=== PATIENT | female | born 1970 | race Hispanic/Latino ===

== ENCOUNTER 2016-10-05 13:45 | Emergency (ER) | payer OTHER ==
[~2016-10-05] VITALS: Ht 152.4 cm; Wt 63.5 kg
[~2016-10-05 13:45] MED LIST: ACHYD1T PO; ALPR.25T PO; ALPR.5T PO; ALPR2TAB2 PO; ALPR2TAB6 PO; CIPR500T4 PO; CPR500T; CYCL10TA9 PO; CYCL5TAB PO; DCS100C PO; DIAZ10TA3 PO; DZPM2T PO; FERR325C PO; FLUO20CA25 PO; FLUT16SP22; GLIM2TAB PO; HYDR-2890 PO; HYDR-3714 PO; HYDR-3720 PO; HYDR-3816 PO; HYDR-3820 PO; IBP800T PO; INSU100I10 SC; INSU100I10 SQ; INSULIN; LOSA25TA21 PO; METF500T4 PO; METFOR850T PO; METR500T PO; MTF500T PO; NORG1TAB15 PO; ONDA8TAB13 PO; ONDAN4ODT PO; PHEN200T27 PO; PREN1TAB39 PO; PROMETHAZINE-CODEINE PO; PROP1TAB77 PO; PROP20TA5 PO; RANI150T66; RT-ALBUINH INH; SITA100T12 PO; TRM50T PO; [UNRECOGNIZED DRUG - REMARK]
--- OUTSIDE RECORDS SUMMARY | 2016-10-05 13:57 | XMS REPORT | Continuity of Care Document ---
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 Name Role Phone ANN MARIE CADE MD PCP Insurance Providers Payer Name Policy Number Subscriber Name Relationship [facility] [id number] Nadira Sutherland 18 Self / Same As Patient Self Pay Pending [facility] Apprv [id number] Nadira Sutherland 18 Self / Same As Patient Advance Directives Directive Response Recorded Date/Time Advance Directives No 02/05/16 3:42am Health Care Power of Precision Honer No 02/05/16 3:42am Organ Donor No 02/05/16 3:42am Resuscitation Status Full Code 02/05/16 3:42am Chief Complaint and Reason for Visit Chief Complaint CHEST PAIN; HTN Reason for Visit Nephrolithiasis Syncopal episodes Uncontrolled diabetes mellitus Uncontrolled diabetes mellitus Upper respiratory infection Problems Active Problems Medical Problem Onset Date Status Abdominal pain Unknown Acute Altered mental status Unknown Acute Anxiety Unknown Acute Chest pain Unknown Acute Chest wall contusion Unknown Acute Diabetes mellitus Unknown Acute Diabetes mellitus Unknown Acute HTN (hypertension) Unknown Acute Hypotension Unknown Acute IDDM (insulin dependent diabetes mellitus) Unknown Acute Nephrolithiasis Unknown Acute Ovarian cyst Unknown Acute Recurrent acute pancreatitis Unknown Acute Sprain of knee Unknown Acute Syncopal episodes Unknown Acute Uncontrolled diabetes mellitus Unknown Acute Uncontrolled diabetes mellitus Unknown Acute Upper respiratory infection Unknown Acute Medications Current Home Medications Medication Dose Units Route Directions Days/Qty Instructions Start Date Losartan Potassium 25 Mg 25 Mg Oral Daily 12/01/15 Metformin Hcl 500 Mg 500 Mg Oral Twice A Day 12/01/15 Fluoxetine Hcl 20 Mg 20 Mg Oral Daily 12/01/15 Propranolol Hcl 20 Mg 20 Mg Oral Twice A Day 12/01/15 Sitagliptin Phosphate 100 Mg 100 Mg Oral Daily 12/01/15 Norgestimate-Ethinyl Estradiol 1 Each 1 Tab Oral Daily 12/01/15 Insulin Glargine,Hum.rec.anlog 100 Unit/1 Ml 20 Units Subcutaneously Bedtime 12/01/15 Alprazolam 2 Mg 1-2 Mg Oral Every 4-6 Hours as needed for Anxiety TAKES 1/2 TO 1 (2MG) TABLET 12/01/15 Alprazolam 2 Mg 2 Mg Oral Bedtime 02/06/16 Past Home Medications Medication Directions Ordered Status Ranitidine Hcl 150 Mg Tablet, 09/13/09 Discontinued Ciprofloxacin 500 Mg Tablet, 09/13/09 Discontinued [Green Pill] , 05/16/10 Discontinued Diazepam 10 Mg Tablet, 1 Each Oral Daily 05/17/10 Discontinued Glimepiride 2 Mg Tablet, 2 Mg Oral Daily 05/17/10 Discontinued Metformin Hcl (Glucophage) 850 Mg Tablet, 1 Each Oral Twice A Day 05/17/10 Discontinued Propoxyphene Hcl/Acetaminophen 1 Tab Tablet, 1 Each Oral Q 4 - 6 Hrs Prn 09/25 Discontinued Vits W-Ca,Fe,Fa(<1MG) 1 Each Tablet, 1 Tab Oral Daily 09/20/10 Discontinued [Insulin] , 10/30/10 Discontinued Metformin Hcl (Glucophage) 500 Mg Tablet, 1 Each Oral Twice A Day With Meals 12/03/10 Discontinued Hydrocodone Bit/Acetaminophen 1 Each Tablet, 1 Each Oral Every 3 Hours as needed 01/31/11 Discontinued Ferrous Sulfate 325 ( 65 )Mg Capsule.sa, 325 ( Oral Once A Day 01/31/11 Discontinued Docusate Sodium 100 Mg Capsule, 100 Mg Oral Twice A Day 01/31/11 Discontinued Ibuprofen 800 Mg Tab, 800 Mg Oral Every 6 Hours as needed 01/31/11 Discontinued Diazepam 2 Mg Tablet, 2 Mg Oral Bedtime 10/06/11 Discontinued Alprazolam 0.25 Mg Tablet, 1 Tab Oral Three Times A Day And Prn 12/28/11 Discontinued [Insulin] , 01/03/12 Discontinued Acetaminophen/Hydrocodone Bitart 1 Tab Tablet, 1 - 2 Tab Oral Q 3 Hrs as needed 01/04/12 Discontinued Alprazolam 0.5 Mg Tablet, 1 Tab Oral Three Times A Day And Prn 02/04/12 Discontinued Alprazolam 0.25 Mg Tablet, 1 Tab Oral Three Times A Day And Prn 08/17/12 Discontinued Acetaminophen/Hydrocodone Bitart ([place]) 1 Each Tablet, 1 Each Oral Q4hr Prn 11/03/12 Discontinued Metformin Hcl (Glucophage) 500 Mg Tablet, 500 Mg Oral Twice A Day With Meals 04/16/14 Discontinued Ciprofloxacin 500 Mg Tab, 1 Tab Oral Twice A Day 07/12/14 Discontinued Cyclobenzaprine Hcl 5 Mg Tablet, 1 Tab Oral Daily 07/12/14 Discontinued [Promethazine-Codeine] , 1 Ea Oral As Needed 07/12/14 Discontinued Ciprofloxacin Hcl 500 Mg Tablet, 500 Mg Oral Twice A Day 08/09/14 Discontinued Phenazopyridine Hcl 200 Mg Tablet, 1 Each Oral Three Times A Day And Prn as needed for Pain 08/09/14 Discontinued Ondansetron 8 Mg Tab.rapdis, 8 Mg Oral Every 6 Hours as needed for Nausea/ Vomiting 08/09/14 Discontinued Hydrocodone Bit/Acetaminophen 1 Tab Tablet, 1 Tab Oral Every 4HRS as needed for Pain 08/09/14 Discontinued Insulin Glargine 300 Unit/3 Ml Insuln.pen, 20 Units Sub-Q Bedtime as needed for Blood Sugar > 200 10/28/14 Discontinued Metronidazole 500 Mg Tablet, 500 Mg Oral Three Times A Day 10/30/14 Discontinued Hydrocodone/Acetaminophen 1 Each Tablet, 1 Tab Oral Every 4HRS as needed for Pain 12/01/15 Discontinued Fluticasone Propionate 16 Gm [place].susp, 12/01/15 Discontinued Hydrocodone/Acetaminophen 1 Each Tablet, 1 Each Oral Every 6 Hours 12/01/15 Discontinued Hydrocodone/Acetaminophen 1 Each Tablet, 1 Each Oral Every 6 Hours as needed for Pain 12/01/15 Discontinued Albuterol Sulfate 18 Gm Hfa.aer.ad, 2 Puff Inhalation Four Times Daily as needed for Shortness Of Breath 02/06/16 Discontinued Social History Social History Problem Response Recorded Date/Time Alcohol Use Denies Use 02/05/2016 3:38am Recreational Drug Use No 02/05/2016 3:38am Recent Foreign Travel No 02/05/2016 3:38am Recent Infectious Disease Exposure No 02/05/2016 3:38am Hospitalization with Isolation Denies 02/28/2016 2:34pm Smoking Status Never a Smoker 02/05/2016 3:38am Do you dip or chew tobacco? No 02/04/2016 11:43pm Query Response Start Date Stop Date Smoking Status Never a Smoker Hospital Discharge Instructions Patient Instructions Physician Instructions Plan of Care/Instructions/FU: Do not eat or drink until seen by Dr. junior [place]. Nurses here will give him instructions as to where you are to present at [facility] Activity as Tolerated: Yes Goal: Specialty evaluation of persistent pancreatitis problem Discharge Diet: Other Diet Care Plan Patient Instructions:: Do not eat or drink until seen by Dr. junior [place].Nurses here will give him instructions as to where you are to present [facility] Goal:: Specialty evaluation of persistent pancreatitis problem Plan of Care Discharge Date 02/08/16 10:00am Disposition 02 XFER SHT-TRM HOSP Instructions/Education Provided Pancreatitis (DC) Prescriptions See Medication Section Care Plan and Goals See Discharge Instructions Section Functional Status Query Response Date Recorded Patient Orientation Person Place Time Situation February 28, 2016 2:34pm Comprehension Ability Understands Concepts February 06, 2016 8:10pm Allergies, Adverse Reactions, Alerts Allergen Type Severity Reaction Status Last Updated ceftriaxone ([id number]) Allergy Unknown Active 12/01/15 Immunizations Name Given Type Date of Influenza Vaccine 07/17/14 Historical Hepatitis A No Historical Hepatitis B No Historical Tetanus Booster (TDap) Unknown Historical Vital Signs Acute Vital Signs Vital Response Date/Time Temperature (Fahrenheit) 97.6 degrees F (97.6 - 99.5) 02/08/2016 2:05pm Temperature (Calculated Celsius) 36.38297 degrees C (36.4 - 37.5) 02/08/2016 2:00pm Temperature Source Temporal 02/08/2016 2:05pm Pulse Rate (adult) 83 bpm (60 - 90) 02/08/2016 2:05pm Respiratory Rate 16 bpm (12 - 24) 02/08/2016 2:05pm O2 Sat by Pulse Oximetry 97 % (88 - 100) 02/08/2016 2:05pm Blood Pressure 124/58 mm Hg 02/08/2016 2:05pm Blood Pressure Mean 90 mm Hg 02/08/2016 2:00pm Pain Pain Intensity 6 02/08/2016 2:00pm Height (Feet) 5 feet 02/05/2016 5:24am Height (Inches) 3.00 inches 02/05/2016 5:24am Height (Calculated Centimeters) 160.926809 cm 02/05/2016 5:24am Weight (Pounds) 122 pounds 02/08/2016 6:00am Weight (Ounces) 0.0 oz 02/08/2016 6:00am Weight (Calculated Grams) 45380.270 gm 02/08/2016 6:00am Weight (Calculated Kilograms) 55.100812 kilograms 02/08/2016 6:00am Calculated BMI 20.8 02/05/2016 5:24am Results Laboratory Results Test Name Result Units Flags Reference Collection Date/Time Result Date/ Time Comments White Blood Count 8.7 10^3/uL 4.3-11.0 02/07/2016 8:08am 02/07/2016 8: 15am Red Blood Count 4.10 10^6/uL L 4.35-5.85 02/07/2016 8:08am 02/07/2016 8: 15am Hemoglobin 12.1 G/DL 11.5-16.0 02/07/2016 8:08am 02/07/2016 8:15am Hematocrit 37 % 35-52 02/07/2016 8:08am 02/07/2016 8:15am Mean Corpuscular Volume 91 FL 80-99 02/07/2016 8:08am 02/07/2016 8: 15am Mean Corpuscular Hemoglobin 30 PG 25-34 02/07/2016 8:08am 02/07/2016 8: 15am Mean Corpuscular Hemoglobin Concent 32 G/DL 32-36 02/07/2016 8:08am 8:15am Red Cell Distribution Width 12.2 % 10.0-14.5 02/07/2016 8:08am 2015 8:15am Platelet Count 326 10^3/uL 130-400 02/07/2016 8:08am 02/07/2016 8:15am Mean Platelet Volume 10.1 FL 7.4-10.4 02/07/2016 8:08am 02/07/2016 8: 15am Neutrophils (%) (Auto) 79 % H 42-75 02/06/2016 7:51am 02/06/2016 8:05am Lymphocytes (%) (Auto) 14 % 12-44 02/06/2016 7:51am 02/06/2016 8:05am Monocytes (%) (Auto) 7 % 0-12 02/06/2016 7:51am 02/06/2016 8:05am Eosinophils (%) (Auto) 0 % 0-10 02/06/2016 7:51am 02/06/2016 8:05am Basophils (%) (Auto) 0 % 0-10 02/06/2016 7:51am 02/06/2016 8:05am Neutrophils # (Auto) 7.3 X 10^3 1.8-7.8 02/06/2016 7:51am 02/06/2016 8: 05am Lymphocytes # (Auto) 1.3 X 10^3 1.0-4.0 02/06/2016 7:51am 02/06/2016 8: 05am Monocytes # (Auto) 0.6 X 10^3 0.0-1.0 02/06/2016 7:51am 02/06/2016 8: 05am Eosinophils # (Auto) 0.0 10^3/uL 0.0-0.3 02/06/2016 7:51am 02/06/2016 8 :05am Basophils # (Auto) 0.0 10^3/uL 0.0-0.1 02/06/2016 7:51am 02/06/2016 8: 05am Neutrophils % (Manual) 78 % 02/04/2016 11:55pm 02/05/2016 12:37am Band Neutrophils 1 % 02/04/2016 11:55pm 02/05/2016 12:37am Lymphocytes % (Manual) 17 % 02/04/2016 11:55pm 02/05/2016 12:37am Monocytes % (Manual) 2 % 02/04/2016 11:55pm 02/05/2016 12:37am Eosinophils % (Manual) 2 % 02/04/2016 11:55pm 02/05/2016 12:37am Basophils % (Manual) 0 % 02/04/2016 11:55pm 02/05/2016 12:37am Anisocytosis SLIGHT 02/04/2016 11:55pm 02/05/2016 12:37am Prothrombin Time 11.9 SEC L 12.2-14.7 02/04/2016 11:55pm 02/05/2016 12: 25am INR Comment 0.9 0.8-1.4 02/04/2016 11:55pm 02/05/2016 12:25am INTERPRETIVE DATA SUGGESTED THERAPEUTIC RANGE FOR INR'S: VENOUS THROMBOSIS, PULMONARY EMBOLISM, OR PREVENTION OF SYSTEMIC EMBOLISM (EG. IN ATRIAL FIBRILLATION): 2.0 - 3.0 MECHANICAL PROSTHETIC HEART VALVES: 2.5 - 3.5* *NOTE: INR'S UP TO 4.5 MAY BE NECESSARY IN SELECTED GROUPS OF HIGH RISK PATIENTS. [employer] CONSENSUS CONFERENCE ON ANTITHROMBOTIC THERAPY (2000). Activated Partial Thromboplast Time 23 SEC L 24-35 02/04/2016 11:55pm 12:25am Sodium Level 138 MMOL/L 135-145 02/07/2016 8:08am 02/07/2016 8:41am Potassium Level 4.2 MMOL/L 3.6-5.0 02/07/2016 8:08am 02/07/2016 8:41am Chloride Level 107 MMOL/L 98-107 02/07/2016 8:08am 02/07/2016 8:41am Carbon Dioxide Level 21 MMOL/L 21-32 02/07/2016 8:08am 02/07/2016 8: 41am Anion Gap 10 MMOL/L 5-14 02/07/2016 8:08am 02/07/2016 8:41am Blood Urea Nitrogen 5 MG/DL L 7-18 02/07/2016 8:08am 02/07/2016 8:41am Creatinine 0.50 MG/DL L 0.60-1.30 02/07/2016 8:08am 02/07/2016 8:41am BUN/Creatinine Ratio 10 02/07/2016 8:08am 02/07/2016 8:41am Estimat Glomerular Filtration Rate > 60 02/07/2016 8:08am 2015 8:41am GFR INTERPRETIVE DATA UNITS FOR ESTIMATED GFR (eGFR): mL/min/1.73 M2 REFERENCE RANGE FOR ESTIMATED GFR (eGFR) eGFR NORMAL eGFR >60 MODERATELY DECREASED eGFR 30-59 SEVERLY DECREASED eGFR 15-29 KIDNEY FAILURE <15 (OR DIALYSIS) Glucose Level 198 MG/DL H 70-105 02/07/2016 8:08am 02/07/2016 8:41am Glucometer 290 MG/DL H 70-110 02/07/2016 9:16pm 02/07/2016 9:22pm Calcium Level 8.6 MG/DL 8.5-10.1 02/07/2016 8:08am 02/07/2016 8:41am Magnesium Level 2.2 MG/DL 1.8-2.4 02/04/2016 11:55pm 02/05/2016 12: 32am Total Bilirubin 0.3 MG/DL 0.1-1.0 02/07/2016 8:08am 02/07/2016 8:41am Alkaline Phosphatase 64 U/L 40-136 02/07/2016 8:08am 02/07/2016 8:41am Aspartate Amino Transf (AST/SGOT) 11 U/L 5-34 02/07/2016 8:08am 2015 8:41am Alanine Aminotransferase (ALT/SGPT) 22 U/L 0-55 02/07/2016 8:08am 02/06 8:41am Total Creatine Kinase 16 U/L L 29-168 02/05/2016 4:40am 02/05/2016 6: 09am Creatine Kinase MB 1.1 NG/ML <6.6 02/04/2016 11:55pm 02/05/2016 12: 35am Troponin I < 0.30 NG/ML <0.30 02/05/2016 4:40am 02/05/2016 6:19am B-Type Natriuretic Peptide < 10.0 PG/ML <100.0 02/04/2016 11:55pm 02/04 12:35am Total Protein 5.5 G/DL L 6.4-8.2 02/07/2016 8:08am 02/07/2016 8:41am Albumin 3.6 G/DL 3.2-4.5 02/07/2016 8:08am 02/07/2016 8:41am Amylase Level 343 U/L H 25-125 02/07/2016 8:08am 02/07/2016 8:41am Lipase 649 U/L H 8-78 02/08/2016 9:11am 02/08/2016 9:36am Acetaminophen Screen NEGATIVE NEGATIVE 02/04/2016 12:44am 02/05/2016 1:07am APAP=ACETAMINOPHEN/PARACETAMOL Procedures Procedure Status Date Provider(s) Tracing only of electrocardiogram Completed 02/04/16 CESAR SIDDIQUI DO Tracing only of electrocardiogram Completed 02/05/16 MEGHA MALONE MD Tracing only of electrocardiogram Completed 02/06/16 MEGHA MALONE MD Tracing only of electrocardiogram Completed 02/07/16 MEGHA MALONE MD Tracing only of electrocardiogram Completed 02/08/16 MEGHA MALONE MD Encounters Encounter Location Arrival/Admit Date Discharge/Depart Date Attending Provider Discharged Inpatient (obs) [facility] 02/04/16 11:41pm 02/08/16 10:00am ANN MARIE CADE MD Recent Diagnosis Nephrolithiasis Syncopal episodes Uncontrolled diabetes mellitus Uncontrolled diabetes mellitus Upper respiratory infection
[2016-10-05] MEDS ORDERED: CELE100C PO (14:25)
--- NOTE | 2016-10-05 15:04 | ED General ---
General Chief Complaint: Head/Cervical Problems Stated Complaint: BACK/NECK/HEAD PAIN Nursing Triage Note: pt c/o severe lower head, neck et upper back pain starting 3 days ago. denies fever, c/o sweats. no injury Nursing Sepsis Screen: No Definite Risk Source of Information: Patient Exam Limitations: No Limitations History of Present Illness Time Seen by Provider: 15:03 Initial Comments 46 yo female patient presents to the ED with c/o muscle pain and tightness of the neck and upper back. Pain radiates up the neck to the posterior scalp. Patient does complain of posterior headache. Patient denies any known injury. Patient reports movement of the neck causes the muscles to spasm. Patient reports awoke with the pain 3-4 days ago. Worse with movement and palpation. Timing/Duration: 3-4 Days, Getting Worse Modifying Factors: worse with Movement Allergies and Home Medications Allergies Coded Allergies: ceftriaxone (Unverified Allergy, Unknown, 12/01/15) Home Medications Celecoxib 100 Mg Capsule #30 100 MG PO DAILY (Reported) Cyclobenzaprine HCl 10 Mg Tablet #14 10 MG PO Q8H PRN PRN SPASMS Prescribed by: ROCHELLE BONILLA on 10/05/16 1557 Fluoxetine HCl 20 Mg Capsule 20 MG PO DAILY (Reported) Hydrocodone/Acetaminophen 1 Each Tablet #20 1 EACH PO Q4H PRN PRN PAIN Prescribed by: ROCHELLE BONILLA on 10/05/16 1654 Insulin Glargine,Hum.rec.anlog 100 Unit/1 Ml Insuln.pen 20 UNITS SC HS (Reported ) Losartan Potassium 25 Mg Tablet 25 MG PO DAILY (Reported) Metformin HCl 500 Mg Tablet 500 MG PO BID (Reported) Norgestimate-Ethinyl Estradiol 1 Each Tablet 1 TAB PO DAILY (Reported) Prednisone 20 Mg Tab #10 40 MG PO DAILY Prescribed by: ROCHELLE BONILLA on 10/05/16 1557 Propranolol HCl 20 Mg Tablet 20 MG PO BID (Reported) Sitagliptin Phosphate 100 Mg Tablet 100 MG PO DAILY (Reported) Constitutional: No chills, No dizziness, No fever, No malaise EENTM: no symptoms reported Respiratory: no symptoms reported Cardiovascular: no symptoms reported Gastrointestinal: no symptoms reported Genitourinary: no symptoms reported Musculoskeletal: see HPI back pain muscle pain muscle stiffness neck pain other (muscle spasms with movement.) Skin: no symptoms reported Psychiatric/Neurological: HeadacheDenies Numbness, Denies Paresthesia, Denies Seizure, Denies Tingling, Denies Weakness All Other Systems Reviewed Negative Unless Noted: Yes (Negative excepted noted.) Past Qrnzpxd-Wjifft-Tcoxat Hx Patient Social History Alcohol Use: Denies Use Recreational Drug Use: No Smoking Status: Never a Smoker Recent Foreign Travel: No Contact w/Someone Who Travel: No Recent Infectious Disease Expo: No Recent Hopitalizations: No Physical Abuse Screen: No Sexual Abuse: No Immunizations Up To Date Tetanus Booster (TDap): Unknown PED Vaccines UTD: No Date of Influenza Vaccine: Jul 17, 2016 Seasonal Allergies Seasonal Allergies: No Surgeries HX Surgeries: Yes (; KIDNEY STONE REMOVAL; RIGHT KNEE SURGERY) Surgeries: Appendectomy, Section, Orthopedic, Renal Respiratory Hx Respiratory Disorders: No Cardiovascular Hx Cardiac Disorders: Yes (FREQUENT C/O CHEST PAIN--WORK-UPS' NEGATIVE) Cardiac Disorders: Hypertension Neurological Hx Neurological Disorders: Yes Neurological Disorders: Headaches /Migraines 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 System Hx 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 Disorders: No Genitourinary Hx Genitourinary Disorders: Yes Genitourinary Disorders: Kidney Stones, UTI-Chronic Gastrointestinal Hx Gastrointestinal Disorders: Yes Gastrointestinal Disorders: Pancreatitis Musculoskeletal Hx Musculoskeletal Disorders: No Endocrine Hx Endocrine Disorders: Yes Endocrine Disorders: Diabetes, Insulin dep HEENT HX ENT Disorders: No Cancer Hx Cancer: No Psychosocial Hx Psychiatric Problems: Yes Behavioral Health Disorders: Anxiety, Depression Integumentary HX Skin/Integumentary Disorder: No Blood Transfusions Hx Blood Disorders: No Reviewed Nursing Assessment Reviewed/Agree w Nursing PMH: Yes Family Medical History Significant Family History: No Pertinent Family Hx Family Medial History: Diabetes mellitus 19 FATHER 19 MOTHER Physical Exam Vital Signs Vital Sign - Last 12Hours 10/05/16 10/05/16 14:20 17:09 Temp 97.7 Pulse 71 Resp 18 B/P 123/62 Pulse Ox 100 O2 Delivery Room Air Capillary Refill : Less Than 3 Seconds General Appearance: No Apparent Distress WD/WN HEENT: PERRL/EOMI TMs Normal Normal ENT Inspection Pharynx Normal Other Neck: Supple Limited Range of Motion (rotating right to left and hyperextending the neck increases pain and muscle spasm.) Tender Lateral Other ( (+) posterior neck muscle spasm and tenderness.) Respiratory: Lungs Clear Normal Breath Sounds No Respiratory Distress Cardiovascular: Regular Rate, Rhythm No Murmur Normal Peripheral Pulses Back: Normal Inspection No Vertebral Tenderness Muscle Spasm (bilateral upper back muscle spasm and tenderness. greatest tenderness over the rhomboids.) Extremity: Normal Capillary Refill Normal Inspection Non Tender Neurologic/Psychiatric: Alert Oriented x3 No Motor/Sensory Deficits Normal Mood/Affect pull out operator II-XII Norm as Tested Skin: Normal Color Warm/Dry Progress/Results/Core Measures Results/Orders My Orders Orders-ROCHELLE BONILLA Ketorolac Injection (Toradol Injection) (10/05/16 15:17) Orphenadrine Injection (Norflex Injectio (10/05/16 15:17) Acetaminophen Tablet (Tylenol Tablet) (10/05/16 16:10) Hydrocodone/Apap 7.5/325 Tab (Lortab 7. (10/05/16 16:25) Vital Signs/I&O Vital Sign - Last 12Hours 10/05/16 10/05/16 14:20 17:09 Temp 97.7 Pulse 71 63 Resp 18 18 B/P 123/62 Pulse Ox 100 O2 Delivery Room Air Blood Pressure Mean: 82 Departure Communication Progress Notes Patient reports headache is now a 4/10 after Toradol and Norflex. We will give hydrocodone x1 dose. Patient's is now present in the room. reports patient has had similar symptoms previously. States patient would go to Dr. Villanueva and received a a muscle relaxant, steroids, and pain medication. states patient went to see Dr. Lopez, but was not given any medications. Will [facility] patient to home with prednisone, flexeril, and hydrocodone. Patient states she is ready to be [facility] to home. Impression Impression: Primary Impression: Tension type headache Qualified Code: G44.209 - Tension-type headache, unspecified, not intractable Additional Impressions: Strain of neck muscle Qualified Code: S16.1XXA - Strain of muscle, fascia and tendon at neck level, initial encounter Rhomboid muscle strain Qualified Code: S29.012A - Strain of muscle and tendon of back wall of thorax , initial encounter Disposition: HOME, SELF-CARE Condition: Improved Departure-Patient Inst. Decision time for Depature: 15:53 Referrals: CHUCK LOPEZ MD (PCP/Family) Primary Care Physician Patient Instructions: Cervical Muscle Strain (DC), Neck Stretches, Tension Headache (DC), Upper Back Pain (DC) Add. Discharge Instructions: All discharge instructions reviewed with patient and/or family. Voiced understanding. Medications as instructed. Tylenol extra strength over-the- counter as directed for pain. Ibuprofen 800 mg by mouth every 8 hours as needed for pain. No heavy lifting, pushing, or pulling for 5-7 days. Increase activity as tolerated. Follow-up with your family practitioner if no improvement in symptoms in 7-10 days. Call for appointment time if needed. Return to the emergency department for worsened pain, numbness, weakness, headache, dizziness, changes in vision, slurred speech, bowel incontinence, bladder incontinence, or any other concerns. Scripts Hydrocodone/Acetaminophen (Hydrocodon -Acetaminophen 5-325)1 Each Tablet1 Each PO Q4H PRN PAIN #20 TAB Ref 0 Prov:ROCHELLE BONILLA 10/05/16 Prednisone 20 Mg Tab40 Mg PO DAILY #10 TAB Ref 0 Prov:ROCHELLE BONILLA 10/05/16 Cyclobenzaprine HCl 10 Mg Hteard21 Mg PO Q8H PRN SPASMS #14 TAB Ref 0 Prov:ROCHELLE BONILLA 10/05/16 ROCHELLE BONILLA Oct 05, 2016 15:04
[2016-10-05] MEDS ORDERED: ORPHENADRINE 60 MG/2 ML (NORFLEX) AMP IM STA (15:17)
[2016-10-05] MEDS ORDERED: KETOROLAC 60 MG/2 ML VIAL IM STA (15:17)
[2016-10-05] MEDS ORDERED: CYCL10TA9 PO (15:57)
[2016-10-05] MEDS ORDERED: PRD20T PO (15:57)
[2016-10-05] MEDS ORDERED: TRAM50TA2 PO (15:57)
[2016-10-05] MEDS ORDERED: ACETAMINOPHEN 500 MG TAB (TYLENOL) PO STA (16:10)
[2016-10-05] MEDS ORDERED: HYDROcodone/APAP 7.5 MG/325 MG (LORTAB, LORCET PLUS) TABLET PO STA (16:25)
[2016-10-05] MEDS ORDERED: HYDR-3812 PO (16:54)
[2016-10-05 17:09] VITALS: BP 113/53
== END 2016-10-05 17:09 | disposition home or self-care (01) ==
LOC: EDUNIT# 13:45 → ER 13:53
DX: G44.209 Tension-type headache, unspecified, not intractable (principal); S16.1XXA Strain of muscle, fascia and tendon at neck level, initial encounter; S29.012A Strain of muscle and tendon of back wall of thorax, initial encounter; I10 Essential (primary) hypertension; E11.9 Type 2 diabetes mellitus without complications; Z79.4 Long term (current) use of insulin; Z79.84 Long term (current) use of oral hypoglycemic drugs; Z79.899 Other long term (current) drug therapy; X58.XXXA Exposure to other specified factors, initial encounter; Y92.009 Unspecified place in unspecified non-institutional (private) residence as the place of occurrence of the external cause; Y99.8 Other external cause status
CPT/HCPCS: 96372; 99283

== ENCOUNTER 2016-12-20 10:44 | Outpatient (RCR) | payer OTHER ==
--- OUTSIDE RECORDS SUMMARY | 2016-10-31 08:29 | XMS REPORT | Continuity of Care Document ---
Author Author [facility] Organization [facility] Address Unknown Phone Unavailable Care Team Providers Care [place] Operator Name Role Phone ANN MARIE CADE MD PCP Insurance Providers Payer Name Policy Number Subscriber Name Relationship [facility] [id number] Nadira Sutherland 18 Self / Same As Patient Self Pay Pending [facility] Apprv [id number] Nadira Sutherland 18 Self / Same As Patient Advance Directives Directive Response Recorded Date/Time Advance Directives No 02/05/16 3:42am Health Care Power of Commercial Appraiser No 02/05/16 3:42am Organ Donor No 02/05/16 [...] Day And Prn 08/17/12 Discontinued Acetaminophen/Hydrocodone Bitart ([place]) 1 Each Tablet, 1 Each Oral Q4hr [...] Pain 12/01/15 Discontinued Fluticasone Propionate 16 Gm [place].susp, 12/01/15 Discontinued Hydrocodone/Acetaminophen 1 Each Tablet, 1 [...] or drink until seen by Dr. junior [place]. Nurses here will give him instructions as to where you are to present at [facility] Activity as Tolerated: Yes Goal: Specialty evaluation of persistent pancreatitis problem Discharge Diet: Other Diet Care Plan Patient Instructions:: Do not eat or drink until seen by Dr. junior [place].Nurses here will give him instructions as to where you are to present [facility] Goal:: Specialty evaluation of persistent pancreatitis problem [...] Type Severity Reaction Status Last Updated ceftriaxone ([id number]) Allergy Unknown Active 12/01/15 Immunizations Name Given Type Date of Influenza Vaccine 07/17/14 Historical Hepatitis A No Historical Hepatitis B No Historical Tetanus Booster (TDap) Unknown Historical Vital Signs Acute Vital Signs Vital Response Date/Time Temperature (Fahrenheit) 97.6 degrees F (97.6 - 99.5) 02/08/2016 2:05pm Temperature (Calculated Celsius) 36.30869 degrees C (36.4 - 37.5) 02/08/2016 2:00pm [...] 3.00 inches 02/05/2016 5:24am Height (Calculated Centimeters) 160.438059 cm 02/05/2016 5:24am Weight (Pounds) 122 pounds 02/08/2016 6:00am Weight (Ounces) 0.0 oz 02/08/2016 6:00am Weight (Calculated Grams) 73930.270 gm 02/08/2016 6:00am Weight (Calculated Kilograms) 55.059041 kilograms 02/08/2016 6:00am Calculated BMI 20.8 02/05/2016 [...] SELECTED GROUPS OF HIGH RISK PATIENTS. [employer] CONSENSUS CONFERENCE ON [...] Date Attending Provider Discharged Inpatient (obs) [facility] 02/04/16 11:41pm 02/08/16 10:00am ANN MARIE CADE MD Recent Diagnosis Nephrolithiasis Syncopal episodes Uncontrolled diabetes mellitus Uncontrolled diabetes mellitus Upper respiratory infection
[~2016-12-20 10:44] MED LIST changes: +CELE100C PO; +HYDR-3812 PO; +PRD20T PO; +TRAM50TA2 PO
[2016-12-21] MEDS ORDERED: CYCL5TAB PO (16:56)
== END 2017-01-08 10:42 | disposition home or self-care (01) ==
PROVIDERS: ATTEND Nurse Practitioner Family
DX: M50.30 Other cervical disc degeneration, unspecified cervical region (principal)

== ENCOUNTER 2016-12-21 16:17 | Emergency (ER) | payer OTHER ==
[~2016-12-21] VITALS: Ht 154.9 cm; Wt 63.5 kg
[2016-12-21] MEDS ORDERED: KETOROLAC 60 MG/2 ML VIAL IM ONE (16:30)
[2016-12-21] MEDS ORDERED: ORPHENADRINE 60 MG/2 ML (NORFLEX) AMP IM ONE (16:30)
--- NOTE | 2016-12-21 16:36 | ED Neck-Back Pain/Injury ---
General Chief Complaint: Head/Cervical Problems Stated Complaint: HEAD NECK PAIN Nursing Triage Note: AMB TO ROOM C/O NECK PAIN NO INJURY Nursing Sepsis Screen: No Definite Risk Source of Information: Patient Exam Limitations: No Limitations History of Present Illness Time Seen by Provider: 16:35 Initial Comments To ER with c/o right sided neck pain worse with movement and turning her head to the side for the past 3 days. awakened one morning with this. She states that she has had chills but she did not measure any fever. She has otherwise felt well. Denies any injury. Location: C-Spine Timing/Duration: 1-2 Days Severity: Moderate Allergies and Home Medications Allergies Coded Allergies: ceftriaxone (Unverified Allergy, Unknown, 12/01/15) Home Medications Celecoxib 100 Mg Capsule, 100 MG PO DAILY, #30 (Reported) Cyclobenzaprine HCl 10 Mg Tablet, 10 MG PO Q8H PRN for SPASMS, #14 Ref 0 Prescribed by: ROCHELLE BONILLA on 10/05/16 1557 Fluoxetine HCl 20 Mg Capsule, 20 MG PO DAILY, (Reported) Hydrocodone/Acetaminophen 1 Each Tablet, 1 EACH PO Q4H PRN for PAIN, #20 Ref 0 Prescribed by: ROCHELLE BONILLA on 10/05/16 1654 Insulin Glargine,Hum.rec.anlog 100 Unit/1 Ml Insuln.pen, 20 UNITS SC HS, ( Reported) Losartan Potassium 25 Mg Tablet, 25 MG PO DAILY, (Reported) Metformin HCl 500 Mg Tablet, 500 MG PO BID, (Reported) Norgestimate-Ethinyl Estradiol 1 Each Tablet, 1 TAB PO DAILY, (Reported) Prednisone 20 Mg Tab, 40 MG PO DAILY, #10 Ref 0 Prescribed by: ROCHELLE BONILLA on 10/05/16 1557 Propranolol HCl 20 Mg Tablet, 20 MG PO BID, (Reported) Sitagliptin Phosphate 100 Mg Tablet, 100 MG PO DAILY, (Reported) Constitutional: see HPI, chills EENTM: see HPI Respiratory: no symptoms reported Cardiovascular: no symptoms reported Genitourinary: no symptoms reported Musculoskeletal: see HPI, neck pain Skin: no symptoms reported Psychiatric/Neurological: No Symptoms Reported Past Rvjeovp-Ghuhsv-Qablaz Hx Patient Social History Recent Foreign Travel: No Contact w/Someone Who Travel: No Recent Infectious Disease Expo: No Recent Hopitalizations: No Immunizations Up To Date Tetanus Booster (TDap): Unknown PED Vaccines UTD: No Date of Influenza Vaccine: Jul 17, 2016 Seasonal Allergies Seasonal Allergies: No Surgeries HX Surgeries: Yes (; KIDNEY STONE REMOVAL; RIGHT KNEE SURGERY) Surgeries: Appendectomy, Section, Orthopedic, Renal Respiratory Hx Respiratory Disorders: No Cardiovascular Hx Cardiac Disorders: Yes (FREQUENT C/O CHEST PAIN--WORK-UPS' NEGATIVE) Cardiac Disorders: Hypertension Neurological Hx Neurological Disorders: Yes Neurological Disorders: Headaches /Migraines 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 System Hx 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 Disorders: No Genitourinary Hx Genitourinary Disorders: Yes Genitourinary Disorders: Kidney Stones, UTI-Chronic Gastrointestinal Hx Gastrointestinal Disorders: Yes Gastrointestinal Disorders: Pancreatitis Musculoskeletal Hx Musculoskeletal Disorders: No Endocrine Hx Endocrine Disorders: Yes Endocrine Disorders: Diabetes, Insulin dep HEENT HX ENT Disorders: No Cancer Hx Cancer: No Psychosocial Hx Psychiatric Problems: Yes Behavioral Health Disorders: Anxiety, Depression Integumentary HX Skin/Integumentary Disorder: No Blood Transfusions Hx Blood Disorders: No Family Medical History Significant Family History: No Pertinent Family Hx Family Medial History: Diabetes mellitus 19 FATHER 19 MOTHER Physical Exam Vital Signs Vital Sign - Last 12Hours 12/21/16 16:20 Temp 98.8 Pulse 66 Resp 18 B/P (MAP) 118/49 Pulse Ox 96 O2 Delivery Room Air Capillary Refill : Less Than 3 Seconds General Appearance: No Apparent Distress, WD/WN HEENT: PERRL/EOMI, TMs Normal Neck: Full Range of Motion, Normal Inspection, Tender Lateral Respiratory: Normal Breath Sounds, No Accessory Muscle Use, No Respiratory Distress Gastrointestinal: Normal Bowel Sounds, Non Tender, Soft Extremity: Normal Capillary Refill, Normal Inspection Neurologic/Psychiatric: Alert, Oriented x3, No Motor/Sensory Deficits Skin: Normal Color, Warm/Dry Progress/Results/Core Measures Results/Orders Lab Results Laboratory Tests Test 12/21/16 16:40 Range/Units White Blood Count 8.1 4.3-11.0 10^3/uL Red Blood Count 4.53 4.35-5.85 10^6/uL Hemoglobin 13.1 11.5-16.0 G/DL Hematocrit 39 35-52 % Mean Corpuscular Volume 86 80-99 FL Mean Corpuscular Hemoglobin 29 25-34 PG Mean Corpuscular Hemoglobin Concent 34 32-36 G/DL Red Cell Distribution Width 13.0 10.0-14.5 % Platelet Count 264 130-400 10^3/uL Mean Platelet Volume 11.0 H 7.4-10.4 FL Neutrophils (%) (Auto) 64 42-75 % Lymphocytes (%) (Auto) 26 12-44 % Monocytes (%) (Auto) 7 0-12 % Eosinophils (%) (Auto) 3 0-10 % Basophils (%) (Auto) 1 0-10 % Neutrophils # (Auto) 5.2 1.8-7.8 X 10^3 Lymphocytes # (Auto) 2.1 1.0-4.0 X 10^3 Monocytes # (Auto) 0.6 0.0-1.0 X 10^3 Eosinophils # (Auto) 0.2 0.0-0.3 10^3/uL Basophils # (Auto) 0.1 0.0-0.1 10^3/uL My Orders Orders - ANGELINE MARLEY APRN Cbc With Automated Diff (12/21/16 16:30) Ketorolac Injection (Toradol Injection) (12/21/16 16:30) Orphenadrine Injection (Norflex Injectio (12/21/16 16:30) Medications Given in ED Current Medications Medications Dose Ordered Sig/Olivia Route Start Time Stop Time Status Last Admin Dose Admin Ketorolac Tromethamine 60 mg ONCE ONCE IM 12/21/16 16:30 12/21/16 16:32 DC 12/21/16 16:43 60 MG Orphenadrine Citrate 60 mg ONCE ONCE IM 12/21/16 16:30 12/21/16 16:32 DC 12/21/16 16:42 60 MG Vital Signs/I&O Vital Sign - Last 12Hours 12/21/16 16:20 Temp 98.8 Pulse 66 Resp 18 B/P (MAP) 118/49 Pulse Ox 96 O2 Delivery Room Air Blood Pressure Mean: 72 Departure Impression Impression: Primary Impression: Torticollis Disposition: 01 HOME, SELF-CARE Condition: Stable Departure-Patient Inst. Decision time for Depature: 16:55 Referrals: [facility] (PCP/Family) Primary Care Physician Patient Instructions: Torticollis (DC) Add. Discharge Instructions: 1. Return to ER for any concerns 2. Follow-up with your doctor next week 3. All discharge instructions reviewed with patient and/or family. Voiced understanding. Scripts Cyclobenzaprine HCl (Cyclobenzaprine HCl) 5 Mg Tablet 5 MG PO TID, #10 TAB Prov: ANGELINE MARLEY APRN 12/21/16 ANGELINE MARLEY APRN Dec 21, 2016 16:36
[2016-12-21 16:50] LABS: BASOPHILS # (AUTO) 0.1 10^3/uL (0.0-0.1); BASOPHILS % (AUTO) 1 % (0-10); EOSINOPHILS # (AUTO) 0.2 10^3/uL (0.0-0.3); EOSINOPHILS % (AUTO) 3 % (0-10); LYMPHOCYTES # (AUTO) 2.1 X 10^3 (1.0-4.0); LYMPHOCYTES % (AUTO) 26 % (12-44); MEAN CORPUSCULAR HEMOGLOBIN 29 PG (25-34); MEAN CORPUSCULAR HGB CONC 34 G/DL (32-36); MEAN CORPUSCULAR VOLUME 86 FL (80-99); MONOCYTES # (AUTO) 0.6 X 10^3 (0.0-1.0); MONOCYTES % (AUTO) 7 % (0-12); NEUTROPHILS # (AUTO) 5.2 X 10^3 (1.8-7.8); NEUTROPHILS % (AUTO) 64 % (42-75); PLATELET COUNT 264 10^3/uL (130-400); RED BLOOD COUNT 4.53 10^6/uL (4.35-5.85); WHITE BLOOD COUNT 8.1 10^3/uL (4.3-11.0)
[2016-12-21] MEDS ORDERED: CYCL5TAB PO (16:56)
[2016-12-21 17:27] VITALS: BP 118/49
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
== END 2016-12-21 17:19 | disposition home or self-care (01) ==
LOC: EDUNIT# 16:17 → ER 16:19
DX: M43.6 Torticollis (principal); I10 Essential (primary) hypertension; E11.9 Type 2 diabetes mellitus without complications; Z79.4 Long term (current) use of insulin; Z79.84 Long term (current) use of oral hypoglycemic drugs; Z79.899 Other long term (current) drug therapy
CPT/HCPCS: 36415; 85025; 96372; 99282

== ENCOUNTER 2017-04-24 11:37 | Emergency (ER) | payer SELFPAY ==
[~2017-04-24] VITALS: Ht 154.9 cm; Wt 63.5 kg
[2017-04-24] MEDS ORDERED: KETOROLAC 60 MG/2 ML VIAL IM ONE (12:00)
[2017-04-24] MEDS ORDERED: ORPHENADRINE 60 MG/2 ML (NORFLEX) AMP IM ONE (12:00)
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
[2017-04-24 12:50] LABS: BILIRUBIN,URINE NEGATIVE (NEGATIVE); KETONES,URINE NEGATIVE (NEGATIVE); LEUKOCYTE ESTERASE ,URINE NEGATIVE (NEGATIVE); NITRITE,URINE NEGATIVE (NEGATIVE); PH,URINE 5 (5-9); PROTEIN,URINE NEGATIVE (NEGATIVE); UROBILINOGEN,URINE NORMAL (NORMAL)
[2017-04-24 12:55] LABS: BASOPHILS % (AUTO) 1 % (0-10); EOSINOPHILS # (AUTO) 0.2 10^3/uL (0.0-0.3); EOSINOPHILS % (AUTO) 3 % (0-10); LYMPHOCYTES # (AUTO) 1.9 X 10^3 (1.0-4.0); LYMPHOCYTES % (AUTO) 33 % (12-44); MEAN CORPUSCULAR HEMOGLOBIN 29 PG (25-34); MEAN CORPUSCULAR HGB CONC 33 G/DL (32-36); MEAN CORPUSCULAR VOLUME 86 FL (80-99); MEAN PLATELET VOLUME 10.8 FL (7.4-10.4); MONOCYTES # (AUTO) 0.4 X 10^3 (0.0-1.0); MONOCYTES % (AUTO) 7 % (0-12); NEUTROPHILS # (AUTO) 3.4 X 10^3 (1.8-7.8); NEUTROPHILS % (AUTO) 57 % (42-75); PLATELET COUNT 197 10^3/uL (130-400); RED BLOOD COUNT 4.17 10^6/uL (4.35-5.85); RED CELL DISTRIBUTION WIDTH 13.2 % (10.0-14.5); WHITE BLOOD COUNT 5.9 10^3/uL (4.3-11.0)
[2017-04-24 13:17] LABS: ALANINE AMINOTRANSFERASE 53 U/L (0-55); ALBUMIN 3.7 GM/DL (3.2-4.5); ANION GAP 8 MMOL/L (5-14); ASPARTATE AMINO TRANSFERASE 53 U/L (5-34); BILIRUBIN,TOTAL 0.4 MG/DL (0.1-1.0); BLOOD UREA NITROGEN 10 MG/DL (7-18); BUN/CREATININE RATIO 15; CALCIUM 8.7 MG/DL (8.5-10.1); CARBON DIOXIDE 23 MMOL/L (21-32); CHLORIDE 106 MMOL/L (98-107); CREATININE SERUM 0.66 MG/DL (0.60-1.30); GFR ESTIMATED > 60; GLUCOSE 300 MG/DL (70-105); POTASSIUM 3.9 MMOL/L (3.6-5.0); SODIUM 137 MMOL/L (135-145); TOTAL PROTEIN 6.1 GM/DL (6.4-8.2)
--- NOTE | 2017-04-24 13:31 | Diagnostic Imaging Report ---
PROCEDURE: CT abdomen and pelvis without contrast. TECHNIQUE: Multiple contiguous axial images were obtained through the abdomen and pelvis without the use of intravenous contrast. INDICATION: Right flank and posterior abdominal pain. COMPARISON: 02/05/2016 FINDINGS: Lung bases are not significantly included on this exam. CT ABDOMEN: Portions of the liver and spleen are also not included. There is significant diffuse decreased attenuation through the included portions of the liver consistent with background of hepatic steatosis. There also appears to be pneumobilia. Surgical clips are noted within the gallbladder fossa. Gallbladder is absent. Included portions of the spleen are unremarkable. No renal or ureter calculi are identified on either side. Additionally, there is no hydroureteronephrosis or other evidence of obstruction. No focal renal mass type lesions are identified on this noncontrast exam. The pancreas and adrenal glands have a normal appearance. Normal appendix is identified. Small bowel loops are nondistended. There is colonic diverticulosis, but no CT evidence of acute diverticulitis. There is no loculated fluid collection, free fluid, nor free air within the abdomen. No abnormal mesenteric or retroperitoneal adenopathy is seen. Bony structures show no acute abnormalities. CT PELVIS: Urinary bladder is unopacified. No calculi are seen within the urinary bladder. There is no loculated fluid collection or free air within the pelvis. There may be trace free fluid. No abnormal lymph nodes are seen. Bony structures show no acute abnormalities. IMPRESSION: 1. Unremarkable noncontrast CT of the kidneys and bilateral renal collecting systems. 2. Hepatic steatosis. 3. Colonic diverticulosis, but no CT evidence of acute diverticulitis. 4. Trace free fluid within the pelvis; likely physiologic. 5. Pneumobilia. This is likely related to previous cholecystectomy and sphincterotomy. Dictated by: Dictated on workstation # [id number]
[2017-04-24] MEDS ORDERED: CYCL5TAB PO (13:36)
[2017-04-24 13:53] VITALS: BP 104/40
== END 2017-04-24 13:44 | disposition home or self-care (01) ==
LOC: EDUNIT# 11:37 → ER 11:40
DX: M54.5 Low back pain (principal); I10 Essential (primary) hypertension; E11.9 Type 2 diabetes mellitus without complications; F41.9 Anxiety disorder, unspecified; F32.9 Major depressive disorder, single episode, unspecified; G43.909 Migraine, unspecified, not intractable, without status migrainosus; Z87.19 Personal history of other diseases of the digestive system; Z79.84 Long term (current) use of oral hypoglycemic drugs; Z79.4 Long term (current) use of insulin; Z87.59 Personal history of other complications of pregnancy, childbirth and the puerperium; Z87.442 Personal history of urinary calculi
CPT/HCPCS: 36415; 74176; 80053; 81000; 84703; 85025; 96372; 99284

== ENCOUNTER → 2017-08-15 | Outpatient (CLI) | payer SELFPAY ==
[2017-08-15 17:54] LABS: BASOPHILS # (AUTO) 0.1 10^3/uL (0.0-0.1); BASOPHILS % (AUTO) 1 % (0-10); EOSINOPHILS # (AUTO) 0.2 10^3/uL (0.0-0.3); EOSINOPHILS % (AUTO) 2 % (0-10); LYMPHOCYTES # (AUTO) 3.2 X 10^3 (1.0-4.0); LYMPHOCYTES % (AUTO) 31 % (12-44); MEAN CORPUSCULAR HEMOGLOBIN 28 PG (25-34); MEAN CORPUSCULAR HGB CONC 34 G/DL (32-36); MEAN CORPUSCULAR VOLUME 83 FL (80-99); MEAN PLATELET VOLUME 10.7 FL (7.4-10.4); MONOCYTES # (AUTO) 0.6 X 10^3 (0.0-1.0); MONOCYTES % (AUTO) 6 % (0-12); NEUTROPHILS # (AUTO) 6.2 X 10^3 (1.8-7.8); NEUTROPHILS % (AUTO) 60 % (42-75); PLATELET COUNT 301 10^3/uL (130-400); RED BLOOD COUNT 4.72 10^6/uL (4.35-5.85); RED CELL DISTRIBUTION WIDTH 13.1 % (10.0-14.5); WHITE BLOOD COUNT 10.3 10^3/uL (4.3-11.0)
[2017-08-15 18:29] LABS: ALANINE AMINOTRANSFERASE 88 U/L (0-55); ALBUMIN 4.5 GM/DL (3.2-4.5); AMYLASE 59 U/L (25-125); ANION GAP 13 MMOL/L (5-14); ASPARTATE AMINO TRANSFERASE 53 U/L (5-34); BILIRUBIN,TOTAL 0.3 MG/DL (0.1-1.0); BLOOD UREA NITROGEN 14 MG/DL (7-18); BUN/CREATININE RATIO 23; CARBON DIOXIDE 23 MMOL/L (21-32); CHLORIDE 104 MMOL/L (98-107); GFR ESTIMATED > 60; GLUCOSE 126 MG/DL (70-105); POTASSIUM 3.8 MMOL/L (3.6-5.0); SODIUM 140 MMOL/L (135-145); TOTAL PROTEIN 7.5 GM/DL (6.4-8.2)
== END ==
LOC: LAB 17:29
PROVIDERS: ATTEND Family Medicine
DX: R10.11 Right upper quadrant pain (principal)
CPT/HCPCS: 36415; 80053; 82150; 85025

== ENCOUNTER → 2017-08-16 | Outpatient (CLI) | payer SELFPAY ==
--- NOTE | 2017-08-16 12:24 | Diagnostic Imaging Report ---
INDICATION: Right upper quadrant abdominal pain. Symptoms x4 days. TECHNIQUE: Multiple grayscale sonographic images were obtained of the right upper quadrant of the abdomen. CORRELATION STUDY: 09/07/2009. FINDINGS: LIVER: Increased echogenicity suggestive of fatty infiltration. There is normal, hepatopedal direction of flow within the main portal vein. Liver enlarged at 22 cm. GALLBLADDER: Not visualized. Echogenic foci likely correspond to cholecystectomy clips as demonstrate on recent CT imaging. COMMON BILE DUCT: Nondilated at 4 to 5 mm. PANCREAS: Largely obscured by overlying bowel gas. RIGHT KIDNEY: Measures 10.7 cm. No hydronephrosis. OTHER: None. IMPRESSION: 1. Gallbladder is known to be surgically absent as demonstrate on recent CT imaging. No bile duct dilatation. 2. Hepatomegaly with hepatic steatosis. Dictated by: Dictated on workstation # [id number]
== END ==
LOC: RAD 09:21
PROVIDERS: ATTEND Family Medicine
DX: K76.0 Fatty (change of) liver, not elsewhere classified (principal); R16.0 Hepatomegaly, not elsewhere classified; Z90.49 Acquired absence of other specified parts of digestive tract
CPT/HCPCS: 76705

== ENCOUNTER 2017-08-17 03:39 | Emergency (ER) | payer SELFPAY ==
[~2017-08-17] VITALS: Ht 154.9 cm; Wt 63.5 kg
[2017-08-17] MEDS ORDERED: NS IV 1000 ML 1,000 ML IV ONE (04:05)
[2017-08-17] MEDS ORDERED: fentaNYL INJECTION 100 MCG/2 ML AMP IVP ONE (04:15)
[2017-08-17] MEDS ORDERED: ONDANSETRON 4 MG/2 ML (SDV) Z0FRAN IVP ONE (04:15)
--- NOTE | 2017-08-17 04:16 | ED Abdominal Pain ---
General Chief Complaint: Abdominal/GI Problems Stated Complaint: ABD PAIN Nursing Triage Note: c/o abdomen pain with hematuria x 4 daays Sepsis Screen: No Definite Risk Source of Information: Patient, Family (son who interprets Ukrainian to [place].) Exam Limitations: Language Barrier (HERNANDEZ HURLEY) History of Present Illness Time Seen By Provider: 04:06 Initial Comments Patient presents to ER by private conveyance with a chief complaint that she is having some right upper quadrant abdominal pain for some time now. She saw and he ordered an ultrasound and some blood work and told her that if her pain got worse she should come to the ER. She was given some pills by the doctor for the pain but she is not sure of what they are. She is having nausea and states she has pain in her right upper quadrant. Old CT scans show she's had a cholecystectomy and the patient admits to history of section. She has not vomited yet. Patient denies any trauma, fever, shortness of breath, cough, diarrhea. She says she has stool earlier yesterday evening and it was hard and formed. Patient says she does not know the results of the ultrasound yet. Patient was also having some blood in her urine. When asked to point where her pain is the worst the patient points towards her left lower quadrant. (HERNANDEZ HURLEY) Allergies and Home Medications Allergies Coded Allergies: ceftriaxone (Unverified Allergy, Unknown, 12/01/15) Home Medications Celecoxib 100 Mg Capsule, 100 MG PO DAILY, #30 (Reported) Ciprofloxacin HCl 500 Mg Tablet, 500 MG PO BID, #14 Prescribed by: ZULY KARIMI on 08/17/17732 Cyclobenzaprine HCl 10 Mg Tablet, 10 MG PO Q8H PRN for SPASMS, #14 Ref 0 Prescribed by: ROCHELLE BONILLA on 10/05/16 1557 Fluoxetine HCl 20 Mg Capsule, 20 MG PO DAILY, (Reported) Hydrocodone/Acetaminophen 1 Each Tablet, 1-2 EACH PO Q6H PRN for pain, #15 Ref 0 Prescribed by: ZULY KARIMI on 08/17/1733 Insulin Glargine,Hum.rec.anlog 100 Unit/1 Ml Insuln.pen, 20 UNITS SC HS, ( Reported) Losartan Potassium 25 Mg Tablet, 25 MG PO DAILY, (Reported) Metformin HCl 500 Mg Tablet, 500 MG PO BID, (Reported) Norgestimate-Ethinyl Estradiol 1 Each Tablet, 1 TAB PO DAILY, (Reported) Propranolol HCl 20 Mg Tablet, 20 MG PO BID, (Reported) Sitagliptin Phosphate 100 Mg Tablet, 100 MG PO DAILY, (Reported) Review of Systems Constitutional: No chills, No diaphoresis, No fever, No malaise EENTM: No Blurred Vision, No Double Vision Respiratory: Denies Cough, Denies Shortness of Air Cardiovascular: Denies Chest Pain, Denies Lightheadedness Gastrointestinal: See HPI, Abdominal Pain (right upper quadrant/left lower quadrant), Denies Diarrhea, Nausea, Poor Fluid Intake, Denies Rectal Bleeding, Denies Vomiting Genitourinary: Denies Burning, Denies Discharge, Denies Drainage, Hematuria Musculoskeletal: No back pain, No joint pain Skin: No pruritus, No rash Psychiatric/Neurological: Denies Headache, Denies Numbness, Denies Paresthesia (HERNANDEZ HURLEY) Past Cgblcho-Fszhuq-Ndhpsw Hx Patient Social History Alcohol Use: Denies Use Recreational Drug Use: No Smoking Status: Never a Smoker 2nd Hand Smoke Exposure: No Recent Foreign Travel: No Contact w/Someone Who Travel: No Recent Infectious Disease Expo: No Recent Hopitalizations: No Physical Abuse: No Sexual Abuse: No (HERNANDEZ HURLEY) Immunizations Up To Date Tetanus Booster (TDap): Unknown PED Vaccines UTD: No Date of Influenza Vaccine: Jul 17, 2016 (HERNANDEZ HURLEY) Seasonal Allergies Seasonal Allergies: No (HERNANDEZ HURLEY) Surgeries History of Surgeries: Yes (; KIDNEY STONE REMOVAL; RIGHT KNEE SURGERY) Surgeries: Appendectomy, Section, Orthopedic, Renal (HERNANDEZ HURLEY) Respiratory History of Respiratory Disorde: No (HERNANDEZ HURLEY) Cardiovascular History of Cardiac Disorders: Yes (FREQUENT C/O CHEST PAIN--WORK-UPS' NEGATIVE) Cardiac Disorders: Hypertension (HERNANDEZ HURLEY) Neurological History of Neurological Disord: Yes Neurological Disorders: Headaches /Migraines (HERNANDEZ HURLEY) 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 System Hx 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 Disorders: No (HERNANDEZ HURLEY) Genitourinary Genitourinary Disorders: Kidney Stones, UTI-Chronic (HERNANDEZ HURLEY) Gastrointestinal History of Gastrointestinal Di: Yes Gastrointestinal Disorders: Pancreatitis (HERNANDEZ HURLEY) Musculoskeletal History of Musculoskeletal Dis: No (HERNANDEZ HURLEY) Endocrine History of Endocrine Disorders: Yes Endocrine Disorders: Diabetes, Insulin dep (HERNANDEZ HURLEY) Cancer History of Cancer: No (HERNANDEZ HURLEY) Psychosocial History of Psychiatric Problem: Yes Behavioral Health Disorders: Anxiety, Depression Suicide Risk Score: 0 (HERNANDEZ HURLEY) Integumentary History of Skin or Integumenta: No (HERNANDEZ HURLEY) Blood Transfusions History of Blood Disorders: No (HERNANDEZ HURLEY) Family Medical History Significant Family History: No Pertinent Family Hx Family Medial History: Diabetes mellitus 19 FATHER 19 MOTHER (HERNANDEZ HURLEY) Family Medial History: Diabetes mellitus 19 FATHER 19 MOTHER (ZUYL KARIMI MD) Physical Exam Vital Signs VS - Last 72 Hours, by Label 08/17/17 03:52 Temp 98.4 Pulse 73 Resp 18 B/P (MAP) 141/69 (93) Pulse Ox 99 (ZULY KARIMI MD) Vital Signs Capillary Refill : Less Than 3 Seconds (HERNANDEZ HURLEY) General Appearance: WD/WN, moderate distress HEENT: PERRL/EOMI, pharynx normal Neck: non-tender, supple, normal inspection Respiratory: chest non-tender, lungs clear, normal breath sounds, no respiratory distress Cardiovascular: normal peripheral pulses, regular rate, rhythm, no murmur Gastrointestinal: normal bowel sounds, soft, tenderness (left lower quadrant and suprapubic. Negative for Amor sign), No mass Extremities: normal range of motion, normal capillary refill Back: normal inspection, no CVA tenderness, no vertebral tenderness Neurologic/Psychiatric: alert, normal mood/affect, oriented x 3 Skin: normal color, warm/dry (HERNANDEZ HURLEY) Progress/Results/Core Measures Results/Orders Lab Results Laboratory Tests Test 08/17/17 04:15 08/17/17 04:40 Range/Units White Blood Count 8.6 4.3-11.0 10^3/uL Red Blood Count 4.32 L 4.35-5.85 10^6/uL Hemoglobin 12.3 11.5-16.0 G/DL Hematocrit 36 35-52 % Mean Corpuscular Volume 83 80-99 FL Mean Corpuscular Hemoglobin 29 25-34 PG Mean Corpuscular Hemoglobin Concent 34 32-36 G/DL Red Cell Distribution Width 12.9 10.0-14.5 % Platelet Count 226 130-400 10^3/uL Mean Platelet Volume 10.6 H 7.4-10.4 FL Neutrophils (%) (Auto) 53 42-75 % Lymphocytes (%) (Auto) 38 12-44 % Monocytes (%) (Auto) 7 0-12 % Eosinophils (%) (Auto) 2 0-10 % Basophils (%) (Auto) 1 0-10 % Neutrophils # (Auto) 4.6 1.8-7.8 X 10^3 Lymphocytes # (Auto) 3.3 1.0-4.0 X 10^3 Monocytes # (Auto) 0.6 0.0-1.0 X 10^3 Eosinophils # (Auto) 0.1 0.0-0.3 10^3/uL Basophils # (Auto) 0.0 0.0-0.1 10^3/uL Sodium Level 137 135-145 MMOL/L Potassium Level 4.1 3.6-5.0 MMOL/L Chloride Level 103 98-107 MMOL/L Carbon Dioxide Level 22 21-32 MMOL/L Anion Gap 12 5-14 MMOL/L Blood Urea Nitrogen 15 7-18 MG/DL Creatinine 0.73 0.60-1.30 MG/DL Estimat Glomerular Filtration Rate > 60 BUN/Creatinine Ratio 21 Glucose Level 227 H 70-105 MG/DL Calcium Level 9.6 8.5-10.1 MG/DL Total Bilirubin 0.4 0.1-1.0 MG/DL Aspartate Amino Transf (AST/SGOT) 50 H 5-34 U/L Alanine Aminotransferase (ALT/SGPT) 83 H 0-55 U/L Alkaline Phosphatase 89 40-136 U/L Total Protein 6.6 6.4-8.2 GM/DL Albumin 4.1 3.2-4.5 GM/DL Urine Color YELLOW Urine Clarity SLIGHTLY CLOUDY Urine pH 5 5-9 Urine Specific [place] 1.020 1.016-1.022 Urine Protein 2+ H NEGATIVE Urine Glucose (UA) NEGATIVE NEGATIVE Urine Ketones 1+ H NEGATIVE Urine Nitrite NEGATIVE NEGATIVE Urine Bilirubin NEGATIVE NEGATIVE Urine Urobilinogen NORMAL NORMAL MG/DL Urine Leukocyte Esterase 2+ H NEGATIVE Urine RBC (Auto) 5+ H NEGATIVE Urine RBC >100 H /HPF Urine WBC 0-2 /HPF Urine Squamous Epithelial Cells 2-5 /HPF Urine Crystals NONE /LPF Urine Bacteria TRACE /HPF Urine Casts NONE /LPF Urine Mucus NEGATIVE /LPF Urine Culture Indicated NO Urine Test NEGATIVE NEGATIVE Urine Opiates Screen POSITIVE H NEGATIVE Urine Oxycodone Screen NEGATIVE NEGATIVE Urine Methadone Screen NEGATIVE NEGATIVE Urine Propoxyphene Screen NEGATIVE NEGATIVE Urine Barbiturates Screen NEGATIVE NEGATIVE Ur Tricyclic Antidepressants Screen NEGATIVE NEGATIVE Urine Phencyclidine Screen NEGATIVE NEGATIVE Urine Amphetamines Screen NEGATIVE NEGATIVE Urine Methamphetamines Screen POSITIVE H NEGATIVE Urine Benzodiazepines Screen NEGATIVE NEGATIVE Urine Cocaine Screen NEGATIVE NEGATIVE Urine Cannabinoids Screen NEGATIVE NEGATIVE (ZULY KARIMI MD) My Orders Orders - ZULY KARIMI MD Fentanyl Injection (Sublimaze Injection (08/17/17 06:30) Ketorolac Injection (Toradol Injection) (08/17/17 06:30) Hydrocodone/Apap 7.5/325 Tab (Lortab 7. (08/17/17 07:24) (ZULY KARIMI MD) Medications Given in ED Current Medications Medications Dose Ordered Sig/Olivia Route Start Time Stop Time Status Last Admin Dose Admin Fentanyl Citrate 50 mcg ONCE ONCE IVP 08/17/17 04:15 08/17/17 04:16 DC 08/17/17 04:23 50 MCG Ondansetron HCl 4 mg ONCE ONCE IVP 08/17/17 04:15 08/17/17 04:16 DC 08/17/17 04:24 4 MG Sodium Chloride 1,000 ml @ 0 mls/hr Q0M ONCE IV 08/17/17 04:05 08/17/17 04:12 DC 08/17/17 04:23 0 MLS/HR (ZULY KARIMI MD) Vital Signs/I&O Vital Sign - Last 12Hours 08/17/17 03:52 Temp 98.4 Pulse 73 Resp 18 B/P (MAP) 141/69 (93) Pulse Ox 99 (ZULY KARIMI MD) Blood Pressure Mean: 93 Progress Note #1: Time: 04:15 Progress Note We'll get a urinalysis looking for UTI. We'll get some blood give her some fluids. Pain and nausea medicine. If this does not help her then we'll get a CT scan of the abdomen as well. Possible differential may be diverticulitis versus gynecologic. Progress Note #2: Time: 05:38 Progress Note Blood in the urine and no nitrites or very many white cells. We will get a CT scan looking for possible kidney stones. Discussed use of recreational drugs such as methamphetamines with the patient and she emphatically denies use of any kind of drugs especially methamphetamines. Her pain and nausea are much improved however. (HERNANDEZ HURLEY) Progress Note : Progress Note 0630: Toradol 30 mg IV and fentanyl 50 g IV ordered. Monitor patient. 719: CT results noted. Has ureteral stone on the left with mild hydronephrosis. Pain is better. We will give painful now and discharged home with prescription for pain medicine as well as antibiotic. To follow-up with her doctor and/or Dr. Anaya as needed. Discharged home with return pressure. Patient and family verbalize understanding instructions and agreement with plan. (ZULY KARIMI MD) Diagnostic Imaging Diagonstic Imaging: CT Plain Films/CT/US/NM/MRI: abdomen, pelvis Reviewed: Reviewed by Me (HERNANDEZ HURLEY) Transfer of Care Transfer of Care Time: 06:22 Care transferred to: SACHI (HERNANDEZ HURLEY) Departure Impression Impression: Primary Impression: Ureteral stone with hydronephrosis Disposition: HOME, SELF-CARE Condition: Stable Departure-Patient Inst. Decision time for Depature: 07:28 (ZULY KARIMI MD) Referrals: [facility] (PCP/Family) Primary Care Physician SIERRA MIGUEL ELIAS A MD Patient Instructions: Kidney Stones (DC) Add. Discharge Instructions: All discharge instructions reviewed with patient and/or family. Voiced understanding. Drink plenty of fluids. You may take ibuprofen 800 mg every 8 hours as needed for pain. Take other medication as prescribed. Follow-up with Dr. Miguel tomorrow. You may need referral to the urologist, Dr. Anaya. Return for worse pain, fever, vomiting, weakness, breathing problems or other concerns as needed. Scripts Hydrocodone/Acetaminophen (Hydrocodon -Acetaminophen 5-325) 1 Each Tablet 1-2 EACH PO Q6H Y for pain, #15 TAB 0 Refills Prov: ZULY KARIMI MD 08/17/17 Ciprofloxacin HCl (Ciprofloxacin HCl) 500 Mg Tablet 500 MG PO BID, #14 TAB Prov: ZULY KARIMI MD 08/17/17 Copy Copies To 1: SIERRA MIGUEL TITUS J Aug 17, 2017 04:16 ZULY KARIMI MD Aug 17, 2017 07:32
[2017-08-17 04:25] LABS: BASOPHILS % (AUTO) 1 % (0-10); EOSINOPHILS # (AUTO) 0.1 10^3/uL (0.0-0.3); EOSINOPHILS % (AUTO) 2 % (0-10); LYMPHOCYTES # (AUTO) 3.3 X 10^3 (1.0-4.0); LYMPHOCYTES % (AUTO) 38 % (12-44); MEAN CORPUSCULAR HEMOGLOBIN 29 PG (25-34); MEAN CORPUSCULAR HGB CONC 34 G/DL (32-36); MEAN CORPUSCULAR VOLUME 83 FL (80-99); MEAN PLATELET VOLUME 10.6 FL (7.4-10.4); MONOCYTES # (AUTO) 0.6 X 10^3 (0.0-1.0); MONOCYTES % (AUTO) 7 % (0-12); NEUTROPHILS # (AUTO) 4.6 X 10^3 (1.8-7.8); NEUTROPHILS % (AUTO) 53 % (42-75); PLATELET COUNT 226 10^3/uL (130-400); RED BLOOD COUNT 4.32 10^6/uL (4.35-5.85); RED CELL DISTRIBUTION WIDTH 12.9 % (10.0-14.5); WHITE BLOOD COUNT 8.6 10^3/uL (4.3-11.0)
[2017-08-17 04:45] LABS: ALANINE AMINOTRANSFERASE 83 U/L (0-55); ALBUMIN 4.1 GM/DL (3.2-4.5); ANION GAP 12 MMOL/L (5-14); ASPARTATE AMINO TRANSFERASE 50 U/L (5-34); BILIRUBIN,TOTAL 0.4 MG/DL (0.1-1.0); BLOOD UREA NITROGEN 15 MG/DL (7-18); BUN/CREATININE RATIO 21; CALCIUM 9.6 MG/DL (8.5-10.1); CARBON DIOXIDE 22 MMOL/L (21-32); CHLORIDE 103 MMOL/L (98-107); CREATININE SERUM 0.73 MG/DL (0.60-1.30); GFR ESTIMATED > 60; GLUCOSE 227 MG/DL (70-105); POTASSIUM 4.1 MMOL/L (3.6-5.0); SODIUM 137 MMOL/L (135-145); TOTAL PROTEIN 6.6 GM/DL (6.4-8.2)
[2017-08-17 05:32] LABS: BILIRUBIN,URINE NEGATIVE (NEGATIVE); KETONES,URINE 1+ (NEGATIVE); LEUKOCYTE ESTERASE ,URINE 2+ (NEGATIVE); NITRITE,URINE NEGATIVE (NEGATIVE); PH,URINE 5 (5-9); PROTEIN,URINE 2+ (NEGATIVE); UROBILINOGEN,URINE NORMAL (NORMAL)
[2017-08-17 05:33] LABS: WBC,URINE 0-2 /HPF
[2017-08-17] MEDS ORDERED: KETOROLAC 30 MG/ML VIAL IVP STA (06:30)
[2017-08-17] MEDS ORDERED: fentaNYL INJECTION 100 MCG/2 ML AMP IVP STA (06:30)
--- NOTE | 2017-08-17 07:18 | Diagnostic Imaging Report ---
PROCEDURE: CT urinary tract, rule out kidney stone. TECHNIQUE: Multiple contiguous axial images were obtained through the abdomen and pelvis without the use of intravenous contrast. INDICATION: Abdominal pain, hematuria COMPARISON: April 24, 2017 FINDINGS: The visualized lung bases are clear. Diffusely decreased density of the liver. Cholecystectomy. Pneumobilia. Pneumobilia appears relatively similar to the prior examination. Unenhanced spleen is unremarkable. The adrenal glands are unremarkable. The pancreas is unremarkable. The right kidney and right ureter are unremarkable. A 4 mm calculus is identified within the proximal left ureter. This is resulting in mild left hydroureteronephrosis. Mild enlargement of the left kidney is also seen which is mildly hypodense. The remainder of the distal left ureter is unremarkable. No aneurysmal dilatation of the abdominal aorta. The urinary bladder is unremarkable. The uterus and adnexal structures are unremarkable for age. No bowel obstruction or pneumatosis. No significant adenopathy, free air, or free fluid within the abdomen or pelvis. Scattered osseous degenerative changes without acute osseous abnormality. IMPRESSION: A 4 mm calculus within the proximal left ureter resulting in mild left hydroureteronephrosis and obstructive uropathy. Fatty infiltration of the liver. Pneumobilia, similar to the prior examination. This is likely postsurgical in nature. Additional findings as above. Dictated by: Dictated on workstation # [id number]
[2017-08-17] MEDS ORDERED: HYDROcodone/APAP 7.5 MG/325 MG (LORTAB, LORCET PLUS) TABLET PO STA (07:24)
[2017-08-17] MEDS ORDERED: CIPR500T4 PO (07:33)
[2017-08-17] MEDS ORDERED: HYDR-3812 PO (07:33)
[2017-08-17 07:40] VITALS: BP 141/69
== END 2017-08-17 07:40 | disposition home or self-care (01) ==
LOC: EDUNIT# 03:39 → ER 03:41
DX: N13.2 Hydronephrosis with renal and ureteral calculous obstruction (principal); I10 Essential (primary) hypertension; G43.909 Migraine, unspecified, not intractable, without status migrainosus; E11.9 Type 2 diabetes mellitus without complications; F41.9 Anxiety disorder, unspecified; F32.9 Major depressive disorder, single episode, unspecified; Z87.19 Personal history of other diseases of the digestive system; Z87.440 Personal history of urinary (tract) infections; Z87.59 Personal history of other complications of pregnancy, childbirth and the puerperium; Z79.4 Long term (current) use of insulin; Z87.442 Personal history of urinary calculi
CPT/HCPCS: 36415; 74176; 80053; 80306; 81000; 84703; 85025

== ENCOUNTER → 2017-08-20 | Outpatient (CLI) | payer SELFPAY ==
--- NOTE | 2017-08-20 14:35 | Diagnostic Imaging Report ---
Supine view of the abdomen. INDICATION: Left ureteric stone seen on CT from 08/17/2017. FINDINGS: The left ureteric stone seen on recent CT scan is not identified on this radiograph. There is a phlebolith in the left side of the pelvis. Moderate amount of fecal material is seen in the colon. IMPRESSION: The recently seen left ureteric stone on CT scan is not identified on this radiograph. Dictated by: Dictated on workstation # [id number]
== END ==
LOC: RAD 09:04
PROVIDERS: ATTEND Family Medicine
DX: N20.1 Calculus of ureter (principal)
CPT/HCPCS: 74000

== ENCOUNTER 2017-09-16 17:51 | Emergency (ER) | payer SELFPAY ==
[~2017-09-16] VITALS: Ht 162.6 cm; Wt 54.4 kg
[~2017-09-16 17:51] MED LIST changes: +ACHD5005 PO; -HYDR-3812 PO
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
[2017-09-16] MEDS ORDERED: fentaNYL INJECTION 100 MCG/2 ML AMP IVP ONE ×2 (18:30→20:45)
[2017-09-16] MEDS ORDERED: ONDANSETRON 4 MG/2 ML (SDV) Z0FRAN IVP ONE (18:30)
[2017-09-16] MEDS ORDERED: ACETAMINOPHEN 500 MG TAB (TYLENOL) PO ONE (18:45)
[2017-09-16 19:06] LABS: BASOPHILS % (AUTO) 0 % (0-10); EOSINOPHILS # (AUTO) 0.1 10^3/uL (0.0-0.3); EOSINOPHILS % (AUTO) 1 % (0-10); HEMATOCRIT 41 % (35-52); HEMOGLOBIN 13.6 G/DL (11.5-16.0); LYMPHOCYTES # (AUTO) 0.8 X 10^3 (1.0-4.0); LYMPHOCYTES % (AUTO) 7 % (12-44); MEAN CORPUSCULAR HEMOGLOBIN 28 PG (25-34); MEAN CORPUSCULAR HGB CONC 33 G/DL (32-36); MEAN CORPUSCULAR VOLUME 84 FL (80-99); MEAN PLATELET VOLUME 10.1 FL (7.4-10.4); MONOCYTES # (AUTO) 0.5 X 10^3 (0.0-1.0); MONOCYTES % (AUTO) 5 % (0-12); NEUTROPHILS # (AUTO) 9.8 X 10^3 (1.8-7.8); NEUTROPHILS % (AUTO) 87 % (42-75); PLATELET COUNT 269 10^3/uL (130-400); RED BLOOD COUNT 4.92 10^6/uL (4.35-5.85); RED CELL DISTRIBUTION WIDTH 13.4 % (10.0-14.5); WHITE BLOOD COUNT 11.2 10^3/uL (4.3-11.0)
[2017-09-16] MEDS ORDERED: NS IV 1000 ML 1,000 ML IV SCH ×2 (19:15→20:30)
[2017-09-16] MEDS ORDERED: IOHEXOL 350 MG/ML 100 ML (OMNIPAQUE 350) VIAL IV ONE ×2 (19:30→20:30)
[2017-09-16] MEDS ORDERED: NS 100 ML (IVPB) BAG IV ONE ×2 (19:30→20:30)
[2017-09-16 19:33] LABS: BAND NEUTROPHILS 4 %; BASOPHILS % (MANUAL) 1 %; EOSINOPHILS % (MANUAL) 1 %; LYMPHOCYTES % (MANUAL) 10 %; MONOCYTES % (MANUAL) 4 %; NEUTROPHILS % (MANUAL) 80 %; RBC MORPH NORMAL
[2017-09-16 19:40] LABS: ALANINE AMINOTRANSFERASE 72 U/L (0-55); ALBUMIN 4.3 GM/DL (3.2-4.5); ALKALINE PHOSPHATASE 99 U/L (40-136); BILIRUBIN,TOTAL 0.7 MG/DL (0.1-1.0); BUN/CREATININE RATIO 34; CALCIUM 8.8 MG/DL (8.5-10.1); CARBON DIOXIDE 18 MMOL/L (21-32); CHLORIDE 103 MMOL/L (98-107); CHOLESTEROL 134 MG/DL (< 200); CREATININE SERUM 0.58 MG/DL (0.60-1.30); GFR ESTIMATED > 60; GLUCOSE 178 MG/DL (70-105); HDL CHOLESTEROL 50 MG/DL (40-60); POTASSIUM 3.5 MMOL/L (3.6-5.0); SODIUM 139 MMOL/L (135-145); TOTAL PROTEIN 6.9 GM/DL (6.4-8.2); TRIGLYCERIDES 76 MG/DL (<150); VLDL CHOLESTEROL 15 MG/DL (5-40)
--- NOTE | 2017-09-16 20:48 | Diagnostic Imaging Report ---
PROCEDURE: CT abdomen and pelvis with contrast. TECHNIQUE: Multiple contiguous axial images were obtained through the abdomen and pelvis after administration of intravenous contrast. INDICATION: Abdominal pain, diarrhea, fever, chills COMPARISON: 08/17/17 FINDINGS: The lung bases are clear. There is fatty infiltration throughout the liver. Gallbladder surgically absent. Otherwise, solid organs and vascular structures and colon are unremarkable. There is some prominent fluid-filled thickwalled loops of small bowel present. This is likely inflammatory or infectious. There is no mesenteric edema, abscess, free air, or free fluid. No significant constipation is seen. The reproductive organs are intact. Distal ureters and urinary bladder are normal. The visualized appendix is normal. IMPRESSION: 1. Nonspecific thickwalled fluid-filled loops of prominent small bowel loops likely enteritis. 2. No abscess, free air, free fluid or obstruction. Dictated by: Dictated on workstation # [id number]
[2017-09-16 20:50] LABS: BILIRUBIN,URINE NEGATIVE (NEGATIVE); CLARITY,URINE CLEAR; COLOR,URINE YELLOW; GLUCOSE, URINE (UA) NEGATIVE (NEGATIVE); KETONES,URINE NEGATIVE (NEGATIVE); LEUKOCYTE ESTERASE ,URINE NEGATIVE (NEGATIVE); NITRITE,URINE NEGATIVE (NEGATIVE); PH,URINE 8 (5-9); PROTEIN,URINE NEGATIVE (NEGATIVE); UROBILINOGEN,URINE NORMAL (NORMAL)
[2017-09-16 20:55] LABS: SQUAMOUS EPITHELIAL CELL,UR 0-2 /HPF
[2017-09-16 21:02] LABS: AMPHETAMINE SCREEN, URINE NEGATIVE (NEGATIVE); BARBITURATE SCREEN URINE NEGATIVE (NEGATIVE); BENZODIAZEPINES SCREEN URINE NEGATIVE (NEGATIVE); CANNABINOID SCREEN, URINE NEGATIVE (NEGATIVE); COCAINE SCREEN URINE NEGATIVE (NEGATIVE); METHADONE STAT NEGATIVE (NEGATIVE); METHAMPHETAMINE SCREEN URINE S NEGATIVE (NEGATIVE); OPIATE SCREEN URINE NEGATIVE (NEGATIVE); OXYCODONE STAT NEGATIVE (NEGATIVE); PROPOXYPHENE STAT NEGATIVE (NEGATIVE); TRICYCLIC ANTIDEPRESSANTS SCRE NEGATIVE (NEGATIVE)
[2017-09-16] MEDS ORDERED: RX-HYOSCYAMINE 0.125 MG SL (LEVSIN) PPK#6 SL STA (21:07)
[2017-09-16] MEDS ORDERED: RX-ONDANSETRON 4 MG ODT (ZOFRAN) PPK #4 PO STA (21:07)
[2017-09-16] MEDS ORDERED: PROMETHAZINE INJ 25 MG/ML (PHENERGAN) AMP IVP ONE (21:15)
[2017-09-16 22:00] VITALS: BP 108/50
== END 2017-09-16 21:50 | disposition home or self-care (01) ==
LOC: EDUNIT# 17:51 → ER 17:52
DX: R10.13 Epigastric pain (principal); I10 Essential (primary) hypertension; G43.909 Migraine, unspecified, not intractable, without status migrainosus; E11.9 Type 2 diabetes mellitus without complications; F41.9 Anxiety disorder, unspecified; F32.9 Major depressive disorder, single episode, unspecified; Z90.49 Acquired absence of other specified parts of digestive tract; Z79.4 Long term (current) use of insulin; Z87.19 Personal history of other diseases of the digestive system
CPT/HCPCS: 36415; 74177; 80053; 80061; 80306; 80320; 81000; 83690; 85007; 85027; 87804

== ENCOUNTER 2017-10-15 19:32 | Emergency (ER) | payer SELFPAY ==
[~2017-10-15] VITALS: Ht 162.6 cm; Wt 62.1 kg
[~2017-10-15 19:32] MED LIST changes: +HYDR-34 PO; -HYDR-3816 PO
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
[2017-10-15] MEDS ORDERED: BENZ-13 PO (20:40)
[2017-10-15] MEDS ORDERED: OSLT75C PO (20:40)
[2017-10-15] MEDS ORDERED: GUAI1TBM19 PO (20:40)
[2017-10-15] MEDS ORDERED: RX-OSELTAMIVIR 75 MG (TAMIFLU) BOX OF 10 PO STA (20:41)
[2017-10-15] MEDS ORDERED: RX-OSELTAMIVIR 75 MG (TAMIFLU) BOX OF 10 PO ONE (20:41)
--- NOTE | 2017-10-15 20:41 | ED Cough/URI ---
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 PT DID RECEIVE FLU VACCINE THIS YEAR PCP:[facility] Allergies and Home Medications Allergies Coded Allergies: ceftriaxone (Unverified Allergy, Unknown, 12/01/15) Home Medications Benzonatate 100 Mg Capsule, 1-2 TAB PO TID, #30 Prescribed by: CESAR SIDDIQUI on 10/15/172039 Guaifenesin/Dextromethorphan 1 Each Tbmp.12hr, 1 EACH PO BID for 10 Days, #20 Prescribed by: CESAR SIDDIQUI on 10/15/172039 Insulin Glargine,Hum.rec.anlog 100 Unit/1 Ml Insuln.pen, 20 UNITS SC HS, ( Reported) Losartan Potassium 25 Mg Tablet, 25 MG PO DAILY, (Reported) Metformin HCl 500 Mg Tablet, 500 MG PO BID, (Reported) Norgestimate-Ethinyl Estradiol 1 Each Tablet, 1 TAB PO DAILY, (Reported) Oseltamivir Phosphate 75 Mg Cap, 75 MG PO BID, #10 Prescribed by: CESAR SIDDIQUI on 10/15/172039 Propranolol HCl 20 Mg Tablet, 20 MG PO BID, (Reported) Sitagliptin Phosphate 100 Mg Tablet, 100 MG PO DAILY, (Reported) Constitutional: see HPI, chills, fever, malaise, weakness EENTM: see HPI, nose congestion Respiratory: see HPI, cough, phlegm, No short of breath, No wheezing Cardiovascular: no symptoms reported Gastrointestinal: no symptoms reported Genitourinary: no symptoms reported Musculoskeletal: see HPI (BODY ACHES) Skin: no symptoms reported Psychiatric/Neurological: Headache (SLIGHT) Hematologic/Lymphatic: No Symptoms Reported Immunological/Allergic: no symptoms reported Past Abftjjs-Eblnke-Epbnmi Hx Patient Social History Alcohol Use: Denies Use Recreational Drug Use: No Smoking Status: Never a Smoker 2nd Hand Smoke Exposure: No Recent Foreign Travel: No Contact w/Someone Who Travel: No Recent Infectious Disease Expo: No Recent Hopitalizations: No Immunizations Up To Date Tetanus Booster (TDap): Unknown PED Vaccines UTD: No Date of Influenza Vaccine: Jul 17, 2016 Seasonal Allergies Seasonal Allergies: No Surgeries History of Surgeries: Yes (; KIDNEY STONE REMOVAL; RIGHT KNEE SURGERY) Surgeries: Appendectomy, Section, Orthopedic, Renal Respiratory History of Respiratory Disorde: No Cardiovascular History of Cardiac Disorders: Yes (FREQUENT C/O CHEST PAIN--WORK-UPS' NEGATIVE) Cardiac Disorders: Hypertension Neurological History of Neurological Disord: Yes Neurological Disorders: Headaches /Migraines 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 System : No Hx 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 Disorders: No Genitourinary History of Genitourinary Disor: Yes Genitourinary Disorders: Kidney Stones, UTI-Chronic Gastrointestinal History of Gastrointestinal Di: Yes Gastrointestinal Disorders: Pancreatitis Musculoskeletal History of Musculoskeletal Dis: No Endocrine History of Endocrine Disorders: Yes Endocrine Disorders: Diabetes, Insulin dep Cancer History of Cancer: No Psychosocial History of Psychiatric Problem: Yes Behavioral Health Disorders: Anxiety, Depression Integumentary History of Skin or Integumenta: No Blood Transfusions History of Blood Disorders: No Family Medical History Significant Family History: No Pertinent Family Hx Family Medial History: Diabetes mellitus 19 FATHER 19 MOTHER Physical Exam Vital Signs Vital Sign - Last 12Hours 10/15/17 19:43 Temp 98.2 Pulse 105 Resp 16 B/P (MAP) 114/61 (78) Pulse Ox 98 O2 Delivery Room Air Capillary Refill : Less Than 3 Seconds General Appearance: WD/WN, no apparent distress HEENT: PERRL/EOMI, TMs normal, other (MILD NASAL CONGESTION AND CLEAR POST NASAL DRAINAGE) Neck: normal inspection Respiratory: normal breath sounds, no respiratory distress, no accessory muscle use Cardiovascular: regular rate, rhythm, no murmur Gastrointestinal: non tender, soft Extremities: normal inspection, no pedal edema, normal capillary refill Neurologic/Psychiatric: lead tinner II-XII nml as tested, no motor/sensory deficits, alert, normal mood/affect, oriented x 3 Skin: normal color, warm/dry Progress/Results/Core Measures Suspected Sepsis Recent Fever Within 48 Hours: No Infection Criteria Present: None New/Unexplained Altered Menta: No Sepsis Screen: No Definite Risk Sepsis Diagnosis: SIRS Temperature:98.2 Pulse: 105 Respiratory Rate: 16 Blood Pressure 114 /61 Mean: 78 Results/Orders Micro Results Microbiology 10/15/17 Influenza Types A,B Antigen (KEILA) - Final, Complete My Orders Orders - CESAR SIDDIQUI DO Influenza A And B Antigens (10/15/17 19:40) Rx-Oseltamivir Caps (Rx-Tamiflu Caps) (10/15/17 20:41) Benzonatate Capsule (Tessalon Perles) (10/15/17 20:45) Rx-Oseltamivir Caps (Rx-Tamiflu Caps) (10/15/17 20:41) Benzonatate Capsule (Tessalon Perles) (10/15/17 20:42) Vital Signs/I&O Vital Sign - Last 12Hours 10/15/17 10/15/17 19:43 20:48 Temp 98.2 98.3 Pulse 105 93 Resp 16 18 B/P (MAP) 114/61 (78) Pulse Ox 98 97 O2 Delivery Room Air Capillary Refill : Less Than 3 Seconds Blood Pressure Mean: 78 Departure Impression Impression: Primary Impression: Influenza B Disposition: 01 HOME, SELF-CARE Condition: Stable Departure-Patient Inst. Referrals: REPLACED BY [facility] (PCP/Family) Primary Care Physician Patient Instructions: Flu, Adult (DC) Add. Discharge Instructions: LOTS OF CLEAR LIQUIDS TYLENOL 1 GRAM/ MOTRIN 800 MG 4 TIMES A DAY FOR PAIN OR FEVER FOLLOW UP WITH [facility] IN 4-5 DAYS IF NO BETTER All discharge instructions reviewed with patient and/or family. Voiced understanding. Scripts Guaifenesin/Dextromethorphan (Mucinex Dm ER 1,200-60 mg Tab) 1 Each Tbmp.12hr 1 EACH PO BID for 10 Days, #20 EA Prov: SANTOSH SIDDIQUIA K DO 10/15/17 Benzonatate (Tessalon Perle) 100 Mg Capsule 1-2 TAB PO TID for Cough, #30 CAP Prov: ARTURCESAR K DO 10/15/17 Oseltamivir Phosphate (Tamiflu) 75 Mg Cap 75 MG PO BID, #10 CAP Prov: ARTURCESAR K DO 10/15/17 SANTOSH SIDDIQUIA K DO Oct 15, 2017 20:40
[2017-10-15] MEDS ORDERED: BENZONATATE 100 MG (TESSALON) CAPSULE PO ONE (20:42)
[2017-10-15] MEDS ORDERED: BENZONATATE 100 MG (TESSALON) CAPSULE PO SCH (20:45)
[2017-10-15 20:48] VITALS: BP 99/62
== END 2017-10-15 20:46 | disposition home or self-care (01) ==
LOC: EDUNIT# 19:32 → ER 19:34
DX: J10.1 Influenza due to other identified influenza virus with other respiratory manifestations (principal); I10 Essential (primary) hypertension; G43.909 Migraine, unspecified, not intractable, without status migrainosus; E11.9 Type 2 diabetes mellitus without complications; F41.9 Anxiety disorder, unspecified; F32.9 Major depressive disorder, single episode, unspecified; Z87.442 Personal history of urinary calculi; Z87.440 Personal history of urinary (tract) infections; Z87.19 Personal history of other diseases of the digestive system; Z79.4 Long term (current) use of insulin; Z88.1 Allergy status to other antibiotic agents; Z90.49 Acquired absence of other specified parts of digestive tract; Z87.59 Personal history of other complications of pregnancy, childbirth and the puerperium
CPT/HCPCS: 87804; 99283

== ENCOUNTER → 2017-10-25 | Outpatient (CLI) | payer SELFPAY ==
[~2017-10-25] MED LIST changes: +BENZ-13 PO; +GUAI1TBM19 PO; +OSLT75C PO
--- NOTE | 2017-10-25 16:41 | Diagnostic Imaging Report ---
PROCEDURE: MR imaging cervical spine without contrast. TECHNIQUE: Multiplanar, multisequence MR imaging of the cervical spine was performed without contrast. INDICATION: Neck pain. COMPARISON: CT cervical spine without contrast 12/01/2015. FINDINGS: Normal alignment. Vertebral body heights are preserved. Normal bone marrow signal. There are small central disc protrusions at C4-C5 and C5-C6 which result in only mild spinal canal narrowing. There is no neuroforaminal narrowing in the cervical spine. No abnormal signal in the cervical spinal cord. The visualized paravertebral soft tissues are unremarkable. IMPRESSION: Small central disc protrusions at C4-C5 and C5-C6 resulting in only mild spinal canal narrowing. MRI of the cervical spine is otherwise unremarkable. Dictated by: Dictated on workstation # [id number]
== END ==
LOC: RAD 15:25
PROVIDERS: ATTEND Nurse Practitioner Family
DX: M48.02 Spinal stenosis, cervical region (principal); M50.221 Other cervical disc displacement at C4-C5 level
CPT/HCPCS: 72141

== ENCOUNTER → 2017-10-25 | Outpatient (CLI) | payer OTHER ==
--- NOTE | 2017-10-28 19:32 | Diagnostic Imaging Report ---
INDICATION: Routine screening. Comparison is made with prior study from 02/15/2010. The current study was also evaluated with a Computer Aided Detection (CAD) system. Scattered fibroglandular densities are identified bilaterally. The overall parenchymal pattern appears to be fairly stable. No dominant mass or malignant appearing microcalcifications are seen. There are benign calcifications bilaterally. The axillae are unremarkable. IMPRESSION: No mammographic features suspicious for malignancy are identified. ACR BI-RADS Category 2: Benign findings. Result letter will be mailed to the patient. Note: At least 10% of breast cancer is not imaged by mammography. Dictated by: Dictated on workstation # [id number]
== END ==
LOC: RAD 15:20
PROVIDERS: ATTEND Nurse Practitioner Family
DX: Z12.31 Encounter for screening mammogram for malignant neoplasm of breast (principal)
CPT/HCPCS: 77067

== ENCOUNTER 2018-04-20 15:46 | Day surgery (SDC) | payer SELFPAY ==
[~2018-04-20] VITALS: Ht 152.4 cm; Wt 56.7 kg
[~2018-04-20 15:46] MED LIST changes: -METF500T4 PO; +METF500T5 PO
[2018-04-20] MEDS ORDERED: LORazepam INJ 2 MG/ML (ATIVAN) VIAL ONE (16:10)
[2018-04-20] MEDS ORDERED: ONDANSETRON 4 MG/2 ML (SDV) Z0FRAN ONE (16:10)
[2018-04-20] MEDS ORDERED: LORazepam INJ 2 MG/ML (ATIVAN) VIAL IVP ONE (16:15)
[2018-04-20] MEDS ORDERED: ONDANSETRON 4 MG/2 ML (SDV) Z0FRAN IVP ONE (16:15)
[2018-04-20] MEDS ORDERED: ASPIRIN 81 MG CHEW (CHILDREN'S ASA) PO ONE (16:30)
[2018-04-20] MEDS ORDERED: ACETAMINOPHEN 500 MG TAB (TYLENOL) PO ONE (16:30)
--- NOTE | 2018-04-20 16:32 | ED Chest Pain ---
General Chief Complaint: Cardiac/General Problems Stated Complaint: SOB Nursing Triage Note: PT CO OF CHEST PAIN SOA, HANDS TINGLIN, HAS HX OF ANXIETY, SON STATES STARTED 20MIN AGO, PT SPEAKS POOR [place] ADULT SON PRESENT ABLE TO SPEAK FOR PT, SON STATES ANOTHER SON AND SHE HAD AN EPISODE LIKE THIS Nursing Sepsis Screen: No Definite Risk Source: patient, family (son and daughter) Exam Limitations: language barrier (Nepalese as second language) History of Present Illness Date Seen by Provider: Apr 20, 2018 Time Seen by Provider: 16:19 Initial Comments The patient presents to ER by private conveyance with her adult son who is doing the interpretation for her. She is complaining of chest pain which started about 15 minutes prior to arrival. Her chest pain is middle of her chest and does not radiate anywhere but she does have some pain and pressure in her neck and bilateral occiput. She says she had these similar symptoms a few years ago when she passed out in the doctor's office of Dr. Villanueva's office and was worked up at the ER at that time but she did not have any stress testing done or other cardiac consultation. She does not have a personal history of coronary artery disease but she does have a history of diabetes, high blood pressure and a primary family history of a brother, sister and mother with coronary artery disease with her sister having a heart attack at age 45. She does not smoke, drink or use recreational drugs, have hypothyroidism or hypercholesterolemia. She does have a history of anxiety and is having a lot of stressful situations at home but she does not go into detail about. She says she was sitting at home in a chair expressing some stressful situations when her chest pain came on. She was recently started on Xanax half a milligram by mouth daily at bedtime but she has not taken it routinely just as needed. Allergies and Home Medications Allergies Coded Allergies: ceftriaxone (Unverified Allergy, Unknown, 12/01/15) Home Medications Benzonatate 100 Mg Capsule, 1-2 TAB PO TID Prescribed by: CESAR SIDDIQUI on 10/15/172039 Guaifenesin/Dextromethorphan 1 Each Tbmp.12hr, 1 EACH PO BID Prescribed by: CESAR SIDDIQUI on 10/15/172039 Insulin Glargine,Hum.rec.anlog 100 Unit/1 Ml Insuln.pen, 20 UNITS SC HS, ( Reported) Losartan Potassium 25 Mg Tablet, 25 MG PO DAILY, (Reported) Metformin HCl 500 Mg Tablet, 500 MG PO BID, (Reported) Norgestimate-Ethinyl Estradiol 1 Each Tablet, 1 TAB PO DAILY, (Reported) Oseltamivir Phosphate 75 Mg Cap, 75 MG PO BID Prescribed by: CESAR SIDDIQUI on 10/15/172039 Propranolol HCl 20 Mg Tablet, 20 MG PO BID, (Reported) Sitagliptin Phosphate 100 Mg Tablet, 100 MG PO DAILY, (Reported) Patient Home Medication List Home Medication List Reviewed: Yes Review of Systems Constitutional: No chills, No diaphoresis EENTM: No Blurred Vision, No Double Vision Respiratory: Denies Cough, Denies Shortness of Air, Denies Wheezing Cardiovascular: See HPI, Chest Pain; Denies Edema, Denies Lightheadedness Gastrointestinal: Denies Abdomen Distended, Denies Abdominal Pain Genitourinary: Denies Burning, Denies Discharge Musculoskeletal: No back pain, No joint pain Skin: No pruritus, No rash Psychiatric/Neurological: Denies Headache, Denies Numbness, Denies Paresthesia Past Qstxrtv-Cjcxgn-Nkkwtk Hx Patient Social History Alcohol Use: Denies Use Recreational Drug Use: No Smoking Status: Never a Smoker 2nd Hand Smoke Exposure: No Recent Foreign Travel: No Contact w/Someone Who Travel: No Recent Infectious Disease Expo: No Recent Hopitalizations: No Physical Abuse: No Sexual Abuse: No Immunizations Up To Date Tetanus Booster (TDap): Unknown PED Vaccines UTD: No Date of Influenza Vaccine: Jul 17, 2016 Seasonal Allergies Seasonal Allergies: No Past Medical History Surgeries: Yes (; KIDNEY STONE REMOVAL; RIGHT KNEE SURGERY) Appendectomy, Section, Orthopedic, Renal Respiratory: No Cardiac: Yes (FREQUENT C/O CHEST PAIN--WORK-UPS' NEGATIVE) Hypertension Neurological: Yes Headaches /Migraines 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 Disorders: No Genitourinary: Yes Kidney Stones, UTI-Chronic Gastrointestinal: Yes Pancreatitis Musculoskeletal: No Endocrine: Yes Diabetes, Insulin dep Cancer: No Psychosocial: Yes Anxiety, Depression Nursing Suicide Risk Score: 0 Integumentary: No Blood Disorders: No Family Medical History Diabetes mellitus 19 FATHER 19 MOTHER No Pertinent Family Hx Physical Exam Vital Signs Vital Signs - First Documented 04/20/18 15:50 Temp 97.5 Pulse 88 Resp 30 B/P (MAP) 124/64 (84) Pulse Ox 97 Capillary Refill : Less Than 3 Seconds Height, Weight, BMI Height: 5'0" Weight: 125lbs. 0.0oz. 56.185116yd; 21.8 BMI Method:Stated General Appearance: No Apparent Distress, WD/WN HEENT: PERRL/EOMI, TMs Normal, Normal ENT Inspection, Pharynx Normal, Moist Mucous Membranes Neck: Full Range of Motion, Normal Inspection, Tender Lateral (posterior, bilateral) Respiratory: Chest Non Tender, Lungs Clear, Normal Breath Sounds, No Accessory Muscle Use, No Respiratory Distress Cardiovascular: Regular Rate, Rhythm, Normal Peripheral Pulses Gastrointestinal: Normal Bowel Sounds, Non Tender, Soft Neurologic/Psychiatric: Alert, Oriented x3 Skin: Normal Color, Warm/Dry Progress/Results/Core Measures Results/Orders Lab Results Laboratory Tests Test 04/20/18 16:00 Range/Units White Blood Count 9.6 4.3-11.0 10^3/uL Red Blood Count 4.98 4.35-5.85 10^6/uL Hemoglobin 13.3 11.5-16.0 G/DL Hematocrit 41 35-52 % Mean Corpuscular Volume 82 80-99 FL Mean Corpuscular Hemoglobin 27 25-34 PG Mean Corpuscular Hemoglobin Concent 33 32-36 G/DL Red Cell Distribution Width 14.1 10.0-14.5 % Platelet Count 288 130-400 10^3/uL Mean Platelet Volume 10.9 H 7.4-10.4 FL Neutrophils (%) (Auto) 60 42-75 % Lymphocytes (%) (Auto) 31 12-44 % Monocytes (%) (Auto) 7 0-12 % Eosinophils (%) (Auto) 3 0-10 % Basophils (%) (Auto) 0 0-10 % Neutrophils # (Auto) 5.7 1.8-7.8 X 10^3 Lymphocytes # (Auto) 2.9 1.0-4.0 X 10^3 Monocytes # (Auto) 0.7 0.0-1.0 X 10^3 Eosinophils # (Auto) 0.2 0.0-0.3 10^3/uL Basophils # (Auto) 0.0 0.0-0.1 10^3/uL Prothrombin Time 12.9 12.2-14.7 SEC INR Comment 1.0 0.8-1.4 Activated Partial Thromboplast Time 27 24-35 SEC Sodium Level 140 135-145 MMOL/L Potassium Level 3.8 3.6-5.0 MMOL/L Chloride Level 107 98-107 MMOL/L Carbon Dioxide Level 20 L 21-32 MMOL/L Anion Gap 13 5-14 MMOL/L Blood Urea Nitrogen 16 7-18 MG/DL Creatinine 0.65 0.60-1.30 MG/DL Estimat Glomerular Filtration Rate > 60 BUN/Creatinine Ratio 25 Glucose Level 138 H 70-105 MG/DL Calcium Level 9.8 8.5-10.1 MG/DL Magnesium Level 2.3 1.8-2.4 MG/DL Total Bilirubin 0.4 0.1-1.0 MG/DL Aspartate Amino Transf (AST/SGOT) 23 5-34 U/L Alanine Aminotransferase (ALT/SGPT) 44 0-55 U/L Alkaline Phosphatase 101 40-136 U/L Myoglobin 16.0 10.0-92.0 NG/ML Troponin I < 0.30 <0.30 NG/ML Total Protein 7.0 6.4-8.2 GM/DL Albumin 4.5 3.2-4.5 GM/DL My Orders Orders - HERNANDEZ HURLEY Lorazepam Injection (Ativan Injection) (04/20/18 16:15) Ondansetron Injection (Zofran Injectio (04/20/18 16:15) Ondansetron Injection (Zofran Injectio (04/20/18 16:10) Lorazepam Injection (Ativan Injection) (04/20/18 16:10) Cbc With Automated Diff (04/20/18 16:25) Magnesium (04/20/18 16:25) Chest 1 View, Ap/Pa Only (04/20/18 16:25) Ekg Tracing (04/20/18 16:25) Cardiac Profile 1 (04/20/18 16:25) Comprehensive Metabolic Panel (04/20/18 16:25) Myoglobin Serum (04/20/18 16:25) Protime With Inr (04/20/18 16:25) Partial Thromboplastin Time (04/20/18 16:25) O2 (04/20/18 16:25) Monitor-Rhythm Ecg Trace Only (04/20/18 16:25) Lipid Panel (04/21/18 06:00) Aspirin Chewable Tablet (Baby Aspirin Ch (04/20/18 16:30) Saline Lock/Iv-Start (04/20/18 16:25) Acetaminophen Tablet (Tylenol Tablet) (04/20/18 16:30) Medications Given in ED Current Medications Medications Dose Ordered Sig/Olivia Route Start Time Stop Time Status Last Admin Dose Admin Acetaminophen 1,000 mg ONCE ONCE PO 04/20/18 16:30 04/20/18 16:31 DC 04/20/18 17:21 1,000 MG Aspirin 324 mg ONCE ONCE PO 04/20/18 16:30 04/20/18 16:31 DC 04/20/18 17:21 324 MG Lorazepam 1 mg ONCE ONCE IVP 04/20/18 16:15 04/20/18 16:16 DC 04/20/18 16:19 1 MG Ondansetron HCl 4 mg ONCE ONCE IVP 04/20/18 16:15 04/20/18 16:16 DC 04/20/18 16:19 4 MG Vital Signs/I&O 04/20/18 15:50 Temp 97.5 Pulse 88 Resp 30 B/P (MAP) 124/64 (84) Pulse Ox 97 Blood Pressure Mean: 84 Progress Progress Note : Time: 16:32 Progress Note Cardiogenic chest pain versus anxiety with panic disorder. We've given her some Ativan which helped a little bit with her anxiety and we will do a cardiac workup. I give her some Tylenol in addition to the aspirin for her neck pain. This is not appear to be traumatic and could be from stress or a tension headache since it is bilateral Cipro and neck involvement. If the Tylenol that spring are not helping we will try something else. She hasn't have any reason for pulmonary embolism and she does however have some risk factors for coronary disease. ED ACS of 9 points. Low risk by the EDACS Score. If the patient also has: (1) EKG without new ischemic changes and (2) negative initial and 2-hour troponins, then this patient is safe for discharge to early outpatient follow-up investigation (or proceed to earlier inpatient testing). If EKG with ischemic changes or positive troponin, they are not low risk and require normal risk stratification. Stress test 2014 showing ejection fraction 69% with no wall motion abnormalities , ischemia or infarction. Initial ECG Impression Date: Apr 20, 2018 Initial ECG Impression Time: 15:56 Initial ECG Rate: 80 Initial ECG Rhythm: Normal Sinus Initial ECG Intervals: Normal Initial ECG Impression: Normal Initial ECG Comparisson: Unchanged Comment No ST elevation or depression Diagnostic Imaging Diagonstic Imaging: Xray Plain Films/CT/US/NM/MRI: chest (1v) Comments VIA [facility]. [place], [place] NAME: NADIRA DONALDSON [facility] REC#: [id number] PT STATUS: REG ER : 1970 PHYSICIAN: HERNANDEZ HURLEY MD ADMIT DATE: 04/20/18/ER Draft Date of Exam:04/20/18 CHEST 1 VIEW, AP/PA ONLY Patient History: Chest pain. Shortness of air Technique: Single frontal view of the chest Comparison: 08/21/2016 FINDINGS: The lung volumes are normal. No focal consolidation is seen. No large pleural effusion or pneumothorax is seen. The cardiomediastinal silhouette is normal in size and contour. No acute osseous abnormality is seen. IMPRESSION: No acute pulmonary abnormality seen. Dictated on workstation # [id number] Dict: 04/20/18 1703 Trans: 04/20/18 1704 [facility] [phone] Interpreted by: JUSTIN BRAXTON MD Electronically signed by: Reviewed: Reviewed by Me Departure Communication (Admissions) Time/Spoke to Admitting Phy: 17:25 Discussed case lab imaging findings with Dr. Wolfe and he agrees to take the patient. Time/Spoke to Consulting Phy: 17:20 Discussed case lab EKG imaging findings with Dr. Sal and he feels would be gallegos to observe the patient overnight do some serial troponins and a stress test in the morning. Impression Primary Impression: Chest pain Qualified Codes: R07.9 - Chest pain, unspecified Additional Impressions: Tension type headache Qualified Codes: G44.209 - Tension-type headache, unspecified, not intractable KAREN (generalized anxiety disorder) Disposition: ADMITTED INPATIENT Condition: Stable Admissions Decision to Admit Reason: Admit from ER (General) Decision to Admit/Date: Apr 20, 2018 Time/Decision to Admit Time: 17:26 Departure-Patient Inst. Referrals: [facility] (PCP/Family) Primary Care Physician Copy Copies To 1: JUNITO GRAY DO; PERLA SAL MD, TITUS J Apr 20, 2018 16:32
[2018-04-20 16:48] LABS: BASOPHILS % (AUTO) 0 % (0-10); EOSINOPHILS # (AUTO) 0.2 10^3/uL (0.0-0.3); EOSINOPHILS % (AUTO) 3 % (0-10); HEMATOCRIT 41 % (35-52); HEMOGLOBIN 13.3 G/DL (11.5-16.0); LYMPHOCYTES # (AUTO) 2.9 X 10^3 (1.0-4.0); LYMPHOCYTES % (AUTO) 31 % (12-44); MEAN CORPUSCULAR HEMOGLOBIN 27 PG (25-34); MEAN CORPUSCULAR HGB CONC 33 G/DL (32-36); MEAN CORPUSCULAR VOLUME 82 FL (80-99); MEAN PLATELET VOLUME 10.9 FL (7.4-10.4); MONOCYTES # (AUTO) 0.7 X 10^3 (0.0-1.0); MONOCYTES % (AUTO) 7 % (0-12); NEUTROPHILS # (AUTO) 5.7 X 10^3 (1.8-7.8); NEUTROPHILS % (AUTO) 60 % (42-75); PLATELET COUNT 288 10^3/uL (130-400); RED BLOOD COUNT 4.98 10^6/uL (4.35-5.85); RED CELL DISTRIBUTION WIDTH 14.1 % (10.0-14.5); WHITE BLOOD COUNT 9.6 10^3/uL (4.3-11.0)
[2018-04-20 17:02] LABS: ALANINE AMINOTRANSFERASE 44 U/L (0-55); ALBUMIN 4.5 GM/DL (3.2-4.5); ALKALINE PHOSPHATASE 101 U/L (40-136); BILIRUBIN,TOTAL 0.4 MG/DL (0.1-1.0); BUN/CREATININE RATIO 25; CALCIUM 9.8 MG/DL (8.5-10.1); CARBON DIOXIDE 20 MMOL/L (21-32); CHLORIDE 107 MMOL/L (98-107); CREATININE SERUM 0.65 MG/DL (0.60-1.30); GFR ESTIMATED > 60; GLUCOSE 138 MG/DL (70-105); MAGNESIUM 2.3 MG/DL (1.8-2.4); POTASSIUM 3.8 MMOL/L (3.6-5.0); PROTHROMBIN TIME PATIENT 12.9 SEC (12.2-14.7); SODIUM 140 MMOL/L (135-145)
--- NOTE | 2018-04-20 17:05 | Diagnostic Imaging Report ---
Patient History: Chest pain. Shortness of air Technique: Single frontal view of the chest Comparison: 08/21/2016 FINDINGS: The lung volumes are normal. No focal consolidation is seen. No large pleural effusion or pneumothorax is seen. The cardiomediastinal silhouette is normal in size and contour. No acute osseous abnormality is seen. IMPRESSION: No acute pulmonary abnormality seen. Dictated by: Dictated on workstation # [id number]
[2018-04-20] MEDS ORDERED: ORPHENADRINE 60 MG/2 ML (NORFLEX) AMP IV ONE (18:00)
[2018-04-20] MEDS ORDERED: KETOROLAC 30 MG/ML VIAL IVP ONE (18:45)
[2018-04-20 19:39] VITALS: BP 123/77
[2018-04-20 19:55] VITALS: BP 101/67
[2018-04-20 20:10] VITALS: BP 101/69
[2018-04-20] MEDS ORDERED: ONDANSETRON 4 MG/2 ML (SDV) Z0FRAN IV PRN (20:15)
[2018-04-20] MEDS ORDERED: CATHETER FLUSH 10 ML SYR IV PRN (20:15)
[2018-04-20] MEDS ORDERED: NITROGLYCERIN 0.4 MG SL TABS BTL 25'S SL PRN (20:15)
[2018-04-20 20:25] VITALS: BP 98/66
[2018-04-20] MEDS: CATHETER FLUSH 10 ML SYR IV SCH (20:43)
[2018-04-20] MEDS: inSUlin DETERMIR 1 UNIT/0.01 ML (LEVEMIR) CHARGE PER UNIT SQ SCH (20:43)
[2018-04-20] MEDS: ACETAMINOPHEN 500 MG TAB (TYLENOL) PO PRN (20:44)
[2018-04-20] MEDS: LORazepam INJ 2 MG/ML (ATIVAN) VIAL IV PRN (20:50)
[2018-04-20] MEDS: inSUlin ASPART (NovoLOG) 1 UNIT/0.01 ML (CHARGE PER UNIT) SC SCH (21:00)
[2018-04-20] MEDS ORDERED: meTOprolol TARTRATE 25 MG (LOPRESSOR) TABLET PO SCH (21:00)
[2018-04-20] MEDS ORDERED: ATORVASTATIN 40 MG (LIPITOR) TABLET PO SCH (21:00)
[2018-04-20 21:25] VITALS: BP 101/69
[2018-04-20 22:25] VITALS: BP 108/73
[2018-04-20] MEDS: morphine INJ 4 MG/ML 1 ML (VIAL/SYRINGE) IV PRN (22:25)
--- NOTE | 2018-04-20 23:01 | Consultation-Cardiology ---
HPI-Cardiology Cardiology Consultation Date of Consultation 04/20/18 Date of Admission Time Seen by Provider: 22:57 Indication: Chest pain HPI 48 years old lady with history of hypertension, hyperlipidemia and diabetes mellitus in addition to a strong family history of heart disease with multiple family members having heart attack at a young age including her sister and her mother. Has been under increasing stress at home recently, reported episodes of chest pain for the past few weeks on and off described as dull achiness all over her chest radiating to both arms and to her neck and jaw. Today her pain was worse associated with shortness of breath. Came into the emergency room, feeling slightly better, currently having mild discomfort, she was eating dinner. Denied any palpitation, syncope or near syncopal episodes Home Medications & Allergies Allergies: Coded Allergies: ceftriaxone (Unverified Allergy, Unknown, 12/01/15) Home Medication List Reviewed: Yes [id number] Hx Patient Social History Marital Status: Employed/Student: employed Alcohol Use: Denies Use Recreational Drug Use: No Smoking Status: Never a Smoker 2nd Hand Smoke Exposure: No Recent Foreign Travel: No Recent Infectious Disease Expo: No Recent Hopitalizations: No Physical Abuse Screen: No Sexual Abuse: No Immunizations Up To Date Tetanus Booster (TDap): Unknown Date of Influenza Vaccine: Jul 17, 2016 Past Medical History As discussed below Family Medical History Significant Family History: No Pertinent Family Hx Family Medical Hx Strong family history of coronary artery disease, mother and sister had heart attack at a young age Family History: Diabetes mellitus 19 FATHER 19 MOTHER Constitutional: no symptoms reported, see HPI EENTM: see HPI, no symptoms reported Respiratory: see HPI; No cough; dyspnea on exertion; No hemoptysis, No orthopnea, No phlegm; short of breath; No stridor, No wheezing, No other Cardiovascular: see HPI, chest pain; No edema, No Hx of Intervention, No palpitations, No syncope, No vascular heart diseas, No other Gastrointestinal: no symptoms reported, see HPI Genitourinary: no symptoms reported, see HPI Musculoskeletal: no symptoms reported, see HPI Skin: no symptoms reported, see HPI Psychiatric/Neurological: No Symptoms Reported, See HPI Reviewed Test Results Reviewed Test Results Lab Laboratory Tests Test 04/20/18 16:00 04/20/18 20:29 04/20/18 20:58 Range/Units White Blood Count 9.6 4.3-11.0 10^3/uL Red Blood Count 4.98 4.35-5.85 10^6/uL Hemoglobin 13.3 11.5-16.0 G/DL Hematocrit 41 35-52 % Mean Corpuscular Volume 82 80-99 FL Mean Corpuscular Hemoglobin 27 25-34 PG Mean Corpuscular Hemoglobin Concent 33 32-36 G/DL Red Cell Distribution Width 14.1 10.0-14.5 % Platelet Count 288 130-400 10^3/uL Mean Platelet Volume 10.9 H 7.4-10.4 FL Neutrophils (%) (Auto) 60 42-75 % Lymphocytes (%) (Auto) 31 12-44 % Monocytes (%) (Auto) 7 0-12 % Eosinophils (%) (Auto) 3 0-10 % Basophils (%) (Auto) 0 0-10 % Neutrophils # (Auto) 5.7 1.8-7.8 X 10^3 Lymphocytes # (Auto) 2.9 1.0-4.0 X 10^3 Monocytes # (Auto) 0.7 0.0-1.0 X 10^3 Eosinophils # (Auto) 0.2 0.0-0.3 10^3/uL Basophils # (Auto) 0.0 0.0-0.1 10^3/uL Prothrombin Time 12.9 12.2-14.7 SEC INR Comment 1.0 0.8-1.4 Activated Partial Thromboplast Time 27 24-35 SEC Sodium Level 140 135-145 MMOL/L Potassium Level 3.8 3.6-5.0 MMOL/L Chloride Level 107 98-107 MMOL/L Carbon Dioxide Level 20 L 21-32 MMOL/L Anion Gap 13 5-14 MMOL/L Blood Urea Nitrogen 16 7-18 MG/DL Creatinine 0.65 0.60-1.30 MG/DL Estimat Glomerular Filtration Rate > 60 BUN/Creatinine Ratio 25 Glucose Level 138 H 70-105 MG/DL Calcium Level 9.8 8.5-10.1 MG/DL Magnesium Level 2.3 1.8-2.4 MG/DL Total Bilirubin 0.4 0.1-1.0 MG/DL Aspartate Amino Transf (AST/SGOT) 23 5-34 U/L Alanine Aminotransferase (ALT/SGPT) 44 0-55 U/L Alkaline Phosphatase 101 40-136 U/L Myoglobin 16.0 10.0-92.0 NG/ML Troponin I < 0.30 < 0.30 <0.30 NG/ML Total Protein 7.0 6.4-8.2 GM/DL Albumin 4.5 3.2-4.5 GM/DL Glucometer 111 H 70-110 MG/DL Physical Exam Vital Signs Vital Signs - First Documented 04/20/18 15:50 Temp 97.5 Pulse 88 Resp 30 B/P (MAP) 124/64 (84) Pulse Ox 97 Capillary Refill : Less Than 3 Seconds Height, Weight, BMI Height: 5'0.00" Weight: 125lbs. 0.0oz. [id number]; 24.4 BMI Method:Stated General Appearance: WD/WN, Mild Distress Eyes: Bilateral Eye Normal Inspection, Bilateral Eye PERRL, Bilateral Eye EOMI HEENT: PERRL/EOMI, TMs Normal, Normal ENT Inspection, Pharynx Normal Neck: Full Range of Motion, Normal Inspection, Non Tender, Supple, Carotid Bruit Respiratory: Chest Non Tender, Lungs Clear, Normal Breath Sounds, No Accessory Muscle Use, No Respiratory Distress Cardiovascular: Regular Rate, Rhythm, No Edema, No Gallop, No JVD, No Murmur, Normal Peripheral Pulses Gastrointestinal: Normal Bowel Sounds, No Organomegaly, No Pulsatile Mass, Non Tender, Soft Back: Normal Inspection, No CVA Tenderness, No Vertebral Tenderness Extremity: Normal Capillary Refill, Normal Inspection, Normal Range of Motion, Non Tender, No Calf Tenderness, No Pedal Edema Neurologic/Psychiatric: Alert, Oriented x3, No Motor/Sensory Deficits, Normal Mood/Affect Skin: Normal Color, Warm/Dry Lymphatic: No Adenopathy A/P-Cardiology Admission Diagnosis Chest pain nonspecific etiology Shortness of breath Hypertension Hyperlipidemia Diabetes mellitus Assessment/Plan Chest pain nonspecific etiology, resembling angina, multiple risk factors, planning to continue to monitor overnight and proceed with stress test in the morning Shortness of breath associated with chest pain, reporting improvement at this time. Strong family history of heart disease with multiple family members had heart attack at a young age Hypertension, restart home medication monitor blood pressure, hold propranolol for stress test Hyperlipidemia, monitor lipids Diabetes mellitus, hold metformin for now, monitor blood sugar, restart home medications Anxiety, depression. Managed by primary care physician Clinical Quality Measures DVT/VTE Risk/Contraindication: Risk Factor Score Per Nursin RFS Level Per Nursing on Admit: 1=Low/No VTE PPX PERLA RICKETTS MD Apr 20, 2018 23:00
[2018-04-21] VITALS (15 sets, daily range): BP systolic 87–124; BP diastolic 50–75
[2018-04-21] MEDS: morphine INJ 4 MG/ML 1 ML (VIAL/SYRINGE) IV PRN ×3 (00:45→17:59)
[2018-04-21] MEDS: LORazepam INJ 2 MG/ML (ATIVAN) VIAL IV PRN (02:35)
[2018-04-21] MEDS: inSUlin ASPART (NovoLOG) 1 UNIT/0.01 ML (CHARGE PER UNIT) SC SCH ×3 (05:06→16:15)
[2018-04-21] MEDS: CATHETER FLUSH 10 ML SYR IV SCH ×2 (05:09→16:12)
[2018-04-21 07:04] LABS: CHOLESTEROL 83 MG/DL (< 200); HDL CHOLESTEROL 30 MG/DL (40-60); TRIGLYCERIDES 103 MG/DL (<150); VLDL CHOLESTEROL 21 MG/DL (5-40)
[2018-04-21] MEDS ORDERED: REGADENOSON 0.4 MG/5 ML SYR (LEXISCAN) IV ONE ×2 (08:59→09:30)
[2018-04-21] MEDS ORDERED: ASPIRIN E.C. 81 MG (ECOTRIN) TAB PO SCH (09:00)
[2018-04-21] MEDS ORDERED: LOSARTAN 25 MG (COZAAR) TAB PO SCH (09:00)
--- NOTE | 2018-04-21 10:03 | Cardiology Progress Note ---
Subjective Date Seen by Provider: Apr 21, 2018 Time Seen by Provider: 10:00 Subjective/Events-last exam Patient is still having pain, discomfort. No shortness of breath. No palpitation, was complaining of lightheadedness this morning, borderline hypotensive Review of Systems General: No Chills, No Night Sweats, No Fatigue, No Malaise, No Appetite, No Other HEENT: No Head Aches, No Visual Changes, No Eye Pain, No Ear Pain, No Dysphasia , No Sinus Congestion, No Post Nasal Drip, No Sore Throat, No Other Pulmonary: No Dyspnea, No Cough, No Pleuritic Chest Pain, No Other Cardiovascular: No: Chest Pain, Palpitations, Orthopnea, Paroxysmal Noc. Dyspnea, Edema, Lt Headedness, Other Objective-Cardiology Exam Last Set of Vital Signs Vital Signs 04/21/18 04/21/18 04/21/18 03:47 09:28 09:38 Temp 97.4 Pulse 108 Resp 20 B/P (MAP) 124/75 (91) Pulse Ox 99 O2 Delivery Room Air Capillary Refill : Less Than 3 Seconds I&O Intake and Output 04/21/18 00:00 Intake Total 100 ml Balance 100 ml Intake Oral 100 ml # Voids 1 Daily Weight Change No General: Alert, Oriented X3, Cooperative HEENT: Atraumatic, PERRLA Neck: Supple, No JVD, No Thyromegaly Lungs: Clear to Auscultation, Normal Air Movement Heart: Regular Rate, Normal S1, Normal S2, No Murmurs Abdomen: Normal Bowel Sounds, Soft, No Tenderness, No Hepatosplenomegaly, No Masses Extremities: No Clubbing, No Cyanosis, No Edema, Normal Pulses, No Tenderness/ Swelling Skin: No Rashes, No Breakdown, No Significant Lesion Neuro: Normal Gait, Normal Speech, Strength at 5/5 X4 Ext, Normal Tone, Sensation Intact Psych/Mental Status: Mental Status NL, Mood NL Results Lab Laboratory Tests 04/20/18 16:00 A/P-Cardiology Admission Diagnosis Chest pain nonspecific etiology Shortness of breath Hypertension Hyperlipidemia Diabetes mellitus Assessment/Plan Chest pain nonspecific etiology, resembling angina, multiple risk factors, planning to do stress test today Shortness of breath associated with chest pain, reporting improvement at this time. Strong family history of heart disease with multiple family members had heart attack at a young age Hypertension, currently borderline hypotensive. Continue to monitor. Hyperlipidemia, monitor lipids Diabetes mellitus, hold metformin for now, monitor blood sugar, restart home medications Anxiety, depression. Managed by primary care physician Clinical Quality Measures DVT/VTE Risk/Contraindication: Risk Factor Score Per Nursin RFS Level Per Nursing on Admit: 1=Low/No VTE PPX PERLA RICKETTS MD Apr 21, 2018 10:03
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
[2018-04-21] MEDS: inSUlin DETERMIR 1 UNIT/0.01 ML (LEVEMIR) CHARGE PER UNIT SQ SCH (11:03)
[2018-04-21] MEDS: ACETAMINOPHEN 500 MG TAB (TYLENOL) PO PRN (11:05)
[2018-04-21] MEDS ORDERED: NS IV 1000 ML 1,000 ML ONE (11:23)
[2018-04-21] MEDS ORDERED: LIDOCAINE 1% INJ 20 ML 20 ML VIAL ONE (11:23)
[2018-04-21] MEDS ORDERED: MIDAZOLAM 5 MG/5 ML (VERSED) VIAL ONE (11:23)
[2018-04-21] MEDS ORDERED: fentaNYL INJECTION 100 MCG/2 ML AMP ONE (11:23)
[2018-04-21] MEDS ORDERED: HEParin (CATH LAB) 2,000 ML IV ONE (11:23)
[2018-04-21] MEDS ORDERED: NS IV 1000 ML 1,000 ML IV SCH (12:00)
--- NOTE | 2018-04-21 12:23 | Cardiac Cath Report ---
Cardiac Cath Report Physician (s)/Job Foreman (s) Physician PERLA RICKETTS MD Pre-Procedure Diagnosis Pre-Procedure Diagnosis: Chest pain Post-Procedure Note Procedure Start Date: Apr 21, 2018 Name of Procedure: Left heart catheterization Left ventriculogram Thoracic aortogram Findings/Procedure Note PROCEDURE NOTE: After explaining the procedure to the patient, all pros and cons were explained , all questions were answered. The patient signed the consent and then she was placed on the cardiac catheterization laboratory. Groin was prepped SL fashion local anesthesia was used. Sheath placed in the right femoral artery. Kathleen right and left catheter were used to access the coronary system. Pigtail was used to access the left ventricular cavity. Left ventriculogram was done Aortic evaluation done with thoracic aortogram and aortic root angiogram At the end of the procedure the sheath was removed, manual pressure applied FINDINGS: Hemodynamics LV 115/16 end-diastolic pressure of 16 Aorta 111/62 mean of 83 ANATOMY: Left Main is free of obstructive disease Left Anterior Descending is small with no obstructive disease Left Circumflex is small with mild disease no obstructive disease Right Coronory Artery is very small nondominant artery with nonobstructive disease LV Gram is normal in size with normal contracted face and ejection fraction 60 percent Aorta is normal, aortic root, ascending aorta and aortic arch and descending aorta were normal with no dissection or aneurysm CONCLUSION: 1. Small coronary system with no obstructive disease in the coronary tree 2. Normal left ventricular size and systolic function estimated ejection fraction 60 percent 3. Normal thoracic aorta DISCUSSION AND RECOMMENDATION: Chest pain is noncardiac. Medical therapy is recommended Anesthesia Type: Conscious Sedation Estimated blood loss (mL): 15 ml Contrast Amount: 80 ml Total Radiation Dose: 319 mGy Post-Procedure Diagnosis Post-operative diagnosis: Chest pain nonspecific etiology Hypertension Hyperlipidemia Anxiety PERLA RICKETTS MD Apr 21, 2018 12:23
[2018-04-21] MEDS ORDERED: PATIENT MAY USE OWN MEDS, ALL PO SCH (12:30)
[2018-04-21] MEDS ORDERED: LORazepam 1 MG (ATIVAN) TAB PO ONE (12:30)
[2018-04-21] MEDS ORDERED: LORazepam 1 MG (ATIVAN) TAB PO PRN ×2 (12:30→12:45)
--- NOTE | 2018-04-21 12:37 | STRESS TEST ---
DATE OF SERVICE: LEXISCAN MYOVIEW STRESS TEST REPORT. REFERRING PHYSICIAN: [facility]. INDICATION: Chest pain. FINDINGS: Baseline heart rate is 74, baseline blood pressure 109/73. Baseline EKG is sinus rhythm with no ischemic changes. SUMMARY: The patient was injected with 10.11 mCi of technetium-99 Myoview and the resting images were obtained. Then, the patient received 0.4 mg of Lexiscan followed by 33.0 mCi of technetium-99 Myoview. Throughout the test, there were no EKG changes. The patient continued to have chest pain. The resting and stress images were reviewed and compared in the short axis, horizontal long axis and vertical long axis views. Review of the images showed good radiotracer uptake with decreased uptake at the inferoapical and anteroseptal segment. It could be due to extracardiac attenuation. It showed some reversibility on the resting images. SSS is 5, SDS 5, TID 0.98. On the gated images, the left ventricle appeared to be in normal size with normal contractility. Calculated ejection fraction is 79%. CONCLUSION: 1. The patient continued to have chest pain throughout the stress test. 2. Nondiagnostic SPECT images with extracardiac attenuation and decreased uptake at the mid to apical inferior wall and mid to apical anterolateral wall and anterior septum. 3. Normal left ventricular size with normal contractility. Calculated ejection fraction is 79%. Job ID: [id number] DocumentID: [id number] Dictated Date: 04/21/2018 11:21:52 [employer] Date: 04/21/2018 12:36:58 Dictated By: PERLA RICKETTS MD
[2018-04-21] MEDS: NS IV 1000 ML 1,000 ML IV SCH ×2 (13:06→18:31)
[2018-04-21] MEDS ORDERED: INSU100V5 SQ (13:56)
[2018-04-21] MEDS ORDERED: METF750T2 PO (13:56)
[2018-04-21] MEDS ORDERED: CITA10TA12 PO (13:56)
[2018-04-21] MEDS ORDERED: ALPR0.25 PO (13:56)
[2018-04-21] MEDS ORDERED: GABA-488 PO (13:56)
[2018-04-21] MEDS ORDERED: ATOR10TA PO (13:56)
[2018-04-21] MEDS ORDERED: TRAM50TA2 PO (13:56)
[2018-04-21] MEDS ORDERED: MELO15TA39 PO (13:56)
[2018-04-21] MEDS ORDERED: PROP40TA5 PO (15:09)
[2018-04-21] MEDS ORDERED: EMPA10TA PO (15:09)
[2018-04-21] MEDS ORDERED: MELO7.5T46 PO (15:28)
--- NOTE | 2018-04-21 15:44 | History & Physicial (CHS) ---
HPI History of Present Illness: 48 year old female presented to the ED by private vehicle yesterday afternoon with her adult son, who interpreted for her, as the patient does not speak [place]. The patient reports chest pain that started about 15 minutes before her arrival to the ED; the pain is located in the middle of her chest and is without radiation. She also reports some pain and pressure in her neck and the back of her head. She reports that she had similar symptoms once, several years ago, when she had a syncopal event in another physician's office. The patient denies history of CAD, but reports history of Type II Diabetes requiring insulin, hypertension, and a family history of multiple first degree relatives with NC's and CAD before age 50. The patient does have a history of anxiety and reports being very stressed at home, but does not give further detail. When her pain started, she was at home, discussing some of the stressful situations going on. Per ER notes, the patient was recently started on 0.5 mg Xanax at , but she states she does not take it regularly, just as needed. This is not noted in her clinic records. As the pt had no recorded script for 0.5 mg Xanax in the clinic records, [facility] was checked and showed the patient has received a substantial amount of controlled substances from providers other than her PCP [facility], and not all visits appear to be associated with ER visits. The patient has the following controlled prescriptions over the last year per [facility]: 04/16/18 Tramadol 50 mg, #[address] Valerio 03/21/18 Xanax 0.25 mg, #[address] Valerio 03/13/18 Tramadol 50 mg, #[address] Valerio 02/17/18 [place] 5/325, #[address] Valerio 02/12/18 [place] 5/325, #[address] Valerio 01/16/18 Promethazine/Codeine Syrup, [address] Valerio 08/19/17 [place] 5/325, #[address] Valerio 08/17/17 [place] 5/325, #[address] Antony 08/15/17 [place] 5/325, #[address] Valerio 08/02/17 Promethazine/Codeine Syrup, [address] Valerio 07/22/17 [place] 5/325, #[address] Valerio 07/04/17 Xanax 0.25 mg, #56 from [facility] 06/25/17 [place] 5/325, #[address] Valerio 06/14/17 Tramadol 50 mg, #[address] Valerio 05/28/17 [place] 5/325, #[address] Valerio 05/09/17 Tramadol 50 mg, #[address] Valerio Source: family, RN/MD, RN notes reviewed, old records Exam Limitations: language barrier Date seen by provider: Apr 21, 2018 Time Seen by Provider: 13:59 Attending Physician Jean-Pierre Spencer MD PCP Abel Fong APRN, [facility], Dr. Sal Date of Admission Apr 20, 2018 at 17:51 Home Medications Home Medications Reviewed patient Home Medication Reconciliation performed by pharmacy medication reconciliations substation technician and/or nursing. Patients Allergies have been reviewed. Allergies Coded Allergies: ceftriaxone (Unverified Allergy, Unknown, 12/01/15) HFY-[id number]-Fvetit Hx Patient Social History Marrital Status: Living Status: lives with family in [place] Employed/Student: employed Alcohol Use: Denies Use Recreational Drug Use: No (patient did have positive UDS for methamphetamines 08/17/17) Smoking Status: Never a Smoker 2nd Hand Smoke Exposure: No Recent Foreign Travel: No Contact w/other who traveled: No Recent Hopitalizations: No Recent Infectious Disease Expo: No Physical Abuse Screen: No Sexual Abuse: No Immunizations Up To Date Tetanus Booster (TDap): Unknown Date of Influenza Vaccine: Jul 17, 2016 Past Medical History Type II Diabetes with Complication and Claim Adjuster Insulin Use Hypertension Dyslipidemia Kidney Stones Chronic UTIs Anxiety Past Surgical Hx: Diagnostic Lap for Chronic Pelvic Pain - 2011, Dr. Sebastian Knee Arthroscopy Lithotripsy Appendectomy Laproscopic Cholecystectomy Section x3 Carpal Tunnel Release Left Heart Cath - 04/21/[address] Sal --> no CAD Family Medical History Significant Family History: Heart Disease, CAD Under 55 Years Old, Diabetes, Hypertension Family History: Diabetes mellitus 19 FATHER 19 MOTHER Review of Systems (CHC) Constitutional: see HPI EENTM: no symptoms reported Respiratory: see HPI Cardiovascular: see HPI Gastrointestinal: no symptoms reported Genitourinary: no symptoms reported : No Musculoskeletal: no symptoms reported Skin: no symptoms reported Psychiatric/Neurological: See HPI Reviewed Test Results Reviewed Test Results Lab Laboratory Tests Test 04/20/18 16:00 04/20/18 20:29 04/20/18 20:58 04/21/18 05:02 Range/Units White Blood Count 9.6 4.3-11.0 10^3/uL Red Blood Count 4.98 4.35-5.85 10^6/uL Hemoglobin 13.3 11.5-16.0 G/DL Hematocrit 41 35-52 % Mean Corpuscular Volume 82 80-99 FL Mean Corpuscular Hemoglobin 27 25-34 PG Mean Corpuscular Hemoglobin Concent 33 32-36 G/DL Red Cell Distribution Width 14.1 10.0-14.5 % Platelet Count 288 130-400 10^3/uL Mean Platelet Volume 10.9 H 7.4-10.4 FL Neutrophils (%) (Auto) 60 42-75 % Lymphocytes (%) (Auto) 31 12-44 % Monocytes (%) (Auto) 7 0-12 % Eosinophils (%) (Auto) 3 0-10 % Basophils (%) (Auto) 0 0-10 % Neutrophils # (Auto) 5.7 1.8-7.8 X 10^3 Lymphocytes # (Auto) 2.9 1.0-4.0 X 10^3 Monocytes # (Auto) 0.7 0.0-1.0 X 10^3 Eosinophils # (Auto) 0.2 0.0-0.3 10^3/uL Basophils # (Auto) 0.0 0.0-0.1 10^3/uL Prothrombin Time 12.9 12.2-14.7 SEC INR Comment 1.0 0.8-1.4 Activated Partial Thromboplast Time 27 24-35 SEC Sodium Level 140 135-145 MMOL/L Potassium Level 3.8 3.6-5.0 MMOL/L Chloride Level 107 98-107 MMOL/L Carbon Dioxide Level 20 L 21-32 MMOL/L Anion Gap 13 5-14 MMOL/L Blood Urea Nitrogen 16 7-18 MG/DL Creatinine 0.65 0.60-1.30 MG/DL Estimat Glomerular Filtration Rate > 60 BUN/Creatinine Ratio 25 Glucose Level 138 H 70-105 MG/DL Calcium Level 9.8 8.5-10.1 MG/DL Magnesium Level 2.3 1.8-2.4 MG/DL Total Bilirubin 0.4 0.1-1.0 MG/DL Aspartate Amino Transf (AST/SGOT) 23 5-34 U/L Alanine Aminotransferase (ALT/SGPT) 44 0-55 U/L Alkaline Phosphatase 101 40-136 U/L Myoglobin 16.0 10.0-92.0 NG/ML Troponin I < 0.30 < 0.30 <0.30 NG/ML Total Protein 7.0 6.4-8.2 GM/DL Albumin 4.5 3.2-4.5 GM/DL Glucometer 111 H 152 H 70-110 MG/DL Test 04/21/18 06:16 04/21/18 11:20 04/21/18 16:14 04/21/18 17:22 Range/Units Troponin I < 0.30 <0.30 NG/ML Triglycerides Level 103 <150 MG/DL Cholesterol Level 83 < 200 MG/DL LDL Cholesterol Direct 38 1-129 MG/DL VLDL Cholesterol 21 5-40 MG/DL HDL Cholesterol 30 L 40-60 MG/DL Glucometer 151 H 173 H 70-110 MG/DL Urine Opiates Screen POSITIVE H NEGATIVE Urine Oxycodone Screen NEGATIVE NEGATIVE Urine Methadone Screen NEGATIVE NEGATIVE Urine Propoxyphene Screen NEGATIVE NEGATIVE Urine Barbiturates Screen NEGATIVE NEGATIVE Ur Tricyclic Antidepressants Screen NEGATIVE NEGATIVE Urine Phencyclidine Screen NEGATIVE NEGATIVE Urine Amphetamines Screen NEGATIVE NEGATIVE Urine Methamphetamines Screen NEGATIVE NEGATIVE Urine Benzodiazepines Screen POSITIVE H NEGATIVE Urine Cocaine Screen NEGATIVE NEGATIVE Urine Cannabinoids Screen NEGATIVE NEGATIVE Radiology Date of Exam: 04/20/18 CHEST 1 VIEW, AP/PA ONLY Patient History: Chest pain. Shortness of air Technique: Single frontal view of the chest Comparison: 08/21/2016 FINDINGS: The lung volumes are normal. No focal consolidation is seen. No large pleural effusion or pneumothorax is seen. The cardiomediastinal silhouette is normal in size and contour. No acute osseous abnormality is seen. IMPRESSION: No acute pulmonary abnormality seen. Physical Exam-(CHC) Physical Exam Vital Signs VS - Last 72 Hours, by Label 04/20/18 04/20/18 04/20/18 04/20/18 15:50 19:10 19:39 19:55 Temp 97.5 98.6 Pulse 88 74 79 72 Resp 30 18 20 B/P (MAP) 124/64 (84) 102/53 (84) 123/77 (92) 101/67 (78) Pulse Ox 97 97 96 97 O2 Delivery Room Air 04/20/18 04/20/18 04/20/18 04/20/18 20:10 20:25 20:37 21:25 Pulse 82 75 77 74 Resp 18 B/P (MAP) 101/69 (80) 98/66 (77) 101/69 (80) Pulse Ox 96 97 95 O2 Delivery Room Air Room Air Room Air 04/20/18 04/21/18 04/21/18 04/21/18 22:25 00:51 01:00 03:47 Temp 97.7 97.4 97.4 Pulse 80 82 83 77 Resp 18 20 20 B/P (MAP) 108/73 (85) 87/50 (62) 99/52 (68) Pulse Ox 95 96 96 O2 Delivery Room Air Room Air Room Air 04/21/18 04/21/18 04/21/18 04/21/18 07:00 08:00 09:28 09:38 Pulse 73 72 108 Resp 17 20 B/P (MAP) 109/73 (85) 124/75 (91) Pulse Ox 97 99 O2 Delivery Room Air Room Air 04/21/18 04/21/18 04/21/18 04/21/18 10:51 12:00 13:00 13:00 Temp 98.2 97.1 Pulse 71 67 71 71 Resp 18 16 20 B/P (MAP) 107/51 (69) 99/52 (68) 109/60 (76) Pulse Ox 99 97 96 O2 Delivery Room Air Room Air 04/21/18 04/21/18 04/21/18 04/21/18 13:15 13:30 13:49 14:08 Pulse 72 75 77 68 Resp 20 20 20 20 B/P (MAP) 107/57 (74) 104/69 (81) 102/66 (78) 115/66 (82) Pulse Ox 98 97 96 99 04/21/18 04/21/18 04/21/18 04/21/18 14:51 16:20 17:20 18:20 Temp 98.0 97.7 99.0 Pulse 71 78 73 85 Resp 20 20 20 20 B/P (MAP) 96/61 (73) 101/66 (78) 104/69 (81) 116/58 (77) Pulse Ox 98 97 96 95 O2 Delivery Room Air Room Air Room Air Capillary Refill : Less Than 3 Seconds General Appearance: WD/WN, no apparent distress Eyes: Bilateral Eye Normal Inspection, Bilateral Eye EOMI HEENT: normal ENT inspection; No scleral icterus (R), No scleral icterus (L), No photophobia Neck: non-tender, full range of motion, supple, normal inspection Respiratory: chest non-tender, lungs clear, normal breath sounds, no respiratory distress, no accessory muscle use Cardiovascular: regular rate, rhythm, no edema, no gallop, no JVD, no murmur Peripheral Pulses: 2+ Dorsalis Pedis (R), 2+ Left Dors-Pedis (L), 2+ Radial Pulses (R), 2+ Radial Pulses (L) Gastrointestinal: normal bowel sounds, non tender, soft, no organomegaly, no pulsatile mass Rectal: deferred Extremities: normal inspection, no pedal edema, no calf tenderness, normal capillary refill, other (tenderness at right femoral cath site without any visible or palpable abnormalities) Neurologic/Psychiatric: manager contract II-XII nml as tested, no motor/sensory deficits, alert, normal mood/affect, oriented x 3 Skin: normal color, warm/dry Assessment/Plan Assessment/Plan Admission Dx Chest Pain Anxiety Type II Diabetes with Complication Claim Adjuster Use of Insulin Hypertension Anxiety Dyslipidemia Family History of Cardiac Disease and Myocardial Infarction <50 year of age Admission Status: Observation Assessment & Plan Chest Pain Anxiety Type II Diabetes with Complication Claim Adjuster Use of Insulin Hypertension Anxiety Dyslipidemia Family History of Cardiac Disease and Myocardial Infarction <50 year of age Patient seen by cardiology and her chest pain has been deemed non-cardiac in nature. Patient had borderline stress test and had a left cardiac cath, which showed small coronary system without obstructive disease. Normal left ventricular function with EF 60% on cardiac cath and no valvular abnormalities noted. Patient has high level of stress at home and reported that she has had similar symptoms over the last few weeks, often occurring when she is discussing stressful situations, which is what happened when she came to the ED last night. Her last HgbA1C done in the office was in December, and it was 9.4; when comparing her medicine list to her clinic records, there are multiple differences. The medications that are filled from the repository were added to the current list if recently filled, as patient is unable to state exactly what she is taking, and her current medication list is compiled of what she has filled at local pharmacies -- mostly [facility], with some being filled at [facility]. Of note, [facility] was reviewed secondary to patient reporting a Xanax prescription that was not issued by her PCP, and a significant number of pain medication prescriptions were noted to have been filled, the vast majority at [facility], and only one controlled prescription was given by her PCP. Of note, she does not have ED visits to correlate to all of these prescriptions, at least not at this facility. At the time of my exam of the patient, it was discussed with the patient through her son that translated, that her chest pain was not being caused by a cardiac cause, and she had been cleared by cardiology. Discussed that it could be anxiety, or esophogeal spasm, or some other issue. Per cardiology, she is okay for discharge after 5 PM, which was discussed with the patient, however it was also discussed that I would recommend that she stay and we attempt other solutions to help with her pain if it does not improve as she is able to sit up and eat a meal. The patient is agreeable to this, as translated by her son, and stated we will plan to have patient stay overnight unless patient requests discharge, in which she can notify the nursing staff who can contact me for discharge orders. Clinical Quality Measures DVT/VTE Risk/Contraindication: Risk Factor Score Per Nursin RFS Level Per Nursing on Admit: 1=Low/No VTE PPX Copy Copies To 1: [facility]/CLARK CAPONE DO Apr 21, 2018 15:44
[2018-04-21] MEDS ORDERED: HYDROcodone/APAP 5 MG/325 MG (LORTAB) TAB PO PRN (16:00)
[2018-04-21 17:41] LABS: AMPHETAMINE SCREEN, URINE NEGATIVE (NEGATIVE); BENZODIAZEPINES SCREEN URINE POSITIVE (NEGATIVE); CANNABINOID SCREEN, URINE NEGATIVE (NEGATIVE); COCAINE SCREEN URINE NEGATIVE (NEGATIVE); METHAMPHETAMINE SCREEN URINE S NEGATIVE (NEGATIVE)
[2018-04-21 17:42] LABS: BARBITURATE SCREEN URINE NEGATIVE (NEGATIVE); METHADONE STAT NEGATIVE (NEGATIVE); OPIATE SCREEN URINE POSITIVE (NEGATIVE); OXYCODONE STAT NEGATIVE (NEGATIVE); PROPOXYPHENE STAT NEGATIVE (NEGATIVE); TRICYCLIC ANTIDEPRESSANTS SCRE NEGATIVE (NEGATIVE)
--- NOTE | 2018-04-21 19:05 | Discharge Summary ---
Diagnosis/Chief Complaint Date of Admission Apr 20, 2018 at 17:51 Date of Discharge Apr 21, 2018 Admission Diagnosis Admission Diagnosis Chest Pain - Non Cardiac Anxiety Type II Diabetes with Complication Long-Term Use of Insulin Hypertension Anxiety Dyslipidemia Family History of Cardiac Disease and Myocardial Infarction <50 year of age Discharge Diagnosis Chest Pain Anxiety Type II Diabetes with Complication Community Facilitator Use of Insulin Hypertension Anxiety Dyslipidemia Family History of Cardiac Disease and Myocardial Infarction <50 year of age Patient seen by cardiology and her chest pain has been deemed non-cardiac in nature. Patient had borderline stress test and had a left cardiac cath, which showed small coronary system without obstructive disease. Normal left ventricular function with EF 60% on cardiac cath and no valvular abnormalities noted. Patient has high level of stress at home and reported that she has had similar symptoms over the last few weeks, often occurring when she is discussing stressful situations, which is what happened when she came to the ED last night. Her last HgbA1C done in the office was in December, and it was 9.4; when comparing her medicine list to her clinic records, there are multiple differences. The medications that are filled from the repository were added to the current list if recently filled, as patient is unable to state exactly what she is taking, and her current medication list is compiled of what she has filled at local pharmacies -- mostly [facility], with some being filled at [facility]. Of note, [facility] was reviewed secondary to patient reporting a Xanax prescription that was not issued by her PCP, and a significant number of pain medication prescriptions were noted to have been filled, the vast majority at [facility], and only one controlled prescription was given by her PCP. Of note, she does not have ED visits to correlate to all of these prescriptions, at least not at this facility. At the time of my exam of the patient, it was discussed with the patient through her son that translated, that her chest pain was not being caused by a cardiac cause, and she had been cleared by cardiology. Discussed that it could be anxiety, or esophogeal spasm, or some other issue. Per cardiology, she is okay for discharge after 5 PM, which was discussed with the patient, however it was also discussed that I would recommend that she stay and we attempt other solutions to help with her pain if it does not improve as she is able to sit up and eat a meal. The patient is agreeable to this, as translated by her son, and stated we will plan to have patient stay overnight unless patient requests discharge, in which she can notify the nursing staff who can contact me for discharge orders. 1900: Phone call from nursing staff who report that patient states her pain is better and that she would like to be discharged tonight, with some pain medication. Will e-scribe 3 days of [place] 5/325 via the clinic system as patient is leaving after hours, and send to [facility]. The clinic scheduling staff will contact the patient in the morning to schedule a follow up appointment this week , and we will have pt follow up with cardiology in one week. Chief Complaint/HPI Chief Complaint/HPI 48 year old female presented to the ED by private vehicle yesterday afternoon with her adult son, who interpreted for her, as the patient does not speak [place]. The patient reports chest pain that started about 15 minutes before her arrival to the ED; the pain is located in the middle of her chest and is without radiation. She also reports some pain and pressure in her neck and the back of her head. She reports that she had similar symptoms once, several years ago, when she had a syncopal event in another physician's office. The patient denies history of CAD, but reports history of Type II Diabetes requiring insulin, hypertension, and a family history of multiple first degree relatives with RI's and CAD before age 50. The patient does have a history of anxiety and reports being very stressed at home, but does not give further detail. When her pain started, she was at home, discussing some of the stressful situations going on. Per ER notes, the patient was recently started on 0.5 mg Xanax at HS, but she states she does not take it regularly, just as needed. This is not noted in her clinic records. As the pt had no recorded script for 0.5 mg Xanax in the clinic records, [facility] was checked and showed the patient has received a substantial amount of controlled substances from providers other than her PCP [facility] LEWIS, and not all visits appear to be associated with ER visits. The patient has the following controlled prescriptions over the last year per [facility]: 04/16/18 Tramadol 50 mg, #[address] Valerio 03/21/18 Xanax 0.25 mg, #[address] Valerio 03/13/18 Tramadol 50 mg, #[address] Valerio 02/17/18 [place]et 5/325, #[address] Valerio 02/12/18 [place] 5/325, #[address] Valerio 01/16/18 Promethazine/Codeine Syrup, [address] Valerio 08/19/17 [place]et 5/325, #[address] Valerio 08/17/17 Calumet 5/325, #[address] Antony 08/15/17 Cal[place]et 5/325, #[address] Valerio 08/02/17 Promethazine/Codeine Syrup, [address] Valerio 07/22/17 [place] 5/325, #[address] Valerio 07/04/17 Xanax 0.25 mg, #56 from [facility] 06/25/17 [place] 5/325, #[address] Valerio 06/14/17 Tramadol 50 mg, #[address] Valerio 05/28/17 [place] 5/325, #[address] Valerio 05/09/17 Tramadol 50 mg, #[address] Valerio Discharge Summary-Simple/Stand Procedures Cardiac Stress/Lexiscan, Left Heart Cath - both procedures by Dr. Sal Consultations Dr. Sal with Cardiology Discharge Physical Examination Allergies: Coded Allergies: ceftriaxone (Unverified Allergy, Unknown, 12/01/15) Vitals & I&Os Vital Sign - Last 12Hours Date Time Temp Pulse Resp B/P (MAP) Pulse Ox O2 Delivery O2 Flow Rate FiO2 04/21/18 14:51 71 20 96/61 (73) 98 04/21/18 12:00 97.1 Room Air Intake and Output 04/21/18 00:00 Intake Total 100 ml Balance 100 ml Hospital Course See final discharge diagnosis. Labs Laboratory Tests Test 04/20/18 16:00 04/20/18 20:29 04/20/18 20:58 04/21/18 05:02 Range/Units White Blood Count 9.6 4.3-11.0 10^3/uL Red Blood Count 4.98 4.35-5.85 10^6/uL Hemoglobin 13.3 11.5-16.0 G/DL Hematocrit 41 35-52 % Mean Corpuscular Volume 82 80-99 FL Mean Corpuscular Hemoglobin 27 25-34 PG Mean Corpuscular Hemoglobin Concent 33 32-36 G/DL Red Cell Distribution Width 14.1 10.0-14.5 % Platelet Count 288 130-400 10^3/uL Mean Platelet Volume 10.9 H 7.4-10.4 FL Neutrophils (%) (Auto) 60 42-75 % Lymphocytes (%) (Auto) 31 12-44 % Monocytes (%) (Auto) 7 0-12 % Eosinophils (%) (Auto) 3 0-10 % Basophils (%) (Auto) 0 0-10 % Neutrophils # (Auto) 5.7 1.8-7.8 X 10^3 Lymphocytes # (Auto) 2.9 1.0-4.0 X 10^3 Monocytes # (Auto) 0.7 0.0-1.0 X 10^3 Eosinophils # (Auto) 0.2 0.0-0.3 10^3/uL Basophils # (Auto) 0.0 0.0-0.1 10^3/uL Prothrombin Time 12.9 12.2-14.7 SEC INR Comment 1.0 0.8-1.4 Activated Partial Thromboplast Time 27 24-35 SEC Sodium Level 140 135-145 MMOL/L Potassium Level 3.8 3.6-5.0 MMOL/L Chloride Level 107 98-107 MMOL/L Carbon Dioxide Level 20 L 21-32 MMOL/L Anion Gap 13 5-14 MMOL/L Blood Urea Nitrogen 16 7-18 MG/DL Creatinine 0.65 0.60-1.30 MG/DL Estimat Glomerular Filtration Rate > 60 BUN/Creatinine Ratio 25 Glucose Level 138 H 70-105 MG/DL Calcium Level 9.8 8.5-10.1 MG/DL Magnesium Level 2.3 1.8-2.4 MG/DL Total Bilirubin 0.4 0.1-1.0 MG/DL Aspartate Amino Transf (AST/SGOT) 23 5-34 U/L Alanine Aminotransferase (ALT/SGPT) 44 0-55 U/L Alkaline Phosphatase 101 40-136 U/L Myoglobin 16.0 10.0-92.0 NG/ML Troponin I < 0.30 < 0.30 <0.30 NG/ML Total Protein 7.0 6.4-8.2 GM/DL Albumin 4.5 3.2-4.5 GM/DL Glucometer 111 H 152 H 70-110 MG/DL Test 04/21/18 06:16 04/21/18 11:20 04/21/18 16:14 04/21/18 17:22 Range/Units Troponin I < 0.30 <0.30 NG/ML Triglycerides Level 103 <150 MG/DL Cholesterol Level 83 < 200 MG/DL LDL Cholesterol Direct 38 1-129 MG/DL VLDL Cholesterol 21 5-40 MG/DL HDL Cholesterol 30 L 40-60 MG/DL Glucometer 151 H 173 H 70-110 MG/DL Urine Opiates Screen POSITIVE H NEGATIVE Urine Oxycodone Screen NEGATIVE NEGATIVE Urine Methadone Screen NEGATIVE NEGATIVE Urine Propoxyphene Screen NEGATIVE NEGATIVE Urine Barbiturates Screen NEGATIVE NEGATIVE Ur Tricyclic Antidepressants Screen NEGATIVE NEGATIVE Urine Phencyclidine Screen NEGATIVE NEGATIVE Urine Amphetamines Screen NEGATIVE NEGATIVE Urine Methamphetamines Screen NEGATIVE NEGATIVE Urine Benzodiazepines Screen POSITIVE H NEGATIVE Urine Cocaine Screen NEGATIVE NEGATIVE Urine Cannabinoids Screen NEGATIVE NEGATIVE Radiology Reviewed Date of Exam: 04/20/18 CHEST 1 VIEW, AP/PA ONLY Patient History: Chest pain. Shortness of air Technique: Single frontal view of the chest Comparison: 08/21/2016 FINDINGS: The lung volumes are normal. No focal consolidation is seen. No large pleural effusion or pneumothorax is seen. The cardiomediastinal silhouette is normal in size and contour. No acute osseous abnormality is seen. IMPRESSION: No acute pulmonary abnormality seen. MYOCARDIAL SPECT MULTI DATE OF SERVICE: LEXISCAN MYOVIEW STRESS TEST REPORT. REFERRING PHYSICIAN: [facility]. INDICATION: Chest pain. FINDINGS: Baseline heart rate is 74, baseline blood pressure 109/73. Baseline EKG is sinus rhythm with no ischemic changes. SUMMARY: The patient was injected with 10.11 mCi of technetium-99 Myoview and the resting images were obtained. Then, the patient received 0.4 mg of Lexiscan followed by 33.0 mCi of technetium-99 Myoview. Throughout the test, there were no EKG changes. The patient continued to have chest pain. The resting and stress images were reviewed and compared in the short axis, horizontal long axis and vertical long axis views. Review of the images showed good radiotracer uptake with decreased uptake at the inferoapical and anteroseptal segment. It could be due to extracardiac attenuation. It showed some reversibility on the resting images. SSS is 5, SDS 5, TID 0.98. On the gated images, the left ventricle appeared to be in normal size with normal contractility. Calculated ejection fraction is 79%. CONCLUSION: 1. The patient continued to have chest pain throughout the stress test. 2. Nondiagnostic SPECT images with extracardiac attenuation and decreased uptake at the mid to apical inferior wall and mid to apical anterolateral wall and anterior septum. 3. Normal left ventricular size with normal contractility. Calculated ejection fraction is 79%. Cardiac Cath Report Physician (s)/Trimming Operator (s) Physician PERLA SAL MD Pre-Procedure Diagnosis Pre-Procedure Diagnosis: Chest pain Post-Procedure Note Procedure Start Date: Apr 21, 2018 Name of Procedure: Left heart catheterization Left ventriculogram Thoracic aortogram Findings/Procedure Note PROCEDURE NOTE: After explaining the procedure to the patient, all pros and cons were explained , all questions were answered. The patient signed the consent and then she was placed on the cardiac catheterization laboratory. Groin was prepped SL fashion local anesthesia was used. Sheath placed in the right femoral artery. Kathleen right and left catheter were used to access the coronary system. Pigtail was used to access the left ventricular cavity. Left ventriculogram was done Aortic evaluation done with thoracic aortogram and aortic root angiogram At the end of the procedure the sheath was removed, manual pressure applied FINDINGS: Hemodynamics LV 115/16 end-diastolic pressure of 16 Aorta 111/62 mean of 83 ANATOMY: Left Main is free of obstructive disease Left Anterior Descending is small with no obstructive disease Left Circumflex is small with mild disease no obstructive disease Right Coronory Artery is very small nondominant artery with nonobstructive disease LV Gram is normal in size with normal contracted face and ejection fraction 60 percent Aorta is normal, aortic root, ascending aorta and aortic arch and descending aorta were normal with no dissection or aneurysm CONCLUSION: 1. Small coronary system with no obstructive disease in the coronary tree 2. Normal left ventricular size and systolic function estimated ejection fraction 60 percent 3. Normal thoracic aorta DISCUSSION AND RECOMMENDATION: Chest pain is noncardiac. Medical therapy is recommended Anesthesia Type: Conscious Sedation Estimated blood loss (mL): 15 ml Contrast Amount: 80 ml Total Radiation Dose: 319 mGy Post-Procedure Diagnosis Post-operative diagnosis: Chest pain nonspecific etiology Hypertension Hyperlipidemia Anxiety Discharge Condition at discharge stable Instructions to patient/family Please see electronic discharge instructions given to patient. Discharge Medications Reviewed and agree with Discharge Medication list on patient's Discharge Instruction sheet Clinical Quality Measures DVT/VTE Risk/Contraindication: Risk Factor Score Per Nursin RFS Level Per Nursing on Admit: 1=Low/No VTE PPX Copy Copies To 1: [facility]/CLARK CAPONE DO Apr 21, 2018 19:05
[2018-04-21] MEDS ORDERED: ACHD5005 PO (19:08)
--- NOTE | 2018-04-21 19:14 | Discharge Instructions ---
Discharge Inst-[facility] Discharge Medications New, Converted or Re-Newed RX: Transmitted to Pharmacy (hydrocodone transmitted via clinic computer system, as it is controlled medication and pt is requesting after hours discharge) New Medications: Hydrocodone Bit/Acetaminophen (Hydrocodone/Acetaminophen 5/325mg Tablet) 1 Tab Tab 1 TAB PO Q6H PRN for PAIN-SEVERE for 3 Days, #12 TAB 0 Refills Continued Medications: Alprazolam (Xanax) 0.25 Mg Tablet 0.25 MG PO BID PRN for ANXIETY, TAB Atorvastatin Calcium (Lipitor) 10 Mg Tablet 10 MG PO HS, TAB Citalopram Hydrobromide (Celexa) 10 Mg Tablet 10 MG PO DAILY, TAB Empagliflozin (Jardiance) 10 Mg Tablet 10 MG PO DAILY, TAB Gabapentin (Gabapentin) 300 Mg Capsule 300 MG PO BID, CAP Insulin Determir (Levemir) 1,000 Units/10 Ml Soln 20 UNITS SQ BID, EA Losartan Potassium (Losartan Potassium) 25 Mg Tablet 25 MG PO DAILY, TAB Meloxicam (Meloxicam) 7.5 Mg Tablet 7.5 MG PO DAILY, TAB Metformin HCl (Metformin HCl ER) 750 Mg Tab.er.24h 750 MG PO BID, TAB LAST FILLED IN JANUARY Propranolol HCl (Propranolol HCl) 40 Mg Tablet 20 MG PO BID, TAB TAKES 1/2 (40MG) TABLET Discontinued Medications: Tramadol HCl (Tramadol HCl) 50 Mg Tablet 50 MG PO TID PRN for PAIN-MODERATE, TAB Patient Instructions Patient Instructions -take medication as prescribed -low salt, diabetic diet -follow up with cardiology as directed -follow up with PCP, Abel LEWIS, in 1 week -- the clinic will contact you tomorrow to schedule an appt -avoid tobacco products Goal/Follow Up Appt: Cardiology, 1 week Abel LEWIS in 1 week - the clinic will call you tomorrow with appt Return to The Hospital For: chest pain or pressure, shortness of breath not relieved by rest, nausea or vomiting that makes you unable to keep down clear liquids or medications and lasts more than 12-24 hours, fever >101 that lasts more than 2-3 days and is not relieved by tylenol or ibuprofen, if directed by occupational health nurse manager provider, or with any other emergent complaints or concerns Activity & Diet Discharge Diet: Low Sodium Diet, ADA Diet Activity as Tolerated: Yes Copy Copies To 1: [facility]/CLARK CAPONE DO Apr 21, 2018 19:14
[2018-04-21] MEDS ORDERED: ALPRAZolam 0.25 MG (XANAX) TAB PO PRN (19:15)
[2018-04-21] MEDS ORDERED: inSUlin DETERMIR 1 UNIT/0.01 ML (LEVEMIR) CHARGE PER UNIT SQ SCH (21:00)
[2018-04-21] MEDS ORDERED: GABAPENTIN 300 MG (NEURONTIN) CAP PO SCH (21:00)
[2018-04-21] MEDS ORDERED: NON-FORMULARY MEDICATION 1 EA EA (Metformin HCl (Metformin HCl ER) 750 MG) PO SCH (21:00)
[2018-04-21] MEDS ORDERED: PROPRANOLOL 20 MG (INDERAL) TABLET PO SCH (21:00)
[2018-04-21] MEDS ORDERED: ATORVASTATIN 10 MG (LIPITOR) TABLET PO SCH (21:00)
[2018-04-22] MEDS ORDERED: NON-FORMULARY MEDICATION 1 EA EA (Empagliflozin (Jardiance) 10 MG) PO SCH (09:00)
[2018-04-22] MEDS ORDERED: MELOXICAM 7.5 MG (MOBIC) TABLET PO SCH (09:00)
[2018-04-22] MEDS ORDERED: NON-FORMULARY MEDICATION 1 EA EA (Losartan Potassium 25 MG) PO SCH (09:00)
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
== END 2018-04-21 19:58 | disposition home or self-care (01) ==
LOC: EDUNIT# 15:46 → ER 15:47 → 4TH 17:51 → UNDOADMOB 17:51 → CATH 19:40 → 4TH 19:40 → UNDODISOB 04-21 19:58 → CATH 04-21 19:58
PROVIDERS: ATTEND Family Medicine
DX: R07.89 Other chest pain (principal); I10 Essential (primary) hypertension; E11.9 Type 2 diabetes mellitus without complications; E78.5 Hyperlipidemia, unspecified; G44.209 Tension-type headache, unspecified, not intractable; M54.2 Cervicalgia; F41.9 Anxiety disorder, unspecified; F32.9 Major depressive disorder, single episode, unspecified; Z82.49 Family history of ischemic heart disease and other diseases of the circulatory system; Z79.4 Long term (current) use of insulin; Z79.899 Other long term (current) drug therapy
CPT/HCPCS: 36415; 71045; 78452; 80053; 80061; 80306; 82962; 83735; 83874; 84484; 85025; 85610; 85730; 93005; 93017; 93041; 93458; 93567; 96374; 96375; G0378

== ENCOUNTER 2018-06-22 01:56 | Emergency (ER) | payer SELFPAY ==
[~2018-06-22] VITALS: Ht 152.4 cm; Wt 56.7 kg
[~2018-06-22 01:56] MED LIST changes: +ALPR0.25 PO; +ATOR10TA PO; -BENZ-13 PO; +BENZ100C18 PO; +CITA10TA12 PO; +EMPA10TA PO; +GABA-488 PO; +INSU100V5 SQ; -LOSA25TA21 PO; +LOSA25TA6 PO; +MELO15TA39 PO; +MELO7.5T46 PO; +METF-397 PO; -METF500T5 PO; +METF750T2 PO; +PROP40TA5 PO
--- NOTE | 2018-06-22 02:09 | ED Fall/Injury ---
General Stated Complaint: SOB Source: patient, family (daughter), other Exam Limitations: language barrier (daughter interprets Spanish) History of Present Illness Date Seen by Provider: Jun 22, 2018 Time Seen by Provider: 01:50 Initial Comments Patient presents to ER by private conveyance with chief complaint per family that there is a lot of family drama and fighting tonight and whenever this happens their mother will pass out. She is on some diabetic medicines insulin and has a history of panic attacks. She does not have anything that she takes for panic attacks. She is complaining of a little bit of pain on deep inspiration the middle of her chest. She did pass out fall and may have struck her head and neck is complaining of some neck pain. She said she was standing in her home when this happened. She denies being struck by anyone. She denies any nausea fevers chills pain elsewhere. Allergies and Home Medications Allergies Coded Allergies: ceftriaxone (Unverified Allergy, Unknown, 12/01/15) Home Medications Alprazolam 0.25 Mg Tablet, 0.25 MG PO BID PRN for ANXIETY, (Reported) Atorvastatin Calcium 10 Mg Tablet, 10 MG PO HS, (Reported) Citalopram Hydrobromide 10 Mg Tablet, 10 MG PO DAILY, (Reported) Cyclobenzaprine HCl 10 Mg Tablet, 10 MG PO Q8H PRN for SPASMS Prescribed by: HERNANDEZ HURLEY on 06/22/18419 Empagliflozin 10 Mg Tablet, 10 MG PO DAILY, (Reported) Gabapentin 300 Mg Capsule, 300 MG PO BID, (Reported) Hydrocodone Bit/Acetaminophen 1 Tab Tab, 1 TAB PO Q6H PRN for PAIN-SEVERE Prescribed by: CLARK PRESTON on 04/21/181907 Hydroxyzine Pamoate 25 Mg Capsule, 25 MG PO Q6H PRN for ANXIETY Prescribed by: HERNANDEZ HURLEY on 06/22/18419 Insulin Determir 1,000 Units/10 Ml Soln, 20 UNITS SQ BID, (Reported) Losartan Potassium 25 Mg Tablet, 25 MG PO DAILY, (Reported) Meloxicam 7.5 Mg Tablet, 7.5 MG PO DAILY, (Reported) Metformin HCl 750 Mg Tab.er.24h, 750 MG PO BID, (Reported) LAST FILLED IN JANUARY Propranolol HCl 40 Mg Tablet, 20 MG PO BID, (Reported) TAKES 1/2 (40MG) TABLET Patient Home Medication List Home Medication List Reviewed: Yes Review of Systems Review of Systems Constitutional: No chills, No diaphoresis, No fever, No malaise Eyes: Denies Blindness, Denies Blurred Vision, Denies Drainage Ears, Nose, Mouth, Throat: denies ear pain, denies ear discharge Respiratory: No cough; short of breath; No wheezing Cardiovascular: No edema, No Hx of Intervention Gastrointestinal: No abdominal pain, No constipation, No diarrhea, No nausea Genitourinary: No discharge, No dysuria Musculoskeletal: see HPI; No back pain, No joint pain; neck pain Past Abqqnom-Jrbdlq-Fualty Hx Patient Social History Alcohol Use: Denies Use Recreational Drug Use: No Smoking Status: Never a Smoker 2nd Hand Smoke Exposure: No Recent Foreign Travel: No Contact w/Someone Who Travel: No Recent Hopitalizations: No Immunizations Up To Date Tetanus Booster (TDap): Unknown PED Vaccines UTD: No Date of Influenza Vaccine: Jul 17, 2016 Seasonal Allergies Seasonal Allergies: No Past Medical History Surgeries: Yes (; KIDNEY STONE REMOVAL; RIGHT KNEE SURGERY) Appendectomy, Section, Orthopedic, Renal Respiratory: No Cardiac: Yes (FREQUENT C/O CHEST PAIN--WORK-UPS' NEGATIVE) Hypertension Neurological: No Headaches /Migraines 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 Disorders: No Genitourinary: Yes Kidney Stones, UTI-Chronic Gastrointestinal: Yes Pancreatitis Musculoskeletal: No Endocrine: Yes Diabetes, Insulin dep HEENT: No Cancer: No Psychosocial: Yes Anxiety, Depression Integumentary: No Blood Disorders: No Family Medical History Diabetes mellitus 19 FATHER 19 MOTHER Heart Disease, CAD Under 55 Years Old, Diabetes, Hypertension Physical Exam Vital Signs Capillary Refill : Height, Weight, BMI Height: 5'0.00" Weight: 125lbs. 0.0oz. 56.742201dl; 24.4 BMI Method:Stated General Appearance: WD/WN, mild distress HEENT: PERRL/EOMI, normal ENT inspection, TMs normal, pharynx normal Neck: non-tender, full range of motion, supple, normal inspection Cardiovascular: normal peripheral pulses, regular rate, rhythm, no edema Respiratory: chest non-tender, lungs clear, normal breath sounds, no respiratory distress, no accessory muscle use Peripheral Pulses: 2+ Radial Pulses (R), 2+ Radial Pulses (L) Gastrointestinal: normal bowel sounds, non tender, soft Back: normal inspection, no vertebral tenderness Extremities: normal range of motion, non-tender, normal inspection, normal capillary refill Neurologic/Psychiatric: alert, oriented x 3, other (anxious) Skin: normal color, warm/dry Progress/Results/Core Measures Results/Orders Lab Results Laboratory Tests Test 06/22/18 02:15 06/22/18 02:24 06/22/18 03:40 Range/Units White Blood Count 9.7 4.3-11.0 10^3/uL Red Blood Count 4.97 4.35-5.85 10^6/uL Hemoglobin 13.6 11.5-16.0 G/DL Hematocrit 41 35-52 % Mean Corpuscular Volume 83 80-99 FL Mean Corpuscular Hemoglobin 27 25-34 PG Mean Corpuscular Hemoglobin Concent 33 32-36 G/DL Red Cell Distribution Width 14.0 10.0-14.5 % Platelet Count 298 130-400 10^3/uL Mean Platelet Volume 10.6 H 7.4-10.4 FL Neutrophils (%) (Auto) 50 42-75 % Lymphocytes (%) (Auto) 41 12-44 % Monocytes (%) (Auto) 7 0-12 % Eosinophils (%) (Auto) 2 0-10 % Basophils (%) (Auto) 0 0-10 % Neutrophils # (Auto) 4.8 1.8-7.8 X 10^3 Lymphocytes # (Auto) 4.0 1.0-4.0 X 10^3 Monocytes # (Auto) 0.6 0.0-1.0 X 10^3 Eosinophils # (Auto) 0.2 0.0-0.3 10^3/uL Basophils # (Auto) 0.0 0.0-0.1 10^3/uL Sodium Level 142 135-145 MMOL/L Potassium Level 3.5 L 3.6-5.0 MMOL/L Chloride Level 105 98-107 MMOL/L Carbon Dioxide Level 22 21-32 MMOL/L Anion Gap 15 H 5-14 MMOL/L Blood Urea Nitrogen 19 H 7-18 MG/DL Creatinine 0.80 0.60-1.30 MG/DL Estimat Glomerular Filtration Rate > 60 BUN/Creatinine Ratio 24 Glucose Level 167 H 70-105 MG/DL Calcium Level 10.2 H 8.5-10.1 MG/DL Corrected Calcium 8.5-10.1 MG/DL Magnesium Level 2.5 H 1.8-2.4 MG/DL Total Bilirubin 0.5 0.1-1.0 MG/DL Aspartate Amino Transf (AST/SGOT) 23 5-34 U/L Alanine Aminotransferase (ALT/SGPT) 35 0-55 U/L Alkaline Phosphatase 92 40-136 U/L Troponin I < 0.30 <0.30 NG/ML Total Protein 7.9 6.4-8.2 GM/DL Albumin 4.9 H 3.2-4.5 GM/DL Thyroid Stimulating Hormone (TSH) 1.13 0.35-4.94 UIU/ML Serum Alcohol < 10 <10 MG/DL Glucometer 164 H 70-110 MG/DL Urine Color YELLOW Urine Clarity CLEAR Urine pH 7 5-9 Urine Specific [place] 1.015 L 1.016-1.022 Urine Protein NEGATIVE NEGATIVE Urine Glucose (UA) 4+ H NEGATIVE Urine Ketones 1+ H NEGATIVE Urine Nitrite NEGATIVE NEGATIVE Urine Bilirubin NEGATIVE NEGATIVE Urine Urobilinogen NORMAL NORMAL MG/DL Urine Leukocyte Esterase 1+ H NEGATIVE Urine RBC (Auto) NEGATIVE NEGATIVE Urine RBC NONE /HPF Urine WBC NONE /HPF Urine Squamous Epithelial Cells 2-5 /HPF Urine Crystals NONE /LPF Urine Bacteria NEGATIVE /HPF Urine Casts NONE /LPF Urine Mucus NEGATIVE /LPF Urine Culture Indicated NO Urine Opiates Screen NEGATIVE NEGATIVE Urine Oxycodone Screen NEGATIVE NEGATIVE Urine Methadone Screen NEGATIVE NEGATIVE Urine Propoxyphene Screen NEGATIVE NEGATIVE Urine Barbiturates Screen NEGATIVE NEGATIVE Ur Tricyclic Antidepressants Screen NEGATIVE NEGATIVE Urine Phencyclidine Screen NEGATIVE NEGATIVE Urine Amphetamines Screen NEGATIVE NEGATIVE Urine Methamphetamines Screen NEGATIVE NEGATIVE Urine Benzodiazepines Screen NEGATIVE NEGATIVE Urine Cocaine Screen NEGATIVE NEGATIVE Urine Cannabinoids Screen NEGATIVE NEGATIVE My Orders Orders - HERNANDEZ HURLEY Alcohol (06/22/18 02:03) Cbc With Automated Diff (06/22/18 02:03) Comprehensive Metabolic Panel (06/22/18 02:03) Drug Screen Stat (Urine) (06/22/18 02:03) Magnesium (06/22/18 02:03) Troponin I (06/22/18 02:03) Ua Culture If Indicated (06/22/18 02:03) Chest 1 View, Ap/Pa Only (06/22/18 02:03) Saline Lock/Iv-Start (06/22/18 02:03) Ekg Tracing (06/22/18 02:03) Continuous Ekg Monitoring (06/22/18 02:03) Accucheck Stat ONCE (06/22/18 02:03) Ct Head/Cervical Spine Wo (06/22/18 02:03) Thyroid Stimulating Hormone (06/22/18 02:03) Orthostatic Vital Signs (Adult (06/22/18 02:13) Ibuprofen Tablet (Motrin Tablet) (06/22/18 02:45) Medications Given in ED Current Medications Medications Dose Ordered Sig/Olivia Route Start Time Stop Time Status Last Admin Dose Admin Ibuprofen 800 mg ONCE ONCE PO 06/22/18 02:45 06/22/18 02:46 DC 06/22/18 03:51 800 MG Progress Progress Note #1: Time: 02:12 Progress Note It appears the patient's having a panic attack but she does seem to have a syncopal episode likely due to the panic attack. We'll do some orthostatics, workup to rule out other causes. April [address] Sal: Small coronary system with no obstructive disease and coronary tree. Normal left ventricular size and systolic function with EF of 60%. Normal thoracic aorta. Progress Note #2: Time: 04:25 Progress Note Orthostatic vital signs are unremarkable. Lying is 117 or 55 with a heart rate of 63 and standing is 110/58 with a heart rate of 65. It appears that her syncopal episode is most likely from her panic attack. She says in the past she was on some as needed medicines for her panic attacks and she would like to try that again. We have encouraged her to follow up with primary care and will provide her with Vistaril as needed. We'll also provide her with some muscle relaxants she still complained that her neck is sore on both sides. Initial ECG Impression Date: Jun 22, 2018 Initial ECG Impression Time: 02:00 Initial ECG Rate: 73 Initial ECG Rhythm: Normal Sinus Initial ECG Intervals: Normal Initial ECG Impression: Normal Comment No Acute ST elevation or depression. Diagnostic Imaging Diagonstic Imaging: Xray Plain Films/CT/US/NM/MRI: chest (1v) Comments No acute cardiopulmonary processes noted. Reviewed: Reviewed by Me Diagonstic Imaging: CT (without contrast) Plain Films/CT/US/NM/MRI: c-spine, head Comments No acute intracranial hemorrhage or calvarial fracture. No acute fracture or alignment of the cervical spine. Reviewed: Reviewed [place] Study, Reviewed by Me Departure Impression Primary Impression: Syncope and collapse Additional Impressions: Panic attack Neck ache Disposition: HOME, SELF-CARE Condition: Improved Departure-Patient Inst. Decision time for Depature: 04:26 Referrals: [facility] (PCP/Family) Primary Care Physician Patient Instructions: Panic Disorder (DC) Add. Discharge Instructions: Make an appointment to follow up with your primary care doctor in the next 1-2 weeks. If you have another panic attack then you can take one of the Vistaril every 6 hours as needed at the first sign. If you're having some soreness in the muscles of your neck you can use heating pads, Tylenol 1000 mg every 8 hours in addition to ibuprofen 800 mg every 8 hours and finally one tablet of the muscle relaxant, cyclobenzaprine every 8 hours as needed. Scripts Hydroxyzine Pamoate (Vistaril) 25 Mg Capsule 25 MG PO Q6H PRN for ANXIETY for 30 Days, #20 CAP 0 Refills Prov: HERNANDEZ HURLEY 06/22/18 Cyclobenzaprine HCl (Cyclobenzaprine HCl) 10 Mg Tablet 10 MG PO Q8H PRN for SPASMS, #15 TAB 0 Refills Prov: HERNANDEZ HURLEY 06/22/18 Copy Copies To 1: JUNITO GRAY TITUS J Jun 22, 2018 02:09
[2018-06-22 02:28] LABS: BASOPHILS % (AUTO) 0 % (0-10); EOSINOPHILS # (AUTO) 0.2 10^3/uL (0.0-0.3); EOSINOPHILS % (AUTO) 2 % (0-10); HEMATOCRIT 41 % (35-52); HEMOGLOBIN 13.6 G/DL (11.5-16.0); LYMPHOCYTES % (AUTO) 41 % (12-44); MEAN CORPUSCULAR HEMOGLOBIN 27 PG (25-34); MEAN CORPUSCULAR HGB CONC 33 G/DL (32-36); MEAN CORPUSCULAR VOLUME 83 FL (80-99); MEAN PLATELET VOLUME 10.6 FL (7.4-10.4); MONOCYTES # (AUTO) 0.6 X 10^3 (0.0-1.0); MONOCYTES % (AUTO) 7 % (0-12); NEUTROPHILS # (AUTO) 4.8 X 10^3 (1.8-7.8); NEUTROPHILS % (AUTO) 50 % (42-75); PLATELET COUNT 298 10^3/uL (130-400); RED BLOOD COUNT 4.97 10^6/uL (4.35-5.85); WHITE BLOOD COUNT 9.7 10^3/uL (4.3-11.0)
[2018-06-22] MEDS ORDERED: IBUPROFEN 800 MG (MOTRIN) TAB PO ONE (02:45)
[2018-06-22 02:48] LABS: ALANINE AMINOTRANSFERASE 35 U/L (0-55); ALBUMIN 4.9 GM/DL (3.2-4.5); ALKALINE PHOSPHATASE 92 U/L (40-136); BILIRUBIN,TOTAL 0.5 MG/DL (0.1-1.0); BUN/CREATININE RATIO 24; CALCIUM 10.2 MG/DL (8.5-10.1); CARBON DIOXIDE 22 MMOL/L (21-32); CHLORIDE 105 MMOL/L (98-107); GFR ESTIMATED > 60; GLUCOSE 167 MG/DL (70-105); MAGNESIUM 2.5 MG/DL (1.8-2.4); POTASSIUM 3.5 MMOL/L (3.6-5.0); SODIUM 142 MMOL/L (135-145); TOTAL PROTEIN 7.9 GM/DL (6.4-8.2)
[2018-06-22 03:47] LABS: BILIRUBIN,URINE NEGATIVE (NEGATIVE); CLARITY,URINE CLEAR; COLOR,URINE YELLOW; GLUCOSE, URINE (UA) 4+ (NEGATIVE); KETONES,URINE 1+ (NEGATIVE); LEUKOCYTE ESTERASE ,URINE 1+ (NEGATIVE); NITRITE,URINE NEGATIVE (NEGATIVE); PH,URINE 7 (5-9); PROTEIN,URINE NEGATIVE (NEGATIVE); UROBILINOGEN,URINE NORMAL (NORMAL)
[2018-06-22 03:53] LABS: BACTERIA,URINE NEGATIVE /HPF
[2018-06-22 03:58] LABS: AMPHETAMINE SCREEN, URINE NEGATIVE (NEGATIVE); BARBITURATE SCREEN URINE NEGATIVE (NEGATIVE); BENZODIAZEPINES SCREEN URINE NEGATIVE (NEGATIVE); CANNABINOID SCREEN, URINE NEGATIVE (NEGATIVE); COCAINE SCREEN URINE NEGATIVE (NEGATIVE); METHADONE STAT NEGATIVE (NEGATIVE); METHAMPHETAMINE SCREEN URINE S NEGATIVE (NEGATIVE); OPIATE SCREEN URINE NEGATIVE (NEGATIVE); OXYCODONE STAT NEGATIVE (NEGATIVE); PROPOXYPHENE STAT NEGATIVE (NEGATIVE); TRICYCLIC ANTIDEPRESSANTS SCRE NEGATIVE (NEGATIVE)
[2018-06-22 04:18] VITALS: BP_SYST 110; BP_SYST 111; BP_SYST 117; BP_DIAS 55; BP_DIAS 58; BP_DIAS 62
[2018-06-22] MEDS ORDERED: CYCL10TA9 PO (04:20)
[2018-06-22] MEDS ORDERED: HYDR25CA PO (04:20)
[2018-06-22] MEDS ORDERED: CYCLOBENZAPRINE 10 MG (FLEXERIL) TAB PO SCH (04:45)
--- NOTE | 2018-06-22 06:12 | Diagnostic Imaging Report ---
PROCEDURE: CT head and CT cervical spine without contrast. TECHNIQUE: Multiple contiguous axial images were obtained through the brain and cervical spine without the use of intravenous contrast. Sagittal and coronal reformations through the cervical spine were then performed. INDICATION: Syncope. Fall. Neck pain. COMPARISON: 08/21/2016 FINDINGS: CT head: Ventricles and cortical sulci are normal in size and contour. There is no midline shift or mass-effect. No acute intra-axial hemorrhage is seen. There are no abnormal areas of increased or decreased density to suggest acute hemorrhage or edema. No extra-axial masses or collections are present. The bony calvarium is intact. The visualized paranasal sinuses are unremarkable. The mastoid air cells are clear. CT cervical spine: Static alignment of the cervical spine is maintained. There is no significant anteroretrolisthesis. There is no evidence of jumped facets. Vertebral body heights are maintained. There is no evidence of acute fracture. No bony fragments are seen within the spinal canal. Mild multilevel degenerative changes are noted. Pre-and paravertebral soft tissue structures are unremarkable. Included portions of the lung apices show no additional acute abnormalities. IMPRESSION: 1. No acute intracranial abnormality. No CT evidence of mass, acute infarct or intracranial hemorrhage. 2. No CT evidence of acute fracture or dislocation of the cervical spine. Dictated by: Dictated on workstation # [id number]
[2018-06-22 06:17] VITALS: BP 112/73
--- NOTE | 2018-06-22 06:34 | Diagnostic Imaging Report ---
INDICATION: Syncope. Fall. Neck pain. COMPARISON: 04/20/2018 FINDINGS: Single frontal view of the chest demonstrates normal heart size and pulmonary vascularity. The lungs show low inspiratory volumes, but are otherwise clear. No large pleural effusion or pneumothorax is seen. The visualized osseous structures show no acute abnormalities. IMPRESSION: 1. No acute cardiopulmonary process. Dictated by: Dictated on workstation # [id number]
== END 2018-06-22 06:18 | disposition home or self-care (01) ==
LOC: EDUNIT# 01:56 → ER 01:58
DX: R55 Syncope and collapse (principal); F41.0 Panic disorder [episodic paroxysmal anxiety]; M54.2 Cervicalgia; I10 Essential (primary) hypertension; G43.909 Migraine, unspecified, not intractable, without status migrainosus; F32.9 Major depressive disorder, single episode, unspecified; E11.9 Type 2 diabetes mellitus without complications; Z88.8 Allergy status to other drugs, medicaments and biological substances; Z79.4 Long term (current) use of insulin; Z87.19 Personal history of other diseases of the digestive system; Z87.440 Personal history of urinary (tract) infections; Z82.49 Family history of ischemic heart disease and other diseases of the circulatory system; Z87.442 Personal history of urinary calculi; Z90.89 Acquired absence of other organs
CPT/HCPCS: 36415; 70450; 71045; 72125; 80053; 80306; 80320; 81000; 82962; 83735; 84443; 84484; 85025; 93005

== ENCOUNTER 2018-09-18 19:11 | Emergency (ER) | payer MEDICAID | END 2018-09-18 23:29 | disposition home or self-care (01) | LOC: ER 19:11 ==

== ENCOUNTER 2018-10-04 21:35 | Emergency (ER) | payer MEDICAID | END 2018-10-04 22:23 | disposition home or self-care (01) | LOC: ER 21:35 ==

== ENCOUNTER 2018-12-25 23:53 | Emergency (ER) | payer MEDICAID, OTHER ==
[~2018-12-25] VITALS: Ht 162.6 cm; Wt 54.4 kg
[~2018-12-25 23:53] MED LIST changes: +CLIN300C11 PO; +HYDR-3812 PO; +HYDR25CA PO; +LOSA25TA41 PO; -LOSA25TA6 PO; +ONDA4TAB11 PO
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
[2018-12-26] MEDS ORDERED: CANA100T (00:08)
[2018-12-26] MEDS ORDERED: INSU100I10 (00:08)
[2018-12-26] MEDS ORDERED: TRAM50TA2 (00:08)
[2018-12-26] MEDS ORDERED: KETOROLAC 60 MG/2 ML VIAL IM ONE (00:45)
[2018-12-26] MEDS ORDERED: methylPREDNISolone 40 MG/ML (DEPO MEDROL) VIAL IA ONE (00:45)
[2018-12-26] MEDS ORDERED: LIDOCAINE 1% INJ 20 ML 20 ML VIAL INJ ONE (00:45)
[2018-12-26] MEDS ORDERED: BUPIVACAINE 0.5% 30 ML (SENSORCAINE) VIAL INJ ONE (00:45)
--- NOTE | 2018-12-26 01:04 | ED Back Pain ---
General Chief Complaint: Back Problems Stated Complaint: LOWER BACK PAIN Nursing Triage Note: lower back pain. no injury. Nursing Sepsis Screen: No Definite Risk Source of Information: Patient, Family Exam Limitations: Language Barrier (Dutch as a second language) History of Present Illness Date Seen by Provider: Dec 26, 2018 Time Seen by Provider: 00:35 Initial Comments Patient presents to ER by private conveyance with chief complaint for the past week to 2 weeks she's been experiencing progressively worsening back pain. She' s been having this ever since she had her 2 children years ago. It is intermittent. She says she does have a long road trip down to [place] to see family for 2 weeks and when she was down there they gave her some pain pills worked she ran out since getting back and is using Salon Pas with modest relief. She is having no incontinence of bowel or bladder, saddle anesthesia or numbness tingling in the legs. There is no radiation of her pain. It's in her sacrum and her low back. Right little bit more than left. Allergies and Home Medications Allergies Coded Allergies: ceftriaxone (Unverified Allergy, Unknown, 12/01/15) Home Medications Alprazolam 0.25 Mg Tablet, 0.25 MG PO BID PRN for ANXIETY, (Reported) Atorvastatin Calcium 10 Mg Tablet, 10 MG PO HS, (Reported) Citalopram Hydrobromide 10 Mg Tablet, 10 MG PO DAILY, (Reported) Cyclobenzaprine HCl 10 Mg Tablet, 10 MG PO Q8H PRN for SPASMS Prescribed by: HERNANDEZ HURLEY on 06/22/18419 Empagliflozin 10 Mg Tablet, 10 MG PO DAILY, (Reported) Gabapentin 300 Mg Capsule, 300 MG PO BID, (Reported) Hydrocodone Bit/Acetaminophen 1 Tab Tab, 1 TAB PO Q6H PRN for PAIN-SEVERE Prescribed by: CLARK PRESTON on 04/21/181907 Hydrocodone/Acetaminophen 1 Each Tablet, 1-2 EACH PO Q4-6HR PRN for PAIN- MODERATE Prescribed by: IMAN PANG on 10/04/182209 Hydroxyzine Pamoate 25 Mg Capsule, 25 MG PO Q6H PRN for ANXIETY Prescribed by: HERNANDEZ HURLEY on 06/22/18419 Insulin Determir 1,000 Units/10 Ml Soln, 20 UNITS SQ BID, (Reported) Losartan Potassium 25 Mg Tablet, 25 MG PO DAILY, (Reported) Meloxicam 7.5 Mg Tablet, 7.5 MG PO DAILY, (Reported) Metformin HCl 750 Mg Tab.er.24h, 750 MG PO BID, (Reported) LAST FILLED IN JANUARY Ondansetron 4 Mg Tab.rapdis, 4 MG PO Q6H PRN for NAUSEA/VOMITING-1ST LINE Prescribed by: HERNANDEZ HURLEY on 09/18/18 8978 Propranolol HCl 40 Mg Tablet, 20 MG PO BID, (Reported) TAKES 1/2 (40MG) TABLET Patient Home Medication List Home Medication List Reviewed: Yes Review of Systems Constitutional: No chills, No fever EENTM: No hearing loss, No ear pain Respiratory: No cough, No short of breath Cardiovascular: No chest pain, No palpitations Gastrointestinal: No abdominal pain, No constipation, No diarrhea Genitourinary: No decreased output, No discharge Past Ozttjbg-Mpitlt-Jxrjmu Hx Patient Social History Alcohol Use: Denies Use Recreational Drug Use: No Smoking Status: Never a Smoker 2nd Hand Smoke Exposure: No Recent Foreign Travel: No Contact w/Someone Who Travel: No Recent Infectious Disease Expo: No Recent Hopitalizations: No Immunizations Up To Date Tetanus Booster (TDap): Unknown PED Vaccines UTD: No Date of Influenza Vaccine: Jul 17, 2016 Seasonal Allergies Seasonal Allergies: No Past Medical History Surgeries: Yes (; KIDNEY STONE REMOVAL; RIGHT KNEE SURGERY; DENTAL EXTRACTIONS) Appendectomy, Section, Orthopedic, Renal Respiratory: No Cardiac: Yes Hypertension Neurological: Yes Headaches /Migraines : No 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 Disorders: No Genitourinary: Yes Kidney Stones, UTI-Chronic Gastrointestinal: Yes Pancreatitis Musculoskeletal: No Endocrine: Yes Diabetes, Insulin dep HEENT: No Cancer: No Psychosocial: Yes Anxiety, Depression Integumentary: No Blood Disorders: No Family Medical History Diabetes mellitus 19 FATHER 19 MOTHER Heart Disease, CAD Under 55 Years Old, Diabetes, Hypertension Physical Exam Vital Signs Vital Signs - First Documented 12/26/18 00:01 Temp 97.0 Pulse 82 Resp 18 B/P (MAP) 113/65 (81) Pulse Ox 99 O2 Delivery Room Air Capillary Refill : Less Than 3 Seconds Height, Weight, BMI Height: 5'4.00" Weight: 120lbs. 0oz. 54.345787wn; 24.4 BMI Method:Stated General Appearance: No Apparent Distress, WD/WN HEENT: Pharynx Normal, Moist Mucous Membranes Neck: Full Range of Motion, Normal Inspection, Non Tender Cardiovascular: Regular Rate, Rhythm, No Edema, Normal Peripheral Pulses Respiratory: Lungs Clear, Normal Breath Sounds, No Accessory Muscle Use, No Respiratory Distress Back: Normal Inspection, No Vertebral Tenderness (lower lumbar spine.) Extremity: Normal Capillary Refill, Normal Inspection, No Pedal Edema Neurologic/Psychiatric: Alert, Oriented x3, No Motor/Sensory Deficits Skin: Normal Color, Warm/Dry Procedures/Interventions Progress Placed a intra-articular shot in the right L5-S1 facet joint using 2 cc of half percent bupivacaine without epinephrine 2 cc of 1% lidocaine without epinephrine mixed with 1 cc of 40 mg per mL Depo-Medrol. Clean the site thoroughly with chlorhexidine and then alcohol. Inserted the needle withdrew and did not get any blood back so we injected. Patient tolerated procedure well and site was sealed with a Band-Aid. Progress/Results/Core Measures Results/Orders My Orders Orders - HERNANDEZ HURLEY Methylprednisolone Acetate Inj (Depo-Med (12/26/18 00:45) Bupivacaine 0.5% Injection (Sensorcaine (12/26/18 00:45) Lidocaine 1% Inj 20 Ml (Xylocaine 1% Inj (12/26/18 00:45) Ketorolac Injection (Toradol Injection) (12/26/18 00:45) Medications Given in ED Current Medications Medications Dose Ordered Sig/Olivia Route Start Time Stop Time Status Last Admin Dose Admin Bupivacaine HCl 30 ml ONCE ONCE INJ 12/26/18 00:45 12/26/18 00:46 DC 12/26/18 01:08 30 ML Ketorolac Tromethamine 60 mg ONCE ONCE IM 12/26/18 00:45 12/26/18 00:46 DC 12/26/18 01:09 60 MG Lidocaine HCl 20 ml ONCE ONCE INJ 12/26/18 00:45 12/26/18 00:46 DC 12/26/18 01:09 20 ML Methylprednisolone Acetate 40 mg ONCE ONCE IA 4 00:45 12/26/18 00:46 DC 12/26/18 01:08 40 MG Vital Signs/I&O 12/26/18 00:01 Temp 97.0 Pulse 82 Resp 18 B/P (MAP) 113/65 (81) Pulse Ox 99 O2 Delivery Room Air Blood Pressure Mean: 81 Departure Impression Primary Impression: Back pain Qualified Codes: M54.5 - Low back pain Additional Impression: Bilateral sacroiliitis Disposition: HOME, SELF-CARE Condition: Stable Departure-Patient Inst. Decision time for Depature: 01:24 Referrals: [facility] (PCP/Family) Primary Care Physician Patient Instructions: Low Back Pain (DC) Add. Discharge Instructions: Use heating pads and topical creams such as icy hot or Biofreeze. 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 Follow-up with a chiropractor. Follow-up with primary care in 2 weeks if not seeing some improvement. All discharge instructions reviewed with patient and/or family. Voiced understanding. Scripts Naproxen (Naprosyn) 500 Mg Tablet 500 MG PO BID for 14 Days, #30 TAB 0 Refills Prov: HERNANDEZ HURLEY 12/26/18 Work/School Note: Work Release Form Date Seen in the Emergency Department: Dec 26, 2018 Return to Work: Dec 29, 2018 Restrictions: No Restrictions HERNANDEZ HURLEY Dec 26, 2018 01:04
[2018-12-26] MEDS ORDERED: NAPR-1071 PO (01:25)
[2018-12-26 01:30] VITALS: BP 119/54
== END 2018-12-26 01:32 | disposition home or self-care (01) ==
LOC: EDUNIT# 23:53 → ER 23:56
DX: M46.1 Sacroiliitis, not elsewhere classified (principal); M54.5 Low back pain; I10 Essential (primary) hypertension; G43.909 Migraine, unspecified, not intractable, without status migrainosus; E11.9 Type 2 diabetes mellitus without complications; F41.9 Anxiety disorder, unspecified; F32.9 Major depressive disorder, single episode, unspecified; Z87.440 Personal history of urinary (tract) infections; Z87.19 Personal history of other diseases of the digestive system; Z82.49 Family history of ischemic heart disease and other diseases of the circulatory system; Z88.1 Allergy status to other antibiotic agents; Z79.4 Long term (current) use of insulin; Z87.442 Personal history of urinary calculi; Z98.890 Other specified postprocedural states; Z90.49 Acquired absence of other specified parts of digestive tract
CPT/HCPCS: 99284

== ENCOUNTER → 2018-12-29 | Outpatient (CLI) | payer MEDICAID ==
[~2018-12-29] MED LIST changes: +CANA100T; +INSU100I10; +NAPR-1071 PO; +TRAM50TA2
[2018-12-29 11:16] LABS: MEAN PLATELET VOLUME 10.6 FL (7.4-10.4); RED CELL DISTRIBUTION WIDTH 14.8 % (10.0-14.5); WHITE BLOOD COUNT 8.7 10^3/uL (4.3-11.0)
[2018-12-29 11:32] LABS: ALANINE AMINOTRANSFERASE 77 U/L (0-55); ALBUMIN 4.8 GM/DL (3.2-4.5); ALKALINE PHOSPHATASE 109 U/L (40-136); BILIRUBIN,TOTAL 0.5 MG/DL (0.1-1.0); BUN/CREATININE RATIO 30; CALCIUM 9.8 MG/DL (8.5-10.1); CARBON DIOXIDE 23 MMOL/L (21-32); CHLORIDE 109 MMOL/L (98-107); CHOLESTEROL 167 MG/DL (< 200); CREATININE SERUM 0.64 MG/DL (0.60-1.30); GFR ESTIMATED > 60; GLUCOSE 157 MG/DL (70-105); HDL CHOLESTEROL 51 MG/DL (40-60); POTASSIUM 3.9 MMOL/L (3.6-5.0); SODIUM 142 MMOL/L (135-145); TOTAL PROTEIN 7.5 GM/DL (6.4-8.2); TRIGLYCERIDES 111 MG/DL (<150); VLDL CHOLESTEROL 22 MG/DL (5-40)
== END ==
LOC: LAB 10:58
PROVIDERS: ATTEND Family Medicine
DX: E11.9 Type 2 diabetes mellitus without complications (principal); E78.5 Hyperlipidemia, unspecified; N28.9 Disorder of kidney and ureter, unspecified
CPT/HCPCS: 36415; 80053; 80061; 83036; 85027

== ENCOUNTER 2019-01-11 00:59 | Emergency (ER) | payer MEDICAID ==
[~2019-01-11] VITALS: Ht 152.4 cm; Wt 63.5 kg
[2019-01-11] MEDS ORDERED: LACTATED RINGERS 1,000 ML IV ONE (01:26)
[2019-01-11] MEDS ORDERED: ONDANSETRON 4 MG/2 ML (SDV) Z0FRAN IVP ONE (01:30)
[2019-01-11 01:32] LABS: BASOPHILS # (AUTO) 0.1 10^3/uL (0.0-0.1); BASOPHILS % (AUTO) 1 % (0-10); EOSINOPHILS # (AUTO) 0.2 10^3/uL (0.0-0.3); EOSINOPHILS % (AUTO) 2 % (0-10); HEMATOCRIT 39 % (35-52); HEMOGLOBIN 12.8 G/DL (11.5-16.0); LYMPHOCYTES # (AUTO) 3.3 X 10^3 (1.0-4.0); LYMPHOCYTES % (AUTO) 33 % (12-44); MEAN CORPUSCULAR HEMOGLOBIN 28 PG (25-34); MEAN CORPUSCULAR HGB CONC 33 G/DL (32-36); MEAN CORPUSCULAR VOLUME 84 FL (80-99); MEAN PLATELET VOLUME 10.6 FL (7.4-10.4); MONOCYTES # (AUTO) 0.9 X 10^3 (0.0-1.0); MONOCYTES % (AUTO) 9 % (0-12); NEUTROPHILS # (AUTO) 5.6 X 10^3 (1.8-7.8); NEUTROPHILS % (AUTO) 56 % (42-75); PLATELET COUNT 248 10^3/uL (130-400); WHITE BLOOD COUNT 10.1 10^3/uL (4.3-11.0)
[2019-01-11 01:33] LABS: BILIRUBIN,URINE NEGATIVE (NEGATIVE); CLARITY,URINE CLEAR; COLOR,URINE YELLOW; GLUCOSE, URINE (UA) 4+ (NEGATIVE); KETONES,URINE NEGATIVE (NEGATIVE); LEUKOCYTE ESTERASE ,URINE 1+ (NEGATIVE); NITRITE,URINE NEGATIVE (NEGATIVE); PH,URINE 5 (5-9); PROTEIN,URINE NEGATIVE (NEGATIVE); UROBILINOGEN,URINE NORMAL (NORMAL)
[2019-01-11 01:41] LABS: BACTERIA,URINE NEGATIVE /HPF; SQUAMOUS EPITHELIAL CELL,UR 0-2 /HPF; WBC,URINE RARE /HPF
[2019-01-11 01:57] LABS: AMPHETAMINE SCREEN, URINE NEGATIVE (NEGATIVE); BARBITURATE SCREEN URINE NEGATIVE (NEGATIVE); BENZODIAZEPINES SCREEN URINE NEGATIVE (NEGATIVE); CANNABINOID SCREEN, URINE NEGATIVE (NEGATIVE); COCAINE SCREEN URINE NEGATIVE (NEGATIVE); METHADONE STAT NEGATIVE (NEGATIVE); METHAMPHETAMINE SCREEN URINE S NEGATIVE (NEGATIVE); OPIATE SCREEN URINE NEGATIVE (NEGATIVE); OXYCODONE STAT NEGATIVE (NEGATIVE); PROPOXYPHENE STAT NEGATIVE (NEGATIVE); TRICYCLIC ANTIDEPRESSANTS SCRE NEGATIVE (NEGATIVE)
[2019-01-11 02:03] LABS: ALANINE AMINOTRANSFERASE 56 U/L (0-55); ALBUMIN 4.6 GM/DL (3.2-4.5); ALKALINE PHOSPHATASE 102 U/L (40-136); AMYLASE 84 U/L (25-125); BILIRUBIN,TOTAL 0.3 MG/DL (0.1-1.0); BUN/CREATININE RATIO 25; CALCIUM 10.2 MG/DL (8.5-10.1); CARBON DIOXIDE 21 MMOL/L (21-32); CHLORIDE 107 MMOL/L (98-107); CREATININE SERUM 0.64 MG/DL (0.60-1.30); GFR ESTIMATED > 60; GLUCOSE 179 MG/DL (70-105); LIPASE 77 U/L (8-78); MAGNESIUM 2.1 MG/DL (1.8-2.4); POTASSIUM 3.9 MMOL/L (3.6-5.0); SODIUM 141 MMOL/L (135-145); TOTAL PROTEIN 6.9 GM/DL (6.4-8.2)
--- NOTE | 2019-01-11 02:20 | ED General ---
General Chief Complaint: General Problems/Pain Stated Complaint: CHILLS, DIZZY PASSING OUT Nursing Triage Note: PT TO ED 7 PER AMB W/ SON FOR C/O LOW BLOOD SUGAR ET FEELING LIKE SHE WILL " PASS OUT" ONSET THIS EVENING. SON REPORTS PT'S FSBS AT HOME WAS 49MG/DL SO HE REPORTS HE GAVE PT "SUGAR, POP ET MCDONALDS". PT PRESENTLY C/O ABD PAIN, NAUSEA ET WEAKNESS Nursing Sepsis Screen: No Definite Risk Allergies and Home Medications Allergies Coded Allergies: ceftriaxone (Unverified Allergy, Unknown, 12/01/15) Home Medications Alprazolam 0.25 Mg Tablet, 0.25 MG PO BID PRN for ANXIETY, (Reported) Atorvastatin Calcium 10 Mg Tablet, 10 MG PO HS, (Reported) Citalopram Hydrobromide 10 Mg Tablet, 10 MG PO DAILY, (Reported) Cyclobenzaprine HCl 10 Mg Tablet, 10 MG PO Q8H PRN for SPASMS Prescribed by: HERNANDEZ HURLEY on 06/22/18 042 Empagliflozin 10 Mg Tablet, 10 MG PO DAILY, (Reported) Gabapentin 300 Mg Capsule, 300 MG PO BID, (Reported) Hydrocodone Bit/Acetaminophen 1 Tab Tab, 1 TAB PO Q6H PRN for PAIN-SEVERE Prescribed by: CLARK PRESTON on 04/21/18 190 Hydrocodone/Acetaminophen 1 Each Tablet, 1-2 EACH PO Q4-6HR PRN for PAIN- MODERATE Prescribed by: IMAN PANG on 10/04/18 221 Hydroxyzine Pamoate 25 Mg Capsule, 25 MG PO Q6H PRN for ANXIETY Prescribed by: HERNANDEZ HURLEY on 06/22/18 042 Insulin Determir 1,000 Units/10 Ml Soln, 20 UNITS SQ BID, (Reported) Losartan Potassium 25 Mg Tablet, 25 MG PO DAILY, (Reported) Meloxicam 7.5 Mg Tablet, 7.5 MG PO DAILY, (Reported) Metformin HCl 750 Mg Tab.er.24h, 750 MG PO BID, (Reported) LAST FILLED IN JANUARY Naproxen 500 Mg Tablet, 500 MG PO BID Prescribed by: HERNANDEZ HURLEY on 12/26/18 0125 Ondansetron 4 Mg Tab.rapdis, 4 MG PO Q6H PRN for NAUSEA/VOMITING-1ST LINE Prescribed by: HERNANDEZ HURLEY on 09/18/182254 Propranolol HCl 40 Mg Tablet, 20 MG PO BID, (Reported) TAKES 1/2 (40MG) TABLET Past Givdszz-Doejhw-Zibtxr Hx Patient Social History Alcohol Use: Denies Use Recreational Drug Use: No Smoking Status: Never a Smoker 2nd Hand Smoke Exposure: No Recent Foreign Travel: No Contact w/Someone Who Travel: No Recent Infectious Disease Expo: No Recent Hopitalizations: No Physical Abuse: No Sexual Abuse: No Mistreated: No Fear: No Immunizations Up To Date Tetanus Booster (TDap): Unknown PED Vaccines UTD: No Date of Influenza Vaccine: Jul 17, 2016 Seasonal Allergies Seasonal Allergies: No Past Medical History Surgeries: Yes (; KIDNEY STONE REMOVAL; RIGHT KNEE SURGERY; DENTAL EXTRACTIONS) Appendectomy, Section, Orthopedic, Renal Respiratory: No Cardiac: Yes Hypertension Neurological: Yes Headaches /Migraines 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 Disorders: No Genitourinary: Yes Kidney Stones, UTI-Chronic Gastrointestinal: Yes Pancreatitis Musculoskeletal: No Endocrine: Yes Diabetes, Insulin dep HEENT: No Cancer: No Psychosocial: Yes Anxiety, Depression Integumentary: No Blood Disorders: No Family Medical History Diabetes mellitus 19 FATHER 19 MOTHER Heart Disease, CAD Under 55 Years Old, Diabetes, Hypertension Physical Exam Vital Signs Vital Signs - First Documented 01/11/19 01:13 Temp 97.9 Pulse 77 Resp 18 B/P (MAP) 133/67 (89) Pulse Ox 98 O2 Delivery Room Air Capillary Refill : Less Than 3 Seconds Height, Weight, BMI Height: 5'4.00" Weight: 140lbs. 0oz. 63.386484ij; 24.4 BMI Method:Estimated Progress/Results/Core Measures Suspected Sepsis Recent Fever Within 48 Hours: No Infection Criteria Present: None New/Unexplained Altered Menta: No Sepsis Screen: No Definite Risk SIRS Temperature:97.9 Pulse: 77 Respiratory Rate: 18 Laboratory Tests 01/11/19 01:23: White Blood Count 10.1 Blood Pressure 133 /67 Mean: 89 Laboratory Tests 01/11/19 01:23: Creatinine 0.64, INR Comment 1.0, Platelet Count 248, Total Bilirubin 0.3 Results/Orders Lab Results Laboratory Tests Test 01/11/19 01:23 01/11/19 01:29 Range/Units White Blood Count 10.1 4.3-11.0 10^3/uL Red Blood Count 4.60 4.35-5.85 10^6/uL Hemoglobin 12.8 11.5-16.0 G/DL Hematocrit 39 35-52 % Mean Corpuscular Volume 84 80-99 FL Mean Corpuscular Hemoglobin 28 25-34 PG Mean Corpuscular Hemoglobin Concent 33 32-36 G/DL Red Cell Distribution Width 14.0 10.0-14.5 % Platelet Count 248 130-400 10^3/uL Mean Platelet Volume 10.6 H 7.4-10.4 FL Neutrophils (%) (Auto) 56 42-75 % Lymphocytes (%) (Auto) 33 12-44 % Monocytes (%) (Auto) 9 0-12 % Eosinophils (%) (Auto) 2 0-10 % Basophils (%) (Auto) 1 0-10 % Neutrophils # (Auto) 5.6 1.8-7.8 X 10^3 Lymphocytes # (Auto) 3.3 1.0-4.0 X 10^3 Monocytes # (Auto) 0.9 0.0-1.0 X 10^3 Eosinophils # (Auto) 0.2 0.0-0.3 10^3/uL Basophils # (Auto) 0.1 0.0-0.1 10^3/uL Prothrombin Time 13.0 12.2-14.7 SEC INR Comment 1.0 0.8-1.4 Activated Partial Thromboplast Time 30 24-35 SEC Urine Color YELLOW Urine Clarity CLEAR Urine pH 5 5-9 Urine Specific [place] 1.010 L 1.016-1.022 Urine Protein NEGATIVE NEGATIVE Urine Glucose (UA) 4+ H NEGATIVE Urine Ketones NEGATIVE NEGATIVE Urine Nitrite NEGATIVE NEGATIVE Urine Bilirubin NEGATIVE NEGATIVE Urine Urobilinogen NORMAL NORMAL MG/DL Urine Leukocyte Esterase 1+ H NEGATIVE Urine RBC (Auto) NEGATIVE NEGATIVE Urine RBC NONE /HPF Urine WBC RARE /HPF Urine Squamous Epithelial Cells 0-2 /HPF Urine Crystals NONE /LPF Urine Bacteria NEGATIVE /HPF Urine Casts NONE /LPF Urine Mucus NEGATIVE /LPF Urine Culture Indicated NO Sodium Level 141 135-145 MMOL/L Potassium Level 3.9 3.6-5.0 MMOL/L Chloride Level 107 98-107 MMOL/L Carbon Dioxide Level 21 21-32 MMOL/L Anion Gap 13 5-14 MMOL/L Blood Urea Nitrogen 16 7-18 MG/DL Creatinine 0.64 0.60-1.30 MG/DL Estimat Glomerular Filtration Rate > 60 BUN/Creatinine Ratio 25 Glucose Level 179 H 70-105 MG/DL Calcium Level 10.2 H 8.5-10.1 MG/DL Corrected Calcium 8.5-10.1 MG/DL Magnesium Level 2.1 1.8-2.4 MG/DL Total Bilirubin 0.3 0.1-1.0 MG/DL Aspartate Amino Transf (AST/SGOT) 26 5-34 U/L Alanine Aminotransferase (ALT/SGPT) 56 H 0-55 U/L Alkaline Phosphatase 102 40-136 U/L Troponin I < 0.028 <0.028 NG/ML B-Type Natriuretic Peptide < 10.0 <100.0 PG/ML Total Protein 6.9 6.4-8.2 GM/DL Albumin 4.6 H 3.2-4.5 GM/DL Amylase Level 84 25-125 U/L Lipase 77 8-78 U/L Urine Opiates Screen NEGATIVE NEGATIVE Urine Oxycodone Screen NEGATIVE NEGATIVE Urine Methadone Screen NEGATIVE NEGATIVE Urine Propoxyphene Screen NEGATIVE NEGATIVE Urine Barbiturates Screen NEGATIVE NEGATIVE Ur Tricyclic Antidepressants Screen NEGATIVE NEGATIVE Urine Phencyclidine Screen NEGATIVE NEGATIVE Urine Amphetamines Screen NEGATIVE NEGATIVE Urine Methamphetamines Screen NEGATIVE NEGATIVE Urine Benzodiazepines Screen NEGATIVE NEGATIVE Urine Cocaine Screen NEGATIVE NEGATIVE Urine Cannabinoids Screen NEGATIVE NEGATIVE Serum Alcohol < 10 <10 MG/DL Glucometer 230 H 70-110 MG/DL My Orders Orders - CESAR SIDDIQUI DO Accucheck Stat ONCE (01/11/19) Ekg Tracing (01/11/19) Monitor-Rhythm Ecg Trace Only (01/11/19) Amylase (01/11/19) BNP (01/11/19) Cbc With Automated Diff (01/11/19) Comprehensive Metabolic Panel (01/11/19) Lipase (01/11/19:) Magnesium (01/11/19) Protime With Inr (01/11/19) Partial Thromboplastin Time (01/11/19) Troponin I (01/11/19:) Ua Culture If Indicated (01/11/19) Ondansetron Injection (Zofran Injectio (01/11/19:30) Ed Iv/Invasive Line Start (01/11/19 01:26) Lactated Ringers (Lr 1000 Ml Iv Solution (01/11/19 01:26) Alcohol (01/11/19 01:36) Drug Screen Stat (Urine) (01/11/19 01:36) Medications Given in ED Current Medications Medications Dose Ordered Sig/Olivia Route Start Time Stop Time Status Last Admin Dose Admin Lactated Ringer's 1,000 ml @ 0 mls/hr Q0M ONCE IV 01/11/19 01:26 01/11/19 01:28 DC 01/11/19 01:50 0 MLS/HR Ondansetron HCl 8 mg ONCE ONCE IVP 01/11/19 01:30 01/11/19 01:31 DC 01/11/19 01:51 8 MG Vital Signs/I&O 01/11/19 01:13 Temp 97.9 Pulse 77 Resp 18 B/P (MAP) 133/67 (89) Pulse Ox 98 O2 Delivery Room Air Capillary Refill : Less Than 3 Seconds Blood Pressure Mean: 89 Point of Care Testing Finger Stick Blood Glucose: 230 Blood Glucose Action Taken: rn notified Departure Impression Primary Impression: reported episode of hypoglycemia Additional Impression: IDDM (insulin dependent diabetes mellitus) Disposition: HOME, SELF-CARE Condition: Stable Departure-Patient Inst. Referrals: SIERRA MIGUEL DO (PCP/Family) Primary Care Physician Patient Instructions: Blood Glucose Monitoring, Diabetes Type 2 (DC) Add. Discharge Instructions: TAKE YOUR MEDICATIONS PRESCRIBED EAT 3 REGULAR MEALS A DAY CHECK YOUR BLOOD SUGAR 4 TIMES A DAY--BEFORE EACH MEAL AND AT BEDTIME FOLLOW UP WITH YOUR DR ON SATURDAY IF NO BETTER All discharge instructions reviewed with patient and/or family. Voiced understanding. CESAR SIDDIQUI DO Jan 11, 2019 02:20
[2019-01-11 02:56] VITALS: BP 120/67
== END 2019-01-11 02:56 | disposition home or self-care (01) ==
LOC: EDUNIT# 00:59 → ER 01:04
DX: E11.649 Type 2 diabetes mellitus with hypoglycemia without coma (principal); I10 Essential (primary) hypertension; G43.909 Migraine, unspecified, not intractable, without status migrainosus; F41.9 Anxiety disorder, unspecified; F32.9 Major depressive disorder, single episode, unspecified; Z82.49 Family history of ischemic heart disease and other diseases of the circulatory system; Z87.19 Personal history of other diseases of the digestive system; Z87.440 Personal history of urinary (tract) infections; Z88.1 Allergy status to other antibiotic agents; Z79.4 Long term (current) use of insulin; Z98.890 Other specified postprocedural states; Z90.49 Acquired absence of other specified parts of digestive tract; Z87.442 Personal history of urinary calculi
CPT/HCPCS: 36415; 80053; 80306; 80320; 81000; 82150; 82962; 83690; 83735; 83880; 84484; 85025; 85610; 85730; 93005

== ENCOUNTER → 2019-03-03 | Outpatient (CLI) | payer MEDICAID | LOC: ORTHO 10:02 | PROVIDERS: ATTEND Orthopaedic Surgery | DX: M54.2 Cervicalgia (principal) ==

== ENCOUNTER → 2019-05-11 | Outpatient (CLI) | payer MEDICAID ==
--- NOTE | 2019-05-11 16:39 | Diagnostic Imaging Report ---
INDICATION: Back pain after fall. Three views were obtained. FINDINGS: Alignment, vertebral body heights and disc spaces are within normal limits. There is no spondylolysis or spondylolisthesis. There is no acute fracture or traumatic subluxation. IMPRESSION: No acute radiographic abnormality. Dictated by: Dictated on workstation # [id number]
== END ==
LOC: RAD 14:29
PROVIDERS: ATTEND Family Medicine
DX: M54.5 Low back pain (principal); W19.XXXA Unspecified fall, initial encounter
CPT/HCPCS: 72100

== ENCOUNTER 2019-08-17 16:20 | Emergency (ER) | payer MEDICAID ==
[~2019-08-17] VITALS: Ht 157.5 cm; Wt 63.6 kg
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
--- NOTE | 2019-08-17 16:38 | NUR ---
FAST exam preformed @ bedside by Dr. Saha (negative).
--- NOTE | 2019-08-17 16:40 | NUR ---
Pt to CT (ROBERT Sam).
[2019-08-17] MEDS ORDERED: fentaNYL INJECTION 100 MCG/2 ML AMP IM ONE (16:45)
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
[2019-08-17] MEDS ORDERED: ORPHENADRINE 60 MG/2 ML (NORFLEX) AMP IV ONE (17:30)
[2019-08-17] MEDS ORDERED: CYCL10TA9 PO (17:34)
[2019-08-17] MEDS ORDERED: NAPR-1071 PO (17:34)
[2019-08-17 17:51] VITALS: BP 122/72
--- OUTSIDE RECORDS SUMMARY | 2019-09-11 19:38 | XMS REPORT | Continuity of Care Document ---
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 WITHOUT 10/15/2017 ARTUR DO CESAR K Ot I10 ESSENTIAL (PRIMARY) HYPERTENSION 10/15/2017 ARTUR CESAR K Ot J10.1 FLU DUE TO OT IDENT INFLUENZA VIRUS W O 10/15/2017 ARTUR CESAR K Ot R05 COUGH 10/15/2017 ARTUR CESAR K Ot 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 10/15/2017 ARTUR CESAR K Ot Z87.19 PERSONAL HISTORY OF OTHER DISEASES OF 10/15/2017 ARTUR CESAR K Ot Z87.440 PERSONAL HISTORY OF URINARY (TRACT) INFE 10/15/2017 ARTUR CESAR K Ot Z87.442 PERSONAL HISTORY OF URINARY CALCULI 10/15/2017 ARTUR DO CESAR K Ot Z87.59 PERSONAL HISTORY OF COMP OF PREG, CHLDBR 10/15/2017 ARTUR CESAR K Ot Z88.1 ALLERGY STATUS TO OTHER ANTIBIOTIC AGENT 10/15/2017 ARTUR DO CESAR K Ot Z90.49 ACQUIRED ABSENCE OF OTHER SPECIFIED PART 10/28/2017 IRASEMA JEAN APRN Ot M48.02 SPINAL STENOSIS, CERVICAL REGION 10/28/2017 IRASEMA JEAN 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 Ot M50.221 OTHER CERVICAL DISC DISPLACEMENT AT C4-C 04/21/2018 Ot E11.9 TYPE 2 DIABETES MELLITUS WITHOUT COMPLIC 04/21/2018 Ot E78.5 HYPE RLIPIDEMIA, UNSPECIFIED 04/21/2018 Ot F32.9 GEMMA R DEPRESSIVE DISORDER, SINGLE EPISOD 04/21/2018 Ot F41.9 ANXI ETY DISORDER, UNSPECIFIED 04/21/2018 Ot G44.209 TE NSION-TYPE HEADACHE, UNSPECIFIED, NOT 04/21/2018 Ot I10 ESSENT IAL (PRIMARY) HYPERTENSION 04/21/2018 Ot M54.2 CERV ICALGIA 04/21/2018 Ot R07.89 OTH ER CHEST PAIN 04/21/2018 Ot Z79.4 SKILLED NURSING (CURRENT) USE OF INSULIN 04/21/2018 Ot Z79.899 OT HER 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 9 TYPE 2 DIABETES MELLITUS WITHOUT COMPLIC 06/22/2018 HERNANDEZ HURLEY MD Ot F32. 9 MAJOR DEPRESSIVE DISORDER, SINGLE EPISOD 06/22/2018 HERNANDEZ HURLEY MD Ot F41. 0 PANIC DISORDER [EPISODIC PAROXYSMAL ANXI 06/22/2018 HERNANDEZ HURLEY MD Ot G43.909 MIGRAINE, UNSP, NOT INTRACTABLE, WITHOUT 06/22/2018 HERNANDEZ HURLEY MD Ot I10 ESSENTIAL (PRIMARY) HYPERTENSION 06/22/2018 HERNANDEZ HURLEY MD Ot M54. 2 CERVICALGIA 06/22/2018 HERNANDEZ HURLEY MD Ot R06. 02 SHORTNESS OF BREATH 06/22/2018 HERNANDEZ HURLEY MD Ot R55 SYNCOPE AND COLLAPSE 06/22/2018 HERNANDEZ HURLEY MD Ot Z79. 4 SKILLED NURSING (CURRENT) USE OF INSULIN 06/22/2018 HERNANDEZ HURLEY MD Ot Z82. 49 FAMILY HX OF ISCHEM HEART DIS AND OTH DI 06/22/2018 HERNANDEZ HURLEY MD Ot Z87. 19 PERSONAL HISTORY OF OTHER DISEASES OF TH 06/22/2018 HERNANDEZ HURLEY MD Ot Z87.440 PERSONAL HISTORY OF URINARY (TRACT) INFE 06/22/2018 HERNANDEZ HURLEY MD Ot Z87.442 PERSONAL HISTORY OF URINARY CALCULI 06/22/2018 HERNANDEZ HURLEY MD Ot Z88. 8 ALLERGY STATUS TO OT DRUG/MEDS/BIOL SUB 06/22/2018 HERNANDEZ HURLEY MD Ot Z90. 89 ACQUIRED ABSENCE OF OTHER ORGANS 06/24/2018 HERNANDEZ HURLEY MD Ot E11. 9 TYPE 2 DIABETES MELLITUS WITHOUT COMPLIC 06/24/2018 HERNANDEZ HURLEY MD Ot F32. 9 MAJOR DEPRESSIVE DISORDER, SINGLE EPISOD 06/24/2018 HERNANDEZ HURLEY MD Ot F41. 0 PANIC DISORDER [EPISODIC PAROXYSMAL ANXI 06/24/2018 HERNANDEZ HURLEY MD Ot G43.909 MIGRAINE, UNSP, NOT INTRACTABLE, WITHOUT 06/24/2018 HERNANDEZ HURLEY MD Ot I10 ESSENTIAL (PRIMARY) HYPERTENSION 06/24/2018 HERNANDEZ HURLEY MD Ot M54. 2 CERVICALGIA 06/24/2018 HERNANDEZ HURLEY MD Ot R06. 02 SHORTNESS OF BREATH 06/24/2018 HERNANDEZ HURLEY MD Ot R55 SYNCOPE AND COLLAPSE 06/24/2018 HERNANDEZ HURLEY MD Ot Z79. 4 SKILLED NURSING (CURRENT) USE OF INSULIN 06/24/2018 HERNANDEZ HURLEY MD Ot Z82. 49 FAMILY HX OF ISCHEM HEART DIS AND OTH DI 06/24/2018 HERNANDEZ HURLEY MD Ot Z87. 19 PERSONAL HISTORY OF OTHER DISEASES OF TH 06/24/2018 HERNANDEZ HURLEY MD Ot Z87.440 PERSONAL HISTORY OF URINARY (TRACT) INFE 06/24/2018 HERNANDEZ HURLEY MD Ot Z87.442 PERSONAL HISTORY OF URINARY CALCULI 06/24/2018 HERNANDEZ HURLEY MD Ot Z88. 8 ALLERGY STATUS TO OT DRUG/MEDS/BIOL SUB 06/24/2018 HERNANDEZ HURLEY MD Ot Z90. 89 ACQUIRED ABSENCE OF OTHER ORGANS 07/03/2018 IRASEMA JEAN APRN Ot M48.02 SPINAL STENOSIS, CERVICAL REGION 07/03/2018 IRASEMA JEAN 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 Ot M50.221 OTHER CERVICAL DISC DISPLACEMENT AT C4-C 07/04/2018 IRASEMA JEAN APRN Ot M48.02 SPINAL STENOSIS, CERVICAL REGION 07/04/2018 IRASEMA JEAN 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 Ot M50.221 OTHER CERVICAL DISC DISPLACEMENT AT C4-C 07/24/2018 IRASEMA JEAN APRN Ot Z12.31 ENCNTR SCREEN MAMMOGRAM FOR MALIGNANT NE 07/24/2018 IRASEMA JEAN APRN Ot M48.02 SPINAL STENOSIS, CERVICAL REGION 07/24/2018 IRASEMA JEAN 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 Ot M50.221 OTHER CERVICAL DISC DISPLACEMENT AT C4-C 09/05/2018 IRASEMA JEAN 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 Ot Z12.31 ENCNTR SCREEN MAMMOGRAM FOR MALIGNANT NE 09/05/2018 IRASEMA JEAN 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 Ot M48.02 SPINAL STENOSIS, CERVICAL REGION 09/05/2018 IRASEMA JEAN 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 Ot M50.221 OTHER CERVICAL DISC DISPLACEMENT AT C4-C 09/18/2018 HERNANDEZ HURLEY MD Ot A08. 4 VIRAL INTESTINAL INFECTION, UNSPECIFIED 09/18/2018 HERNANDEZ HURLEY MD Ot E11. 9 TYPE 2 DIABETES MELLITUS WITHOUT COMPLIC 09/18/2018 HERNANDEZ HURLEY MD Ot F32. 9 MAJOR DEPRESSIVE DISORDER, SINGLE EPISOD 09/18/2018 HERNANDEZ HURLEY MD Ot F41. 9 ANXIETY DISORDER, UNSPECIFIED 09/18/2018 HERNANDEZ HURLEY MD Ot G43.909 MIGRAINE, UNSP, NOT INTRACTABLE, WITHOUT 09/18/2018 HERNANDEZ HURLEY MD Ot I10 ESSENTIAL (PRIMARY) HYPERTENSION 09/18/2018 HERNANDEZ HURLEY MD Ot R11. 2 NAUSEA WITH VOMITING, UNSPECIFIED 09/18/2018 HERNANDEZ HURLEY MD Ot Z79. 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 49 FAMILY HX OF ISCHEM HEART DIS AND OTH DI 09/18/2018 HERNANDEZ HURLEY MD Ot Z87. 19 PERSONAL HISTORY OF OTHER DISEASES OF TH 09/18/2018 HERNANDEZ HURLEY MD Ot Z87.442 PERSONAL HISTORY OF URINARY CALCULI 09/18/2018 HERNANDEZ HURLEY MD Ot Z88. 8 ALLERGY STATUS TO OT DRUG/MEDS/BIOL SUB 09/18/2018 HERNANDEZ HURLEY MD Ot Z90. 49 ACQUIRED ABSENCE OF OTHER SPECIFIED PART 09/18/2018 HERNANDEZ HURLEY MD Ot Z98.890 OTHER SPECIFIED POSTPROCEDURAL STATES 09/19/2018 IRASEMA JEAN APRN Ot Z12.31 ENCNTR SCREEN MAMMOGRAM FOR MALIGNANT NE 09/19/2018 IRASEMA JEAN APRN Ot M48.02 SPINAL STENOSIS, CERVICAL REGION 09/19/2018 JEANIRASEMA Ibarra 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 Ot M50.221 OTHER CERVICAL DISC DISPLACEMENT AT C4-C 09/22/2018 HERNANDEZ HURLEY MD Ot A08. 4 VIRAL INTESTINAL INFECTION, UNSPECIFIED 09/22/2018 HERNANDEZ HURLEY MD Ot E11. 9 TYPE 2 DIABETES MELLITUS WITHOUT COMPLIC 09/22/2018 HERNANDEZ HURLEY MD Ot F32. 9 MAJOR DEPRESSIVE DISORDER, SINGLE EPISOD 09/22/2018 HERNANDEZ HURLEY MD Ot F41. 9 ANXIETY DISORDER, UNSPECIFIED 09/22/2018 HERNANDEZ HURLEY MD Ot G43.909 MIGRAINE, UNSP, NOT INTRACTABLE, WITHOUT 09/22/2018 HERNANDEZ HURLEY MD Ot I10 ESSENTIAL (PRIMARY) HYPERTENSION 09/22/2018 HERNANDEZ HURLEY MD Ot R11. 2 NAUSEA WITH VOMITING, UNSPECIFIED 09/22/2018 HERNANDEZ HURLEY MD Ot Z79. 4 LICENSED RETAIL SUPERVISOR (CURRENT) USE OF INSULIN 09/22/2018 HERNANDEZ HURLEY MD Ot Z82. 49 FAMILY HX OF ISCHEM HEART DIS AND OTH DI 09/22/2018 HERNANDEZ HURLEY MD Ot Z87. 19 PERSONAL HISTORY OF OTHER DISEASES OF TH 09/22/2018 HERNANDEZ HURLEY MD Ot Z87.442 PERSONAL HISTORY OF URINARY CALCULI 09/22/2018 HERNANDEZ HURLEY MD Ot Z88. 8 ALLERGY STATUS TO [facility] DRUG/MEDS/BIOL SUB 09/22/2018 HERNANDEZ HURLEY MD Ot Z90. 49 ACQUIRED ABSENCE OF OTHER SPECIFIED PART 09/22/2018 HERNANDEZ HURLEY MD Ot Z98.890 OTHER SPECIFIED POSTPROCEDURAL STATES 09/24/2018 HERNANDEZ HURLEY MD Ot A08. 4 VIRAL INTESTINAL INFECTION, UNSPECIFIED 09/24/2018 HERNANDEZ HURLEY MD Ot E11. 9 TYPE 2 DIABETES MELLITUS WITHOUT COMPLIC 09/24/2018 HERNANDEZ HURLEY MD Ot F32. 9 MAJOR DEPRESSIVE DISORDER, SINGLE EPISOD 09/24/2018 HERNANDEZ HURLEY MD Ot F41. 9 ANXIETY DISORDER, UNSPECIFIED 09/24/2018 HERNANDEZ HURLEY MD Ot G43.909 MIGRAINE, UNSP, NOT INTRACTABLE, WITHOUT 09/24/2018 HERNANDEZ HURLEY MD, Ot I10 ESSENTIAL (PRIMARY) HYPERTENSION 09/24/2018 HERNANDEZ HURLEY MD Ot R11. 2 NAUSEA WITH VOMITING, UNSPECIFIED 09/24/2018 HERNANDEZ HURLEY MD, Ot Z79. 4 LICENSED RETAIL SUPERVISOR (CURRENT) USE OF INSULIN 09/24/2018 HERNANDEZ HURLEY MD, Ot Z82. 49 FAMILY HX OF ISCHEM HEART DIS AND OTH DI 09/24/2018 HERNANDEZ HURLEY MD, Ot Z87. 19 PERSONAL HISTORY OF OTHER DISEASES OF TH 09/24/2018 HERNANDEZ HURLEY MD, Ot Z87.442 PERSONAL HISTORY OF URINARY CALCULI 09/24/2018 HERNANDEZ HURLEY MD, Ot Z88. 8 ALLERGY STATUS TO [facility] DRUG/MEDS/BIOL SUB 09/24/2018 HERNANDEZ HURLEY MD, Ot Z90. 49 ACQUIRED ABSENCE OF OTHER SPECIFIED PART 09/24/2018 HERNANDEZ HURLEY MD, Ot Z98.890 OTHER SPECIFIED POSTPROCEDURAL STATES 10/04/2018 IMAN GUAN MD Ot E11.9 TYPE 2 DIABETES MELLITUS WITHOUT COMPLIC 10/04/2018 IMAN GUAN MD Ot F32.9 MAJOR DEPRESSIVE DISORDER, SINGLE EPISOD 10/04/2018 IMAN GUAN MD, Ot F41.9 ANXIETY DISORDER, UNSPECIFIED 10/04/2018 IMAN GUAN MD Ot G43.909 MIGRAINE, UNSP, NOT INTRACTABLE, WITHOUT 10/04/2018 IMAN GUAN MD Ot G89.18 OTHER ACUTE POSTPROCEDURAL PAIN 10/04/2018 IMAN GUAN MD Ot I10 ESSENTIAL (PRIMARY) HYPERTENSION 10/04/2018 IMAN GUAN MD Ot R68.84 JAW PAIN 10/04/2018 IMAN GUAN MD Ot T85.848A PAIN DUE TO OTHER INTERNAL PROSTH DEV/GR 10/04/2018 IMAN GUAN MD, Ot Z79.4 SKILLED NURSING (CURRENT) USE OF INSULIN 10/04/2018 IMAN GUAN MD Ot Z82.49 FAMILY HX OF ISCHEM [...] OTHER SPECIFIED POSTPROCEDURAL STATES 10/07/2018 IMAN GUAN MD Ot E11.9 TYPE 2 [...] I10 ESSENTIAL (PRIMARY) HYPERTENSION 10/07/2018 IMAN GUAN MD Ot R68.84 JAW PAIN 10/07/2018 IMAN GUAN MD, Ot T85.848A PAIN DUE TO OTHER INTERNAL PROSTH DEV/GR 10/07/2018 IMAN GUAN MD, Ot 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 9 TYPE 2 DIABETES MELLITUS WITHOUT COMPLIC 12/26/2018 HERNANDEZ HURLEY MD Ot F32. 9 MAJOR DEPRESSIVE DISORDER, SINGLE EPISOD 12/26/2018 HERNANDEZ HURLEY MD Ot F41. 9 ANXIETY DISORDER, UNSPECIFIED 12/26/2018 HERNANDEZ HURLEY MD Ot G43.909 MIGRAINE, UNSP, NOT INTRACTABLE, WITHOUT 12/26/2018 HERNANDEZ UHRLEY MD Ot I10 ESSENTIAL (PRIMARY) HYPERTENSION 12/26/2018 HERNANDEZ HURLEY MD Ot M46. 1 SACROILIITIS, NOT ELSEWHERE CLASSIFIED 12/26/2018 HERNANDEZ HURLEY MD Ot M54. 5 LOW BACK PAIN 12/26/2018 HERNANDEZ HURLEY MD Ot Z79. 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 49 FAMILY HX OF ISCHEM HEART DIS AND OTH DI 12/26/2018 HERNANDEZ HURLEY MD Ot Z87. 19 PERSONAL HISTORY OF OTHER DISEASES OF TH 12/26/2018 HERNANDEZ HURLEY MD Ot Z87.440 PERSONAL HISTORY OF URINARY (TRACT) INFE 12/26/2018 HERNANDEZ HURLEY MD Ot Z87.442 PERSONAL HISTORY OF URINARY CALCULI 12/26/2018 HERNANDEZ HURLEY MD Ot Z88. 1 ALLERGY STATUS TO OTHER ANTIBIOTIC AGENT 12/26/2018 HERNANDEZ HURLEY MD Ot Z90. 49 ACQUIRED ABSENCE OF OTHER SPECIFIED PART 12/26/2018 HERNANDEZ HURLEY MD Ot Z98.890 OTHER SPECIFIED POSTPROCEDURAL STATES 12/29/2018 HERNANDEZ HURLEY MD Ot E11. 9 TYPE 2 DIABETES MELLITUS WITHOUT COMPLIC 12/29/2018 HERNANDEZ HURLEY MD Ot F32. 9 MAJOR DEPRESSIVE DISORDER, SINGLE EPISOD 12/29/2018 HERNANDEZ HURLEY MD Ot F41. 9 ANXIETY DISORDER, UNSPECIFIED 12/29/2018 HERNANDEZ HURLEY MD Ot G43.909 MIGRAINE, UNSP, NOT INTRACTABLE, WITHOUT 12/29/2018 HERNANDEZ HURLEY MD Ot I10 ESSENTIAL (PRIMARY) HYPERTENSION 12/29/2018 HERNANDEZ HURLEY MD Ot M46. 1 SACROILIITIS, NOT ELSEWHERE CLASSIFIED 12/29/2018 HERNANDEZ HURLEY MD Ot M54. 5 LOW BACK PAIN 12/29/2018 HERNANDEZ HURLEY MD Ot Z79. 4 SKILLED NURSING (CURRENT) USE OF INSULIN 12/29/2018 HERNANDEZ HURLEY MD Ot Z82. 49 FAMILY HX OF ISCHEM HEART DIS AND OTH DI 12/29/2018 HERNANDEZ HURLEY MD, Ot Z87. 19 PERSONAL HISTORY OF OTHER DISEASES OF TH 12/29/2018 HERNANDEZ HURLEY MD, Ot Z87.440 PERSONAL HISTORY OF URINARY (TRACT) INFE 12/29/2018 HERNANDEZ HURLEY MD Ot Z87.442 PERSONAL HISTORY OF URINARY CALCULI 12/29/2018 HERNANDEZ HURLEY MD Ot Z88. 1 ALLERGY STATUS TO OTHER ANTIBIOTIC AGENT 12/29/2018 HERNANDEZ HURLEY MD Ot Z90. 49 ACQUIRED ABSENCE OF OTHER SPECIFIED PART 12/29/2018 HERNANDEZ HURLEY MD Ot Z98.890 OTHER SPECIFIED POSTPROCEDURAL STATES 12/30/2018 GELLENDER DO, SIERRA Morfin Ot E11.9 TYPE 2 DIABETES MELLITUS WITHOUT COMPLIC 12/30/2018 GELLENDER DO, SIERRA Morfin Ot E78.5 HYPERLIPIDEMIA, UNSPECIFIED 12/30/2018 GELLENDER DO, SIERRA Morfin Ot N28.9 DISORDER OF KIDNEY AND URETER, UNSPECIFI 01/04/2019 GELLENDER DO, SIERRA Morfin Ot E11.9 TYPE 2 DIABETES MELLITUS WITHOUT COMPLIC 01/04/2019 GELLENDER DO, SIERRA Morfin Ot E78.5 HYPERLIPIDEMIA, UNSPECIFIED 01/04/2019 GELLENDER DO, SIERRA Morfin Ot N28.9 DISORDER OF KIDNEY AND URETER, UNSPECIFI 01/11/2019 CESAR SIDDIQUI DO Ot E11.649 TYPE 2 DIABETES MELLITUS WITH HYPOGLYCEM 01/11/2019 CESAR SIDDIQUI DO Ot F32.9 MAJOR DEPRESSIVE DISORDER, SINGLE EPISOD 01/11/2019 CESAR SIDDIQUI DO Ot F41.9 ANXIETY DISORDER, UNSPECIFIED 01/11/2019 CESAR SIDDIQUI DO Ot G43.909 MIGRAINE, UNSP, NOT INTRACTABLE, WITHOUT 01/11/2019 ARTUR DO, CESAR K Ot I10 ESSENTIAL (PRIMARY) HYPERTENSION 01/11/2019 ARTUR DO CESAR K Ot R55 SYNCOPE AND COLLAPSE 01/11/2019 ARTUR DO CESAR K Ot Z79.4 SKILLED NURSING (CURRENT) USE OF INSULIN 01/11/2019 ARTUR CESAR K Ot Z82.49 FAMILY HX OF ISCHEM HEART DIS AND OTH DI 01/11/2019 ARTUR GANNON CESAR K Ot Z87.19 PERSONAL HISTORY OF OTHER DISEASES OF 01/11/2019 ARTUR CESAR K Ot Z87.440 PERSONAL HISTORY OF URINARY (TRACT) INFE 01/11/2019 ARTUR CESAR K Ot Z87.442 PERSONAL HISTORY OF URINARY CALCULI 01/11/2019 ARTUR DO CESAR K Ot Z88.1 ALLERGY STATUS TO OTHER ANTIBIOTIC AGENT 01/11/2019 ARTUR CESAR K Ot Z90.49 ACQUIRED ABSENCE OF OTHER SPECIFIED PART 01/11/2019 ARTUR DOSANTOSHA K Ot Z98.890 OTHER SPECIFIED POSTPROCEDURAL STATES 01/14/2019 ARTUR GANNON CESAR K Ot E11.649 TYPE 2 DIABETES MELLITUS WITH HYPOGLYCEM 01/14/2019 ARTUR DO CESAR K Ot F32.9 MAJOR DEPRESSIVE DISORDER, SINGLE EPISOD 01/14/2019 ARTUR CESAR K Ot F41.9 ANXIETY DISORDER, UNSPECIFIED 01/14/2019 ARTUR CESAR K Ot G43.909 MIGRAINE, UNSP, NOT INTRACTABLE, WITHOUT 01/14/2019 ARTUR GANNON CESAR K Ot I10 ESSENTIAL (PRIMARY) HYPERTENSION 01/14/2019 ARTUR DO CESAR K Ot R55 SYNCOPE AND COLLAPSE 01/14/2019 ARTUR CESAR K Ot Z79.4 SKILLED NURSING (CURRENT) USE OF INSULIN 01/14/2019 ARTUR CESAR K Ot Z82.49 FAMILY HX OF ISCHEM HEART DIS AND OTH DI 01/14/2019 ARTUR DO CESAR K Ot Z87.19 PERSONAL HISTORY OF OTHER DISEASES OF 01/14/2019 ARTUR DO CESAR K Ot Z87.440 PERSONAL HISTORY OF URINARY (TRACT) INFE 01/14/2019 ARTUR SANTOSH GANNONA K Ot Z87.442 PERSONAL HISTORY OF URINARY CALCULI 01/14/2019 CESAR SIDDIQUI DO Ot Z88.1 ALLERGY STATUS TO OTHER ANTIBIOTIC AGENT 01/14/2019 CESAR SIDDIQUI DO Ot Z90.49 ACQUIRED ABSENCE OF OTHER SPECIFIED PART 01/14/2019 CESAR SIDDIQUI DO Ot Z98.890 OTHER SPECIFIED POSTPROCEDURAL STATES 01/15/2019 LAMONT GANNON, SIERRA Morfin Ot E11.9 TYPE 2 DIABETES MELLITUS WITHOUT COMPLIC 01/15/2019 GELLENDER DO, SIERRA Morfin Ot E78.5 HYPERLIPIDEMIA, UNSPECIFIED 01/15/2019 GELLENDER DO, SIERRA Morfin Ot N28.9 DISORDER OF KIDNEY AND URETER, UNSPECIFI 03/05/2019 GIULIANA KAPLAN, CECILIA Taylor Ot M54. 2 CERVICALGIA 08/17/2019 MARTINEZ DO, ANATOLIY L Ot E11.9 TYPE 2 DIABETES MELLITUS WITHOUT COMPLIC 08/17/2019 MARTINEZ DO, ANATOLIY L Ot E78.0 0 PURE HYPERCHOLESTEROLEMIA, UNSPECIFIED 08/17/2019 MARTINEZ DO, ANATOLIY L Ot F32.9 MAJOR DEPRESSIVE DISORDER, SINGLE EPISOD 08/17/2019 MARTINEZ DO, ANATOLIY L Ot F41.9 ANXIETY DISORDER, UNSPECIFIED 08/17/2019 MARTINEZ DO, ANATOLIY L Ot G43.9 09 MIGRAINE, UNSP, NOT INTRACTABLE, WITHOUT 08/17/2019 MARTINEZ DO, ANATOLIY L Ot I10 ESSENTIAL (PRIMARY) HYPERTENSION 08/17/2019 MARTINEZ DO, ANATOLIY L Ot M25.5 62 PAIN IN LEFT KNEE 08/17/2019 MARTINEZ DO, ANATOLIY L Ot M54.2 CERVICALGIA 08/17/2019 MARTINEZ DO, ANATOLIY L Ot S16.1XXA STRAIN OF MUSCLE, FASCIA AND TENDON AT N 08/17/2019 MARTINEZ DO, ANATOLIY L Ot 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 [employer] 08/17/2019 MARTINEZ DO, ANATOLIY L Ot Z79.4 SKILLED NURSING (CURRENT) USE OF INSULIN 08/17/2019 MARTINEZ DO, ANATOLIY L Ot Z82.4 9 FAMILY HX OF ISCHEM HEART DIS AND OTH DI 08/17/2019 MARTINEZ DO, ANATOLIY L Ot Z87.4 40 PERSONAL HISTORY OF URINARY (TRACT) INFE 08/17/2019 MARTINEZ DO, ANATOLIY L Ot Z87.4 42 PERSONAL HISTORY OF URINARY CALCULI 08/17/2019 MARTINEZ DO, ANATOLIY L Ot Z88.1 ALLERGY STATUS TO OTHER ANTIBIOTIC AGENT 08/17/2019 MARTINEZ DO, ANATOLIY L Ot Z90.4 9 ACQUIRED ABSENCE OF OTHER SPECIFIED PART 08/22/2019 MARTINEZ DO, ANATOLIY L Ot E11.9 TYPE 2 DIABETES MELLITUS WITHOUT COMPLIC 08/22/2019 MARTINEZ DO, ANATOLIY L Ot E78.0 0 PURE HYPERCHOLESTEROLEMIA, UNSPECIFIED 08/22/2019 MARTINEZ DO, ANATOLIY L Ot F32.9 MAJOR DEPRESSIVE DISORDER, SINGLE EPISOD 08/22/2019 MARTINEZ DO, ANATOLIY L Ot F41.9 ANXIETY DISORDER, UNSPECIFIED 08/22/2019 MARTINEZ DO, ANATOLIY L Ot G43.9 09 MIGRAINE, UNSP, NOT INTRACTABLE, WITHOUT 08/22/2019 MARTINEZ DO, ANATOLIY L Ot I10 ESSENTIAL (PRIMARY) HYPERTENSION 08/22/2019 MARTINEZ DO, ANATOLIY L Ot M25.5 62 PAIN IN LEFT KNEE 08/22/2019 MARTINEZ DO, ANATOLIY L Ot M54.2 CERVICALGIA 08/22/2019 MARTINEZ DO, ANATOLIY L Ot S16.1XXA STRAIN OF MUSCLE, FASCIA AND TENDON AT N 08/22/2019 MARTINEZ DO, ANATOLIY L Ot 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 [employer] 08/22/2019 MARTINEZ DO, ANATOLIY L Ot Z79.4 SKILLED NURSING (CURRENT) USE OF INSULIN 08/22/2019 MARTINEZ DO, ANATOLIY L Ot Z82.4 9 FAMILY HX OF ISCHEM HEART DIS AND OTH DI 08/22/2019 MARTINEZ DO, ANATOLIY L Ot Z87.4 40 PERSONAL HISTORY OF URINARY (TRACT) INFE 08/22/2019 MARTINEZ DO, ANATOLIY L Ot Z87.4 42 PERSONAL HISTORY OF URINARY CALCULI 08/22/2019 MARTINEZ DO, ANATOLIY L Ot Z88.1 ALLERGY STATUS TO OTHER ANTIBIOTIC AGENT 08/22/2019 MARTINEZ DO, ANATOLIY L Ot Z90.4 9 ACQUIRED ABSENCE OF OTHER SPECIFIED PART Procedures Code Description Performed By Per cassie On 74.1 01/29/2011 Results Test Result Range Complete blood count (CBC) with automate d white blood cell (WBC) differential - 06/04/16 21:30 Blood leukocytes automated count (number/volume) 8.9 10*3/uL 4.3-11.0 Blood erythrocytes automated count (number/volume) 4.21 10*6/uL 4.35-5.85 Venous blood hemoglobin measurement (mass/volume) 12.7 g/dL 11.5-16.0 Blood hematocrit (volume fraction) 38 % 35-52 Automated erythrocyte mean corpuscular volume 90 [ foz_us] 80-99 Automated erythrocyte mean corpuscular h emoglobin (mass per erythrocyte) 30 pg 25-34 Automated erythrocyte mean corpuscular h emoglobin concentration measurement (mass/volume) 34 g/dL 32-36 Automated erythrocyte distribution width ratio 12. 6 % 10.0- 14.5 Automated blood platelet count (count/volume) 303 10*3/uL [...] 10*3 1.0-4.0 Blood monocytes automated count (number/volume) 0. 2 10*3 0.0-1.0 Automated eosinophil count 0.0 10*3/uL 0 .0-0.3 Automated blood basophil count (count/volume) 0.0 10*3/uL 0.0-0.1 Comprehensive metabolic panel - 06/04/16 21:30 Serum or plasma sodium measurement (moles/volume) 138 mmol/L 135-145 Serum or plasma potassium measurement (moles/volume) 4.2 mmol/L 3.6-5.0 Serum or plasma chloride measurement (moles/volume) 107 mmol/L 98-107 Carbon dioxide 14 mmol/L 21-32 Serum or plasma anion gap determination (moles/volume) 17 mmol/L 5-14 Serum or plasma urea nitrogen measurement (mass/volume ) 14 mg/dL 7-18 Serum or plasma creatinine measurement (mass/volume) 0.71 mg/dL 0.60-1.30 Serum or plasma urea nitrogen/creatinine mass ratio 20 NRG Serum or plasma creatinine measurement w ith calculation of estimated glomerular filtration rate > NRG Serum or plasma glucose measurement (mass/volume) 317 mg/dL 70-105 Serum or plasma calcium measurement (mass/volume) 10.1 mg/dL 8.5-10.1 Serum or plasma total bilirubin measurement (mass/volu me) 0.5 mg/dL 0.1-1.0 Serum or plasma alkaline phosphatase wilson surement (enzymatic activity/volume) 66 U/L 40-136 Serum or plasma aspartate aminotransfera se measurement (enzymatic activity/volume) 30 U/L 5-34 Serum or plasma alanine aminotransferase measurement (enzymatic activity/volume) 45 U/L 0-55 Serum or plasma protein measurement (mass/volume) 6.9 g/dL 6.4-8.2 Serum or plasma albumin measurement (mass/volume) 4.5 g/dL 3.2-4.5 Serum or plasma troponin i.cardiac measu rement (mass/volume) - 06/04/16 21:30 Serum or plasma troponin i.cardiac measurement (mass/v olume) < ng/mL <0.30 Complete urinalysis with reflex to cultu re - 06/04/16 21:54 Urine color determination YELLOW NRG Urine clarity determination CLEAR NR G Urine pH measurement by test strip 7 5-9 Specific gravity of urine by test strip 1.010 1.016-1.022 Urine protein assay by test strip, semi-quantitative NEGATIVE NEGATIVE Urine glucose detection by automated test strip 4+ NEGATIVE Erythrocytes detection in urine sediment by light micr oscopy NEGATIVE NEGATIVE Urine ketones detection by automated test strip 3+ NEGATIVE Urine nitrite detection by test strip NEGATIVE NEGATIVE Urine total bilirubin detection by test strip NEGA TIVE NEGATIVE Urine urobilinogen measurement by automated test strip (mass/volume) NORMAL NORMAL Urine leukocyte esterase detection by dipstick NEG ATIVE NEGATIVE Automated urine sediment erythrocyte cou nt by microscopy (number/high power field) NONE NRG Automated urine sediment leukocyte count by microscopy (number/high power field) RARE NRG Bacteria detection in urine sediment by light microsco py NONE NRG Squamous epithelial cells detection in u rine sediment by light microscopy RARE NRG Crystals detection in urine sediment by light microsco py NONE NRG Casts detection in urine sediment by light microscopy NONE NRG Mucus detection in urine sediment by light microscopy NEGATIVE NRG Complete urinalysis with reflex to culture NO NRG Complete blood count (CBC) with automate d white blood cell (WBC) differential - 08/21/16 20:52 Blood leukocytes automated count (number/volume) 10.0 10*3/uL 4.3-11.0 Blood erythrocytes automated count (number/volume) 4.52 10*6/uL 4.35-5.85 Venous blood hemoglobin measurement (mass/volume) 13.2 g/dL 11.5-16.0 Blood hematocrit (volume fraction) 40 % 35-52 Automated erythrocyte mean corpuscular volume 89 [ foz_us] 80-99 Automated erythrocyte mean corpuscular h emoglobin (mass per erythrocyte) 29 pg 25-34 Automated erythrocyte mean corpuscular h emoglobin concentration measurement (mass/volume) 33 g/dL 32-36 Automated erythrocyte distribution width ratio 12. 2 % 10.0- 14.5 Automated blood platelet count (count/volume) 265 10*3/uL [...] 10*3 1.0-4.0 Blood monocytes automated count (number/volume) 0. 8 10*3 0.0-1.0 Automated eosinophil count 0.3 10*3/uL 0 .0-0.3 Automated blood basophil count (count/volume) 0.0 10*3/uL 0.0-0.1 PT panel in platelet poor plasma by coag ulation assay - 08/21/16 20:52 Prothrombin time (PT) in platelet poor plasma by coagu lation assay 12.7 s 12.2-14.7 INR in platelet poor plasma or blood by coagulation as say 1.0 0.8-1.4 Activated partial thromboplastin time (a PTT) in platelet poor plasma bycoagulation assay - 08/21/16 20:52 Activated partial thromboplastin time (a PTT) in platelet poor plasma bycoagulation assay 26 s 24-35 Comprehensive metabolic panel - 08/21/16 20:52 Serum or plasma sodium measurement (moles/volume) 142 mmol/L 135-145 Serum or plasma potassium measurement (moles/volume) 3.4 mmol/L 3.6-5.0 Serum or plasma chloride measurement (moles/volume) 106 mmol/L 98-107 Carbon dioxide 17 mmol/L 21-32 Serum or plasma anion gap determination (moles/volume) 19 mmol/L 5-14 Serum or plasma urea nitrogen measurement (mass/volume ) 16 mg/dL 7-18 Serum or plasma creatinine measurement (mass/volume) 0.64 mg/dL 0.60-1.30 Serum or plasma urea nitrogen/creatinine mass ratio 25 NRG Serum or plasma creatinine measurement w ith calculation of estimated glomerular filtration rate > NRG Serum or plasma glucose measurement (mass/volume) 157 mg/dL 70-105 Serum or plasma calcium measurement (mass/volume) 9.8 mg/dL 8.5-10.1 Serum or plasma total bilirubin measurement (mass/volu me) 0.3 mg/dL 0.1-1.0 Serum or plasma alkaline phosphatase wilson surement (enzymatic activity/volume) 83 U/L 40-136 Serum or plasma aspartate aminotransfera se measurement (enzymatic activity/volume) 30 U/L 5-34 Serum or plasma alanine aminotransferase measurement (enzymatic activity/volume) 36 U/L 0-55 Serum or plasma protein measurement (mass/volume) 6.9 g/dL 6.4-8.2 Serum or plasma albumin measurement (mass/volume) 4.4 g/dL 3.2-4.5 Magnesium - 08/21/16 20:52 Magnesium 2.2 mg/dL 1.8-2.4 Serum or plasma troponin i.cardiac measu rement (mass/volume) - 08/21/16 20:52 Serum or plasma troponin i.cardiac measurement (mass/v olume) < ng/mL <0.30 Serum or plasma ethanol measurement (mas s/volume) - 08/21/16 20:52 Serum or plasma ethanol measurement (mass/volume) 81 mg/dL <10 Serum or plasma choriogonadotropin (preg rickie test) detection - 08/21/16 20:52 Serum or plasma choriogonadotropin ( test) de tection NEGATIVE NEGATIVE Serum or plasma amylase measurement (enz ymatic activity/volume) - 08/21/16 20:52 Serum or plasma amylase measurement (enzymatic activit y/volume) 668 U/L 25-125 Lipase - 08/21/16 20:52 Lipase 3855 U/L 8-78 Complete urinalysis with reflex to cultu re - 08/21/16 21:34 Urine color determination YELLOW NRG Urine clarity determination SLIGHTLY CLOUDY NRG Urine pH measurement by test strip 5 5-9 Specific gravity of urine by test strip 1.015 1.016-1.022 Urine protein assay by test strip, semi-quantitative NEGATIVE NEGATIVE Urine glucose detection by automated test strip NE GATIVE NEGATIVE Erythrocytes detection in urine sediment by light micr oscopy 2+ NEGATIVE Urine ketones detection by automated test strip NE GATIVE NEGATIVE Urine nitrite detection by test strip NEGATIVE NEGATIVE Urine total bilirubin detection by test strip NEGA TIVE NEGATIVE Urine urobilinogen measurement by automated test strip (mass/volume) NORMAL NORMAL Urine leukocyte esterase detection by dipstick 2+ NEGATIVE Automated urine sediment erythrocyte cou nt by microscopy (number/high power field) [HPF] NRG Automated urine sediment leukocyte count by microscopy (number/high power field) [HPF] NRG Bacteria detection in urine sediment by light microsco py TRACE NRG Squamous epithelial cells detection in u rine sediment by light microscopy 2-5 NRG Crystals detection in urine sediment by light microsco py PRESENT NRG Casts detection in urine sediment by light microscopy NONE NRG Mucus detection in urine sediment by light microscopy MODERATE NRG Complete urinalysis with reflex to culture YES NRG Calcium oxalate crystals detection in ur ine sediment by light microscopy MODERATE NRG Urine drug screening test - 08/21/16 21: 34 Urine phencyclidine detection by screening method NEGATIVE NEGATIVE Urine benzodiazepines detection by screening method POSITIVE NEGATIVE Urine cocaine detection NEGATIVE NEGATI VE Urine amphetamines detection by screening method N EGATIVE NEGATIVE Urine methamphetamine detection by screening method NEGATIVE NEGATIVE Urine cannabinoids detection by screening method N EGATIVE NEGATIVE Urine opiates detection by screening method NEGATI VE NEGATIVE Urine barbiturates detection NEGATIVE N EGATIVE Screening urine tricyclic antidepressants detection NEGATIVE NEGATIVE Urine methadone detection by screening method NEGA TIVE NEGATIVE Urine oxycodone detection NEGATIVE NEGA TIVE Urine propoxyphene detection NEGATIVE N EGATIVE Bacterial urine culture - 08/21/16 21:34 Bacterial urine culture [id number] NRG COLONY COUNT >100,000/ML NRG FTX;REPORTABLE PLUS MIXED NEMESIO <10,000/ML NRG Capillary blood glucose measurement by g lucometer (mass/volume) - 08/22/16 05:29 Capillary blood glucose measurement by glucometer (mas s/volume) 157 mg/dL 70-110 Lipase - 08/22/16 07:42 Lipase 720 U/L 8-78 Complete blood count (CBC) with automate d white blood cell (WBC) differential - 12/21/16 16:40 Blood leukocytes automated count (number/volume) 8.1 10*3/uL 4.3-11.0 Blood erythrocytes automated count (number/volume) 4.53 10*6/uL 4.35-5.85 Venous blood hemoglobin measurement (mass/volume) 13.1 g/dL 11.5-16.0 Blood hematocrit (volume fraction) 39 % 35-52 Automated erythrocyte mean corpuscular volume 86 [ foz_us] 80-99 Automated erythrocyte mean corpuscular h emoglobin (mass per erythrocyte) 29 pg 25-34 Automated erythrocyte mean corpuscular h emoglobin concentration measurement (mass/volume) 34 g/dL 32-36 Automated erythrocyte distribution width ratio 13. 0 % 10.0- 14.5 Automated blood platelet count (count/volume) 264 10*3/uL [...] 10*3 1.0-4.0 Blood monocytes automated count (number/volume) 0. 6 10*3 0.0-1.0 Automated eosinophil count 0.2 10*3/uL 0 .0-0.3 Automated blood basophil count (count/volume) 0.1 10*3/uL 0.0-0.1 Urine beta human chorionic gonadotropin (hCG) measurement - 04/24/17 12:14 Urine beta human chorionic gonadotropin (hCG) measurem ent NEGATIVE NEGATIVE Complete urinalysis with reflex to cultu re - 04/24/17 12:14 Urine color determination YELLOW NRG Urine clarity determination CLEAR NR G Urine pH measurement by test strip 5 5-9 Specific gravity of urine by test strip 1.025 1.016-1.022 Urine protein assay by test strip, semi-quantitative NEGATIVE NEGATIVE Urine glucose detection by automated test strip 4+ NEGATIVE Erythrocytes detection in urine sediment by light micr oscopy 2+ NEGATIVE Urine ketones detection by automated test strip NE GATIVE NEGATIVE Urine nitrite detection by test strip NEGATIVE NEGATIVE Urine total bilirubin detection by test strip NEGA TIVE NEGATIVE Urine urobilinogen measurement by automated test strip (mass/volume) NORMAL NORMAL Urine leukocyte esterase detection by dipstick NEG ATIVE NEGATIVE Automated urine sediment erythrocyte cou nt by microscopy (number/high power field) NONE NRG Automated urine sediment leukocyte count by microscopy (number/high power field) NONE NRG Bacteria detection in urine sediment by light microsco py FEW NRG Squamous epithelial cells detection in u rine sediment by light microscopy 10-25 NRG Crystals detection in urine sediment by light microsco py NONE NRG Casts detection in urine sediment by light microscopy NONE NRG Mucus detection in urine sediment by light microscopy SMALL NRG Complete urinalysis with reflex to culture NO NRG Complete blood count (CBC) with automate d white blood cell (WBC) differential - 04/24/17 12:35 Blood leukocytes automated count (number/volume) 5.9 10*3/uL 4.3-11.0 Blood erythrocytes automated count (number/volume) 4.17 10*6/uL 4.35-5.85 Venous blood hemoglobin measurement (mass/volume) 11.9 g/dL 11.5-16.0 Blood hematocrit (volume fraction) 36 % 35-52 Automated erythrocyte mean corpuscular volume 86 [ foz_us] 80-99 Automated erythrocyte mean corpuscular h emoglobin (mass per erythrocyte) 29 pg 25-34 Automated erythrocyte mean corpuscular h emoglobin concentration measurement (mass/volume) 33 g/dL 32-36 Automated erythrocyte distribution width ratio 13. 2 % 10.0- 14.5 Automated blood platelet count (count/volume) 197 10*3/uL [...] 10*3 1.0-4.0 Blood monocytes automated count (number/volume) 0. 4 10*3 0.0-1.0 Automated eosinophil count 0.2 10*3/uL 0 .0-0.3 Automated blood basophil count (count/volume) 0.0 10*3/uL 0.0-0.1 Comprehensive metabolic panel - 04/24/17 12:35 Serum or plasma sodium measurement (moles/volume) 137 mmol/L 135-145 Serum or plasma potassium measurement (moles/volume) 3.9 mmol/L 3.6-5.0 Serum or plasma chloride measurement (moles/volume) 106 mmol/L 98-107 Carbon dioxide 23 mmol/L 21-32 Serum or plasma anion gap determination (moles/volume) 8 mmol/L 5-14 Serum or plasma urea nitrogen measurement (mass/volume ) 10 mg/dL 7-18 Serum or plasma creatinine measurement (mass/volume) 0.66 mg/dL 0.60-1.30 Serum or plasma urea nitrogen/creatinine mass ratio 15 NRG Serum or plasma creatinine measurement w ith calculation of estimated glomerular filtration rate > NRG Serum or plasma glucose measurement (mass/volume) 300 mg/dL 70-105 Serum or plasma calcium measurement (mass/volume) 8.7 mg/dL 8.5-10.1 Serum or plasma total bilirubin measurement (mass/volu me) 0.4 mg/dL 0.1-1.0 Serum or plasma alkaline phosphatase wilson surement (enzymatic activity/volume) 79 U/L 40-136 Serum or plasma aspartate aminotransfera se measurement (enzymatic activity/volume) 53 U/L 5-34 Serum or plasma alanine aminotransferase measurement (enzymatic activity/volume) 53 U/L 0-55 Serum or plasma protein measurement (mass/volume) 6.1 g/dL 6.4-8.2 Serum or plasma albumin measurement (mass/volume) 3.7 g/dL 3.2-4.5 Complete blood count (CBC) with automate d white blood cell (WBC) differential - 08/15/17 17:46 Blood leukocytes automated count (number/volume) 10.3 10*3/uL 4.3-11.0 Blood erythrocytes automated count (number/volume) 4.72 10*6/uL 4.35-5.85 Venous blood hemoglobin measurement (mass/volume) 13.2 g/dL 11.5-16.0 Blood hematocrit (volume fraction) 39 % 35-52 Automated erythrocyte mean corpuscular volume 83 [ foz_us] 80-99 Automated erythrocyte mean corpuscular h emoglobin (mass per erythrocyte) 28 pg 25-34 Automated erythrocyte mean corpuscular h emoglobin concentration measurement (mass/volume) 34 g/dL 32-36 Automated erythrocyte distribution width ratio 13. 1 % 10.0- 14.5 Automated blood platelet count (count/volume) 301 10*3/uL [...] 10*3 1.0-4.0 Blood monocytes automated count (number/volume) 0. 6 10*3 0.0-1.0 Automated eosinophil count 0.2 10*3/uL 0 .0-0.3 Automated blood basophil count (count/volume) 0.1 10*3/uL 0.0-0.1 Comprehensive metabolic panel - 08/15/17 17:46 Serum or plasma sodium measurement (moles/volume) 140 mmol/L 135-145 Serum or plasma potassium measurement (moles/volume) 3.8 mmol/L 3.6-5.0 Serum or plasma chloride measurement (moles/volume) 104 mmol/L 98-107 Carbon dioxide 23 mmol/L 21-32 Serum or plasma anion gap determination (moles/volume) 13 mmol/L 5-14 Serum or plasma urea nitrogen measurement (mass/volume ) 14 mg/dL 7-18 Serum or plasma creatinine measurement (mass/volume) 0.60 mg/dL 0.60-1.30 Serum or plasma urea nitrogen/creatinine mass ratio 23 NRG Serum or plasma creatinine measurement w ith calculation of estimated glomerular filtration rate > NRG Serum or plasma glucose measurement (mass/volume) 126 mg/dL 70-105 Serum or plasma calcium measurement (mass/volume) 10.0 mg/dL 8.5-10.1 Serum or plasma total bilirubin measurement (mass/volu me) 0.3 mg/dL 0.1-1.0 Serum or plasma alkaline phosphatase wilson surement (enzymatic activity/volume) 98 U/L 40-136 Serum or plasma aspartate aminotransfera se measurement (enzymatic activity/volume) 53 U/L 5-34 Serum or plasma alanine aminotransferase measurement (enzymatic activity/volume) 88 U/L 0-55 Serum or plasma protein measurement (mass/volume) 7.5 g/dL 6.4-8.2 Serum or plasma albumin measurement (mass/volume) 4.5 g/dL 3.2-4.5 Serum or plasma amylase measurement (enz ymatic activity/volume) - 08/15/17 17:46 Serum or plasma amylase measurement (enzymatic activit y/volume) 59 U/L 25-125 Complete blood count (CBC) with automate d white blood cell (WBC) differential - 08/17/17 04:15 Blood leukocytes automated count (number/volume) 8.6 10*3/uL 4.3-11.0 Blood erythrocytes automated count (number/volume) 4.32 10*6/uL 4.35-5.85 Venous blood hemoglobin measurement (mass/volume) 12.3 g/dL 11.5-16.0 Blood hematocrit (volume fraction) 36 % 35-52 Automated erythrocyte mean corpuscular volume 83 [ foz_us] 80-99 Automated erythrocyte mean corpuscular h emoglobin (mass per erythrocyte) 29 pg 25-34 Automated erythrocyte mean corpuscular h emoglobin concentration measurement (mass/volume) 34 g/dL 32-36 Automated erythrocyte distribution width ratio 12. 9 % 10.0- 14.5 Automated blood platelet count (count/volume) 226 10*3/uL [...] 10*3 1.0-4.0 Blood monocytes automated count (number/volume) 0. 6 10*3 0.0-1.0 Automated eosinophil count 0.1 10*3/uL 0 .0-0.3 Automated blood basophil count (count/volume) 0.0 10*3/uL 0.0-0.1 Comprehensive metabolic panel - 08/17/17 04:15 Serum or plasma sodium measurement (moles/volume) 137 mmol/L 135-145 Serum or plasma potassium measurement (moles/volume) 4.1 mmol/L 3.6-5.0 Serum or plasma chloride measurement (moles/volume) 103 mmol/L 98-107 Carbon dioxide 22 mmol/L 21-32 Serum or plasma anion gap determination (moles/volume) 12 mmol/L 5-14 Serum or plasma urea nitrogen measurement (mass/volume ) 15 mg/dL 7-18 Serum or plasma creatinine measurement (mass/volume) 0.73 mg/dL 0.60-1.30 Serum or plasma urea nitrogen/creatinine mass ratio 21 NRG Serum or plasma creatinine measurement w ith calculation of estimated glomerular filtration rate > NRG Serum or plasma glucose measurement (mass/volume) 227 mg/dL 70-105 Serum or plasma calcium measurement (mass/volume) 9.6 mg/dL 8.5-10.1 Serum or plasma total bilirubin measurement (mass/volu me) 0.4 mg/dL 0.1-1.0 Serum or plasma alkaline phosphatase wilson surement (enzymatic activity/volume) 89 U/L 40-136 Serum or plasma aspartate aminotransfera se measurement (enzymatic activity/volume) 50 U/L 5-34 Serum or plasma alanine aminotransferase measurement (enzymatic activity/volume) 83 U/L 0-55 Serum or plasma protein measurement (mass/volume) 6.6 g/dL 6.4-8.2 Serum or plasma albumin measurement (mass/volume) 4.1 g/dL 3.2-4.5 Urine beta human chorionic gonadotropin (hCG) measurement - 08/17/17 04:40 Urine beta human chorionic gonadotropin (hCG) measurem ent NEGATIVE NEGATIVE Urine drug screening test - 08/17/17 04: 40 Urine phencyclidine detection by screening method NEGATIVE NEGATIVE Urine benzodiazepines detection by screening method NEGATIVE NEGATIVE Urine cocaine detection NEGATIVE NEGATI VE Urine amphetamines detection by screening method N EGATIVE NEGATIVE Urine methamphetamine detection by screening method POSITIVE NEGATIVE Urine cannabinoids detection by screening method N EGATIVE NEGATIVE Urine opiates detection by screening method POSITI VE NEGATIVE Urine barbiturates detection NEGATIVE N EGATIVE Screening urine tricyclic antidepressants detection NEGATIVE NEGATIVE Urine methadone detection by screening method NEGA TIVE NEGATIVE Urine oxycodone detection NEGATIVE NEGA TIVE Urine propoxyphene detection NEGATIVE N EGATIVE Complete urinalysis with reflex to cultu re - 08/17/17 04:40 Urine color determination YELLOW NRG Urine clarity determination SLIGHTLY CLOUDY NRG Urine pH measurement by test strip 5 5-9 Specific gravity of urine by test strip 1.020 1.016-1.022 Urine protein assay by test strip, semi-quantitative 2+ NEGATIVE Urine glucose detection by automated test strip NE GATIVE NEGATIVE Erythrocytes detection in urine sediment by light micr oscopy 5+ NEGATIVE Urine ketones detection by automated test strip 1+ NEGATIVE Urine nitrite detection by test strip NEGATIVE NEGATIVE Urine total bilirubin detection by test strip NEGA TIVE NEGATIVE Urine urobilinogen measurement by automated test strip (mass/volume) NORMAL NORMAL Urine leukocyte esterase detection by dipstick 2+ NEGATIVE Automated urine sediment erythrocyte cou nt by microscopy (number/high power field) > [HPF] NRG Automated urine sediment leukocyte count by microscopy (number/high power field) [HPF] NRG Bacteria detection in urine sediment by light microsco py TRACE NRG Squamous epithelial cells detection in u rine sediment by light microscopy 2-5 NRG Crystals detection in urine sediment by light microsco py NONE NRG Casts detection in urine sediment by light microscopy NONE NRG Mucus detection in urine sediment by light microscopy NEGATIVE NRG Complete urinalysis with reflex to culture NO NRG Complete blood count (CBC) with automate d white blood cell (WBC) differential - 09/16/17 18:37 Blood leukocytes automated count (number/volume) 11.2 10*3/uL 4.3-11.0 Blood erythrocytes automated count (number/volume) 4.92 10*6/uL 4.35-5.85 Venous blood hemoglobin measurement (mass/volume) 13.6 g/dL 11.5-16.0 Blood hematocrit (volume fraction) 41 % 35-52 Automated erythrocyte mean corpuscular volume 84 [ foz_us] 80-99 Automated erythrocyte mean corpuscular h emoglobin (mass per erythrocyte) 28 pg 25-34 Automated erythrocyte mean corpuscular h emoglobin concentration measurement (mass/volume) 33 g/dL 32-36 Automated erythrocyte distribution width ratio 13. 4 % 10.0- 14.5 Automated blood platelet count (count/volume) 269 10*3/uL [...] 10*3 1.0-4.0 Blood monocytes automated count (number/volume) 0. 5 10*3 0.0-1.0 Automated eosinophil count 0.1 10*3/uL 0 .0-0.3 Automated blood basophil count (count/volume) 0.0 10*3/uL 0.0-0.1 Blood manual differential performed dete ction - 09/16/17 18:37 Blood monocytes/100 leukocytes 4 % NRG Manual blood segmented neutrophils/100 leukocytes 80 % NRG Blood band neutrophils/100 leukocytes 4 % NRG Manual blood lymphocytes/100 leukocytes 10 % NRG Manual eosinophils/100 leukocytes in nose 1 % NRG Manual blood basophils/100 leukocytes 1 % NRG Blood erythrocyte morphology finding identification NORMAL [facility] [place] Comprehensive metabolic panel - 09/16/17 18:37 Serum or plasma sodium measurement (moles/volume) 139 mmol/L 135-145 Serum or plasma potassium measurement (moles/volume) 3.5 mmol/L 3.6-5.0 Serum or plasma chloride measurement (moles/volume) 103 mmol/L 98-107 Carbon dioxide 18 mmol/L 21-32 Serum or plasma anion gap determination (moles/volume) 18 mmol/L 5-14 Serum or plasma urea nitrogen measurement (mass/volume ) 20 mg/dL 7-18 Serum or plasma creatinine measurement (mass/volume) 0.58 mg/dL 0.60-1.30 Serum or plasma urea nitrogen/creatinine mass ratio 34 NRG Serum or plasma creatinine measurement w ith calculation of estimated glomerular filtration rate > NRG Serum or plasma glucose measurement (mass/volume) 178 mg/dL 70-105 Serum or plasma calcium measurement (mass/volume) 8.8 mg/dL 8.5-10.1 Serum or plasma total bilirubin measurement (mass/volu me) 0.7 mg/dL 0.1-1.0 Serum or plasma alkaline phosphatase wilson surement (enzymatic activity/volume) 99 U/L 40-136 Serum or plasma aspartate aminotransfera se measurement (enzymatic activity/volume) 46 U/L 5-34 Serum or plasma alanine aminotransferase measurement (enzymatic activity/volume) 72 U/L 0-55 Serum or plasma protein measurement (mass/volume) 6.9 g/dL 6.4-8.2 Serum or plasma albumin measurement (mass/volume) 4.3 g/dL 3.2-4.5 Lipid 1996 panel - 09/16/17 18:37 Serum or plasma triglyceride measurement (mass/volume) 76 mg/dL <150 Serum or plasma cholesterol measurement (mass/volume) 134 mg/dL < 200 Serum or plasma cholesterol in HDL measurement (mass/v olume) 50 mg/dL 40-60 Cholesterol in LDL [mass/volume] in serum or plasma by direct assay 67 mg/dL 1-129 Serum or plasma cholesterol in VLDL measurement (mass/ volume) 15 mg/dL 5-40 Serum or plasma ethanol measurement (mas s/volume) - 09/16/17 18:37 Serum or plasma ethanol measurement (mass/volume) < mg/dL <10 Lipase - 09/16/17 18:57 Lipase 242 U/L 8-78 Influenza virus A and B antigen detectio n - 09/16/17 19:27 FLU RESULT NEGATIVE FOR INFLUENZA A AND B ANTIGENS BY IA NRG Complete urinalysis with reflex to cultu re - 09/16/17 20:45 Urine color determination YELLOW NRG Urine clarity determination CLEAR NR G Urine pH measurement by test strip 8 5-9 Specific gravity of urine by test strip 1.010 1.016-1.022 Urine protein assay by test strip, semi-quantitative NEGATIVE NEGATIVE Urine glucose detection by automated test strip NE GATIVE NEGATIVE Erythrocytes detection in urine sediment by light micr oscopy NEGATIVE NEGATIVE Urine ketones detection by automated test strip NE GATIVE NEGATIVE Urine nitrite detection by test strip NEGATIVE NEGATIVE Urine total bilirubin detection by test strip NEGA TIVE NEGATIVE Urine urobilinogen measurement by automated test strip (mass/volume) NORMAL NORMAL Urine leukocyte esterase detection by dipstick NEG ATIVE NEGATIVE Automated urine sediment erythrocyte cou nt by microscopy (number/high power field) NONE NRG Automated urine sediment leukocyte count by microscopy (number/high power field) NONE NRG Bacteria detection in urine sediment by light microsco py NONE NRG Squamous epithelial cells detection in u rine sediment by light microscopy 0-2 NRG Crystals detection in urine sediment by light microsco py NONE NRG Casts detection in urine sediment by light microscopy NONE NRG Mucus detection in urine sediment by light microscopy NEGATIVE NRG Complete urinalysis with reflex to culture NO NRG Urine drug screening test - 09/16/17 20: 45 Urine phencyclidine detection by screening method NEGATIVE NEGATIVE Urine benzodiazepines detection by screening method NEGATIVE NEGATIVE Urine cocaine detection NEGATIVE NEGATI VE Urine amphetamines detection by screening method N EGATIVE NEGATIVE Urine methamphetamine detection by screening method NEGATIVE NEGATIVE Urine cannabinoids detection by screening method N EGATIVE NEGATIVE Urine opiates detection by screening method NEGATI VE NEGATIVE Urine barbiturates detection NEGATIVE N EGATIVE Screening urine tricyclic antidepressants detection NEGATIVE NEGATIVE Urine methadone detection by screening method NEGA TIVE NEGATIVE Urine oxycodone detection NEGATIVE NEGA TIVE Urine propoxyphene detection NEGATIVE N EGATIVE Influenza virus A and B antigen detectio n - 10/15/17 19:46 CALL POSITIVES (F1 HELP) CALLED TO [facility] IN ED AT 2006 NRG FLU RESULT POSITIVE FOR INFLUENZA B ANT IGEN, NEG FOR A ANTIGEN, BY IA NRG Complete blood count (CBC) with automate d white blood cell (WBC) differential - 04/20/18 16:00 Blood leukocytes automated count (number/volume) 9.6 10*3/uL 4.3-11.0 Blood erythrocytes automated count (number/volume) 4.98 10*6/uL 4.35-5.85 Venous blood hemoglobin measurement (mass/volume) 13.3 g/dL 11.5-16.0 Blood hematocrit (volume fraction) 41 % 35-52 Automated erythrocyte mean corpuscular volume 82 [ foz_us] 80-99 Automated erythrocyte mean corpuscular h emoglobin (mass per erythrocyte) 27 pg 25-34 Automated erythrocyte mean corpuscular h emoglobin concentration measurement (mass/volume) 33 g/dL 32-36 Automated erythrocyte distribution width ratio 14. 1 % 10.0- 14.5 Automated blood platelet count (count/volume) 288 10*3/uL [...] 10*3 1.0-4.0 Blood monocytes automated count (number/volume) 0. 7 10*3 0.0-1.0 Automated eosinophil count 0.2 10*3/uL 0 .0-0.3 Automated blood basophil count (count/volume) 0.0 10*3/uL 0.0-0.1 Comprehensive metabolic panel - 04/20/18 16:00 Serum or plasma sodium measurement (moles/volume) 140 mmol/L 135-145 Serum or plasma potassium measurement (moles/volume) 3.8 mmol/L 3.6-5.0 Serum or plasma chloride measurement (moles/volume) 107 mmol/L 98-107 Carbon dioxide 20 mmol/L 21-32 Serum or plasma anion gap determination (moles/volume) 13 mmol/L 5-14 Serum or plasma urea nitrogen measurement (mass/volume ) 16 mg/dL 7-18 Serum or plasma creatinine measurement (mass/volume) 0.65 mg/dL 0.60-1.30 Serum or plasma urea nitrogen/creatinine mass ratio 25 NRG Serum or plasma creatinine measurement w ith calculation of estimated glomerular filtration rate > NRG Serum or plasma glucose measurement (mass/volume) 138 mg/dL 70-105 Serum or plasma calcium measurement (mass/volume) 9.8 mg/dL 8.5-10.1 Serum or plasma total bilirubin measurement (mass/volu me) 0.4 mg/dL 0.1-1.0 Serum or plasma alkaline phosphatase wilson surement (enzymatic activity/volume) 101 U/L 40-136 Serum or plasma aspartate aminotransfera se measurement (enzymatic activity/volume) 23 U/L 5-34 Serum or plasma alanine aminotransferase measurement (enzymatic activity/volume) 44 U/L 0-55 Serum or plasma protein measurement (mass/volume) 7.0 g/dL 6.4-8.2 Serum or plasma albumin measurement (mass/volume) 4.5 g/dL 3.2-4.5 Magnesium - 04/20/18 16:00 Magnesium 2.3 mg/dL 1.8-2.4 PT panel in platelet poor plasma by coag ulation assay - 04/20/18 16:00 Prothrombin time (PT) in platelet poor plasma by coagu lation assay 12.9 s 12.2-14.7 INR in platelet poor plasma or blood by coagulation as say 1.0 0.8-1.4 Activated partial thromboplastin time (a PTT) in platelet poor plasma bycoagulation assay - 04/20/18 16:00 Activated partial thromboplastin time (a PTT) in platelet poor plasma bycoagulation assay 27 s 24-35 Myoglobin, serum - 04/20/18 16:00 Myoglobin, serum 16.0 ng/mL 10.0-92.0 Serum or plasma troponin i.cardiac measu rement (mass/volume) - 04/20/18 16:00 Serum or plasma troponin i.cardiac measurement (mass/v olume) < ng/mL <0.30 Myoglobin, serum - 04/20/18 16:00 Myoglobin, serum 16.0 ng/mL 10.0-92.0 Capillary blood glucose measurement by g lucometer (mass/volume) - 04/20/18 20:29 Capillary blood glucose measurement by glucometer (mas s/volume) 111 mg/dL 70-110 Serum or plasma troponin i.cardiac measu rement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
== END 2019-08-17 17:51 | disposition home or self-care (01) ==
LOC: ER 16:20 → EDUNIT# 16:23 → ER 17:51
DX: S16.1XXA Strain of muscle, fascia and tendon at neck level, initial encounter (principal); M25.562 Pain in left knee; I10 Essential (primary) hypertension; E78.00 Pure hypercholesterolemia, unspecified; G43.909 Migraine, unspecified, not intractable, without status migrainosus; E11.9 Type 2 diabetes mellitus without complications; F41.9 Anxiety disorder, unspecified; F32.9 Major depressive disorder, single episode, unspecified; Z87.440 Personal history of urinary (tract) infections; Z87.442 Personal history of urinary calculi; Z88.1 Allergy status to other antibiotic agents; Z79.4 Long term (current) use of insulin; Z90.49 Acquired absence of other specified parts of digestive tract; Z82.49 Family history of ischemic heart disease and other diseases of the circulatory system; V47.5XXA Car driver injured in collision with fixed or stationary object in traffic accident, initial encounter
CPT/HCPCS: 70450; 72072; 72125; 73562; 96374; 96375

== ENCOUNTER 2019-09-27 20:46 | Emergency (ER) | payer MEDICAID ==
[~2019-09-27] VITALS: Ht 149 cm; Wt 63.6 kg
[~2019-09-27 20:46] MED LIST changes: -FLUO20CA25 PO; +FLUO20CA45 PO; -METF750T2 PO; +METF750T45 PO; -TRAM50TA2; -TRAM50TA2 PO; +TRM50T
[2019-09-27] MEDS ORDERED: LACTATED RINGERS 1,000 ML IV ONE (21:04)
[2019-09-27 21:11] LABS: BILIRUBIN,URINE NEGATIVE (NEGATIVE); CLARITY,URINE CLEAR; COLOR,URINE YELLOW; GLUCOSE, URINE (UA) 3+ (NEGATIVE); KETONES,URINE TRACE (NEGATIVE); LEUKOCYTE ESTERASE ,URINE NEGATIVE (NEGATIVE); NITRITE,URINE NEGATIVE (NEGATIVE); PH,URINE 5.5 (5-9); PROTEIN,URINE NEGATIVE (NEGATIVE)
[2019-09-27] MEDS ORDERED: ONDANSETRON 4 MG/2 ML (SDV) Z0FRAN IVP ONE (21:15)
[2019-09-27] MEDS ORDERED: KETOROLAC 30 MG/ML VIAL IVP STA (21:16)
[2019-09-27 21:18] LABS: BACTERIA,URINE NEGATIVE /HPF; SQUAMOUS EPITHELIAL CELL,UR 0-2 /HPF
[2019-09-27 21:19] LABS: BASOPHILS % (AUTO) 0 % (0-10); EOSINOPHILS # (AUTO) 0.3 10^3/uL (0.0-0.3); EOSINOPHILS % (AUTO) 3 % (0-10); HEMATOCRIT 42 % (35-52); HEMOGLOBIN 13.6 G/DL (11.5-16.0); LYMPHOCYTES # (AUTO) 3.8 X 10^3 (1.0-4.0); LYMPHOCYTES % (AUTO) 37 % (12-44); MEAN CORPUSCULAR HEMOGLOBIN 27 PG (25-34); MEAN CORPUSCULAR HGB CONC 33 G/DL (32-36); MEAN CORPUSCULAR VOLUME 82 FL (80-99); MEAN PLATELET VOLUME 10.7 FL (7.4-10.4); MONOCYTES # (AUTO) 0.6 X 10^3 (0.0-1.0); MONOCYTES % (AUTO) 6 % (0-12); NEUTROPHILS # (AUTO) 5.7 X 10^3 (1.8-7.8); NEUTROPHILS % (AUTO) 54 % (42-75); PLATELET COUNT 280 10^3/uL (130-400); RED CELL DISTRIBUTION WIDTH 14.2 % (10.0-14.5); WHITE BLOOD COUNT 10.4 10^3/uL (4.3-11.0)
--- NOTE | 2019-09-27 21:22 | ED Abdominal Pain ---
General Chief Complaint: Abdominal/GI Problems Stated Complaint: ABD PAIN, N/V History of Present Illness Date Seen by Provider: Sep 27, 2019 Time Seen by Provider: 21:00 Initial Comments 49-year-old female presents for 2-3 day history of left upper quadrant abdominal pain that radiates to her back. 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 She at [facility] at 1800 tonight. History of previous cholecystectomy. She is a type I diabetic (am glucose 134 today) with no history of GERD. She's had kidney stones in the past. No history of pancreatitis. Timing/Duration: 2-3 Days Severity/Quality: Moderate Location: [facility] Radiation: Back Associated Symptoms: Back Pain; No Chest Pain, No Diaphoresis, No Fever/Chills, No Fatigue, No Headache, No Heartburn; Nausea/Vomiting; No Rash, No Shortness of Air, No Swelling/Mass in Abdomen, No Syncope, No Weakness, No Other Allergies and Home Medications Allergies Coded Allergies: ceftriaxone (Unverified Allergy, Unknown, 12/01/15) Home Medications Alprazolam 0.25 Mg Tablet, 0.25 MG PO BID PRN for ANXIETY, (Reported) Atorvastatin Calcium 10 Mg Tablet, 10 MG PO HS, (Reported) Citalopram Hydrobromide 10 Mg Tablet, 10 MG PO DAILY, (Reported) Cyclobenzaprine HCl 10 Mg Tablet, 10 MG PO Q8H PRN for SPASMS Prescribed by: HERNANDEZ ALTAMIRANO on 06/22/18419 Cyclobenzaprine HCl 10 Mg Tablet, 10 MG PO Q8H PRN for SPASMS Prescribed by: ANATOLIY MARTINEZ on 08/17/19 173 Empagliflozin 10 Mg Tablet, 10 MG PO DAILY, (Reported) Gabapentin 300 Mg Capsule, 300 MG PO BID, (Reported) Hydrocodone Bit/Acetaminophen 1 Tab Tab, 1 TAB PO Q6H PRN for PAIN-SEVERE Prescribed by: CLARK PRESTON on 04/21/18 190 Hydrocodone/Acetaminophen 1 Each Tablet, 1-2 EACH PO Q4-6HR PRN for PAIN- MODERATE Prescribed by: IMAN PANG on 10/04/18 221 Hydroxyzine Pamoate 25 Mg Capsule, 25 MG PO Q6H PRN for ANXIETY Prescribed by: HERNANDEZ ALTAMIRANO on 06/22/18 0420 Insulin Determir 1,000 Units/10 Ml Soln, 20 UNITS SQ BID, (Reported) Losartan Potassium 25 Mg Tablet, 25 MG PO DAILY, (Reported) Meloxicam 7.5 Mg Tablet, 7.5 MG PO DAILY, (Reported) Metformin HCl 750 Mg Tab.er.24h, 750 MG PO BID, (Reported) LAST FILLED IN JANUARY Naproxen 500 Mg Tablet, 500 MG PO BID Prescribed by: HERNANDEZ ALTAMIRANO on 12/26/18 0125 Naproxen 500 Mg Tablet, 500 MG PO BID Prescribed by: ANATOLIY MARTINEZ on 08/17/19 1734 Ondansetron 4 Mg Tab.rapdis, 4 MG PO Q6H PRN for NAUSEA/VOMITING-1ST LINE Prescribed by: HERNANDEZ ALTAMIRANO on 09/18/18 2255 Propranolol HCl 40 Mg Tablet, 20 MG PO BID, (Reported) TAKES 1/2 (40MG) TABLET Patient Home Medication List Home Medication List Reviewed: Yes Review of Systems Review of Systems Constitutional: no symptoms reported, see HPI Gastrointestinal: See HPI, Abdominal Pain; Denies Constipated, Denies Diarrhea; Nausea; Denies Poor Appetite; Vomiting All Other Systems Reviewed Negative Unless Noted: Yes Past Gloegwt-Ntriow-Ellivl Hx Past Med/Social Hx: Reviewed Nursing Past Med/Soc Hx Patient Social History 2nd Hand Smoke Exposure: No Recent Foreign Travel: No Contact w/Someone Who Travel: No Recent Hopitalizations: No Immunizations Up To Date Tetanus Booster (TDap): Unknown PED Vaccines UTD: No Date of Influenza Vaccine: Jul 17, 2016 Seasonal Allergies Seasonal Allergies: No Past Medical History Surgeries: Yes Appendectomy, Section, Orthopedic, Renal Respiratory: No Cardiac: Yes High Cholesterol, Hypertension, Syncope Neurological: Yes Headaches /Migraines 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 0oz. 63.265867gf; 25.00 BMI Method:Estimated General Appearance: WD/WN, no apparent distress (ambulated to the exam room and able to come on exam table with no signs of discomfort.) HEENT: PERRL/EOMI, normal ENT inspection, TMs normal, pharynx normal Neck: non-tender, full range of motion, supple, normal inspection Respiratory: chest non-tender, lungs clear, normal breath sounds Cardiovascular: normal peripheral pulses, regular rate, rhythm Gastrointestinal: normal bowel sounds, soft; No distended, No guarding, No rebound; tenderness (Epigastric); No hernia, No mass Neurologic/Psychiatric: no motor/sensory deficits, alert, normal mood/affect, oriented x 3 Skin: normal color, warm/dry Progress/Results/Core Measures Results/Orders Lab Results Laboratory Tests Test 09/27/19 21:05 09/27/19 21:09 Range/Units Urine Color YELLOW Urine Clarity CLEAR Urine pH 5.5 5-9 Urine Specific [place] 1.025 H 1.016-1.022 Urine Protein NEGATIVE NEGATIVE Urine Glucose (UA) 3+ H NEGATIVE Urine Ketones TRACE H NEGATIVE Urine Nitrite NEGATIVE NEGATIVE Urine Bilirubin NEGATIVE NEGATIVE Urine Urobilinogen 0.2 < = 1.0 MG/DL Urine Leukocyte Esterase NEGATIVE NEGATIVE Urine RBC (Auto) NEGATIVE NEGATIVE Urine RBC NONE /HPF Urine WBC 2-5 /HPF Urine Squamous Epithelial Cells 0-2 /HPF Urine Crystals NONE /LPF Urine Bacteria NEGATIVE /HPF Urine Casts NONE /LPF Urine Mucus NEGATIVE /LPF Urine Culture Indicated NO Urine Opiates Screen NEGATIVE NEGATIVE Urine Oxycodone Screen NEGATIVE NEGATIVE Urine Methadone Screen NEGATIVE NEGATIVE Urine Propoxyphene Screen NEGATIVE NEGATIVE Urine Barbiturates Screen NEGATIVE NEGATIVE Ur Tricyclic Antidepressants Screen NEGATIVE NEGATIVE Urine Phencyclidine Screen NEGATIVE NEGATIVE Urine Amphetamines Screen NEGATIVE NEGATIVE Urine Methamphetamines Screen NEGATIVE NEGATIVE Urine Benzodiazepines Screen NEGATIVE NEGATIVE Urine Cocaine Screen NEGATIVE NEGATIVE Urine Cannabinoids Screen NEGATIVE NEGATIVE White Blood Count 10.4 4.3-11.0 10^3/uL Red Blood Count 5.04 4.35-5.85 10^6/uL Hemoglobin 13.6 11.5-16.0 G/DL Hematocrit 42 35-52 % Mean Corpuscular Volume 82 80-99 FL Mean Corpuscular Hemoglobin 27 25-34 PG Mean Corpuscular Hemoglobin Concent 33 32-36 G/DL Red Cell Distribution Width 14.2 10.0-14.5 % Platelet Count 280 130-400 10^3/uL Mean Platelet Volume 10.7 H 7.4-10.4 FL Neutrophils (%) (Auto) 54 42-75 % Lymphocytes (%) (Auto) 37 12-44 % Monocytes (%) (Auto) 6 0-12 % Eosinophils (%) (Auto) 3 0-10 % Basophils (%) (Auto) 0 0-10 % Neutrophils # (Auto) 5.7 1.8-7.8 X 10^3 Lymphocytes # (Auto) 3.8 1.0-4.0 X 10^3 Monocytes # (Auto) 0.6 0.0-1.0 X 10^3 Eosinophils # (Auto) 0.3 0.0-0.3 10^3/uL Basophils # (Auto) 0.0 0.0-0.1 10^3/uL Sodium Level 141 135-145 MMOL/L Potassium Level 3.8 3.6-5.0 MMOL/L Chloride Level 108 H 98-107 MMOL/L Carbon Dioxide Level 18 L 21-32 MMOL/L Anion Gap 15 H 5-14 MMOL/L Blood Urea Nitrogen 16 7-18 MG/DL Creatinine 0.65 0.60-1.30 MG/DL Estimat Glomerular Filtration Rate > 60 BUN/Creatinine Ratio 25 Glucose Level 168 H 70-105 MG/DL Calcium Level 9.5 8.5-10.1 MG/DL Corrected Calcium 8.5-10.1 MG/DL Total Bilirubin 0.4 0.1-1.0 MG/DL Aspartate Amino Transf (AST/SGOT) 26 5-34 U/L Alanine Aminotransferase (ALT/SGPT) 45 0-55 U/L Alkaline Phosphatase 110 40-136 U/L Total Protein 7.3 6.4-8.2 GM/DL Albumin 4.8 H 3.2-4.5 GM/DL Amylase Level 63 25-125 U/L Lipase 40 8-78 U/L My Orders Orders - ANU CHAPMAN Ua Culture If Indicated (09/27/19 20:52) Urine Bedside (09/27/19 21:03) Amylase (09/27/19 21:03) Cbc With Automated Diff (09/27/19 21:03) Comprehensive Metabolic Panel (09/27/19 21:03) Lipase (09/27/19 21:03) Ekg Tracing (09/27/19 21:04) Ed Iv/Invasive Line Start (09/27/19 21:04) Lactated Ringers (Lr 1000 Ml Iv Solution (09/27/19 21:04) Ondansetron Injection (Zofran Injectio (09/27/19 21:15) Drug Screen Stat (Urine) (09/27/19 21:10) Ketorolac Injection (Toradol Injection) (09/27/19 21:16) Lidocaine 2% Viscous 15 Ml (Xylocaine Vi (09/27/19 21:45) Antacid Suspension (Mylanta Suspension (09/27/19 21:45) Medications Given in ED Current Medications Medications Dose Ordered Sig/Olivia Route Start Time Stop Time Status Last Admin Dose Admin Al Hydrox/Mg Hydrox/Simethicone 30 ml ONCE ONCE PO 09/27/19 21:45 09/27/19 21:46 DC 09/27/19 21:46 30 ML Lactated Ringer's 1,000 ml @ 0 mls/hr Q0M ONCE IV 09/27/19 21:04 09/27/19 21:07 DC 09/27/19 21:12 0 MLS/HR Lidocaine HCl 15 ml ONCE ONCE PO 09/27/19 21:45 09/27/19 21:46 DC 09/27/19 21:46 15 ML Ondansetron HCl 4 mg ONCE ONCE IVP 09/27/19 21:15 09/27/19 21:16 DC 09/27/19 21:12 4 MG Vital Signs/I&O 09/27/19 20:57 Temp 36.6 Pulse 86 Resp 20 B/P (MAP) 126/63 (84) Pulse Ox 98 Progress Progress Note : Time: 21:00 Progress Note Patient seen and evaluated, will obtain labs, EKG, Zofran 4 mg IV, lactated Ringer's 1 L IV and Toradol 30 mg IV. 2129 patient reports some improvement in her symptoms but not resolution, will g lee a GI cocktail. 2199 patient reports overall her symptoms have improved, she does have intermittent pain that only lasts for a few seconds. Discharge instructions and return precautions reviewed with the patient and her family. All questions answered. Initial ECG Impression Date: Sep 27, 2019 Initial ECG Impression Time: 21:08 Initial ECG Rate: 71 Initial ECG Rhythm: Normal Sinus Initial ECG Intervals: Normal Initial ECG Intervals KS 140, QRSD 74, QT 392, QTC 426. [place] P 18, QRS 31, T 44. Initial ECG Impression: Normal Initial ECG Comparisson: Unchanged Comment Reviewed with Dr. Altamirano, agreed with interpretation. Departure Impression Primary Impression: Nausea and vomiting Qualified Codes: R11.14 - Bilious vomiting Additional Impression: Abdominal pain Qualified Codes: R10.12 - Left upper quadrant pain Disposition: 01 HOME, SELF-CARE Condition: Improved Departure-Patient Inst. Decision time for Depature: 22:00 Referrals: SIERRA MIGUEL DO (PCP/Family) Primary Care Physician Patient Instructions: Acute Abdomen (Belly Pain), Adult (DC), Gastritis (DC), Nausea and Vomiting After Surgery Add. Discharge Instructions: Clear liquid diet for the next 12 hours. Avoid any fried, spicy foods for the next week. Take Pepcid 10 mg tablet [id number] one tablet twice daily. Follow-up with Dr. Dr. Miguel this week, if symptoms are not improving or worsen. Return to the emergency department for new, urgent health care needs. All discharge instructions reviewed with patient and/or family. Voiced understanding. Copy Copies To 1: SIERRA MIGUEL AMY ARNP Sep 27, 2019 21:22
[2019-09-27 21:26] LABS: AMPHETAMINE SCREEN, URINE NEGATIVE (NEGATIVE); BARBITURATE SCREEN URINE NEGATIVE (NEGATIVE); BENZODIAZEPINES SCREEN URINE NEGATIVE (NEGATIVE); CANNABINOID SCREEN, URINE NEGATIVE (NEGATIVE); COCAINE SCREEN URINE NEGATIVE (NEGATIVE); METHADONE STAT NEGATIVE (NEGATIVE); METHAMPHETAMINE SCREEN URINE S NEGATIVE (NEGATIVE); OPIATE SCREEN URINE NEGATIVE (NEGATIVE); OXYCODONE STAT NEGATIVE (NEGATIVE); PROPOXYPHENE STAT NEGATIVE (NEGATIVE); TRICYCLIC ANTIDEPRESSANTS SCRE NEGATIVE (NEGATIVE)
[2019-09-27 21:41] LABS: ALANINE AMINOTRANSFERASE 45 U/L (0-55); ALBUMIN 4.8 GM/DL (3.2-4.5); ALKALINE PHOSPHATASE 110 U/L (40-136); AMYLASE 63 U/L (25-125); BILIRUBIN,TOTAL 0.4 MG/DL (0.1-1.0); BUN/CREATININE RATIO 25; CALCIUM 9.5 MG/DL (8.5-10.1); CARBON DIOXIDE 18 MMOL/L (21-32); CHLORIDE 108 MMOL/L (98-107); CREATININE SERUM 0.65 MG/DL (0.60-1.30); GFR ESTIMATED > 60; GLUCOSE 168 MG/DL (70-105); LIPASE 40 U/L (8-78); POTASSIUM 3.8 MMOL/L (3.6-5.0); SODIUM 141 MMOL/L (135-145); TOTAL PROTEIN 7.3 GM/DL (6.4-8.2)
[2019-09-27] MEDS ORDERED: ANTACID SUSP 30 ML UDC (MYLANTA) PO ONE (21:45)
[2019-09-27] MEDS ORDERED: LIDOCAINE 2% VISCOUS 15 ML UDC PO ONE (21:45)
[2019-09-27 22:28] VITALS: BP 113/55
== END 2019-09-27 22:29 | disposition home or self-care (01) ==
LOC: EDUNIT# 20:46 → ER 20:47
DX: R11.2 Nausea with vomiting, unspecified (principal); R10.13 Epigastric pain; E10.9 Type 1 diabetes mellitus without complications; I10 Essential (primary) hypertension; E78.00 Pure hypercholesterolemia, unspecified; F41.9 Anxiety disorder, unspecified; F32.9 Major depressive disorder, single episode, unspecified; G43.909 Migraine, unspecified, not intractable, without status migrainosus; Z87.440 Personal history of urinary (tract) infections; Z90.49 Acquired absence of other specified parts of digestive tract; Z87.442 Personal history of urinary calculi; Z88.1 Allergy status to other antibiotic agents; Z79.4 Long term (current) use of insulin; Z82.49 Family history of ischemic heart disease and other diseases of the circulatory system
CPT/HCPCS: 36415; 80053; 80306; 81000; 82150; 83690; 84703; 85025; 93005; 96361; 96374; 96375

== ENCOUNTER 2019-11-03 19:59 | Emergency (ER) | payer MEDICAID ==
[~2019-11-03] VITALS: Ht 148 cm; Wt 57.0 kg
[2019-11-03] MEDS ORDERED: RX-HYDROXYZINE PAMOATE 25 MG CAP #4 PO STA (21:02)
--- NOTE | 2019-11-03 21:05 | NUR ---
LANGUAGE LINE USED WITH ANU CHAPMAN IN THE ROOM FOR DX AND TO ANSWER ALL PT'S QUESTIONS.
[2019-11-03] MEDS ORDERED: HYDR25CA PO (21:07)
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
[2019-11-03 21:14] VITALS: BP 116/53
== END 2019-11-03 21:14 | disposition home or self-care (01) ==
LOC: EDUNIT# 19:59 → ER 20:00
DX: F41.9 Anxiety disorder, unspecified (principal); E11.9 Type 2 diabetes mellitus without complications; I10 Essential (primary) hypertension; E78.00 Pure hypercholesterolemia, unspecified; F32.9 Major depressive disorder, single episode, unspecified; Z79.4 Long term (current) use of insulin; Z88.1 Allergy status to other antibiotic agents; Z82.49 Family history of ischemic heart disease and other diseases of the circulatory system
CPT/HCPCS: 99281

== ENCOUNTER 2020-06-02 21:12 | Emergency (ER) | payer MEDICAID ==
[~2020-06-02] VITALS: Ht 165 cm; Wt 63.5 kg
[~2020-06-02 21:12] MED LIST changes: -FLUO20CA45 PO; +FLUO20CA46 PO; -HYDR-3812 PO; -HYDR-3820 PO
[2020-06-02] MEDS ORDERED: NS IV 1000 ML 1,000 ML ONE (21:27)
[2020-06-02] MEDS ORDERED: fentaNYL INJECTION 100 MCG/2 ML AMP ONE (21:27)
[2020-06-02] MEDS ORDERED: KETOROLAC 30 MG/ML VIAL ONE (21:27)
[2020-06-02 21:28] LABS: BILIRUBIN,URINE NEGATIVE (NEGATIVE); CLARITY,URINE SL CLOUDY; COLOR,URINE YELLOW; GLUCOSE, URINE (UA) 3+ (NEGATIVE); KETONES,URINE TRACE (NEGATIVE); LEUKOCYTE ESTERASE ,URINE NEGATIVE (NEGATIVE); NITRITE,URINE POSITIVE (NEGATIVE); PROTEIN,URINE TRACE (NEGATIVE)
[2020-06-02] MEDS ORDERED: NS IV 1000 ML 1,000 ML IV SCH (21:30)
[2020-06-02] MEDS ORDERED: KETOROLAC 30 MG/ML VIAL IVP ONE (21:30)
[2020-06-02] MEDS ORDERED: fentaNYL INJECTION 100 MCG/2 ML AMP IVP ONE (21:30)
--- NOTE | 2020-06-02 21:36 | ED GU-Female ---
General Chief Complaint: - Urinary Stated Complaint: LOWER BACK PAIN, Source: patient Exam Limitations: no limitations History of Present Illness Date Seen by Provider: Jun 02, 2020 Time Seen by Provider: 21:32 Initial Comments To ER by private vehicle with reports of severe low back pain, mostly right- sided, burning on urination for 2 days that became much worse tonight. No fever no chills no nausea no vomiting. Timing/Duration: just prior to arrival, getting worse Severity/Quality: moderate Location: right flank Radiation: none Activities at Onset: none Prior Genitourinary Problems: none Associated Symptoms: dysuria Allergies and Home Medications Allergies Coded Allergies: ceftriaxone (Unverified Allergy, Unknown, 09/27/19) Home Medications Alprazolam 0.25 Mg Tablet, 0.25 MG PO BID PRN for ANXIETY, (Reported) Atorvastatin Calcium 10 Mg Tablet, 10 MG PO HS, (Reported) Citalopram Hydrobromide 10 Mg Tablet, 10 MG PO DAILY, (Reported) Cyclobenzaprine HCl 10 Mg Tablet, 10 MG PO Q8H PRN for SPASMS Prescribed by: HERNANDEZ HURLEY on 06/22/18419 Cyclobenzaprine HCl 10 Mg Tablet, 10 MG PO Q8H PRN for SPASMS Prescribed by: ANATOLIY MARTINEZ on 08/17/19 1734 Empagliflozin 10 Mg Tablet, 10 MG PO DAILY, (Reported) Gabapentin 300 Mg Capsule, 300 MG PO BID, (Reported) Hydrocodone Bit/Acetaminophen 1 Tab Tab, 1 TAB PO Q6H PRN for PAIN-SEVERE Prescribed by: CLARK PRESTON on 04/21/18 1908 Hydrocodone Bit/Acetaminophen 1 Each Tablet, 1-2 EACH PO Q4-6HR PRN for PAIN- MODERATE Prescribed by: IMAN PANG on 10/04/18 221 Hydroxyzine Pamoate 25 Mg Capsule, 25 MG PO Q6H PRN for ANXIETY Prescribed by: HERNANDEZ HURLEY on 06/22/18419 Hydroxyzine Pamoate 25 Mg Capsule, 25 MG PO Q8H PRN for ANXIETY Prescribed by: ANU CHAPMAN on 11/03/192106 Insulin Determir 1,000 Units/10 Ml Soln, 20 UNITS SQ BID, (Reported) Losartan Potassium 25 Mg Tablet, 25 MG PO DAILY, (Reported) Meloxicam 7.5 Mg Tablet, 7.5 MG PO DAILY, (Reported) Metformin HCl 750 Mg Tab.er.24h, 750 MG PO BID, (Reported) LAST FILLED IN JANUARY Naproxen 500 Mg Tablet, 500 MG PO BID Prescribed by: HERNANDEZ HURLEY on 12/26/18 0125 Naproxen 500 Mg Tablet, 500 MG PO BID Prescribed by: ANATOLIY MARTINEZ on 08/17/19 1734 Ondansetron 4 Mg Tab.rapdis, 4 MG PO Q6H PRN for NAUSEA/VOMITING-1ST LINE Prescribed by: HERNANDEZ HURLEY on 09/18/18 2255 Propranolol HCl 40 Mg Tablet, 20 MG PO BID, (Reported) TAKES 1/2 (40MG) TABLET Patient Home Medication List Home Medication List Reviewed: Yes Review of Systems Review of Systems Constitutional: see HPI EENTM: see HPI Respiratory: no symptoms reported Cardiovascular: no symptoms reported Genitourinary: no symptoms reported Musculoskeletal: see HPI, back pain Skin: no symptoms reported Psychiatric/Neurological: No Symptoms Reported Past Ajkaeja-Pqospj-Pposxm Hx Patient Social History 2nd Hand Smoke Exposure: No Recent Foreign Travel: No Contact w/Someone Who Travel: No Recent Hopitalizations: No Immunizations Up To Date Tetanus Booster (TDap): Unknown PED Vaccines UTD: No Date of Influenza Vaccine: Jun 16, 2019 Seasonal Allergies Seasonal Allergies: No Past Medical History Surgeries: Yes Appendectomy, Section, Gallbladder, Orthopedic, Renal Respiratory: No Cardiac: Yes High Cholesterol, Hypertension, Syncope Neurological: Yes Headaches /Migraines 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 Genitourinary: Yes Kidney Stones, UTI-Chronic Gastrointestinal: Yes Pancreatitis Musculoskeletal: Yes Chronic Back Pain Endocrine: Yes Diabetes, Non-Insulin dep HEENT: No Cancer: No Psychosocial: Yes Anxiety, Depression Integumentary: No Blood Disorders: No Family Medical History Diabetes mellitus 19 FATHER 19 MOTHER Heart Disease, CAD Under 55 Years Old, Diabetes, Hypertension Physical Exam Vital Signs Vital Signs - First Documented 06/02/20 21:15 Temp 36.8 Pulse 74 Resp 20 B/P (MAP) 157/71 (99) Pulse Ox 98 O2 Delivery Room Air Capillary Refill : Height, Weight, BMI Height: 5'4.00" Weight: 140lbs. 0oz. [id number]; 26.00 BMI Method:Estimated General Appearance: WD/WN, mild distress HEENT: PERRL/EOMI, normal ENT inspection Neck: non-tender, full range of motion Respiratory: lungs clear, normal breath sounds, no respiratory distress, no accessory muscle use Extremities: normal range of motion, non-tender Neurologic/Psychiatric: alert, normal mood/affect, oriented x 3 Skin: normal color, warm/dry Progress/Results/Core Measures Suspected Sepsis SIRS Temperature: Pulse: Respiratory Rate: Laboratory Tests 06/02/20 21:25: White Blood Count 9.9 Blood Pressure / Mean: Laboratory Tests 06/02/20 21:25: Creatinine 0.76, Platelet Count 248, Total Bilirubin 0.3 Results/Orders Lab Results Laboratory Tests Test 06/02/20 21:15 06/02/20 21:25 Range/Units Urine Color YELLOW Urine Clarity SL CLOUDY Urine pH 6.0 5-9 Urine Specific [place] 1.025 H 1.016-1.022 Urine Protein TRACE H NEGATIVE Urine Glucose (UA) 3+ H NEGATIVE Urine Ketones TRACE H NEGATIVE Urine Nitrite POSITIVE H NEGATIVE Urine Bilirubin NEGATIVE NEGATIVE Urine Urobilinogen 0.2 < = 1.0 MG/DL Urine Leukocyte Esterase NEGATIVE NEGATIVE Urine RBC (Auto) 3+ H NEGATIVE Urine RBC 25-50 H /HPF Urine WBC 5-10 H /HPF Urine Crystals NONE /LPF Urine Amorphous Sediment FEW [place] URATES H /LPF Urine Bacteria FEW H /HPF Urine Casts NONE /LPF Urine Mucus NEGATIVE /LPF Urine Culture Indicated YES White Blood Count 9.9 4.3-11.0 10^3/uL Red Blood Count 4.78 4.35-5.85 10^6/uL Hemoglobin 13.7 11.5-16.0 G/DL Hematocrit 40 35-52 % Mean Corpuscular Volume 85 80-99 FL Mean Corpuscular Hemoglobin 29 25-34 PG Mean Corpuscular Hemoglobin Concent 34 32-36 G/DL Red Cell Distribution Width 12.6 10.0-14.5 % Platelet Count 248 130-400 10^3/uL Mean Platelet Volume 10.8 H 7.4-10.4 FL Neutrophils (%) (Auto) 48 42-75 % Lymphocytes (%) (Auto) 43 12-44 % Monocytes (%) (Auto) 7 0-12 % Eosinophils (%) (Auto) 2 0-10 % Basophils (%) (Auto) 0 0-10 % Neutrophils # (Auto) 4.7 1.8-7.8 X 10^3 Lymphocytes # (Auto) 4.3 H 1.0-4.0 X 10^3 Monocytes # (Auto) 0.7 0.0-1.0 X 10^3 Eosinophils # (Auto) 0.2 0.0-0.3 10^3/uL Basophils # (Auto) 0.0 0.0-0.1 10^3/uL Sodium Level 140 135-145 MMOL/L Potassium Level 4.0 3.6-5.0 MMOL/L Chloride Level 107 98-107 MMOL/L Carbon Dioxide Level 20 L 21-32 MMOL/L Anion Gap 13 5-14 MMOL/L Blood Urea Nitrogen 14 7-18 MG/DL Creatinine 0.76 0.60-1.30 MG/DL Estimat Glomerular Filtration Rate > 60 BUN/Creatinine Ratio 18 Glucose Level 311 H 70-105 MG/DL Calcium Level 9.6 8.5-10.1 MG/DL Corrected Calcium 8.5-10.1 MG/DL Total Bilirubin 0.3 0.1-1.0 MG/DL Aspartate Amino Transf (AST/SGOT) 20 5-34 U/L Alanine Aminotransferase (ALT/SGPT) 41 0-55 U/L Alkaline Phosphatase 155 H 40-136 U/L Total Protein 7.2 6.4-8.2 GM/DL Albumin 4.6 H 3.2-4.5 GM/DL Serum Test, Qualitative NEGATIVE NEGATIVE My Orders Orders - ANGELINE MARLEY APRN Ua Culture If Indicated (06/02/20 21:19) Fentanyl Injection (Sublimaze Injection (06/02/20 21:30) Ns Iv 1000 Ml (Sodium Chloride 0.9%) (06/02/20 21:30) Ketorolac Injection (Toradol Injection) (06/02/20 21:30) Cbc With Automated Diff (06/02/20 21:30) Hcg,Qualitative Serum (06/02/20 21:) Comprehensive Metabolic Panel (06/02/20 21:30) Fentanyl Injection (Sublimaze Injection (06/02/20 21:27) Ketorolac Injection (Toradol Injection) (06/02/20 21:27) Ns Iv 1000 Ml (Sodium Chloride 0.9%) (06/02/20 21:27) Ct Abd/Pelvis Wo(Kidney Stone) (06/02/20 21:36) Urine Culture (06/02/20 21:15) Levofloxacin Tablet (Levaquin Tablet) (06/02/20 22:00) Lorazepam Injection (Ativan Injection) (06/02/20 22:15) Medications Given in ED Current Medications Medications Dose Ordered Sig/Olivia Route Start Time Stop Time Status Last Admin Dose Admin Fentanyl Citrate 50 mcg ONCE ONCE IVP 06/02/20 21:30 06/02/20 21:32 DC 06/02/20 21:38 50 MCG Ketorolac Tromethamine 15 mg ONCE ONCE IVP 06/02/20 21:30 06/02/20 21:32 DC 06/02/20 21:34 15 MG Levofloxacin 500 mg ONCE ONCE PO 06/02/20 22:00 06/02/20 22:01 DC 06/02/20 22:15 500 MG Lorazepam 0.5 mg ONCE PRN IVP 06/02/20 22:15 06/02/20 22:07 0.5 MG Vital Signs/I&O 06/02/20 21:15 Temp 36.8 Pulse 74 Resp 20 B/P (MAP) 157/71 (99) Pulse Ox 98 O2 Delivery Room Air Capillary Refill : Departure Communication (Admissions) CT scan from stat read shows mild splenomegaly, negative for lower GI tract obstruction. There is no mention of genitourinary tract abnormality in the report. There is no obvious stone in the right ureter that I'm able to see, no hydroureter either. I suppose a small ureteral stone could go unseen. She does have a bit of hematuria but no improvement at all after fentanyl or Toradol, only. Improvement after Ativan. Much better after Ativan. Impression Primary Impression: Anxiety Additional Impression: UTI (urinary tract infection) Disposition: HOME, SELF-CARE Condition: Stable Departure-Patient Inst. 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
[2020-06-02 21:39] LABS: BASOPHILS % (AUTO) 0 % (0-10); EOSINOPHILS # (AUTO) 0.2 10^3/uL (0.0-0.3); EOSINOPHILS % (AUTO) 2 % (0-10); HEMATOCRIT 40 % (35-52); HEMOGLOBIN 13.7 G/DL (11.5-16.0); LYMPHOCYTES # (AUTO) 4.3 X 10^3 (1.0-4.0); LYMPHOCYTES % (AUTO) 43 % (12-44); MEAN CORPUSCULAR HEMOGLOBIN 29 PG (25-34); MEAN CORPUSCULAR HGB CONC 34 G/DL (32-36); MEAN CORPUSCULAR VOLUME 85 FL (80-99); MEAN PLATELET VOLUME 10.8 FL (7.4-10.4); MONOCYTES # (AUTO) 0.7 X 10^3 (0.0-1.0); MONOCYTES % (AUTO) 7 % (0-12); NEUTROPHILS # (AUTO) 4.7 X 10^3 (1.8-7.8); NEUTROPHILS % (AUTO) 48 % (42-75); PLATELET COUNT 248 10^3/uL (130-400); WHITE BLOOD COUNT 9.9 10^3/uL (4.3-11.0)
[2020-06-02 21:40] LABS: AMORPHOUS SEDIMENT,UR FEW AMOR URATES /LPF; BACTERIA,URINE FEW /HPF; RBC,URINE 25-50 /HPF
[2020-06-02 21:42] LABS: ALBUMIN 4.6 GM/DL (3.2-4.5); CHLORIDE 107 MMOL/L (98-107); SODIUM 140 MMOL/L (135-145)
[2020-06-02 21:43] LABS: CALCIUM 9.6 MG/DL (8.5-10.1)
[2020-06-02 21:44] LABS: GLUCOSE 311 MG/DL (70-105)
[2020-06-02 21:45] LABS: TOTAL PROTEIN 7.2 GM/DL (6.4-8.2)
[2020-06-02 21:46] LABS: BILIRUBIN,TOTAL 0.3 MG/DL (0.1-1.0); CARBON DIOXIDE 20 MMOL/L (21-32)
[2020-06-02 21:48] LABS: ALKALINE PHOSPHATASE 155 U/L (40-136); CREATININE SERUM 0.76 MG/DL (0.60-1.30); GFR ESTIMATED > 60
[2020-06-02 21:49] LABS: BUN/CREATININE RATIO 18
[2020-06-02 21:51] LABS: ALANINE AMINOTRANSFERASE 41 U/L (0-55)
[2020-06-02] MEDS ORDERED: LEVOFLOXACIN 500 MG TAB (LEVAQUIN) PO ONE (22:00)
[2020-06-02] MEDS ORDERED: LORazepam INJ 2 MG/ML (ATIVAN) VIAL IVP PRN (22:15)
[2020-06-02] MEDS ORDERED: SULF1TAB35 PO (22:28)
[2020-06-02] MEDS ORDERED: LORA-404 PO (22:28)
[2020-06-02 22:43] VITALS: BP 149/74
[2020-06-02] MEDS ORDERED: RX-HYDROCODONE/APAP 5/325 MG #4 TAB PK PO PRN (22:45)
--- NOTE | 2020-06-03 06:02 | Diagnostic Imaging Report ---
PROCEDURE: CT urinary tract, rule out kidney stone. TECHNIQUE: Multiple contiguous axial images were obtained through the abdomen and pelvis without the use of intravenous contrast. Auto Exposure Controls were utilized during the CT exam to meet ALARA standards for radiation dose reduction. INDICATION: Abdominal and back pain. Compared with CT abdomen and pelvis 09/18/2018. FINDINGS: Similar mild fatty infiltration of the liver noted. The gallbladder is surgically absent and there is a small amount of central intrahepatic pneumobilia on a post-interventional bases. No bile duct dilatation. No radiodense urinary tract stones. No hydroureteronephrosis. Spleen, adrenals and pancreas negative. The aorta nonaneurysmal. No small or large bowel wall thickening. No perienteric or pericolonic edema. No ascites, abscess, hematoma or acute fluid collection. The appendix normal. There is mild noninflamed sigmoid diverticulosis. No acute appearing abnormality. IMPRESSION: No acute finding in the abdomen or pelvis. Dictated by: Dictated on workstation # [id number]
== END 2020-06-02 22:43 | disposition home or self-care (01) ==
LOC: EDUNIT# 21:12 → ER 21:13
DX: N39.0 Urinary tract infection, site not specified (principal); F41.9 Anxiety disorder, unspecified; I10 Essential (primary) hypertension; E11.9 Type 2 diabetes mellitus without complications; F32.9 Major depressive disorder, single episode, unspecified; E78.00 Pure hypercholesterolemia, unspecified; G43.909 Migraine, unspecified, not intractable, without status migrainosus; G89.29 Other chronic pain; Z88.1 Allergy status to other antibiotic agents; Z79.4 Long term (current) use of insulin; Z82.49 Family history of ischemic heart disease and other diseases of the circulatory system
CPT/HCPCS: 36415; 74176; 80053; 81000; 84703; 85025; 87077; 87088; 87186

== ENCOUNTER 2020-09-13 17:59 | Emergency (ER) | payer MEDICAID, OTHER ==
[~2020-09-13] VITALS: Ht 155 cm; Wt 63.0 kg
[~2020-09-13 17:59] MED LIST changes: -CLIN300C11 PO; +CLIN300C12 PO; +LORA-404 PO; +SULF1TAB35 PO
[2020-09-13] MEDS ORDERED: ORPHENADRINE 60 MG/2 ML (NORFLEX) AMP (ED ONLY) IM ONE (18:30)
[2020-09-13] MEDS ORDERED: KETOROLAC 60 MG/2 ML VIAL IM ONE (18:30)
--- NOTE | 2020-09-13 18:47 | ED Back Pain ---
General Chief Complaint: Back Problems Stated Complaint: LOWER BACK PAIN Nursing Triage Note: AMBULATED TO ROOM 03 WITH COMPLAINTS OF LOWER BACK PAIN THAT RADIATES INTO HER LEFT LEG ET STARTING AT 1300 AFTER SQUATTING. Nursing Sepsis Screen: No Definite Risk Source of Information: Patient Exam Limitations: Language Barrier History of Present Illness Date Seen by Provider: Sep 13, 2020 Time Seen by Provider: 18:30 Initial Comments This is a speaking 50-year-old female who presents to the ER with complaints of low back pain that started around 1300 this afternoon. States she squatted down to grab something off the floor and when she stood up she had immediate pain. Rates pain 10 out of 10, sharp in nature and spreads across her lower back into the lateral side of her left leg. Denies any trauma or injury. States she has taken Tylenol and ibuprofen, but has not provided any relief. Denies any fevers, chills, cough, shortness of breath, nausea, vomiting, saddle anesthesia. Allergies and Home Medications Allergies Coded Allergies: ceftriaxone (Unverified Allergy, Unknown, 09/27/19) Home Medications Alprazolam 0.25 Mg Tablet, 0.25 MG PO BID PRN for ANXIETY, (Reported) Atorvastatin Calcium 10 Mg Tablet, 10 MG PO HS, (Reported) Citalopram Hydrobromide 10 Mg Tablet, 10 MG PO DAILY, (Reported) Cyclobenzaprine HCl 10 Mg Tablet, 10 MG PO Q8H PRN for SPASMS Prescribed by: HERNANDEZ HURLEY on 06/22/18 0420 Cyclobenzaprine HCl 10 Mg Tablet, 10 MG PO Q8H PRN for SPASMS Prescribed by: ANATOLIY MARTINEZ on 08/17/19 1734 Cyclobenzaprine HCl 10 Mg Tablet, 10 MG PO Q8H PRN for SPASMS Prescribed by: LYRIC HERNANDEZ on 09/13/20 1848 Empagliflozin 10 Mg Tablet, 10 MG PO DAILY, (Reported) Gabapentin 300 Mg Capsule, 300 MG PO BID, (Reported) Hydrocodone Bit/Acetaminophen 1 Tab Tab, 1 TAB PO Q6H PRN for PAIN-SEVERE Prescribed by: CLARK PRESTON on 04/21/18 1908 Hydrocodone Bit/Acetaminophen 1 Each Tablet, 1-2 EACH PO Q4-6HR PRN for PAIN-MO DERATE Prescribed by: IMAN PANG on 10/04/18 221 Hydrocodone/Acetaminophen 1 Each Tablet, 1 EACH PO Q6H PRN for PAIN-BREAKTHROUGH Prescribed by: LYRIC HERNANDEZ on 09/13/20 192 Hydroxyzine Pamoate 25 Mg Capsule, 25 MG PO Q6H PRN for ANXIETY Prescribed by: HERNANDEZ HURLEY on 06/22/18 0420 Hydroxyzine Pamoate 25 Mg Capsule, 25 MG PO Q8H PRN for ANXIETY Prescribed by: ANU CHAPMAN on 11/03/192106 Insulin Determir 1,000 Units/10 Ml Soln, 20 UNITS SQ BID, (Reported) Lorazepam 0.5 Mg Tablet, 0.5 MG PO BID PRN for ANXIETY Prescribed by: ANGELINE MARLEY on 06/02/202227 Losartan Potassium 25 Mg Tablet, 25 MG PO DAILY, (Reported) Meloxicam 7.5 Mg Tablet, 7.5 MG PO DAILY, (Reported) Metformin HCl 750 Mg Tab.er.24h, 750 MG PO BID, (Reported) LAST FILLED IN JANUARY Naproxen 500 Mg Tablet, 500 MG PO BID Prescribed by: HERNANDEZ HURLEY on 12/26/18 0125 Naproxen 500 Mg Tablet, 500 MG PO BID Prescribed by: ANATOLIY MARTINEZ on 08/17/19 173 Ondansetron 4 Mg Tab.rapdis, 4 MG PO Q6H PRN for NAUSEA/VOMITING-1ST LINE Prescribed by: HERNANDEZ HURLEY on 09/18/18 225 Propranolol HCl 40 Mg Tablet, 20 MG PO BID, (Reported) TAKES 1/2 (40MG) TABLET Sulfamethoxazole/Trimethoprim 1 Each Tablet, 1 EACH PO BID Prescribed by: ANGELINE MARLEY on 06/02/202227 Patient Home Medication List Home Medication List Reviewed: Yes Review of Systems Constitutional: no symptoms reported EENTM: no symptoms reported Respiratory: no symptoms reported Cardiovascular: no symptoms reported Gastrointestinal: no symptoms reported Genitourinary: no symptoms reported Musculoskeletal: see HPI Skin: no symptoms reported Psychiatric/Neurological: No Symptoms Reported Past Opugovl-Nkhqnz-Wiljeb Hx Patient Social History 2nd Hand Smoke Exposure: No Recent Foreign Travel: No Contact w/Someone Who Travel: No Recent Infectious Disease Expo: No Recent Hopitalizations: No Immunizations Up To Date Tetanus Booster (TDap): Unknown PED Vaccines UTD: No Date of Influenza Vaccine: Jun 16, 2019 Seasonal Allergies Seasonal Allergies: No Past Medical History Surgeries: Yes Appendectomy, Section, Gallbladder, Orthopedic, Renal Respiratory: No Cardiac: Yes High Cholesterol, Hypertension, Syncope Neurological: Yes Headaches /Migraines 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 Genitourinary: Yes Kidney Stones, UTI-Chronic Gastrointestinal: Yes Pancreatitis Musculoskeletal: Yes Chronic Back Pain Endocrine: Yes Diabetes, Non-Insulin dep HEENT: No Cancer: No Psychosocial: Yes Anxiety, Depression Integumentary: No Blood Disorders: No Family Medical History Diabetes mellitus 19 FATHER 19 MOTHER Heart Disease, CAD Under 55 Years Old, Diabetes, Hypertension Physical Exam Vital Signs Vital Signs - First Documented 09/13/20 18:12 Temp 37.0 Pulse 73 Resp 16 B/P (MAP) 135/77 (96) Pulse Ox 99 O2 Delivery Room Air Capillary Refill : Less Than 3 Seconds Height, Weight, BMI Height: 5'4.00" Weight: 140lbs. 0oz. 63.047604rq; 26.00 BMI Method:Estimated General Appearance: No Apparent Distress, WD/WN HEENT: PERRL/EOMI, Pharynx Normal, Moist Mucous Membranes Neck: Full Range of Motion, Normal Inspection, Non Tender Cardiovascular: Regular Rate, Rhythm, Normal Peripheral Pulses Respiratory: Lungs Clear, Normal Breath Sounds Peripheral Pulses: 2+ Radial Pulses (R), 2+ Radial Pulses (L) Gastrointestinal: Normal Bowel Sounds, Non Tender, Soft Back: Normal Inspection, No Vertebral Tenderness, Muscle Spasm; No Vertebral Tenderness; Other (, tenderness with palpation over left SI joint and down into left gluteal and lateral thigh.) Extremity: Normal Capillary Refill, Normal Inspection, Normal Range of Motion, No Pedal Edema Neurologic/Psychiatric: Alert, Oriented x3, No Motor/Sensory Deficits, Normal Mood/Affect Skin: Normal Color, Warm/Dry Progress/Results/Core Measures Results/Orders My Orders Orders - LYRIC HERNANDEZ APRN Ketorolac Injection (Toradol Injection) (09/13/20 18:30) Orphenadrine Inj (Ed Only) (Norflex Inje (09/13/20 18:30) Lumbar Spine - 2-3 Views (09/13/20 18:31) Hydrocodone/Apap 5/325 Tablet (Lortab 5 (09/13/20 19:15) Hydrocodone/Apap 5/325 Tablet (Lortab 5 (09/13/20 19:02) Medications Given in ED Current Medications Medications Dose Ordered Sig/Olivia Route Start Time Stop Time Status Last Admin Dose Admin Acetaminophen/ Hydrocodone Bitart 1 tab ONCE ONCE PO 09/13/20 19:15 09/13/20 19:16 DC 09/13/20 19:20 1 TAB Ketorolac Tromethamine 30 mg ONCE ONCE IM 09/13/20 18:30 09/13/20 18:32 DC 09/13/20 18:37 30 MG Orphenadrine Citrate 60 mg ONCE ONCE IM 09/13/20 18:30 09/13/20 18:32 DC 09/13/20 18:37 60 MG Vital Signs/I&O 09/13/20 09/13/20 18:12 19:25 Temp 37.0 37.0 Pulse 73 69 Resp 16 17 B/P (MAP) 135/77 (96) 128/76 (96) Pulse Ox 99 98 O2 Delivery Room Air Room Air Blood Pressure Mean: 96 Progress Progress Note : Progress Note Images of lumbar spine reviewed and show no acute findings. Reported some improvement with the Norflex. However, still expressed quite a bit of pain. Received Lortab 5 325. Reviewed discharge plan of care with her and she is agreeable with plan. 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 FINDINGS: Alignment is normal. No fracture is seen. Disc spaces are normal. IMPRESSION: 1. Normal lumbar spine. Dictated on workstation # [id number] Dict: 09/13/201850 Trans: 09/13/201855 [facility] [id number] Interpreted by: SORAYA WEBER MD Electronically signed by: Departure Impression Primary Impression: Back strain Disposition: 01 HOME, SELF-CARE Condition: Improved Departure-Patient Inst. Decision time for Depature: 19:09 Referrals: SIERRA MIGUEL DO (PCP/Family) Primary Care Physician Patient Instructions: Back Muscle Strain (DC) Add. Discharge Instructions: Plan: 1. Discharge home. Use ice or heat 20 minutes at a time for pain. Avoid twisting/turning/pulling. 2. Use Flexeril 20mg by mouth as needed for breakthrough pain. 2. May take Tylenol or Ibuprofen as needed for pain per package instructions. 3. Follow up with your primary care provider if your symptoms persist. 4. Return for any new or concerning symptoms. All discharge instructions reviewed with patient and/or family. Voiced understanding. Scripts Hydrocodone/Acetaminophen (Hydrocodone-Acetamin 5-325 mg) 1 Each Tablet 1 EACH PO Q6H PRN for PAIN-BREAKTHROUGH, #10 TAB 0 Refills Prov: LYRIC HERNANDEZ ASSISTANT PLANT CONTROLLER 09/13/20 Cyclobenzaprine HCl (Cyclobenzaprine HCl) 10 Mg Tablet 10 MG PO Q8H PRN for SPASMS, #15 TAB 0 Refills Prov: LYRIC HERNANDEZ ASSISTANT PLANT CONTROLLER 09/13/20 LYRIC HERNANDEZ ASSISTANT PLANT CONTROLLER Sep 13, 2020 18:47
[2020-09-13] MEDS ORDERED: CYCL10TA9 PO (18:48)
--- NOTE | 2020-09-13 18:56 | Diagnostic Imaging Report ---
EXAMINATION: Lumbosacral spine 2 or 3 views HISTORY: Low back pain COMPARISON: None available. FINDINGS: Alignment is normal. No fracture is seen. Disc spaces are normal. IMPRESSION: 1. Normal lumbar spine. Dictated by: Dictated on workstation # [email or web address]
[2020-09-13] MEDS ORDERED: HYDROcodone/APAP 5 MG/325 MG (LORTAB) TAB ONE (19:02)
[2020-09-13] MEDS ORDERED: HYDROcodone/APAP 5 MG/325 MG (LORTAB) TAB PO ONE (19:15)
[2020-09-13 19:25] VITALS: BP 128/76
[2020-09-13] MEDS ORDERED: ACHD5005 PO (19:25)
== END 2020-09-13 19:25 | disposition home or self-care (01) ==
LOC: EDUNIT# 17:59 → ER 18:02
DX: S39.012A Strain of muscle, fascia and tendon of lower back, initial encounter (principal); E78.00 Pure hypercholesterolemia, unspecified; I10 Essential (primary) hypertension; G89.29 Other chronic pain; M54.9 Dorsalgia, unspecified; E11.9 Type 2 diabetes mellitus without complications; F41.9 Anxiety disorder, unspecified; F32.9 Major depressive disorder, single episode, unspecified; Z88.8 Allergy status to other drugs, medicaments and biological substances; Z82.49 Family history of ischemic heart disease and other diseases of the circulatory system; Z83.3 Family history of diabetes mellitus; Z79.891 Long term (current) use of opiate analgesic; Z79.84 Long term (current) use of oral hypoglycemic drugs; X50.0XXA Overexertion from strenuous movement or load, initial encounter
CPT/HCPCS: 72100

== ENCOUNTER 2020-12-21 18:49 | Emergency (ER) | payer MEDICAID, OTHER ==
[~2020-12-21] VITALS: Ht 152.4 cm; Wt 59.0 kg
[~2020-12-21 18:49] MED LIST changes: +CIPR500T5 PO
[2020-12-21 19:05] VITALS: BP 120/61
[2020-12-21] MEDS ORDERED: KETOROLAC 60 MG/2 ML VIAL IM STA (19:32)
[2020-12-21] MEDS ORDERED: ORPHENADRINE 60 MG/2 ML (NORFLEX) AMP (ED ONLY) IM STA (19:32)
[2020-12-21] MEDS ORDERED: RX-TRAMADOL 50 MG (ULTRAM) TAB PPK#4 PO STA (19:32)
[2020-12-21 19:44] LABS: BILIRUBIN,URINE NEGATIVE (NEGATIVE); CLARITY,URINE CLEAR; COLOR,URINE YELLOW; GLUCOSE, URINE (UA) 3+ (NEGATIVE); KETONES,URINE NEGATIVE (NEGATIVE); LEUKOCYTE ESTERASE ,URINE TRACE (NEGATIVE); NITRITE,URINE NEGATIVE (NEGATIVE); PROTEIN,URINE NEGATIVE (NEGATIVE)
--- NOTE | 2020-12-21 19:44 | ED Back Pain ---
General Chief Complaint: Back Problems Stated Complaint: BACK PAIN Nursing Triage Note: PT ARRIVED BY PRIVATE VEHICLE WITH CHIEF COMPLAINT OF LEFT LOWER BACK PAIN. PT WAS ALERT, ORIENTED X 4 AND AMBULATORY. ONSET WAS ONE MONTH AGO. PT STATED PAIN GOES DOWN THE LEFT LEG. PT HAS TAKEN MUSCLE RELAXERS AND PAIN MEDICATION, AND THEY ARE NOT HELPING. PAIN IS STILL AT 10/10. PT HAS FOLLOWED UP WITH AND THEY PLAN ON ORDERING A MRI. THEY BELIEVE IT IS HER SCIATIC NERVE. PATIENT'S VITAL SIGNS WERE DONE AND URINE WAS COLLECTED. REPORT WAS GIVEN TO PROVIDER. Nursing Sepsis Screen: No Definite Risk History of Present Illness Date Seen by Provider: Dec 21, 2020 Time Seen by Provider: 19:05 Initial Comments 50-year-old [place]er-speaking female presents with her son for chronic low back pain that is radiating into her left lower extremity. She was seen here previously for similar symptoms. She has been seeing her family provider who has prescribed muscle relaxants and pain medication without improvement in her symptoms. She has had no new injuries. She has an appointment scheduled for tomorrow in hopes to get an MRI scheduled. She denies any bowel or bladder incontinence or retention. Location: Lumbar Spine Timing/Duration: Getting Worse, Intermittent Severity: Moderate Pain/Injury Location: Back, Lower Extremity (Left leg) Radiation: Lower Legs, Upper Legs Method of Injury: Unknown Modifying Factors: Improves With Rest Associated Symptoms: muscle spasms; No numbness in legs/feet, No tingling in legs/feet, No sensory/motor loss; lower back pain; No loss of bladder control, No loss of bowel control Allergies and Home Medications Allergies Coded Allergies: ceftriaxone (Unverified Allergy, Unknown, 09/27/19) Home Medications Alprazolam 0.25 Mg Tablet, 0.25 MG PO BID PRN for ANXIETY, (Reported) Atorvastatin Calcium 10 Mg Tablet, 10 MG PO HS, (Reported) Citalopram Hydrobromide 10 Mg Tablet, 10 MG PO DAILY, (Reported) Cyclobenzaprine HCl 10 Mg Tablet, 10 MG PO Q8H PRN for SPASMS Prescribed by: HERNANDEZ HURLEY on 06/22/18 0420 Cyclobenzaprine HCl 10 Mg Tablet, 10 MG PO Q8H PRN for SPASMS Prescribed by: ANATOLIY MARTINEZ on 08/17/19 1734 Cyclobenzaprine HCl 10 Mg Tablet, 10 MG PO Q8H PRN for SPASMS Prescribed by: LYRIC HERNANDEZ on 09/13/20 1848 Empagliflozin 10 Mg Tablet, 10 MG PO DAILY, (Reported) Gabapentin 300 Mg Capsule, 300 MG PO BID, (Reported) Hydrocodone Bit/Acetaminophen 1 Tab Tab, 1 TAB PO Q6H PRN for PAIN-SEVERE Prescribed by: CLARK PRESTON on 04/21/18 1908 Hydrocodone Bit/Acetaminophen 1 Each Tablet, 1-2 EACH PO Q4-6HR PRN for PAIN- MODERATE Prescribed by: IMAN PANG on 10/04/18 221 Hydrocodone/Acetaminophen 1 Each Tablet, 1 EACH PO Q6H PRN for PAIN-BREAKTHROUGH Prescribed by: LYRIC HERNANDEZ on 09/13/20 192 Hydroxyzine Pamoate 25 Mg Capsule, 25 MG PO Q6H PRN for ANXIETY Prescribed by: HERNANDEZ HURLEY on 06/22/18 0420 Hydroxyzine Pamoate 25 Mg Capsule, 25 MG PO Q8H PRN for ANXIETY Prescribed by: ANU CHAPMAN on 11/03/192106 Insulin Determir 1,000 Units/10 Ml Soln, 20 UNITS SQ BID, (Reported) Lorazepam 0.5 Mg Tablet, 0.5 MG PO BID PRN for ANXIETY Prescribed by: ANGELINE MARLEY on 06/02/202227 Losartan Potassium 25 Mg Tablet, 25 MG PO DAILY, (Reported) Meloxicam 7.5 Mg Tablet, 7.5 MG PO DAILY, (Reported) Metformin HCl 750 Mg Tab.er.24h, 750 MG PO BID, (Reported) LAST FILLED IN JANUARY Naproxen 500 Mg Tablet, 500 MG PO BID Prescribed by: HERNANDEZ HURLEY on 12/26/18 0125 Naproxen 500 Mg Tablet, 500 MG PO BID Prescribed by: ANATOLIY MARTINEZ on 08/17/19 1734 Ondansetron 4 Mg Tab.rapdis, 4 MG PO Q6H PRN for NAUSEA/VOMITING-1ST LINE Prescribed by: HERNANDEZ HURLEY on 09/18/18 225 Propranolol HCl 40 Mg Tablet, 20 MG PO BID, (Reported) TAKES 1/2 (40MG) TABLET Sulfamethoxazole/Trimethoprim 1 Each Tablet, 1 EACH PO BID Prescribed by: ANGELINE MARLEY on 06/02/202227 Patient Home Medication List Home Medication List Reviewed: Yes Review of Systems Constitutional: no symptoms reported, see HPI Musculoskeletal: see HPI, back pain, muscle pain (Left lateral hip and lateral thigh) All Other Systems Reviewed Negative Unless Noted: Yes Past Qyjwuso-Vawotc-Lvkreg Hx Past Med/Social Hx: Reviewed Nursing Past Med/Soc Hx Patient Social History Alcohol Use: Denies Use 2nd Hand Smoke Exposure: No Recent Infectious Disease Expo: No Recent Hopitalizations: No Immunizations Up To Date Tetanus Booster (TDap): Unknown PED Vaccines UTD: No Date of Influenza Vaccine: Jun 16, 2019 Seasonal Allergies Seasonal Allergies: No Past Medical History Surgeries: Yes Appendectomy, Section, Gallbladder, Orthopedic, Renal Respiratory: No Cardiac: Yes High Cholesterol, Hypertension, Syncope Neurological: Yes Headaches /Migraines 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 Genitourinary: Yes Kidney Stones, UTI-Chronic Gastrointestinal: Yes Pancreatitis Musculoskeletal: Yes Chronic Back Pain Endocrine: Yes Diabetes, Non-Insulin dep HEENT: No Cancer: No Psychosocial: Yes Anxiety, Depression Integumentary: No Blood Disorders: No Family Medical History Diabetes mellitus 19 FATHER 19 MOTHER Heart Disease, CAD Under 55 Years Old, Diabetes, Hypertension Physical Exam Vital Signs Vital Signs - First Documented 12/21/20 19:05 Temp 35.6 Pulse 84 Resp 18 B/P (MAP) 120/61 (80) Pulse Ox 97 O2 Delivery Room Air Capillary Refill : Less Than 3 Seconds Height, Weight, BMI Height: 5'4.00" Weight: 140lbs. 0oz. [id number]; 25.00 BMI Method:Estimated General Appearance: WD/WN, Mild Distress (Secondary to pain) Neck: Full Range of Motion, Normal Inspection, Non Tender, Supple Cardiovascular: Regular Rate, Rhythm, No Edema, No Murmur, Normal Peripheral Pulses Respiratory: Chest Non Tender, Lungs Clear, Normal Breath Sounds Gastrointestinal: Normal Bowel Sounds, Non Tender, Soft Back: Normal Inspection, No CVA Tenderness, Muscle Spasm (Left paraspinal muscles), Other (Slight antalgic gait on the left. Able to walk on toes and h eels. Power 5/5 L4-S1. positive straight leg raising sign on the left.) Extremity: Normal Capillary Refill, Normal Inspection, Normal Range of Motion, Non Tender Neurologic/Psychiatric: Alert, Oriented x3, No Motor/Sensory Deficits, Normal Mood/Affect Progress/Results/Core Measures Results/Orders Lab Results Laboratory Tests Test 12/21/20 19:15 Range/Units My Orders Orders - ANU CHAPMAN Ua Culture If Indicated (12/21/20 18:53) Ketorolac Injection (Toradol Injection) (12/21/20 19:32) Orphenadrine Inj (Ed Only) (Norflex Inje (12/21/20 19:32) Rx-Tramadol Hcl (Rx-Ultram) (12/21/20 19:32) Vital Signs/I&O 12/21/20 19:05 Temp 35.6 Pulse 84 Resp 18 B/P (MAP) 120/61 (80) Pulse Ox 97 O2 Delivery Room Air Blood Pressure Mean: 80 Departure Impression Primary Impression: Lumbar radiculopathy Additional Impression: Back pain Qualified Codes: M54.42 - Lumbago with sciatica, left side; G89.29 - Other chronic pain Disposition: 01 HOME, SELF-CARE Condition: Stable Departure-Patient Inst. Decision time for Depature: 19:40 Referrals: SIERRA MIGUEL DO (PCP/Family) Primary Care Physician Patient Instructions: Low Back Pain (DC), Radiculopathy (DC) Add. Discharge Instructions: Alternate between heat and ice to your low back for 20 minutes every 2 hours. Keep your scheduled appointment with Dr. Miguel for tomorrow. Take the Ultram 1 tablet every 8 hours as needed for pain. Need to use your muscle relaxant that you have at home. Return to the emergency department for new, urgent healthcare needs. All discharge instructions reviewed with patient and/or family. Voiced understanding. Copy Copies To 1: SIERRA MIGUEL AMY ARNP Dec 21, 2020 19:44
[2020-12-21 19:52] LABS: BACTERIA,URINE NEGATIVE /HPF; SQUAMOUS EPITHELIAL CELL,UR 0-2 /HPF
== END 2020-12-21 20:06 | disposition home or self-care (01) ==
LOC: EDUNIT# 18:49 → ER 18:50
DX: M54.42 Lumbago with sciatica, left side (principal); M54.16 Radiculopathy, lumbar region; I10 Essential (primary) hypertension; E11.9 Type 2 diabetes mellitus without complications; E78.00 Pure hypercholesterolemia, unspecified; F41.9 Anxiety disorder, unspecified; F32.9 Major depressive disorder, single episode, unspecified; G43.909 Migraine, unspecified, not intractable, without status migrainosus; Z79.4 Long term (current) use of insulin
CPT/HCPCS: 81000; 87077; 87088; 99284

== ENCOUNTER 2021-01-30 20:15 | Emergency (ER) | payer MEDICAID ==
[~2021-01-30] VITALS: Ht 152 cm; Wt 54.4 kg
[2021-01-30 20:45] LABS: BILIRUBIN,URINE NEGATIVE (NEGATIVE); CLARITY,URINE CLEAR; COLOR,URINE YELLOW; GLUCOSE, URINE (UA) 3+ (NEGATIVE); KETONES,URINE TRACE (NEGATIVE); LEUKOCYTE ESTERASE ,URINE NEGATIVE (NEGATIVE); NITRITE,URINE NEGATIVE (NEGATIVE); PROTEIN,URINE NEGATIVE (NEGATIVE)
[2021-01-30 20:52] LABS: BACTERIA,URINE TRACE /HPF; WBC,URINE 0-2 /HPF
[2021-01-30] MEDS ORDERED: KETOROLAC 60 MG/2 ML VIAL IM ONE (21:00)
[2021-01-30] MEDS ORDERED: ORPHENADRINE 60 MG/2 ML (NORFLEX) AMP (ED ONLY) IM ONE (21:00)
--- NOTE | 2021-01-30 21:00 | ED Back Pain ---
General Chief Complaint: Back Problems Stated Complaint: BACK PAIN Nursing Triage Note: Pt ambulatory to ED with c/o of chronic back pain. Pt believes this is sciatic pain and reports waiting to hear from PCP regarding an MRI. Pt reports pain in L buttock that radiates down L leg to bottom of foot. Pt reports taking tylenol with no relief. Nursing Sepsis Screen: No Definite Risk Source of Information: Patient Exam Limitations: No Limitations (LYRIC HERNANDEZ APRN) History of Present Illness Date Seen by Provider: February 01, 2021 Time Seen by Provider: 20:30 Initial Comments This is a 50 yo female with long standing history of left side sciatica. She pr esents tonight with acute exacerbation, stating she was walking around more at her nephews birthday constitution party a couple days ago. States she has been evaluated multiple times and has received muscle relaxers, Tramadol, Hydrocodone, and taken Tylenol/Ibuprofen for pain with no improvement. States she has MRI order through [facility], but when they called her yesterday to schedule appointment they called in French and no Wallisian so she was unable to understand instructions. Currently reports constant, sharp pain shooting from her left upper buttock down the back/side of her leg. No numbness/tingling, loss of sensation, or loss of bowel/bladder function. No fever, chills, nausea/vomiting. (LYRIC HERNANDEZ APRN) Allergies and Home Medications Allergies Coded Allergies: ceftriaxone (Unverified Allergy, Unknown, 09/27/19) Home Medications Alprazolam 0.25 Mg Tablet, 0.25 MG PO BID PRN for ANXIETY, (Reported) Atorvastatin Calcium 10 Mg Tablet, 10 MG PO HS, (Reported) Citalopram Hydrobromide 10 Mg Tablet, 10 MG PO DAILY, (Reported) Cyclobenzaprine HCl 10 Mg Tablet, 10 MG PO Q8H PRN for SPASMS Prescribed by: HERNANDEZ HURLEY on 06/22/18 0420 Cyclobenzaprine HCl 10 Mg Tablet, 10 MG PO Q8H PRN for SPASMS Prescribed by: ANATOLIY MARTINEZ on 08/17/19 1734 Cyclobenzaprine HCl 10 Mg Tablet, 10 MG PO Q8H PRN for SPASMS Prescribed by: LYRIC HERNANDEZ on 09/13/20 1848 Empagliflozin 10 Mg Tablet, 10 MG PO DAILY, (Reported) Gabapentin 300 Mg Capsule, 300 MG PO BID, (Reported) Hydrocodone Bit/Acetaminophen 1 Tab Tab, 1 TAB PO Q6H PRN for PAIN-SEVERE Prescribed by: CLARK PRESTON on 04/21/18 190 Hydrocodone Bit/Acetaminophen 1 Each Tablet, 1-2 EACH PO Q4-6HR PRN for PAIN- MODERATE Prescribed by: IMAN PANG on 10/04/182209 Hydrocodone/Acetaminophen 1 Each Tablet, 1 EACH PO Q6H PRN for PAIN-BREAKTHROUGH Prescribed by: LYRIC HERNANDEZ on 09/13/201924 Hydrocodone/Acetaminophen 1 Each Tablet, 1 TAB PO Q6H PRN for PAIN-MODERATE (5- 7) Prescribed by: LYRIC HERNANDEZ on 01/30/212132 Hydrocodone/Acetaminophen 1 Each Tablet, 1 TAB PO Q6H PRN for PAIN-MODERATE (5- 7) Prescribed by: ANTONIA COSBY on 01/30/212136 Hydroxyzine Pamoate 25 Mg Capsule, 25 MG PO Q6H PRN for ANXIETY Prescribed by: HERNANDEZ HURLEY on 06/22/18 042 Hydroxyzine Pamoate 25 Mg Capsule, 25 MG PO Q8H PRN for ANXIETY Prescribed by: ANU CHAPMAN on 11/03/192106 Insulin Determir 1,000 Units/10 Ml Soln, 20 UNITS SQ BID, (Reported) Lorazepam 0.5 Mg Tablet, 0.5 MG PO BID PRN for ANXIETY Prescribed by: ANGELINE MARLEY on 06/02/202227 Losartan Potassium 25 Mg Tablet, 25 MG PO DAILY, (Reported) Meloxicam 7.5 Mg Tablet, 7.5 MG PO DAILY, (Reported) Metformin HCl 750 Mg Tab.er.24h, 750 MG PO BID, (Reported) LAST FILLED IN JANUARY Naproxen 500 Mg Tablet, 500 MG PO BID Prescribed by: HERNANDEZ HURLEY on 12/26/18 0125 Naproxen 500 Mg Tablet, 500 MG PO BID Prescribed by: ANATOLIY MARTINEZ on 08/17/19 1734 Ondansetron 4 Mg Tab.rapdis, 4 MG PO Q6H PRN for NAUSEA/VOMITING-1ST LINE Prescribed by: HERNANDEZ HURLEY on 09/18/18 225 Propranolol HCl 40 Mg Tablet, 20 MG PO BID, (Reported) TAKES 1/2 (40MG) TABLET Sulfamethoxazole/Trimethoprim 1 Each Tablet, 1 EACH PO BID Prescribed by: ANGELINE MARLEY on 06/02/20 3988 Patient Home Medication List Home Medication List Reviewed: Yes (LYRIC HERNANDEZ APRN) Review of Systems Constitutional: no symptoms reported EENTM: no symptoms reported Respiratory: no symptoms reported Cardiovascular: no symptoms reported Gastrointestinal: no symptoms reported Genitourinary: no symptoms reported Musculoskeletal: see HPI Skin: no symptoms reported Psychiatric/Neurological: No Symptoms Reported (LYRIC HERNANDEZ APRN) Past Cenmeqe-Rkcpbh-Lgkzxs Hx Patient Social History Alcohol Use: Denies Use 2nd Hand Smoke Exposure: No Recent Infectious Disease Expo: No Recent Hopitalizations: No (LYRIC HERNANDEZ APRN) Immunizations Up To Date Tetanus Booster (TDap): Unknown PED Vaccines UTD: No Date of Influenza Vaccine: Jun 16, 2019 (LYRIC HERNANDEZ APRN) Seasonal Allergies Seasonal Allergies: No (LYRIC HERNANDEZ APRN) Past Medical History Surgeries: Yes Appendectomy, Section, Gallbladder, Orthopedic, Renal Respiratory: No Cardiac: Yes High Cholesterol, Hypertension, Syncope Neurological: Yes Headaches /Migraines 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 Disorders: 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 Genitourinary: Yes Kidney Stones, UTI-Chronic Gastrointestinal: Yes Pancreatitis Musculoskeletal: Yes Chronic Back Pain Endocrine: Yes Diabetes, Non-Insulin dep HEENT: No Cancer: No Psychosocial: Yes Anxiety, Depression Integumentary: No Blood Disorders: No (LYRIC HERNANDEZ APRN) Family Medical History Diabetes mellitus 19 FATHER 19 MOTHER Heart Disease, CAD Under 55 Years Old, Diabetes, Hypertension (LYRIC HERNANDEZ APRN) Physical Exam Vital Signs Vital Signs - First Documented 01/30/21 20:23 Temp 36.1 Pulse 78 Resp 18 B/P (MAP) 124/75 (91) Pulse Ox 97 O2 Delivery Room Air (ANTONIA COSBY MD) Vital Signs Capillary Refill : Less Than 3 Seconds (LYRIC HERNANDEZ APRN) Height, Weight, BMI Height: 5'4.00" Weight: 140lbs. 0oz. 63.883644ws; 23.00 BMI Method:Estimated General Appearance: No Apparent Distress, WD/WN HEENT: PERRL/EOMI, Moist Mucous Membranes Neck: Full Range of Motion, Normal Inspection Cardiovascular: Regular Rate, Rhythm, No Murmur, Normal Peripheral Pulses Respiratory: Lungs Clear, Normal Breath Sounds Peripheral Pulses: 2+ Dorsalis Pedis (R), 2+ Left Dors-Pedis (L) Gastrointestinal: Normal Bowel Sounds, Non Tender, Soft Back: Normal Inspection, No Vertebral Tenderness, Other (left gluteal tenderness to light/deep palpation. + SLT, left) Extremity: Normal Inspection, Normal Range of Motion, No Calf Tenderness, No Pedal Edema Neurologic/Psychiatric: Alert, Oriented x3, No Motor/Sensory Deficits, Normal Mood/Affect Skin: Normal Color, Warm/Dry (LYRIC HERNANDEZ APRN) Progress/Results/Core Measures Results/Orders Lab Results Laboratory Tests Test 01/30/21 20:37 Range/Units Urine Color YELLOW Urine Clarity CLEAR Urine pH 6.0 5-9 Urine Specific [place] 1.020 1.016-1.022 Urine Protein NEGATIVE NEGATIVE Urine Glucose (UA) 3+ H NEGATIVE Urine Ketones TRACE H NEGATIVE Urine Nitrite NEGATIVE NEGATIVE Urine Bilirubin NEGATIVE NEGATIVE Urine Urobilinogen 0.2 < = 1.0 MG/DL Urine Leukocyte Esterase NEGATIVE NEGATIVE Urine RBC (Auto) NEGATIVE NEGATIVE Urine RBC NONE /HPF Urine WBC 0-2 /HPF Urine Squamous Epithelial Cells NONE /HPF Urine Renal Epithelial Cells NONE /HPF Urine Crystals NONE /LPF Urine Bacteria TRACE /HPF Urine Casts NONE /LPF Urine Mucus NEGATIVE /LPF Urine Culture Indicated NO (ANTONIA COSBY MD) Medications Given in ED Current Medications Medications Dose Ordered Sig/Olivia Route Start Time Stop Time Status Last Admin Dose Admin Ketorolac Tromethamine 60 mg ONCE ONCE IM 01/30/21 21:00 01/30/21 21:01 DC 01/30/21 21:08 60 MG Orphenadrine Citrate 60 mg ONCE ONCE IM 01/30/21 21:00 01/30/21 21:01 DC 01/30/21 21:09 60 MG (ANTONIA COSBY MD) Vital Signs/I&O 01/30/21 20:23 Temp 36.1 Pulse 78 Resp 18 B/P (MAP) 124/75 (91) Pulse Ox 97 O2 Delivery Room Air (ANTONIA COSBY MD) Blood Pressure Mean: 91 Progress Progress Note : Progress Note Patient examined and in no acute distress. Pain is unchanged from prior episodes. Has interaction with Tramadol and her Celexa. Orders given Toradol 60mg IM and Norflex 60mg IM for pain, with min-no improvement. Orders given for Hydrocodone 10/325mg PO tonight and rx for short course of Hydrocodone. She needs to call [facility] tomorrow for date/time of MRI. Reviewed discharge POC and she is agreeable with plan. (LYRIC HERNANDEZ GRAVE CLEANER) Departure Impression Primary Impression: Chronic sciatica Disposition: 01 HOME, SELF-CARE Condition: Improved Departure-Patient Inst. Decision time for Depature: 21:27 (LYRIC HERNANDEZ GRAVE CLEANER) Referrals: [facility] (PCP/Family) Primary Care Physician Patient Instructions: Sciatica ED Add. Discharge Instructions: Plan: 1. Discharge home. Call [facility] tomorrow to get your MRI scheduled. 2. Take Hydrocodone 1 tab every 6 hours as needed for pain. May alternate with Ibuprofen/Tylenol. 3. Avoid aggravating movement/activity. 4. Apply ice/heat 20 minutes at a time 4-6x per day. 5. Return to ER for any new, worsening, or concerning symptoms. All discharge instructions reviewed with patient and/or family. Voiced understanding. Scripts Hydrocodone/Acetaminophen (Hydrocodone-Acetamin 5-325 mg) 1 Each Tablet 1 TAB PO Q6H PRN for PAIN-MODERATE (5-7), #12 TAB Prov: ANTONIA COSBY MD 01/30/21 Hydrocodone/Acetaminophen (Hydrocodone-Acetamin 5-325 mg) 1 Each Tablet 1 TAB PO Q6H PRN for PAIN-MODERATE (5-7), #12 TAB 0 Refills Prov: LYRIC HERNANDEZ GRAVE CLEANER 01/30/21 LYRIC HERNANDEZ APRN January 30, 2021 21:00 ANTONIA COSBY MD January 30, 2021 21:38
[2021-01-30] MEDS ORDERED: ACHD5005 PO ×2 (21:33→21:36)
[2021-01-30 21:50] VITALS: BP 124/75
== END 2021-01-30 21:50 | disposition home or self-care (01) ==
LOC: EDUNIT# 20:15 → ER 20:16
DX: M54.42 Lumbago with sciatica, left side (principal); G89.29 Other chronic pain; I10 Essential (primary) hypertension; E11.9 Type 2 diabetes mellitus without complications; E78.00 Pure hypercholesterolemia, unspecified; F41.9 Anxiety disorder, unspecified; F32.9 Major depressive disorder, single episode, unspecified; G43.909 Migraine, unspecified, not intractable, without status migrainosus; Z88.1 Allergy status to other antibiotic agents; Z79.891 Long term (current) use of opiate analgesic; Z79.4 Long term (current) use of insulin; Z79.1 Long term (current) use of non-steroidal anti-inflammatories (NSAID); Z79.899 Other long term (current) drug therapy
CPT/HCPCS: 81000; 99284

== ENCOUNTER → 2021-02-02 | Outpatient (CLI) | payer MEDICAID ==
--- NOTE | 2021-02-02 12:08 | Diagnostic Imaging Report ---
PROCEDURE: MRI lumbar spine. TECHNIQUE: Multiplanar, multisequence MRI of the lumbar spine was performed without contrast. INDICATION: Fall and low back pain. COMPARISON: No prior studies are available for comparison. Curvature and alignment of the lumbar spine are normal. Vertebral body heights are maintained. Marrow signal intensity is unremarkable. No acute compression fracture or geographic marrow lesion is identified. There is disc desiccation noted at L5-S1. The conus appears unremarkable at the T12-L1 level. T12-L1: Central canal and neural foramina are widely patent. L1-L2: The central canal and neural foramina are widely patent. L2-L3: Central canal and neural foramina are widely patent. L3-L4: Central canal and neural foramina are widely patent. L4-L5: There is minimal annular flattening of the ventral thecal sac. Central canal remains widely patent. Neural foramina are patent. L5-S1: There is mild broad-based disc/osteophyte complex but no focal disc protrusion is seen. No definite central canal or neural foraminal stenosis is identified. Paraspinous tissues are unremarkable. IMPRESSION: 1. There is mild lower lumbar spondylosis. No focal disc protrusion, central canal or neural foraminal stenosis is seen. No acute compression fracture is identified. Dictated by: Dictated on workstation # [id number]
== END ==
LOC: RAD 09:30
PROVIDERS: ATTEND Physician Assistant
DX: M47.816 Spondylosis without myelopathy or radiculopathy, lumbar region (principal); M48.061 Spinal stenosis, lumbar region without neurogenic claudication
CPT/HCPCS: 72148

== ENCOUNTER 2021-02-14 04:12 | Observation (INO) | payer MEDICAID ==
[~2021-02-14] VITALS: Ht 152 cm; Wt 57.6 kg
[2021-02-14 04:55] LABS: BILIRUBIN,URINE NEGATIVE (NEGATIVE); CLARITY,URINE CLOUDY; COLOR,URINE YELLOW; GLUCOSE, URINE (UA) 3+ (NEGATIVE); KETONES,URINE NEGATIVE (NEGATIVE); LEUKOCYTE ESTERASE ,URINE 2+ (NEGATIVE); NITRITE,URINE POSITIVE (NEGATIVE); PROTEIN,URINE NEGATIVE (NEGATIVE)
--- NOTE | 2021-02-14 04:55 | ED GU-Female ---
General Chief Complaint: - Urinary Stated Complaint: URINE COTTO Nursing Triage Note: burning with urination, urinary frequency, right flank pain x1 week. Nursing Sepsis Screen: No Definite Risk Source: patient, family Exam Limitations: language barrier (daughter present to translate) (MARIZOL DANIELS STUDENT) History of Present Illness Date Seen by Provider: Feb 14, 2021 Time Seen by Provider: 04:25 Initial Comments Pt presents to ED via POV with daughter at bedside with complaint of pain/burning with urination and R lower back pain. She only speaks indonesian; her daughter is present and translating. She states that about 5 days ago she started having itching with urination which progressed to R lower back pain that radiates through her abd into her groin. He had an episode of hematuria yesterday. She has a history of similar symptoms, with the latest episode about 3mos ago where she was seen in the ED and given antibiotics and pain medication. She also has a history of kidney stones 10 years ago. She has been having some nausea w/o vomiting. She denies other symptoms of chest pain, fevers/chills, SOB. Timing/Duration: week Severity/Quality: severe, burning, sharp Location: right flank Radiation: groin Activities at Onset: none Prior Genitourinary Problems: similar symptoms (history of multiple episodes of similar symptoms) Modifying Factors: Improves With Urinating Associated Symptoms: dysuria; No fever/chills; lower back pain, nausea/vomiting (nausea w/o vomiting), urinary frequency (MARIZOL DANIELS STUDENT) Allergies and Home Medications Allergies Coded Allergies: ceftriaxone (Unverified Allergy, Unknown, 09/27/19) Home Medications Alprazolam 0.25 Mg Tablet, 0.25 MG PO BID PRN for ANXIETY, (Reported) Atorvastatin Calcium 10 Mg Tablet, 10 MG PO HS, (Reported) Citalopram Hydrobromide 10 Mg Tablet, 10 MG PO DAILY, (Reported) Cyclobenzaprine HCl 10 Mg Tablet, 10 MG PO Q8H PRN for SPASMS Prescribed by: HERNANDEZ HURLEY on 06/22/18 0420 Cyclobenzaprine HCl 10 Mg Tablet, 10 MG PO Q8H PRN for SPASMS Prescribed by: ANATOLIY MARTINEZ on 08/17/19 1734 Cyclobenzaprine HCl 10 Mg Tablet, 10 MG PO Q8H PRN for SPASMS Prescribed by: LYRIC HERNANDEZ on 09/13/20 1848 Empagliflozin 10 Mg Tablet, 10 MG PO DAILY, (Reported) Gabapentin 300 Mg Capsule, 300 MG PO BID, (Reported) Hydrocodone Bit/Acetaminophen 1 Tab Tab, 1 TAB PO Q6H PRN for PAIN-SEVERE Prescribed by: CLARK PRESTON on 04/21/18 1908 Hydrocodone Bit/Acetaminophen 1 Each Tablet, 1-2 EACH PO Q4-6HR PRN for PAIN- MODERATE Prescribed by: IMAN PANG on 10/04/18 2210 Hydrocodone/Acetaminophen 1 Each Tablet, 1 EACH PO Q6H PRN for PAIN-BREAKTHROUGH Prescribed by: LYRIC HERNANDEZ on 09/13/20 192 Hydrocodone/Acetaminophen 1 Each Tablet, 1 TAB PO Q6H PRN for PAIN-MODERATE (5- 7) Prescribed by: LYRIC HERNANDEZ on 01/30/212132 Hydrocodone/Acetaminophen 1 Each Tablet, 1 TAB PO Q6H PRN for PAIN-MODERATE (5- 7) Prescribed by: ANTONIA COSBY on 01/30/212136 Hydroxyzine Pamoate 25 Mg Capsule, 25 MG PO Q6H PRN for ANXIETY Prescribed by: HERNANDEZ HURLEY on 06/22/18 0420 Hydroxyzine Pamoate 25 Mg Capsule, 25 MG PO Q8H PRN for ANXIETY Prescribed by: ANU CHAPMAN on 11/03/192106 Insulin Determir 1,000 Units/10 Ml Soln, 20 UNITS SQ BID, (Reported) Lorazepam 0.5 Mg Tablet, 0.5 MG PO BID PRN for ANXIETY Prescribed by: ANGELINE MARLEY on 06/02/20 222 Losartan Potassium 25 Mg Tablet, 25 MG PO DAILY, (Reported) Meloxicam 7.5 Mg Tablet, 7.5 MG PO DAILY, (Reported) Metformin HCl 750 Mg Tab.er.24h, 750 MG PO BID, (Reported) LAST FILLED IN JANUARY Naproxen 500 Mg Tablet, 500 MG PO BID Prescribed by: HERNANDEZ HURLEY on 12/26/18 0125 Naproxen 500 Mg Tablet, 500 MG PO BID Prescribed by: ANATOLIY MARTINEZ on 08/17/19 1734 Ondansetron 4 Mg Tab.rapdis, 4 MG PO Q6H PRN for NAUSEA/VOMITING-1ST LINE Prescribed by: HERNANDEZ HURLEY on 09/18/18 8903 Propranolol HCl 40 Mg Tablet, 20 MG PO BID, (Reported) TAKES 1/2 (40MG) TABLET Sulfamethoxazole/Trimethoprim 1 Each Tablet, 1 EACH PO BID Prescribed by: ANGELINE MARLEY on 06/02/202227 Patient Home Medication List Home Medication List Reviewed: Yes (MARIZOL DANIELS) Review of Systems Review of Systems Constitutional: No chills, No fever EENTM: No hearing loss, No vision loss, No mouth pain Respiratory: No cough, No short of breath Cardiovascular: No chest pain, No edema Gastrointestinal: RLQ, LLQ, abdominal pain; No constipation, No diarrhea; nausea; No vomiting Genitourinary: burning, dysuria, frequency, flank pain, hematuria Musculoskeletal: back pain (R lower back); No joint pain, No muscle pain Skin: No change in color, No rash Psychiatric/Neurological: Denies Headache, Denies Numbness, Denies Paresthesia, Denies Tingling (MARIZOL DANIELS) All Other Systemes Reviewed Negative Unless Noted: Yes (MARIZOL DANIELS) Past Aohumdx-Wqdbmv-Psnlyd Hx Past Med/Social Hx: Reviewed Nursing Past Med/Soc Hx (MARIZOL DANIELS) Patient Social History Alcohol Use: Denies Use Smoking Status: Never a Smoker 2nd Hand Smoke Exposure: No Recent Infectious Disease Expo: No Recent Hopitalizations: No (MARIZOL DANIELS) Immunizations Up To Date Tetanus Booster (TDap): Unknown PED Vaccines UTD: No Date of Influenza Vaccine: Jun 16, 2019 (MARIZOL DANIELS) Seasonal Allergies Seasonal Allergies: No (MARIZOL DANIELS) Past Medical History Surgeries: Yes Appendectomy, Section, Gallbladder, Orthopedic, Renal Respiratory: No Cardiac: Yes High Cholesterol, Hypertension, Syncope Neurological: Yes Headaches /Migraines : No 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 Disorders: No 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 Genitourinary: Yes Kidney Stones, UTI-Chronic Gastrointestinal: Yes Pancreatitis Musculoskeletal: Yes Chronic Back Pain Endocrine: Yes Diabetes, Non-Insulin dep HEENT: No Cancer: No Psychosocial: Yes Anxiety, Depression Integumentary: No Blood Disorders: No (MARIZOL DANIELS) Family Medical History Diabetes mellitus 19 FATHER 19 MOTHER Heart Disease, CAD Under 55 Years Old, Diabetes, Hypertension (JEREMIAHMARIZOL [employer] NAILA) Physical Exam Vital Signs Vital Signs - First Documented 02/14/21 04:24 Temp 36.6 Pulse 70 Resp 16 B/P (MAP) 111/74 (86) Pulse Ox 99 O2 Delivery Room Air (HERNANDEZ HURLEY) Vital Signs Capillary Refill : Less Than 3 Seconds (JEREMIAHMARIZOL [employer] NAILA) Height, Weight, BMI Height: 5'4.00" Weight: 140lbs. 0oz. [id number]; 23.00 BMI Method:Estimated General Appearance: WD/WN, moderate distress HEENT: PERRL/EOMI, normal ENT inspection Neck: non-tender, full range of motion, supple, normal inspection Cardiovascular: normal peripheral pulses, regular rate, rhythm, no murmur Respiratory: chest non-tender, lungs clear, normal breath sounds, no respiratory distress, no accessory muscle use Gastrointestinal: normal bowel sounds, soft; No distended, No guarding; tenderness (mild tenderness to lower abd) Rectal: deferred Back: normal inspection, no vertebral tenderness, CVA tenderness (R) (positive Lloyds punch) Extremities: normal range of motion, non-tender, normal inspection, normal capillary refill Neurologic/Psychiatric: no motor/sensory deficits, alert, normal mood/affect, oriented x 3 Skin: normal color, warm/dry Lymphatic: no adenopathy (JEREMIAHMARIZOL [employer] NAILA) Progress/Results/Core Measures Suspected Sepsis Recent Fever Within 48 Hours: No Infection Criteria Present: None New/Unexplained Altered Menta: No Sepsis Screen: No Definite Risk SIRS Temperature: Pulse: 70 Respiratory Rate: 16 Blood Pressure 111 /74 Mean: 86 (JEREMIAH,MARIZOL [employer] NAILA) SIRS (HERNANDEZ HURLEY) Results/Orders Lab Results Laboratory Tests Test 02/14/21 04:27 02/14/21 05:25 Range/Units Urine Color YELLOW Urine Clarity CLOUDY Urine pH 6.0 5-9 Urine Specific [place] 1.010 L 1.016-1.022 Urine Protein NEGATIVE NEGATIVE Urine Glucose (UA) 3+ H NEGATIVE Urine Ketones NEGATIVE NEGATIVE Urine Nitrite POSITIVE H NEGATIVE Urine Bilirubin NEGATIVE NEGATIVE Urine Urobilinogen 0.2 < = 1.0 MG/DL Urine Leukocyte Esterase 2+ H NEGATIVE Urine RBC (Auto) 2+ H NEGATIVE Urine RBC 5-10 H /HPF Urine WBC 50-100 H /HPF Urine Squamous Epithelial Cells 0-2 /HPF Urine Crystals NONE /LPF Urine Bacteria MODERATE H /HPF Urine Casts NONE /LPF Urine Mucus LARGE H /LPF Urine Culture Indicated YES White Blood Count 7.5 4.3-11.0 10^3/uL Red Blood Count 4.45 3.80-5.11 10^6/uL Hemoglobin 12.8 11.5-16.0 g/dL Hematocrit 39 35-52 % Mean Corpuscular Volume 89 80-99 fL Mean Corpuscular Hemoglobin 29 25-34 pg Mean Corpuscular Hemoglobin Concent 33 32-36 g/dL Red Cell Distribution Width 12.5 10.0-14.5 % Platelet Count 227 130-400 10^3/uL Mean Platelet Volume 10.0 9.0-12.2 fL Immature Granulocyte % (Auto) 0 % Neutrophils (%) (Auto) 49 42-75 % Lymphocytes (%) (Auto) 40 12-44 % Monocytes (%) (Auto) 7 0-12 % Eosinophils (%) (Auto) 3 0-10 % Basophils (%) (Auto) 0 0-10 % Neutrophils # (Auto) 3.7 1.8-7.8 10^3/uL Lymphocytes # (Auto) 3.0 1.0-4.0 10^3/uL Monocytes # (Auto) 0.5 0.0-1.0 10^3/uL Eosinophils # (Auto) 0.2 0.0-0.3 10^3/uL Basophils # (Auto) 0.0 0.0-0.1 10^3/uL Immature Granulocyte # (Auto) 0.0 0.0-0.1 10^3/uL Sodium Level 140 135-145 MMOL/L Potassium Level 3.8 3.6-5.0 MMOL/L Chloride Level 105 98-107 MMOL/L Carbon Dioxide Level 23 21-32 MMOL/L Anion Gap 12 5-14 MMOL/L Blood Urea Nitrogen 13 7-18 MG/DL Creatinine 0.68 0.60-1.30 MG/DL Estimat Glomerular Filtration Rate > 60 BUN/Creatinine Ratio 19 Glucose Level 342 H 70-105 MG/DL Calcium Level 9.1 8.5-10.1 MG/DL Corrected Calcium 9.1 8.5-10.1 MG/DL Total Bilirubin 0.3 0.1-1.0 MG/DL Aspartate Amino Transf (AST/SGOT) 15 5-34 U/L Alanine Aminotransferase (ALT/SGPT) 30 0-55 U/L Alkaline Phosphatase 134 40-136 U/L Total Protein 6.1 L 6.4-8.2 GM/DL Albumin 4.0 3.2-4.5 GM/DL (HERNANDEZ HURLEY) My Orders Orders - HERNANDEZ HURLEY Ua Culture If Indicated (02/14/21 04:45) Urine Culture (02/14/21 04:27) Cbc With Automated Diff (02/14/21 05:12) Comprehensive Metabolic Panel (02/14/21 05:12) Ed Iv/Invasive Line Start (02/14/21 05:12) Ns Iv 500 Ml (Sodium Chloride 0.9%) (02/14/21 05:15) Ketorolac Injection (Toradol Injection) (02/14/21 05:15) Ct Abd/Pelvis Wo(Kidney Stone) (02/14/21 05:12) Ciprofloxacin Iv 400mg/200ml (Cipro Iv S (02/14/21 05:15) Insulin (Regular) Human (Novolin R (Per (02/14/21 06:00) Ondansetron Injection (Zofran Injectio (02/14/21 06:15) (HERNANDEZ HURLEY) Medications Given in ED Current Medications Medications Dose Ordered Sig/Olivia Route Start Time Stop Time Status Last Admin Dose Admin Ciprofloxacin/ Dextrose 200 ml @ 200 mls/hr ONCE ONCE IV 02/14/21 05:15 02/14/21 06:14 DC 02/14/21 05:29 200 MLS/HR Insulin Human Regular 7 unit ONCE ONCE SC 02/14/21 06:00 02/14/21 06:01 DC 02/14/21 06:00 7 UNIT Ketorolac Tromethamine 30 mg ONCE ONCE IVP 02/14/21 05:15 02/14/21 05:16 DC 02/14/21 05:29 30 MG Sodium Chloride 500 ml @ 0 mls/hr Q0M ONCE IV 02/14/21 05:15 02/14/21 05:16 DC 02/14/21 05:29 0 MLS/HR (HERNANDEZ HURLEY) Vital Signs/I&O 02/14/21 02/14/21 02/14/21 02/14/21 04:24 05:29 06:25 06:39 Temp 36.6 36.6 36.5 36.2 Pulse 70 58 63 Resp 16 18 19 B/P (MAP) 111/74 (86) 129/64 134/61 (85) Pulse Ox 99 100 98 O2 Delivery Room Air Room Air Room Air (HERNANDEZ HURLEY) Vital Signs/I&O Capillary Refill : Less Than 3 Seconds (MARIZOL DANEILS MED STUDENT) Blood Pressure Mean: 86 Progress Note #1: Time: 05:13 Progress Note I attest that I saw this patient alongside the medical student and agree with his documented history, physical exam and review of systems except as otherwise noted. Patient is having some significant right flank pain with evidence of UTI on UA. She has a history of kidney stones. She has costovertebral tenderness to percussion so we discussed doing a CT without IV contrast. We will give her little bit IV fluids some Toradol for discomfort and check some labs as pyelonephritis is also in the differential. Ciprofloxacin IV x1. Progress Note #2: Time: 06:04 Progress Note Patient has some borderline pyelonephritis and hyperglycemia. We explained to her that without getting her blood sugars under control of the incredibly difficult to get the urinary tract infection under control. We did offer her stay in the hospital and after some deliberation she decided she would like to stay. We will talk to her primary care team. She is having some nausea so Zofran was ordered. 7 units of regular insulin were ordered. She only takes Levemir 10 units twice daily at baseline. (HERNANDEZ HURLEY) Diagnostic Imaging Diagonstic Imaging: CT (Without IV contrast kidney stone study) Plain Films/CT/US/NM/MRI: abdomen, pelvis Comments [facility], [place] NAME: ONURNOENADIRAJAMEEL WAGNER [facility] REC#: [id number] PT STATUS: ADM Leonidas : 1970 PHYSICIAN: HERNANDEZ HURLEY MD ADMIT DATE: 02/14/21/4TH Draft Date of Exam:02/14/21 CT ABD/PELVIS WO(KIDNEY STONE) CT ABD/PELVIS WO(KIDNEY STONE) TECHNIQUE: Unenhanced CT imaging of the abdomen and pelvis was performed. 2-D reformats are created and submitted for interpretation. Automatic exposure controls were utilized to optimize patient dose. INDICATION: Right flank pain. Burning with urination. COMPARISON: 06/02/2020 FINDINGS: Evaluation of the abdominal viscera is mildly limited without contrast. Lower chest: The lung bases are clear. No pericardial or pleural effusion. Peritoneum: No free intraperitoneal air or fluid. Liver and biliary system: The liver is enlarged measuring 20 cm in length. Unchanged diffuse hypoattenuation of the liver indicative of hepatic steatosis. Cholecystectomy. Spleen and Pancreas: Spleen is stable in size measuring approximately 11 cm. No focal splenic lesion. Unenhanced pancreas is grossly normal. Adrenals: Normal. tract: No renal or ureteral calculi. No obstructive uropathy. There are few phleboliths within the pelvis that are unchanged. No stones within the urinary bladder. GI tract: Stomach is decompressed. No bowel obstruction. No pericolonic inflammatory changes. Sigmoid colon diverticulosis without diverticulitis. Normal appendix. Vasculature and Lymph nodes: Normal caliber aorta. No abdominal or pelvic lymphadenopathy. Musculoskeletal: No concerning osseous lesion. IMPRESSION: 1. No urinary tract calculi or obstructive uropathy. There are a few scattered phleboliths within the pelvis. 2. Unchanged hepatomegaly with diffuse steatosis. Dictated on workstation # [id number] Dict: 02/14/21 0548 Trans: 02/14/21 0623 LUZ MARINA [id number] Interpreted by: LAKIA DAWN MD Electronically signed by: Reviewed: Reviewed Night [facility] Study, Reviewed by Me (HERNANDEZ HURLEY) Departure Communication (Admissions) Time/Spoke to Admitting Phy: 05:30 Discussed the case with Dr. Barreto and he agrees to observe the patient, control blood sugar and antibiotics. (HERNANDEZ HURLEY) Impression Primary Impression: Hyperglycemia Additional Impression: Urinary tract infection Qualified Codes: N10 - Acute pyelonephritis Disposition: ADMITTED INPATIENT Condition: Stable Admissions Decision to Admit Reason: Admit from ER (General) Decision to Admit/Date: Feb 14, 2021 Time/Decision to Admit Time: 05:30 (HERNANDEZ HURLEY) Departure-Patient Inst. [place]: [facility] [place]) Primary Care Physician MARIZOL DANIELS MED STUDENT Feb 14, 2021 04:55 HERNANDEZ HURLEY Feb 14, 2021 05:14
[2021-02-14 05:02] LABS: BACTERIA,URINE MODERATE /HPF; SQUAMOUS EPITHELIAL CELL,UR 0-2 /HPF; WBC,URINE 50-100 /HPF
[2021-02-14] MEDS ORDERED: NS IV 500 ML 500 ML IV ONE (05:15)
[2021-02-14] MEDS ORDERED: CIPROFLOXACIN IV 400MG/200ML 200 ML IV ONE (05:15)
[2021-02-14] MEDS ORDERED: KETOROLAC 30 MG/ML VIAL IVP ONE (05:15)
[2021-02-14 05:35] LABS: BASOPHILS % (AUTO) 0 % (0-10); EOSINOPHILS # (AUTO) 0.2 10^3/uL (0.0-0.3); EOSINOPHILS % (AUTO) 3 % (0-10); HEMATOCRIT 39 % (35-52); HEMOGLOBIN 12.8 g/dL (11.5-16.0); LYMPHOCYTES % (AUTO) 40 % (12-44); MEAN CORPUSCULAR HEMOGLOBIN 29 pg (25-34); MEAN CORPUSCULAR HGB CONC 33 g/dL (32-36); MEAN CORPUSCULAR VOLUME 89 fL (80-99); MONOCYTES # (AUTO) 0.5 10^3/uL (0.0-1.0); MONOCYTES % (AUTO) 7 % (0-12); NEUTROPHILS # (AUTO) 3.7 10^3/uL (1.8-7.8); NEUTROPHILS % (AUTO) 49 % (42-75); PLATELET COUNT 227 10^3/uL (130-400); WHITE BLOOD COUNT 7.5 10^3/uL (4.3-11.0)
[2021-02-14 05:43] LABS: CHLORIDE 105 MMOL/L (98-107); POTASSIUM 3.8 MMOL/L (3.6-5.0); SODIUM 140 MMOL/L (135-145)
[2021-02-14 05:44] LABS: CALCIUM 9.1 MG/DL (8.5-10.1)
[2021-02-14 05:45] LABS: GLUCOSE 342 MG/DL (70-105); TOTAL PROTEIN 6.1 GM/DL (6.4-8.2)
[2021-02-14 05:46] LABS: CARBON DIOXIDE 23 MMOL/L (21-32)
[2021-02-14 05:47] LABS: BILIRUBIN,TOTAL 0.3 MG/DL (0.1-1.0)
[2021-02-14 05:49] LABS: ALKALINE PHOSPHATASE 134 U/L (40-136); CREATININE SERUM 0.68 MG/DL (0.60-1.30); GFR ESTIMATED > 60
[2021-02-14 05:50] LABS: BUN/CREATININE RATIO 19
[2021-02-14 05:52] LABS: ALANINE AMINOTRANSFERASE 30 U/L (0-55)
[2021-02-14] MEDS ORDERED: inSUlin (REGULAR) HUMAN 1 UNIT/0.01 ML (CHARGE PER UNIT) SC ONE (06:00)
[2021-02-14] MEDS ORDERED: ONDANSETRON 4 MG/2 ML (SDV) Z0FRAN IVP ONE (06:15)
--- NOTE | 2021-02-14 06:25 | Diagnostic Imaging Report ---
CT ABD/PELVIS WO(KIDNEY STONE) TECHNIQUE: Unenhanced CT imaging of the abdomen and pelvis was performed. 2-D reformats are created and submitted for interpretation. Automatic exposure controls were utilized to optimize patient dose. INDICATION: Right flank pain. Burning with urination. COMPARISON: 06/02/2020 FINDINGS: Evaluation of the abdominal viscera is mildly limited without contrast. Lower chest: The lung bases are clear. No pericardial or pleural effusion. Peritoneum: No free intraperitoneal air or fluid. Liver and biliary system: The liver is enlarged measuring 20 cm in length. Unchanged diffuse hypoattenuation of the liver indicative of hepatic steatosis. Cholecystectomy. Spleen and Pancreas: Spleen is stable in size measuring approximately 11 cm. No focal splenic lesion. Unenhanced pancreas is grossly normal. Adrenals: Normal. tract: No renal or ureteral calculi. No obstructive uropathy. There are few phleboliths within the pelvis that are unchanged. No stones within the urinary bladder. GI tract: Stomach is decompressed. No bowel obstruction. No pericolonic inflammatory changes. Sigmoid colon diverticulosis without diverticulitis. Normal appendix. Vasculature and Lymph nodes: Normal caliber aorta. No abdominal or pelvic lymphadenopathy. Musculoskeletal: No concerning osseous lesion. IMPRESSION: 1. No urinary tract calculi or obstructive uropathy. There are a few scattered phleboliths within the pelvis. 2. Unchanged hepatomegaly with diffuse steatosis. Dictated by: Dictated on workstation # [id number]
[2021-02-14 06:39] VITALS: BP 134/61
[2021-02-14] MEDS ORDERED: KETOROLAC 15 MG/ML VIAL IV PRN (07:00)
[2021-02-14 08:00] VITALS: BP 116/67
[2021-02-14] MEDS: NS IV 1000 ML 1,000 ML IV SCH ×3 (08:16→23:19)
[2021-02-14] MEDS: ACETAMINOPHEN 325 MG TABLET PO PRN (08:17)
[2021-02-14] MEDS ORDERED: HYDROmorphone 2 MG/ML VIAL (DILAUDID) IV PRN ×2 (08:30)
[2021-02-14] MEDS ORDERED: PHENAZOPYRIDINE 100 MG (PYRIDIUM) TABLET ONE (10:29)
[2021-02-14] MEDS: HYDROmorphone 2 MG/ML VIAL (DILAUDID) IV PRN ×4 (10:43→23:17)
[2021-02-14] MEDS ORDERED: PHENAZOPYRIDINE 100 MG (PYRIDIUM) TABLET PO ONE (10:45)
--- NOTE | 2021-02-14 11:08 | History & Physical-Hospitalist ---
History of Present Illness HPI/Chief Complaint CC: UTI with flank pain HPI: This is a 51yo female of [facility] who presents with pyelonephritis and hyperglycemia. HgbA1C was added. Pt was placed on Cipro due to Rocephin allergy and insulin regimen per sliding scale and will be monitored closely. Pain medication was initiated along with IV fluids. 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 Patients Allergies have been reviewed. Allergies Allergies Coded Allergies ceftriaxone (Unverified Allergy, Unknown, 09/27/19) Past Vabqofk-Prhjgl-Ifppbu Hx Patient Social History Marrital Status: Employed/Student: employed Tobacco Use?: No Smoking Status: Never a Smoker Smokeless Tobacco Frequency: Never a User Use of E-Cig and/or Vaping dev: No Substance use?: No Alcohol Use?: No Pt feels they are or have been: No Immunizations Up To Date Date of Influenza Vaccine: Jun 16, 2019 Tetanus Booster (TDap): Unknown Hepatitis A: No Hepatitis B: No PED Vaccines UTD: No Seasonal Allergies Seasonal Allergies: No Current Status Communicates: Verbally Primary Language: Gibraltarian Preferred Spoken Language: Gibraltarian Is interpretation needed?: Yes Implanted or Applied Medical D: None Past Medical History Surgeries: Appendectomy, Section, Gallbladder, Orthopedic, Renal High Cholesterol, Hypertension, Syncope Headaches /Migraines 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 Sebastian Knee Arthroscopy Lithotripsy Appendectomy Laproscopic Cholecystectomy Section x3 Carpal Tunnel Release Left Heart Cath - 04/21/[address] Sal --> no CAD Family Medical History Diabetes mellitus 19 FATHER 19 MOTHER Heart Disease, CAD Under 55 Years Old, Diabetes, Hypertension Review of Systems Constitutional: see HPI, malaise, weakness Gastrointestinal: abdominal pain, loss of appetite, nausea, vomiting Physical Exam Physical Exam Vital Signs Vital Signs - First Documented 02/14/21 04:24 Temp 36.6 Pulse 70 Resp 16 B/P (MAP) 111/74 (86) Pulse Ox 99 O2 Delivery Room Air Capillary Refill : Less Than 3 Seconds Height, Weight, BMI Height: 5'4.00" Weight: 140lbs. 0oz. 63.657226jt; 24.93 BMI Method:Estimated General Appearance: Anxious, Chronically ill, Mild Distress Eyes: Right Eye Normal Inspection, Right Eye PERRL HEENT: PERRL/EOMI, Normal ENT Inspection, Pharynx Normal, Moist Mucous Membranes Neck: Full Range of Motion, Normal Inspection, Non Tender Respiratory: Chest Non Tender, Lungs Clear, Normal Breath Sounds, No Accessory Muscle Use, No Respiratory Distress Cardiovascular: Regular Rate, Rhythm, No Edema, No Gallop, No JVD, No Murmur, Normal Peripheral Pulses Gastrointestinal: Normal Bowel Sounds, No Organomegaly, No Pulsatile Mass, Non Tender, Soft Back: Normal Inspection, No CVA Tenderness, No Vertebral Tenderness Extremity: Normal Capillary Refill, Normal Inspection, Normal Range of Motion, Non Tender, No Calf Tenderness, No Pedal Edema Neurologic/Psychiatric: Alert, Oriented x3, No Motor/Sensory Deficits, Normal Mood/Affect Skin: Normal Color, Warm/Dry Lymphatic: No Adenopathy Results Results/Procedures Labs Laboratory Tests 02/14/21 05:25 02/15/21 04:23 Patient resulted labs reviewed. Assessment/Plan Admission Diagnosis Assessment: Acute pyelonephritis Severe flank pain N/V DM with elevated sugar Pancreatitis hx HTN NASH Plan: IV abx IVF Admission Status: Observation Diagnosis/Problems Diagnosis/Problems (1) Urinary tract infection Status: Acute Qualifiers: Urinary tract infection type: acute pyelonephritis Qualified Codes: N10 - Acute pyelonephritis (2) Hyperglycemia ALEJANDRO BLOUNT DO Feb 14, 2021 11:08
[2021-02-14] MEDS: inSUlin ASPART (NovoLOG) 1 UNIT/0.01 ML (CHARGE PER UNIT) SC SCH ×3 (11:23→21:14)
[2021-02-14] MEDS: ONDANSETRON 4 MG/2 ML (SDV) Z0FRAN IV PRN ×2 (12:02→18:48)
[2021-02-14 12:40] VITALS: BP 153/77
[2021-02-14] MEDS: PHENAZOPYRIDINE 100 MG (PYRIDIUM) TABLET PO SCH ×2 (13:25→17:54)
[2021-02-14 15:29] VITALS: BP 125/60
[2021-02-14] MEDS: CIPROFLOXACIN 400 MG/D5W 200 ML (PRE-MIX) IV SCH (17:54)
[2021-02-14 19:15] VITALS: BP 149/65
[2021-02-15 00:09] VITALS: BP 112/53
[2021-02-15] MEDS: HYDROmorphone 2 MG/ML VIAL (DILAUDID) IV PRN ×2 (03:13→07:55)
[2021-02-15 03:24] VITALS: BP 138/63
[2021-02-15 04:46] LABS: BASOPHILS % (AUTO) 0 % (0-10); EOSINOPHILS # (AUTO) 0.2 10^3/uL (0.0-0.3); EOSINOPHILS % (AUTO) 3 % (0-10); HEMATOCRIT 34 % (35-52); LYMPHOCYTES # (AUTO) 2.7 10^3/uL (1.0-4.0); LYMPHOCYTES % (AUTO) 40 % (12-44); MEAN CORPUSCULAR HEMOGLOBIN 29 pg (25-34); MEAN CORPUSCULAR HGB CONC 33 g/dL (32-36); MEAN CORPUSCULAR VOLUME 88 fL (80-99); MEAN PLATELET VOLUME 10.5 fL (9.0-12.2); MONOCYTES # (AUTO) 0.5 10^3/uL (0.0-1.0); MONOCYTES % (AUTO) 7 % (0-12); NEUTROPHILS # (AUTO) 3.5 10^3/uL (1.8-7.8); NEUTROPHILS % (AUTO) 50 % (42-75); PLATELET COUNT 214 10^3/uL (130-400); WHITE BLOOD COUNT 6.9 10^3/uL (4.3-11.0)
[2021-02-15 04:54] LABS: ALBUMIN 3.5 GM/DL (3.2-4.5); CHLORIDE 108 MMOL/L (98-107); POTASSIUM 3.7 MMOL/L (3.6-5.0); SODIUM 140 MMOL/L (135-145)
[2021-02-15 04:55] LABS: CALCIUM 8.2 MG/DL (8.5-10.1)
[2021-02-15 04:56] LABS: GLUCOSE 223 MG/DL (70-105); TOTAL PROTEIN 5.3 GM/DL (6.4-8.2)
[2021-02-15 04:57] LABS: CARBON DIOXIDE 21 MMOL/L (21-32)
[2021-02-15 04:58] LABS: BILIRUBIN,TOTAL 0.3 MG/DL (0.1-1.0)
[2021-02-15 05:00] LABS: ALKALINE PHOSPHATASE 71 U/L (40-136); CREATININE SERUM 0.59 MG/DL (0.60-1.30); GFR ESTIMATED > 60
[2021-02-15 05:01] LABS: BUN/CREATININE RATIO 17
[2021-02-15 05:03] LABS: ALANINE AMINOTRANSFERASE 27 U/L (0-55)
[2021-02-15] MEDS: CIPROFLOXACIN 400 MG/D5W 200 ML (PRE-MIX) IV SCH (05:57)
[2021-02-15] MEDS: NS IV 1000 ML 1,000 ML IV SCH ×2 (05:57→12:24)
--- NOTE | 2021-02-15 06:23 | Progress Note - Hospitalist ---
Subjective HPI/CC On Admission Date Seen by Provider: Feb 15, 2021 CC: UTI with flank pain HPI: This is a 51yo female of [facility] who presents with pyelonephritis and hyperglycemia. HgbA1C was added. Pt was placed on Cipro due to Rocephin allergy and insulin regimen per sliding scale and will be monitored closely. Pain medication was initiated along with IV fluids. Objective Exam Vital Signs Vital Signs Date Time Temp Pulse Resp B/P (MAP) Pulse Ox O2 Delivery O2 Flow Rate FiO2 02/15/21 11:25 36.1 68 18 105/68 (80) 97 Room Air Capillary Refill : Less Than 3 Seconds Results/Procedures Lab Laboratory Tests 02/15/21 04:23 Patient resulted labs reviewed. Diagnosis/Problems Diagnosis/Problems (1) Urinary tract infection Status: Acute Qualifiers: Urinary tract infection type: acute pyelonephritis Qualified Codes: N10 - Acute pyelonephritis (2) Hyperglycemia Clinical Quality Measures DVT/VTE Risk/Contraindication: Contraindications-Pharm: Other *list below* Other: hematuria ALEJANDRO BLOUNT DO Feb 15, 2021 06:23
[2021-02-15] MEDS: inSUlin ASPART (NovoLOG) 1 UNIT/0.01 ML (CHARGE PER UNIT) SC SCH ×2 (07:55→11:28)
[2021-02-15] MEDS: PHENAZOPYRIDINE 100 MG (PYRIDIUM) TABLET PO SCH ×2 (07:55→13:42)
[2021-02-15 08:00] VITALS: BP 114/74
[2021-02-15 11:25] VITALS: BP 105/68
[2021-02-15] MEDS ORDERED: HYDR-3817 PO (13:05)
[2021-02-15] MEDS ORDERED: CIPR500T5 PO (13:05)
--- NOTE | 2021-02-15 13:06 | Discharge Summary ---
Discharge Summary Hospital Course Was the Problem List Reviewed?: Yes Problems/Dx: (1) Urinary tract infection Status: Acute Qualifiers: Qualified Codes: N10 - Acute pyelonephritis (2) Hyperglycemia Hospital Course Date of Admission: Feb 14, 2021 at 06:10 Admission Diagnosis : [facility] of [facility]: 02/15/21 Discharge Diagnosis: acute pyelonephritis, flank pain, acute on chronic back pain, DM OOC hga1c 11 Hospital Course: Hospital Course: Pt had a short hospital course. She was admitted for p yelonephritis and hyperglycemia, HgbA1c of 11. Pt was maintained on Insulin per sliding scale and IV medication of Cipro initiated for the pyelonephritis along with a lot of pain medication was required and per her history she has had a lot of Hydrocodone in the past. Overall she was able to eat and drink and managed the pain. She was discharged in improved condition with close follow up with [facility]. Labs and Pending Lab Test: Laboratory Tests 02/14/21 15:30: Glucometer 193H 02/14/21 20:24: Glucometer 239H 02/15/21 04:23: White Blood Count 6.9, Red Blood Count 3.80, Hemoglobin 11.0L, Hematocrit 34L, Mean Corpuscular Volume 88, Mean Corpuscular Hemoglobin 29, Mean Corpuscular Hemoglobin Concent 33, Red Cell Distribution Width 12.5, Platelet Count 214, Mean Platelet Volume 10.5, Immature Granulocyte % (Auto) 0, Neutrophils (%) (Auto) 50, Lymphocytes (%) (Auto) 40, Monocytes (%) (Auto) 7, Eosinophils (%) (Auto) 3, Basophils (%) (Auto) 0, Neutrophils # (Auto) 3.5, Lymphocytes # (Auto) 2.7, Monocytes # (Auto) 0.5, Eosinophils # (Auto) 0.2, Basophils # (Auto) 0.0, Immature Granulocyte # (Auto) 0.0, Sodium Level 140, Potassium Level 3.7, Chloride Level 108H, Carbon Dioxide Level 21, Anion Gap 11, Blood Urea Nitrogen 10, Creatinine 0.59L, Estimat Glomerular Filtration Rate > 60, BUN/Creatinine Ratio 17, Glucose Level 223H, Calcium Level 8.2L, Corrected Calcium 8.6, Total Bilirubin 0.3, Aspartate Amino Transf (AST/SGOT) 19, Alanine Aminotransferase (ALT/SGPT) 27, Alkaline Phosphatase 71, Total Protein 5.3L, Albumin 3.5 02/15/21 11:23: Glucometer 199H Microbiology 02/14/21 Urine Culture - Preliminary, Resulted Escherichia coli Home Meds Active Hydrocodone-Acetamin 7.5-325 (Hydrocodone/Acetaminophen) 1 Each Tablet 1 Each PO TID Ciprofloxacin HCl 500 Mg Tablet 500 Mg PO BID Ondansetron Odt (Ondansetron) 4 Mg Tab.rapdis 4 Mg PO Q6H PRN 14 Days Reported Invokana (Canagliflozin) 100 Mg Tablet Meloxicam 7.5 Mg Tablet 7.5 Mg PO DAILY Propranolol HCl 40 Mg Tablet 20 Mg PO BID TAKES 1/2 (40MG) TABLET Jardiance (Empagliflozin) 10 Mg Tablet 10 Mg PO DAILY Celexa (Citalopram Hydrobromide) 10 Mg Tablet 10 Mg PO DAILY Xanax (Alprazolam) 0.25 Mg Tablet 0.25 Mg PO BID PRN Gabapentin 300 Mg Capsule 300 Mg PO BID Lipitor (Atorvastatin Calcium) 10 Mg Tablet 10 Mg PO HS Levemir (Insulin Determir) 1,000 Units/10 Ml Soln 20 Units SQ BID Metformin HCl ER (Metformin HCl) 750 Mg Tab.er.24h 750 Mg PO BID LAST FILLED IN JANUARY Losartan Potassium 25 Mg Tablet 25 Mg PO DAILY Assessment/Pt Instructions [facility] 1 week Discharge Planning: <30 minutes discharge planning Discharge Instructions Discharge Diet: ADA Diet Discharge Physical Examination Vital Signs Vital Signs Date Time Temp Pulse Resp B/P (MAP) Pulse Ox O2 Delivery O2 Flow Rate FiO2 02/15/21 11:25 36.1 68 18 105/68 (80) 97 Room Air General Appearance: No Apparent Distress, WD/WN, Chronically ill Respiratory: Lungs Clear Cardiovascular: Regular Rate, Rhythm Neurologic/Psychiatric: Alert, Oriented x3, No Motor/Sensory Deficits, Normal Mood/Affect Allergies: Coded Allergies: ceftriaxone (Unverified Allergy, Unknown, 09/27/19) Discharge Summary Date of Admission Feb 14, 2021 at 06:10 Date of Discharge Discharge Date: Feb 15, 2021 Admission Diagnosis Assessment: Acute pyelonephritis Severe flank pain N/V DM with elevated sugar Pancreatitis hx HTN NASH Plan: IV abx IVF Discharge Diagnosis (1) Urinary tract infection Status: Acute Qualifiers: Qualified Codes: N10 - Acute pyelonephritis (2) Hyperglycemia Clinical Quality Measures DVT/VTE Risk/Contraindication: Contraindications-Pharm: Other *list below* Other: hematuria ALEJANDRO BLOUNT DO Feb 15, 2021 13:06
[2021-02-15] MEDS ORDERED: ATOR20TA66 PO (13:57)
[2021-02-15] MEDS ORDERED: SITA100T12 PO (13:57)
[2021-02-15] MEDS: ACETAMINOPHEN 325 MG TABLET PO PRN (14:59)
[2021-02-15 15:19] VITALS: BP 105/68
[2021-02-15] MEDS ORDERED: CIPROFLOXACIN 500 MG (CIPRO) TABLET PO SCH (21:00)
== END 2021-02-15 16:00 | disposition home or self-care (01) ==
LOC: EDUNIT# 04:12 → ER 04:17 → 4TH 06:10
PROVIDERS: ADMIT Internal Medicine; ATTEND Internal Medicine
DX: N10 Acute pyelonephritis (principal); N39.0 Urinary tract infection, site not specified; E11.9 Type 2 diabetes mellitus without complications; I10 Essential (primary) hypertension; E78.00 Pure hypercholesterolemia, unspecified; F41.9 Anxiety disorder, unspecified; F32.9 Major depressive disorder, single episode, unspecified; E78.5 Hyperlipidemia, unspecified; Z90.49 Acquired absence of other specified parts of digestive tract; Z87.19 Personal history of other diseases of the digestive system; Z79.891 Long term (current) use of opiate analgesic; Z79.2 Long term (current) use of antibiotics; Z88.1 Allergy status to other antibiotic agents; Z90.89 Acquired absence of other organs; Z98.890 Other specified postprocedural states; Z87.442 Personal history of urinary calculi; Z79.4 Long term (current) use of insulin; Z79.899 Other long term (current) drug therapy; Z78.0 Asymptomatic menopausal state
CPT/HCPCS: 36415; 74176; 80053; 81000; 82947; 83036; 85025; 87077; 87088; 87184; 87186; G0378

== ENCOUNTER 2022-02-25 22:48 | Emergency (ER) | payer MEDICAID ==
[~2022-02-25 22:48] MED LIST changes: +ATOR20TA66 PO; +CLIN-144 PO; -CLIN300C12 PO; +CYCL10TA25 PO; -FLUO20CA46 PO; +FLUO20CA48 PO; +HYDR-3817 PO; -SULF1TAB35 PO; +SULF1TAB38 PO
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
[2022-02-25] MEDS ORDERED: diphenhydrAMINE 50 MG/ML INJ (BENADRYL) IM ONE (23:30)
[2022-02-25] MEDS ORDERED: KETOROLAC 60 MG/2 ML VIAL IM ONE (23:30)
[2022-02-25] MEDS ORDERED: ORPHENADRINE 60 MG/2 ML (NORFLEX) AMP (ED ONLY) IM ONE (23:30)
[2022-02-25 23:45] VITALS: BP 113/51
== END 2022-02-25 23:45 | disposition home or self-care (01) ==
LOC: EDUNIT# 22:48 → ER 22:50
DX: M54.42 Lumbago with sciatica, left side (principal); G89.29 Other chronic pain; Z28.311 Partially vaccinated for COVID-19
CPT/HCPCS: 99284

== ENCOUNTER 2022-06-15 04:15 | Emergency (ER) | payer MEDICAID ==
[2022-06-15] MEDS ORDERED: LACTATED RINGERS 1,000 ML IV ONE ×2 (04:30→05:30)
[2022-06-15] MEDS ORDERED: KETOROLAC 30 MG/ML VIAL IVP PRN (04:30)
[2022-06-15] MEDS ORDERED: PANTOPRAZOLE 40 MG (PROTONIX) VIAL IV ONE (04:30)
[2022-06-15] MEDS ORDERED: ONDANSETRON 4 MG/2 ML (SDV) Z0FRAN IVP ONE (04:30)
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
[2022-06-15 04:45] LABS: BASOPHILS % (AUTO) 0 % (0-10); EOSINOPHILS # (AUTO) 0.2 10^3/uL (0.0-0.3); EOSINOPHILS % (AUTO) 2 % (0-10); HEMATOCRIT 42 % (35-52); HEMOGLOBIN 13.7 g/dL (11.5-16.0); LYMPHOCYTES # (AUTO) 1.7 10^3/uL (1.0-4.0); LYMPHOCYTES % (AUTO) 17 % (12-44); MEAN CORPUSCULAR HEMOGLOBIN 28 pg (25-34); MEAN CORPUSCULAR HGB CONC 33 g/dL (32-36); MEAN CORPUSCULAR VOLUME 86 fL (80-99); MEAN PLATELET VOLUME 10.1 fL (9.0-12.2); MONOCYTES # (AUTO) 0.4 10^3/uL (0.0-1.0); MONOCYTES % (AUTO) 4 % (0-12); NEUTROPHILS # (AUTO) 7.5 10^3/uL (1.8-7.8); NEUTROPHILS % (AUTO) 77 % (42-75); PLATELET COUNT 254 10^3/uL (130-400); WHITE BLOOD COUNT 9.8 10^3/uL (4.3-11.0)
[2022-06-15 04:46] LABS: BILIRUBIN,URINE NEGATIVE (NEGATIVE); CLARITY,URINE CLEAR; COLOR,URINE YELLOW; GLUCOSE, URINE (UA) 3+ (NEGATIVE); KETONES,URINE NEGATIVE (NEGATIVE); LEUKOCYTE ESTERASE ,URINE NEGATIVE (NEGATIVE); NITRITE,URINE NEGATIVE (NEGATIVE); PROTEIN,URINE NEGATIVE (NEGATIVE)
[2022-06-15 04:50] LABS: BACTERIA,URINE TRACE /HPF; WBC,URINE 0-2 /HPF
[2022-06-15 04:58] LABS: ALBUMIN 4.5 GM/DL (3.2-4.5); CHLORIDE 104 MMOL/L (98-107); POTASSIUM 3.5 MMOL/L (3.6-5.0); SODIUM 144 MMOL/L (135-145)
[2022-06-15 04:59] LABS: CALCIUM 9.4 MG/DL (8.5-10.1)
[2022-06-15 05:00] LABS: GLUCOSE 124 MG/DL (70-105); TOTAL PROTEIN 7.1 GM/DL (6.4-8.2)
[2022-06-15 05:01] LABS: CARBON DIOXIDE 25 MMOL/L (21-32)
[2022-06-15 05:02] LABS: BILIRUBIN,TOTAL 0.9 MG/DL (0.1-1.0)
[2022-06-15 05:04] LABS: ALKALINE PHOSPHATASE 83 U/L (40-136); CREATININE SERUM 0.62 MG/DL (0.60-1.30); GFR ESTIMATED 107
[2022-06-15 05:05] LABS: BUN/CREATININE RATIO 32
[2022-06-15 05:07] LABS: ALANINE AMINOTRANSFERASE 18 U/L (0-55); LIPASE > 1200 U/L (8-78)
[2022-06-15 05:29] LABS: TRIGLYCERIDES 68 MG/DL (<150)
[2022-06-15] MEDS ORDERED: HOLD METFORMIN - RECEIVED CONTRAST 20 ML VIAL IV SCH (05:30)
[2022-06-15] MEDS ORDERED: IOHEXOL 350 MG/ML 100 ML (OMNIPAQUE 350) VIAL IV ONE (05:30)
[2022-06-15] MEDS ORDERED: fentaNYL INJ 100 MCG/2 ML AMP IVP ONE (05:30)
[2022-06-15] MEDS ORDERED: NS 100 ML (IVPB) BAG IV ONE (05:30)
--- NOTE | 2022-06-15 06:19 | Diagnostic Imaging Report ---
PROCEDURE: CT abdomen and pelvis with contrast. TECHNIQUE: Multiple contiguous axial images were obtained through the abdomen and pelvis after administration of intravenous contrast. Auto Exposure Controls were utilized during the CT exam to meet ALARA standards for radiation dose reduction. All CT scans use one or more of the following dose optimizing techniques: automated exposure control, MA and/or KvP adjustment based on patient size and exam type or iterative reconstruction. INDICATION: 52-year-old female presents with body aches, chills, vomiting. COMPARISONS: None FINDINGS: Lung bases show some minimal subpleural dependent atelectatic infiltrates but no confluent consolidations. Cardiac contour is normal. Liver shows uniform attenuation. There is mild intrahepatic ductal prominence. Gallbladder surgically absent. Spleen and GE junction are normal. Stomach and duodenal sweep are unremarkable. Pancreas shows sharp margins. Adrenals are normal. Kidneys appear normal in size, position and contour with symmetrical perfusion of contrast. There is no hydronephrosis or hydroureter. Both ureters are seen intermittently through their course and appear unremarkable. Bladder is unremarkable. Few pelvic phleboliths are seen. Uterus and adnexa are also normal. Nonopacified loops of small bowel show a few fluid-filled loops but overall grossly unremarkable. Large bowel contains fecal material and gas. Appendix is normal. There is scattered diverticula left colon with sigmoid diverticulosis but no evidence of acute diverticulitis. There is no free air, free fluid or adenopathy. Visualized vasculature shows normal caliber of aorta, iliac and femoral arteries. There is some focal fat stranding in the left abdominal subcutaneous fat nonspecific. This may be associated previous scar. Bone windows show no overall gross abnormalities. IMPRESSION: 1. Slight prominence of the intrahepatic ducts and common duct. The common duct, however is patent to the ampulla. The gallbladder is surgically absent. 2. No evidence of obstructive uropathy or appendicitis. No areas of peritoneal inflammation seen. 3. A few fluid-filled loops of small bowel are nonspecific. An element of mild enteritis is not excluded. 4. The left colon and sigmoid colon diverticulosis but no evidence of acute diverticulitis. 5. Few subpleural dependent atelectatic infiltrates in the lower lobes but no confluent consolidations. Additional nonemergent findings as described above. Dictated by: Dictated on workstation # [id number]
[2022-06-15] MEDS ORDERED: ACHD5005 PO (07:18)
[2022-06-15] MEDS ORDERED: ONDA4TAB11 SL (07:21)
[2022-06-15 07:29] VITALS: BP 95/43
== END 2022-06-15 07:34 | disposition home or self-care (01) ==
LOC: EDUNIT# 04:15 → ER 04:17
DX: K85.90 Acute pancreatitis without necrosis or infection, unspecified (principal); Z90.49 Acquired absence of other specified parts of digestive tract; Z20.822 Contact with and (suspected) exposure to COVID-19
CPT/HCPCS: 74177; 80053; 81000; 83690; 84478; 85025; 86141; 87636; 99284; G0480; 36415; 80320

== ENCOUNTER → 2022-06-18 | Outpatient (CLI) | payer MEDICAID ==
[~2022-06-18] MED LIST changes: +ONDA4TAB11 SL
[2022-06-18 13:31] LABS: BASOPHILS % (AUTO) 1 % (0-10); EOSINOPHILS # (AUTO) 0.1 10^3/uL (0.0-0.3); EOSINOPHILS % (AUTO) 2 % (0-10); HEMATOCRIT 44 % (35-52); HEMOGLOBIN 14.1 g/dL (11.5-16.0); LYMPHOCYTES # (AUTO) 1.8 10^3/uL (1.0-4.0); LYMPHOCYTES % (AUTO) 27 % (12-44); MEAN CORPUSCULAR HEMOGLOBIN 28 pg (25-34); MEAN CORPUSCULAR HGB CONC 32 g/dL (32-36); MEAN CORPUSCULAR VOLUME 86 fL (80-99); MEAN PLATELET VOLUME 10.1 fL (9.0-12.2); MONOCYTES # (AUTO) 0.4 10^3/uL (0.0-1.0); MONOCYTES % (AUTO) 6 % (0-12); NEUTROPHILS # (AUTO) 4.2 10^3/uL (1.8-7.8); NEUTROPHILS % (AUTO) 64 % (42-75); PLATELET COUNT 267 10^3/uL (130-400); WHITE BLOOD COUNT 6.5 10^3/uL (4.3-11.0)
[2022-06-18 13:47] LABS: ALANINE AMINOTRANSFERASE 29 U/L (0-55); ALBUMIN 4.6 GM/DL (3.2-4.5); ALKALINE PHOSPHATASE 93 U/L (40-136); BILIRUBIN,TOTAL 0.4 MG/DL (0.1-1.0); BUN/CREATININE RATIO 22; CALCIUM 10.1 MG/DL (8.5-10.1); CARBON DIOXIDE 24 MMOL/L (21-32); CHLORIDE 106 MMOL/L (98-107); CREATININE SERUM 0.69 MG/DL (0.60-1.30); GFR ESTIMATED 104; GLUCOSE 178 MG/DL (70-105); SODIUM 142 MMOL/L (135-145); TOTAL PROTEIN 7.4 GM/DL (6.4-8.2)
[2022-06-18 13:48] LABS: AMYLASE 111 U/L (25-125); LIPASE 120 U/L (8-78)
== END ==
LOC: LAB 12:57
PROVIDERS: ATTEND Family Medicine
DX: Z01.89 Encounter for other specified special examinations (principal)
CPT/HCPCS: 36415; 80053; 82150; 83690; 85025

== ENCOUNTER → 2022-10-15 | Outpatient (CLI) | payer MEDICAID ==
--- NOTE | 2022-10-15 16:03 | Diagnostic Imaging Report ---
Indication: Low back pain extending into the left leg. Time of Exam: 10:16 AM 3 views of the lumbar spine show normal curvature and alignment. Vertebral body heights and disc spaces are well-maintained apart from mild disc space narrowing at L5-S1 level. There is no fracture or subluxation. IMPRESSION: Mild lower lumbar spondylosis. No acute bony abnormality is detected. Dictated by: Dictated on workstation # [id number]
== END ==
LOC: RAD 09:49
PROVIDERS: ATTEND Family Medicine
DX: M47.816 Spondylosis without myelopathy or radiculopathy, lumbar region (principal)
CPT/HCPCS: 72100

== ENCOUNTER 2022-11-06 22:19 | Emergency (ER) | payer MEDICAID ==
[2022-11-06] MEDS ORDERED: KETOROLAC 30 MG/ML VIAL IVP STA (22:39)
[2022-11-06] MEDS ORDERED: LACTATED RINGERS 1,000 ML IV ONE (22:45)
[2022-11-06 22:46] LABS: BILIRUBIN,URINE NEGATIVE (NEGATIVE); CLARITY,URINE CLEAR; COLOR,URINE YELLOW; GLUCOSE, URINE (UA) NEGATIVE (NEGATIVE); KETONES,URINE NEGATIVE (NEGATIVE); LEUKOCYTE ESTERASE ,URINE NEGATIVE (NEGATIVE); NITRITE,URINE NEGATIVE (NEGATIVE); PROTEIN,URINE NEGATIVE (NEGATIVE)
[2022-11-06 22:56] LABS: BACTERIA,URINE FEW /HPF
[2022-11-06] MEDS ORDERED: morphine INJ 10 MG/ML 1ML (SYR OR VIAL) IVP STA ×2 (23:08→23:52)
[2022-11-06 23:11] LABS: BASOPHILS % (AUTO) 0 % (0-10); EOSINOPHILS # (AUTO) 0.2 10^3/uL (0.0-0.3); EOSINOPHILS % (AUTO) 3 % (0-10); HEMATOCRIT 37 % (35-52); HEMOGLOBIN 12.3 g/dL (11.5-16.0); LYMPHOCYTES # (AUTO) 3.1 10^3/uL (1.0-4.0); LYMPHOCYTES % (AUTO) 33 % (12-44); MEAN CORPUSCULAR HEMOGLOBIN 29 pg (25-34); MEAN CORPUSCULAR HGB CONC 33 g/dL (32-36); MEAN CORPUSCULAR VOLUME 87 fL (80-99); MEAN PLATELET VOLUME 10.5 fL (9.0-12.2); MONOCYTES # (AUTO) 0.6 10^3/uL (0.0-1.0); MONOCYTES % (AUTO) 6 % (0-12); NEUTROPHILS # (AUTO) 5.4 10^3/uL (1.8-7.8); NEUTROPHILS % (AUTO) 57 % (42-75); PLATELET COUNT 250 10^3/uL (130-400); WHITE BLOOD COUNT 9.4 10^3/uL (4.3-11.0)
[2022-11-06] MEDS ORDERED: ONDANSETRON 4 MG/2 ML (SDV) Z0FRAN IVP ONE (23:15)
[2022-11-06 23:22] LABS: ALBUMIN 4.3 GM/DL (3.2-4.5)
[2022-11-06 23:23] LABS: CALCIUM 9.5 MG/DL (8.5-10.1)
[2022-11-06 23:25] LABS: TOTAL PROTEIN 6.9 GM/DL (6.4-8.2)
[2022-11-06 23:26] LABS: BILIRUBIN,TOTAL 0.4 MG/DL (0.1-1.0)
[2022-11-06 23:28] LABS: CREATININE SERUM 0.64 MG/DL (0.60-1.30)
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
[2022-11-07 01:01] LABS: AMYLASE 325 U/L (25-125)
[2022-11-07] MEDS ORDERED: ONDA4TAB11 PO (01:03)
[2022-11-07] MEDS ORDERED: NITR-65 PO (01:03)
[2022-11-07] MEDS ORDERED: KETO10TA PO (01:03)
[2022-11-07] MEDS ORDERED: RX-NITROFURANTOIN 100 MG (MACROBID) CAP PPK#2 PO STA (01:03)
[2022-11-07] MEDS ORDERED: PHEN-640 PO (01:03)
[2022-11-07 01:10] LABS: LIPASE 701 U/L (8-78)
[2022-11-07] MEDS ORDERED: PHENAZOPYRIDINE 100 MG (PYRIDIUM) TABLET PO ONE (01:15)
[2022-11-07 01:26] LABS: AMPHETAMINE SCREEN, URINE NEGATIVE (NEGATIVE); BARBITURATE SCREEN URINE NEGATIVE (NEGATIVE); BENZODIAZEPINES SCREEN URINE NEGATIVE (NEGATIVE); CANNABINOID SCREEN, URINE NEGATIVE (NEGATIVE); COCAINE SCREEN URINE NEGATIVE (NEGATIVE); METHADONE STAT NEGATIVE (NEGATIVE); OPIATE SCREEN URINE NEGATIVE (NEGATIVE); OXYCODONE STAT NEGATIVE (NEGATIVE); PROPOXYPHENE STAT NEGATIVE (NEGATIVE); TRICYCLIC ANTIDEPRESSANTS SCRE NEGATIVE (NEGATIVE)
[2022-11-07 01:32] VITALS: BP 114/54
--- NOTE | 2022-11-07 06:47 | Diagnostic Imaging Report ---
PROCEDURE: CT urinary tract, rule out kidney stone. TECHNIQUE: Multiple contiguous axial images were obtained through the abdomen and pelvis without the use of intravenous contrast. Auto Exposure Controls were utilized during the CT exam to meet ALARA standards for radiation dose reduction. INDICATION: Flank pain, abdominal pain, history of renal stones. EXAMINATION: CT abdomen and pelvis without contrast 11/06/2022. COMPARISON: 06/15/2022. FINDINGS: Lung bases clear. Mild pneumobilia noted within the left lobe of the liver likely due to previous sphincterotomy. There are clips in the gallbladder fossa. Common duct is dilated but stable from previous imaging. The spleen, adrenal glands and pancreas unremarkable. There is no hydronephrosis. No ureteral stones. No nephrolithiasis. There is minimal left-sided caliectasis. There are findings of mild constipation. There is no ascites. No free air. Areas of nonspecific subcutaneous fat stranding noted along the anterior abdomen likely iatrogenic. Correlate with history. There is no acute osseous abnormality. IMPRESSION: 1. Minimal left-sided caliectasis which may be incidental or due to a recently passed stone correlate with history and urinalysis. No ureteral stones or gordon hydronephrosis appreciated on either side. Otherwise incidental findings as above. Pertinent findings agree with the preliminary report. Dictated by: Dictated on workstation # [id number]
--- NOTE | 2022-11-07 07:31 | Diagnostic Imaging Report ---
EXAMINATION: Abdominal radiographs, single view. DATE: November 06, 2022. CLINICAL INDICATION: 52-year-old female, abdominal and flank pain. COMPARISON: Abdominal radiograph August 20, 2017. COMMENTS: There are no abnormally dilated gas-filled segments of bowel. There is a moderate volume of stool in the right colon. There is no identified free intraperitoneal air, pneumatosis, or portal venous gas on supine assessment. Left-sided pelvic calcifications likely reflect phleboliths. There is no identified abnormal radiodensity overlying the kidneys, expected locations of the ureters, or right lower quadrant. Right upper quadrant surgical clips likely reflect prior cholecystectomy. IMPRESSION: No identified acute abdominal radiographic abnormality. Dictated by: Dictated on workstation # [id number]
== END 2022-11-07 01:32 | disposition home or self-care (01) ==
LOC: EDUNIT# 22:19 → ER 22:21
DX: N39.0 Urinary tract infection, site not specified (principal); E11.9 Type 2 diabetes mellitus without complications; I10 Essential (primary) hypertension; K85.90 Acute pancreatitis without necrosis or infection, unspecified; Z87.442 Personal history of urinary calculi; Z88.1 Allergy status to other antibiotic agents
CPT/HCPCS: 74018; 74176; 80053; 80306; 81000; 82150; 83690; 85025; 99283; G0480; 36415; 80320

== ENCOUNTER 2022-11-26 08:35 | Outpatient (RCR) | payer MEDICAID ==
[~2022-11-26 08:35] MED LIST changes: +KETO10TA PO; +NITR-65 PO; +PHEN-640 PO
== END 2022-12-10 13:14 | disposition home or self-care (01) ==
PROVIDERS: ATTEND Family Medicine
DX: M54.50 Low back pain, unspecified (principal); E11.9 Type 2 diabetes mellitus without complications
CPT/HCPCS: 97163; G0283

== ENCOUNTER → 2023-02-12 | Outpatient (CLI) | payer MEDICAID ==
--- NOTE | 2023-02-13 09:55 | Diagnostic Imaging Report ---
INDICATION: Routine screening. COMPARISON: 10/25/2017. TECHNIQUE: 2D and 3D bilateral screening mammography was performed with CAD. FINDINGS: Scattered fibroglandular densities are identified bilaterally. The parenchymal pattern is stable. There are scattered benign calcifications. No mass or malignant appearing microcalcifications are seen. The axillae are unremarkable. IMPRESSION: No mammographic features suspicious for malignancy are identified. ACR BI-RADS Category 2: Benign findings. Result letter will be mailed to the patient. Note: At least 10% of breast cancer is not imaged by mammography. Dictated by: Dictated on workstation # [id number]
== END ==
LOC: RAD 08:08
PROVIDERS: ATTEND Family Medicine
DX: Z12.31 Encounter for screening mammogram for malignant neoplasm of breast (principal)
CPT/HCPCS: 77063; 77067

== ENCOUNTER → 2023-03-14 | Outpatient (CLI) | payer MEDICAID ==
--- NOTE | 2023-03-14 10:49 | Diagnostic Imaging Report ---
INDICATION: Left breast pain. CORRELATION is made with a diagnostic mammogram earlier the same day. Sonographic interrogation of the area of pain in the outer left breast was performed. No discrete solid or cystic breast mass is identified. No sonographic abnormality is detected. IMPRESSION: BI-RADS Category 1. No sonographic abnormality is detected. ACR BI-RADS Category 1: Negative. Result letter will be mailed to the patient. Note: At least 10% of breast cancer is not imaged by mammography. Dictated by: Dictated on workstation # [id number]
--- NOTE | 2023-03-14 10:53 | Diagnostic Imaging Report ---
Indication: Pain in the lateral left breast. Correlation is made with prior mammograms 02/12/2023 and 10/25/2017. 2-D and 3-D bilateral diagnostic mammography was performed with CAD. Both breasts are heterogeneously dense, limiting the sensitivity of mammography. There are scattered benign calcifications bilaterally. No mass or malignant-appearing microcalcifications are seen. Axillae are unremarkable. IMPRESSION: BI-RADS 0 No mammographic features suspicious for malignancy are identified. Even so, directed sonographic interrogation of the area of pain in the lateral left breast is recommended and will be performed today. ACR BI-RADS Category 0: Incomplete. (Needs additional imaging evaluation). Result letter will be mailed to the patient. Note: At least 10% of breast cancer is not imaged by mammography. Dictated by: Dictated on workstation # [id number]
== END ==
LOC: RAD 09:02
PROVIDERS: ATTEND Family Medicine
DX: N64.4 Mastodynia (principal)
CPT/HCPCS: 76642; 77065; G0279